=== PATIENT | male | born 1970 | race Caucasian/White ===

== ENCOUNTER 2019-06-19 21:10 | Emergency (ER) | payer MEDICARE, MEDICAID, SELFPAY | END 2019-06-19 22:37 | disposition home or self-care (01) | PROVIDERS: Emergency Provider Physician Assistant; Family Provider Family Medicine; Visit Provider Physician Assistant | DX: S50.11XA Contusion of right forearm, initial encounter (principal); W01.0XXA Fall on same level from slipping, tripping and stumbling without subsequent striking against object, initial encounter; I10 Essential (primary) hypertension; E11.9 Type 2 diabetes mellitus without complications; Z87.891 Personal history of nicotine dependence | CPT/HCPCS: 73080; 73090; 96372; 99284; J1885 ==

== ENCOUNTER 2020-02-06 09:20 | Emergency (ER) | payer MEDICARE, MEDICAID, SELFPAY ==
[2020-02-06 09:28] VITALS: BP 114/78; PULSE 79; RESP 18; TEMP 36.6; O2SAT 95; BMI 22.9
--- NOTE | 2020-02-06 09:36 | W.ED.EXTPRO ---
HPI - Extremity Problem General: Chief complaint: Extremity Injury, Upper Stated complaint: L SHOULDER PAIN Time Seen by Provider: 02/06/20 09:34 Source: patient Mode of arrival: ambulatory Limitations: no limitations History of Present Illness: HPI Narrative: Patient is a 50-year-old male who presents to ED today with a complaint of left shoulder pain. Patient tells me on Thursday he awoke with the pain. He cannot think of any activities he would have done the day prior to cause his discomfort. He tells me pain seems to be localized to the shoulder joint and radiates down into his left arm. He denies any previous injuries or surgeries to the shoulder. He does not complain of numbness, tingling, loss of sensation to the arm. He has no neck pain. He has not noticed any color/temperature changes to the extremity. MD Complaint: joint pain Onset (ago): day(s) Pain Consistency: constant Location: left and upper extremity Radiation: distal Exacerbating factors: range of motion Associated symptoms: Reports no associated symptoms; Deny chest pain, fever(s) or rash Review of Systems Const: Denies: fever(s) or chills Eyes: Denies: change in vision Card: Denies: chest pain, palpitations, irregular heart rhythm, orthopnea or acrocyanosis Resp: Denies: dyspnea GI: Denies: abdominal pain Musc: Reports: joint pain (L shoulder ) and limited range of motion; Denies: neck pain, back pain, extremity swelling, joint swelling, joint redness, joint warmth, muscle weakness or decrease in muscle mass Skin/Breast: Denies: rash Neuro: Denies: numbness in extremities, weakness in extremities or sensory changes Physical Exam Const: COMMON NORMALS: no acute distress, patient oriented x3, no limitations and alert Neck/C-Spine: COMMON NORMALS: full ROM CERVICAL SPINE: Yes cervical ROM normal, No Cervical spine tenderness and No Paracervical muscle tenderness OTHER: negative Spurling's testing Extremity: GENERAL: Yes normal exam except as noted LEFT UPPER EXTREMITY: Yes shoulder joint (AC joint/glenohumeral joint) Left shoulder joint: Yes inspection (normal), Yes palpation, Yes ROM (dec ROM past 90 deg flexion/abduction; can IR but pain with ER) and Yes neurovascular exam (normal) Neuro: COMMON NORMALS: patient oriented x3, moves all extremities, no focal motor deficits and no sensory deficits noted SENSORIUM/ORIENTATION: Yes alert Skin: COMMON NORMALS: no rashes or lesions noted GENERAL SKIN EXAM: no rashes or lesions noted Course Vital Signs: Vital signs: Vital Signs Temperature 97.8 F 02/06/20 09:28 Pulse Rate 79 02/06/20 09:28 Respiratory Rate 17 02/06/20 09:40 Blood Pressure 114/78 02/06/20 09:28 Pulse Oximetry 95 02/06/20 09:28 MDM - Extremity (Nontraumatic) Imaging Data^: XR L shoulder: Radiologist's impression: [address] [address] XRay Report Signed Patient: Drew Dixon Unit #: [id number] : 1970 Age/Sex: 50 / M ADM Date: 02/06/20 Loc: ER Room/Bed: Attending Dr: Ordering Provider/Ordering MD: Laquita Cason Date of Service: 02/06/20 Procedure(s): XR shoulder LT min 2V* [id number] Accession Number(s): [id number] Report Number: [id number] WS: [id number] LEFT SHOULDER: 2 VIEW(S) TECHNIQUE: Internal and external rotation. HISTORY: pain; limited ROM COMPARISON: None available. Mild narrowing and hypertrophic bone formation at the AC joint. No fracture. Mild narrowing of the glenohumeral joint. Visualized soft tissues are normal. 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 Dictated By: Germaine Christian DO Signed By: Germaine Christian DO Signed Date/Time: 02/06/20 1016 DD/ 1015 Discharge Plan Discharge Patient Disposition: Home Clinical Impression: Acute pain of left shoulder Condition: Stable Prescriptions: New cyclobenzaprine 10 mg tablet 10 mg PO TID Qty: 14 RF: 0 ibuprofen 800 mg tablet 800 mg PO Q8H PRN (Reason: pain) Qty: 20 RF: 0 Medrol (Mumtaz) 4 mg tablets,dose pack See Rx Instructions .ROUTE .COMPLEX Qty: 21 RF: 0 No Action Multiple Vitamins Tablet 1 tab PO DAILY RF: 0 irbesartan-hydrochlorothiazide 150-12.5 mg tablet 2 tab PO DAILY RF: 0 pravastatin 40 mg tablet 40 mg PO QPM RF: 0 amlodipine 5 mg tablet 5 mg PO DAILY RF: 0 Discharge Orders: Discharge Order (Routine); Ordered 02/06/20 Ordered By: Laquita Cason Referrals: Ryan Martinez [Primary Care Provider] - Patient Instructions: Bursitis - Shoulder, Shoulder Sprain (ED), Tendinitis (ED) Activity Restrictions/Additional Instructions: Please followup with Dr. Martinez in 1-2 weeks for persisting pain. Coding Level of Care Code ED Custom Marine Canvas Fabricator for Chg Fwd Exam Detailed
[2020-02-06 09:40] VITALS: RESP 17
--- NOTE | 2020-02-06 09:53 | XR_ITS ---
WS: [id number] LEFT SHOULDER: 2 VIEW(S) TECHNIQUE: Internal and external rotation. HISTORY: pain; limited ROM COMPARISON: None available. Mild narrowing and hypertrophic bone formation at the AC joint. No fracture. Mild narrowing of the gl enohumeral joint. Visualized soft tissues are normal. 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
[2020-02-06] MEDS: ketorolac 60 mg/2 mL INJ IM (10:03)
[2020-02-06] MEDS: dexamethasone 10 mg/mL INJ 8 MG IM (10:03)
--- NOTE | 2020-02-06 10:06 | PC.NURSE ---
XR at bedside
[2020-02-06 10:23] VITALS: RESP 17
== END 2020-02-06 10:24 | disposition home or self-care (01) ==
PROVIDERS: Emergency Provider Physician Assistant; PCP Family Medicine
DX: M25.512 Pain in left shoulder (principal)
CPT/HCPCS: 12345; 73030; 96372; 99282; 99283; J1100; J1885

== ENCOUNTER 2020-08-13 00:25 | Emergency (ER) | payer MEDICARE, MEDICAID, SELFPAY ==
[2020-08-13] VITALS (27 sets, daily range): BP systolic 141–193; BP diastolic 82–100; PULSE 64–83; RESP 16–25; TEMP 36.7; O2SAT 94–98; BMI 40.1
--- NOTE | 2020-08-13 00:38 | XR_ITS ---
WS: [id number] Exam: XR chest 1V portable [id number] Date/Time of Exam: 08/13/2020 1:01 AM Reason For Exam: cp Comparison 02/14/2019. Findings: The lungs are clear and fully expanded. Costophrenic angles are sharp. No infiltrates. Bronchovascula r relief appears normal. Cardiac silhouette is unremarkable. Bony elements are intact. XR/XR chest 1V portable [id number] IMPRESSION: Unremarkable chest radiograph.
--- NOTE | 2020-08-13 00:38 | ECG_ITS ---
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 Measurements Intervals [place] Rate: 78 P: 47 SD: 197 QRS: 26 QRSD: 110 T: 41 QT: 378 QTc: 433 Interpretive Statements SINUS RHYTHM Compared to ECG 02/11/2019 02:59:14 Incomplete right bundle-branch block no longer present Electronically Signed On 08-13-2020 12:39:47 PAPER WOOD CUTTER by Alise Coronel M.D. [email or web address]/NU/[id number] f
[2020-08-13 01:11] LABS: Basophils # 0.1 10^3/uL (0.0-0.1); Basophils % 0.8 %; Eosinophils # 0.1 10^3/uL (0.0-0.8); Eosinophils % 1.4 %; Hematocrit 39.2 % (42.0-52.0); Hemoglobin 12.8 g/dL (11.7-16.6); Lymphocytes # 1.8 10^3/uL (0.8-4.8); Lymphocytes % 28.3 %; Mean Corpuscular HGB Conc 32.7 g/dL (30.0-36.0); Mean Corpuscular Hemoglobin 28.3 pg (28.0-34.0); Mean Corpuscular Volume 86.7 fL (80-94); Mean Platelet Volume 11.6 fL (7.4-10.4); Monocytes # 0.4 10^3/uL (0.2-0.9); Neutrophils # 3.87 10^3/uL (1.8-7.7); Nucleated Red Blood Cells % 0 %; Platelet Count 200 10^3/cmm (130-400); Red Blood Count 4.52 10^6/uL (4.1-5.3); Red Cell Distribution Width 13.6 % (12.1-15.1); White Blood Count 6.3 10^3/uL (4.0-10.0)
--- NOTE | 2020-08-13 01:24 | CTR_ITS ---
PROCEDURE INFORMATION: Exam: CT Chest With Contrast; Diagnostic Exam date and time: 08/13/2020 1:26 AM Age: 50 years old Clinical indication: Injury or trauma; Fall; Blunt trauma (contusions or hematomas) TECHNIQUE: Imaging protocol: Diagnostic computed tomography of the chest with contrast. Radiation optimization: All CT scans at this facility use at least one of these dose optimization techniques: automated exposure control; mA and/or kV adjustment per patient size (includes targeted exams where dose is matched to clinical indication); or iterative reconstruction. Contrast material: OMNI 300; Contrast volume: 95 ml; Contrast route: INTRAVENOUS (IV); COMPARISON: CTA Chest-Pulmonary Emb 12009 02/10/2019 8:56 PM RADIATION DOSE METRICS: Total DLP (mGy-cm): 1209.19 FINDINGS: Lungs: There is an 8.4 mm pulmonary nodularity seen in the right lower lobe anteriorly appearing slightly more prominent than that present 02/10/2019, previously measuring 6.9 mm. 13.4 mm pulmonary nodularity is seen in the right lower lobe more centrally. Smaller nodularities are seen in the right lower lobe as well. Pleural spaces: Unremarkable. No pneumothorax. No pleural effusion. Heart: Unremarkable. No cardiomegaly. No pericardial effusion. Aorta: Unremarkable. No aortic aneurysm. Lymph nodes: There is stable right hilar adenopathy compared with 02/10/2019. Liver: There is diffuse hypoattenuation of the hepatic parenchyma compatible with fatty infiltration. Bones/joints: Unremarkable. No acute fracture. Soft tissues: Unremarkable. CT/CT chest w con* [id number] IMPRESSION: 1. There are no acute chest findings. 2. There is stable right hilar adenopathy compared with 02/10/2019. 3. There are several small pulmonary nodularities seen in the right lower lobe. A pulmonary nodularity previously measuring 6.9 mm now measures 8.4 mm. A 13.4 mm pulmonary nodularity is seen in the right lower lobe more centrally. Consider PET/CT, or tissue sampling.(Reference: Enrique) 4. Fatty infiltration of the liver REFERENCES: Enrique Conn et al. Guidelines for Management of Incidental Pulmonary Nodules Detected on CT Images: From the Fleischner Society 2017. Radiology. 2017;284(1):228-243. Radiation Dose CTDIVOL = (mGy): DLP = 1209.19 (mGy-cm)
--- NOTE | 2020-08-13 01:24 | CTR_ITS ---
PROCEDURE INFORMATION: Exam: CT Head Without Contrast Exam date and time: 08/13/2020 1:26 AM Age: 50 years old Clinical indication: Injury or trauma; Fall; Blunt trauma (contusions or hematomas); Consciousness not specified TECHNIQUE: Imaging protocol: Computed tomography of the head without contrast. Radiation optimization: All CT scans at this facility use at least one of these dose optimization techniques: automated exposure control; mA and/or kV adjustment per patient size (includes targeted exams where dose is matched to clinical indication); or iterative reconstruction. COMPARISON: No relevant prior studies available. RADIATION DOSE METRICS: Total DLP (mGy-cm): 786.07 FINDINGS: Brain: Normal. No hemorrhage. Unremarkable white matter. No mass effect. Cerebral ventricles: No ventriculomegaly. Bones/joints: Unremarkable. No acute fracture. Paranasal sinuses: Visualized sinuses are unremarkable. No fluid levels. Mastoid air cells: Visualized mastoid air cells are well aerated. Soft tissues: Unremarkable. CT/CT head wo con* [id number] IMPRESSION: No acute intracranial abnormality. Radiation Dose CTDIVOL = (mGy): DLP = 786.07 (mGy-cm)
[2020-08-13 01:35] LABS: Troponin(5th) Baseline 8 ng/L (0-15)
[2020-08-13 01:43] LABS: Alanine Aminotransferase 63 U/L (0-41); Alkaline Phosphatase 72 IU/L (40-130); Anion Gap 14.8 (5-19); Aspartate Amino Transferase 25 U/L (0-40); Blood Urea Nitrogen 14 mg/dL (6-20); Carbon Dioxide 27 mmol/L (22-29); Chloride 98 mmol/L (98-107); Globulin 2.3 g/dL (1.3-4.6); Glomerular Filtration Rate 90.1 mL/min (90-130); Glucose 306 mg/dL (65-115); NT Pro B Type Natriuretic Pept 136 pg/mL (0-125); Osmolality Calculated 294 mOsm/kg (285-295); Potassium 3.8 mmol/L (3.5-5.1); Sodium 136 mmol/L (136-145); Total Bilirubin 0.3 mg/dL (0.15-1.2); Total Protein 6.3 g/dL (6.6-8.7)
[2020-08-13] MEDS: iohexol 300 mg/mL 100 mL Btl IV (01:56)
--- NOTE | 2020-08-13 02:14 | W.ED.CHESTPA ---
HPI - Chest Pain General: Chief Complaint: Chest Pain Stated Complaint: CP Time Seen by Provider: 08/13/20 00:36 History of Present Illness: HPI narrative: 50-year-old male presents with chest discomfort. He states that he was in his recliner this evening, and felt a vice squeezing on his chest. Symptoms are resolved now. He has been dizzy though as well. He states with change in position he gets a head holman . No significant shortness of breath. He did have some nausea. Of note, he fell after slipping on the ice around 830 yesterday morning. He states he landed on his shoulders and upper back but does not believe he hit his head. MD complaint: chest pain Prior episodes: No Onset: during rest Pain location: parasternal Pain radiation: none Severity: moderate Quality: tightness and heaviness Relieving factors: nothing Exacerbating factors: nothing Associated symptoms: Reports diaphoresis and nausea; Deny dyspnea, fever(s), palpitations or vomiting Treatment prior to arrival: none Review of Systems Const: Reports: diaphoresis; Denies: fever(s) Eyes: Denies: change in vision ENMT: Denies: odynophagia, swelling of lips/tongue or sinus pain Card: Reports: chest pain; Denies: palpitations, irregular heart rhythm or edema Resp: Denies: dyspnea GI: Reports: nausea; Denies: vomiting : Denies: difficulty urinating or hematuria Musc: Denies: neck pain or joint warmth Skin/Breast: Denies: rash or erythema Neuro: Reports: dizziness; Denies: headache(s) or vertigo Psych: Denies: anxiety Physical Exam Const: GENERAL APPEARANCE: well developed ORIENTATION/CONSCIOUSNESS: Yes oriented to person, Yes oriented to place and Yes oriented to time HENMT: COMMON NORMALS: normocephalic, external ears normal and Normal external nose present HEAD & SCALP: normocephalic FACE & SINUS: normal facial exam NOSE: Normal external nose present and No nasal discharge present EXTERNAL EAR: Yes external ears normal Eye: COMMON NORMALS: Equal, round and reactive pupils present, EOMs intact bilaterally and conjunctivae normal EYELID: eyelids normal CONJUNCTIVA: Yes conjunctivae normal PUPIL: Yes Equal, round and reactive pupils present Neck/C-Spine: GENERAL: No tracheal deviation Chest: COMMONS NORMALS: normal inspection of the chest CHEST: No tenderness Resp: COMMON NORMALS: clear to auscultation bilaterally EFFORT & INSPECTION: No tachypneic, No respiratory distress, No retractions, No uses accessory muscles and No tracheal deviation AUSCULTATION: clear to auscultation bilaterally, no rhonchi, no wheezes and lung sounds not diminished Cardio: COMMON NORMALS: regular rate and regular rhythm RATE: regular rate RHYTHM: regular rhythm HEART SOUNDS: no murmurs PERIPHERAL PULSES: radial pulses present GI: INSPECTION: No abdominal distension AUSCULTATION: No Hyperactive bowel sounds present and No Hypoactive bowel sounds present PALPATION: No Guarding due to palpation present (GI) and No Rigid due to palpation PERCUSSION: no dullness to percussion and no tympanic to percussion Neuro: SENSORIUM/ORIENTATION: Yes oriented to person, Yes oriented to place and Yes oriented to time Psych: COMMON NORMALS: mental status grossly normal Skin: COMMON NORMALS: no rashes or lesions noted GENERAL SKIN EXAM: no rashes or lesions noted Course Vital Signs: Vital signs: Vital Signs Temperature 98.1 F 08/13/20 03:49 Pulse Rate 76 08/13/20 03:49 Respiratory Rate 16 08/13/20 03:49 Blood Pressure 143/82 08/13/20 03:49 Pulse Oximetry 96 08/13/20 03:49 MDM - Chest Pain MDM Narrative: Medical decision making narrative: 50-year-old male with chest discomfort, resolved currently. EKG shows a normal sinus rhythm. There are no acute ST changes. [place] is normal. He has no prior history of coronary disease. He does have a prior history of diabetes. He is hyperglycemic. Otherwise labs are benign. His troponin did not elevate. Head CT done because of the fall and dizziness. It is negative as well as a chest CT, ensuring that he did not injure his chest in the fall. He has known mediastinal lymphadenopathy with a known lung nodule in the right lung which will be followed up as an outpatient. Lab Data: Labs: Lab Results 08/13/20 08/13/20 08/13/20 Range/Units 00:43 00:43 00:43 WBC 6.3 (4.0-10.0) 10^3/ uL RBC 4.52 (4.1-5.3) 10^6/u L Hgb 12.8 (11.7-16.6) g/dL Hct 39.2 L (42.0-52.0) % MCV 86.7 (80-94) fL MCH 28.3 (28.0-34.0) pg MCHC 32.7 (30.0-36.0) g/dL RDW 13.6 (12.1-15.1) % Plt Count 200 (130-400) 10^3/c mm MPV 11.6 H (7.4-10.4) fL Neut % (Auto) 62.0 % Lymph % (Auto) 28.3 % [place] % (Auto) 7.0 % Eos % (Auto) 1.4 % Baso % (Auto) 0.8 % Neut # (Auto) 3.87 (1.8-7.7) 10^3/u L Lymph # (Auto) 1.8 (0.8-4.8) 10^3/u L [place] # (Auto) 0.4 (0.2-0.9) 10^3/u L Eos # (Auto) 0.1 (0.0-0.8) 10^3/u L Baso # (Auto) 0.1 (0.0-0.1) 10^3/u L Nucleated RBC % (a uto) 0 % Nucleated RBCs # 0.0 /100WBC Sodium 136 (136-145) mmol/L Potassium 3.8 (3.5-5.1) mmol/L Chloride 98 (98-107) mmol/L Carbon Dioxide 27 (22-29) mmol/L Anion Gap 14.8 (5-19) BUN 14 (6-20) mg/dL Creatinine 0.9 (0.7-1.2) mg/dL GFR Calculation 90.1 (90-130) mL/min Glucose 306 H (65-115) mg/dL Calculated Osmolal ity 294 (285-295) mOsm/k g Calcium 9.0 (8.5-10.5) mg/dL Total Bilirubin 0.3 (0.15-1.2) mg/dL AST 25 (0-40) U/L ALT 63 H (0-41) U/L Alkaline Phosphata se 72 (40-130) IU/L Troponin T Baselin e 8 (0-15) ng/L Troponin T 120 Min [place] (0-15) ng/L Delta Troponin T (0-10) ABS# NT-Pro-B Natriuret Pep 136 H (0-125) pg/mL Total Protein 6.3 L (6.6-8.7) g/dL Albumin 4.0 (3.5-5.2) g/dL Globulin 2.3 (1.3-4.6) g/dL 08/13/20 Range/Units 02:42 WBC (4.0-10.0) 10^3/ uL RBC (4.1-5.3) 10^6/u L Hgb (11.7-16.6) g/dL Hct (42.0-52.0) % MCV (80-94) fL MCH (28.0-34.0) pg MCHC (30.0-36.0) g/dL RDW (12.1-15.1) % Plt Count (130-400) 10^3/c mm MPV (7.4-10.4) fL Neut % (Auto) % Lymph % (Auto) % [place] % (Auto) % Eos % (Auto) % Baso % (Auto) % Neut # (Auto) (1.8-7.7) 10^3/u L Lymph # (Auto) (0.8-4.8) 10^3/u L [place] # (Auto) (0.2-0.9) 10^3/u L Eos # (Auto) (0.0-0.8) 10^3/u L Baso # (Auto) (0.0-0.1) 10^3/u L Nucleated RBC % (a uto) % Nucleated RBCs # /100WBC Sodium (136-145) mmol/L Potassium (3.5-5.1) mmol/L Chloride (98-107) mmol/L Carbon Dioxide (22-29) mmol/L Anion Gap (5-19) BUN (6-20) mg/dL Creatinine (0.7-1.2) mg/dL GFR Calculation (90-130) mL/min Glucose (65-115) mg/dL Calculated Osmolal ity (285-295) mOsm/k g Calcium (8.5-10.5) mg/dL Total Bilirubin (0.15-1.2) mg/dL AST (0-40) U/L ALT (0-41) U/L Alkaline Phosphata se (40-130) IU/L Troponin T Baselin e (0-15) ng/L Troponin T 120 Min [place] 8.16 (0-15) ng/L Delta Troponin T 0.16 (0-10) ABS# NT-Pro-B Natriuret Pep (0-125) pg/mL Total Protein (6.6-8.7) g/dL Albumin (3.5-5.2) g/dL Globulin (1.3-4.6) g/dL Discharge Plan Discharge Patient Disposition: Home Clinical Impression: Hyperglycemia Chest pain Qualifiers: Chest pain type: unspecified Qualified Code(s): R07.9 - Chest pain, unspecified Condition: Stable Prescriptions: No Action Multiple Vitamins Tablet 1 tab PO DAILY RF: 0 irbesartan-hydrochlorothiazide 150-12.5 mg tablet 2 tab PO DAILY RF: 0 pravastatin 40 mg tablet 40 mg PO QPM RF: 0 amlodipine 5 mg tablet 5 mg PO DAILY RF: 0 cyclobenzaprine 10 mg tablet 10 mg PO TID Qty: 14 RF: 0 ibuprofen 800 mg tablet 800 mg PO Q8H PRN (Reason: pain) Qty: 20 RF: 0 Medrol (Mumtaz) 4 mg tablets,dose pack See Rx Instructions .ROUTE .COMPLEX Qty: 21 RF: 0 Discharge Orders: Discharge ED (Routine); Ordered 08/13/20 Ordered By: Moris Brennan Referrals: Ryan Martinez [Primary Care Provider] - Discharge Diet: Advance as tolerated Discharge Activity: Resume usual activity Patient Instructions: Chest Pain (ED), Hyperglycemia, Non-Diabetic (ED) Activity Restrictions/Additional Instructions: Return to the emergency department for return of or worsening chest discomfort, shortness of breath, fever, cough, other concerning symptoms. Return also for worsening dizziness mental status changes etc. Follow-up with your doctor, as further testing may be needed. Your blood sugar was high this morning, so further testing and treatment may be needed for that as well. Coding Level of Care Code ED Respiratory Therapy Director for Chg Fwd Exam Comprehensive
--- NOTE | 2020-08-13 02:38 | ECG_ITS ---
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 Measurements Intervals [place] Rate: 69 P: 50 PA: 203 QRS: 24 QRSD: 109 T: 43 QT: 400 QTc: 431 Interpretive Statements SINUS RHYTHM Compared to ECG 08/13/2020 00:34:36 No significant changes Electronically Signed On 08-14-2020 6:13:55 EXERCISE RIDER by Alise Coronel M.D. [id number]
[2020-08-13 03:19] LABS: Troponin 5 2HR 8.16 ng/L (0-15); Troponin 5 2HR Delta 0.16 ABS# (0-10)
== END 2020-08-13 03:49 | disposition home or self-care (01) ==
PROVIDERS: Emergency Provider Emergency Medicine; PCP Family Medicine
DX: R07.9 Chest pain, unspecified (principal); R73.9 Hyperglycemia, unspecified
CPT/HCPCS: 70450; 71045; 71260; 80053; 83880; 84484; 85025; 93005; 99284; Q9967

== ENCOUNTER → 2021-04-19 09:50 | Outpatient (BNVA) | payer MEDICARE, MEDICAID, SELFPAY | PROVIDERS: PCP Family Medicine; Visit Provider Internal Medicine Critical Care Medicine | DX: Z01.812 Encounter for preprocedural laboratory examination (principal); Z20.822 Contact with and (suspected) exposure to COVID-19 | CPT/HCPCS: 87635 ==

== ENCOUNTER 2021-04-23 05:40 | Day surgery (SDC) | payer MEDICARE, MEDICAID, SELFPAY ==
[2021-04-19 09:16] VITALS: BMI 34.8
[2021-04-23] VITALS (8 sets, daily range): BP systolic 109–126; BP diastolic 68–79; PULSE 57–79; RESP 16–20; TEMP 36.1–36.4; O2SAT 97–100
--- NOTE | 2021-04-23 06:22 | ECG_ITS ---
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 Measurements Intervals [place] Rate: 73 P: 49 SD: 266 QRS: 28 QRSD: 109 T: 29 QT: 398 QTc: 439 Interpretive Statements SINUS RHYTHM WITH FIRST DEGREE AV BLOCK INCOMPLETE RIGHT BUNDLE BRANCH BLOCK [90+ ms QRS DURATION, TERMINAL R IN V1/V2, 40+ ms S IN I/aVL/V4/V5/V6] Compared to ECG 08/13/2020 02:45:25 First degree AV block now present Incomplete right bundle-branch block now present Electronically Signed On 04-23-2021 22:15:38 CDT by Alise Coronel M.D. [email or web address]/OM/[id number]
[2021-04-23] MEDS: sodium chloride 0.9% 1,000 ML 30 ML IV (06:28)
[2021-04-23 06:29] LABS: Glucose Point of Care 120 mg/dL (70-110)
--- NOTE | 2021-04-23 06:49 | ANES.PREANE2 ---
Pre-Anesthetic Assessment Pre-Anesthetic Assessment: Height/Weight: Height 1.78 m Weight 110.223 kg Temp Pulse Resp BP Pulse Ox 97.5 F L 73 18 124/79 99 04/23/21 06:14 04/23/21 06:14 04/23/21 06:14 04/23/21 06:14 04/23/21 06:14 Preop Diagnosis: Mediastinal and hilar lymphadenopathy Proposed Procedure: Operation Date: 04/23/21 07:00 Proposed Procedures p Ebus [id number] R91.1(Not Applicable) - Bipjaron Mcmillan MD Was Beta Nolan taken within 24 hours: N/A Was Clonidine taken within 24 hours: N/A Last intake: Intake Last Liquid Date 04/22/21 Last Liquid Time 21:00 Last Solid Date 04/22/21 Last Solid Time 21:00 Social: Social History: No tobacco Comment: Distant Hx smoking Exam: Pre-Anes Outpt Exam: alert, oriented x 3, clear to auscultation bilaterally and regular rate & rhythm Airway: Submandibular: WNL Cervical ROM: WNL MP: 2 Dentition: Full History/ROS: No significant history except as noted and No significant complaints Pulmonary: Comments: R lung mass CV/HEM: CV/HEM: HTN : : None reported Hepatic: Hepatic: None reported GI: GI: None reported Metabolic: Metabolic: DM and Morbid obesity Musc/skel: Musc/skel: None reported Neuropsych: Neuropsych: None reported Anesthetic Plan: ASA status: 3 Anesthesia: Anesthesia Evaluation and General Risk of > 500 ml blood loss (7ml/kg in children): No Meds/Allergies Current Medications: Current Medications Generic Name Dose Route Start Last Admin Trade Name Freq PRN Reason Stop Dose Admin Sodium Chloride 1,000 mls @ 30 ml s/hr 04/23/21 06:00 04/23/21 06:28 Sodium Chloride 0.9% IV 04/24/21 05:59 30 mls/hr .Q24H MYLENE Administration PFSH Anesthesia PFSH: Medical History HTN (hypertension) Hyperlipidemia Lung nodule Type 2 diabetes mellitus Surgical History H/O knee surgery H/O rhinoplasty H/O shoulder surgery History of appendectomy History of back surgery History of gastric surgery Family History Family/Other Diabetes Grandfather Heart disease Grandmother Cancer Leukemia Social History Quit status (tobacco): has quit using tobacco Year quit tobacco: 2001 Former quit date comment: Hx of 1 PPD x 12 Years Second hand smoke exposure: No Smoking risk assessment/counseling performed?: No Alcohol intake: current Alcohol intake frequency: holidays/special occasions only Counseling given: No Counseling given: No Lives independently: Yes Household members: family Marital status: Single Current occupational status: disabled History of recent travel: No Current gender identity: Male Data Anesthesia CBC & Chem 7: 04/23/21 06:25 Other Labs: Laboratory Results - last 48 hr 04/23/21 06:26 POC Glucose 120 H Cardiac Studies: No Data to Display
--- NOTE | 2021-04-23 06:53 | W.PM.OPSUD ---
Surgery/Procedure H&P Update DATE OF PROCEDURE: April 23, 2021 DATE H&P PERFORMED: 04/15/21 H&P UPDATE INFORMATION: I have reviewed H&P completed within last 30 days, I have examined patient prior to procedure and No changes to prior documentation PREOP DIAGNOSIS: Mediastinal and hilar lymphadenopathy PRIMARY INDICATION FOR PROCEDURE: Mediastinal and hilar lymphadenopathy PLANNED PROCEDURE: Bronchoscopy inspection of the airway, possible endobronchial biopsies, bronchoalveolar lavage, endobronchial sound guided transbronchial needle aspiration of lymph nodes and control of bleeding. Operation Date: 04/23/21 07:00 Proposed Procedures p Ebus [id number] R91.1(Not Applicable) - Bipjaron Mcmillan MD
[2021-04-23 07:12] LABS: Anion Gap 11.6 (5-19); Blood Urea Nitrogen 19 mg/dL (6-20); Calcium 8.7 mg/dL (8.5-10.5); Carbon Dioxide 26 mmol/L (22-29); Chloride 104 mmol/L (98-107); Glomerular Filtration Rate 119.9 mL/min (90-130); Glucose 128 mg/dL (65-115); Osmolality Calculated 290 mOsm/kg (285-295); Potassium 3.6 mmol/L (3.5-5.1); Sodium 138 mmol/L (136-145)
[2021-04-23] MEDS: lidocaine 1% INJ 20 mL XX (07:15)
--- NOTE | 2021-04-23 07:55 | PM.OP ---
Operative Report Date of procedure: April 23, 2021 Pre-op Diagnosis: Mediastinal and hilar lymphadenopathy Post-op diagnosis: same Brief History: This is a 51-year-old gentleman with mediastinal right hilar lymphadenopathy coming in for bronchoscopic evaluation Procedure: Name of the procedure: Bronchoscopy with inspection of the airway, possible bronchoalveolar lavage, endobronchial biopsies, transbronchial biopsies, endobronchial ultrasound-guided transbronchial needle aspiration of lymph nodes and control of bleeding. Indication: Mediastinal hilar lymphadenopathy Anesthesia: General anesthesia. Local anesthesia: The felipe in the right and left mainstem bronchi were anesthetized with 1% lidocaine, 3 mL. Description of the procedure: The procedure was explained to the patient and the consent was obtained. The patient was brought to the OR. The patient underwent endotracheal intubation for general anesthesia. Following induction of general anesthesia, the bronchoscope was advanced through the ET tube. The lower trachea appeared to be normal. The felipe was sharp. The felipe, the right and left mainstem bronchi are anesthetized with 1% lidocaine. In a systematic manner bilateral bronchial tree was then examined. The bronchoscope was advanced into the left mainstem bronchus. The left upper lobe, lingula and left lower lobe bronchi were examined up to the third subsegmental level and no abnormalities were identified. The bronchoscope was then introduced into the right mainstem bronchus. The right upper lobe, right middle lobe and right lower lobe bronchi were examined up to the third subsegmental level and no abnormalities were identified. The endobronchial ultrasound was introduced through the ET tube. Lymphadenopathy involving the subcarinal and right hilar lymph node was identified. There is no lymphadenopathy in station 4R, 10 R lymph node stations. Fine-needle aspiration was performed from station 7 and 11 R. Samples: 1. The transbronchial needle aspiration of the aforementioned lymph node groups were sent for histopathology. Complications: There was no immediate complications.
== END 2021-04-23 08:57 | disposition home or self-care (01) ==
PROVIDERS: Anesthesiology; PCP Family Medicine; Visit Provider Internal Medicine Critical Care Medicine
PROC: BB4BZZZ Ultrasonography of Pleura (ICD-10-PCS; principal; 2021-04-23 07:00)
PROC: 0BJ08ZZ Inspection of Tracheobronchial Tree, Via Natural or Artificial Opening Endoscopic (ICD-10-PCS; CPT 31622; 2021-04-23 07:00)
DX: R59.0 Localized enlarged lymph nodes (principal); R91.8 Other nonspecific abnormal finding of lung field; I10 Essential (primary) hypertension; E78.5 Hyperlipidemia, unspecified; E11.9 Type 2 diabetes mellitus without complications; Z79.84 Long term (current) use of oral hypoglycemic drugs; Z87.891 Personal history of nicotine dependence
CPT/HCPCS: 31622; 31652; 36415; 36416; 80048; 82962; 88305; 93005; 96360; 96361; J0330; J2405; J2704; J2710; J3010; J3490; J7030

== ENCOUNTER → 2021-06-20 11:38 | Outpatient (BNVA) | payer MEDICARE, MEDICAID, SELFPAY | PROVIDERS: PCP Family Medicine; Visit Provider Internal Medicine Critical Care Medicine | DX: Z01.812 Encounter for preprocedural laboratory examination (principal); Z20.822 Contact with and (suspected) exposure to COVID-19 | CPT/HCPCS: 87635 ==

== ENCOUNTER 2021-06-27 10:55 | Outpatient (CLI) | payer MEDICARE, MEDICAID, SELFPAY ==
--- NOTE | 2021-06-27 11:16 | PFTS_ITS ---
Date of Study:06/27/21 Date of Dictation: 06/27/2021 MECHANICS: Postbronchodilator forced vital capacity (FVC) is normal. Postbronchodilator forced expiratory volume in one second (FEV1) is normal. FEV1/FVC is normal. There is no significant response to bronchodilators. FLOW VOLUME LOOP: Sloping of expiratory limb suggestive of small airway obstruction . LUNG VOLUMES: Total lung capacity (TLC) is normal. Residual volume (RV) is increased suggestive of severe air trapping. DIFFUSING CAPACITY FOR CARBON MONOXIDE: Normal . INTERPRETATION: The spirometry is normal. Lung volumes suggestive of severe air trapping indirectly supporting obstructive process. Normal gas transfer. Correlate clinically. MTDD
== END 2021-06-27 10:56 | disposition home or self-care (01) ==
LOC: RT 11:00
PROVIDERS: PCP Family Medicine; Visit Provider Internal Medicine Critical Care Medicine
DX: R91.1 Solitary pulmonary nodule (principal)
CPT/HCPCS: 94060; 94726; 94729; J7611

== ENCOUNTER 2021-09-06 18:46 | Emergency (ER) | payer MEDICARE, MEDICAID, SELFPAY ==
[2021-09-06 19:08] VITALS: BP 161/98; PULSE 98; RESP 16; TEMP 36.7; O2SAT 96; BMI 39.9
--- NOTE | 2021-09-06 19:34 | ED_ITS ---
HPI - Back Pain/Injury General: Chief Complaint: Back Pain/Injury Stated Complaint: pulled muscle Time Seen by Provider: 09/06/21 19:18 History of Present Illness: Patient is a 51-year-old male comes to the ED with lower back pain. Patient says that symptoms started earlier today. He said he was bending over to touch his foot and he felt a strain or pop in the right lumbar region. Pain is not located near his spine and more towards the right lateral side of the lower back. Patient thinks he pulled a muscle. He has 4 out of 10 pain currently and it hurts whenever he does any upper body movement. He has not taken anything for pain before coming to the ED. Patient says he does not want to be on any steroids because it makes him very agitated. Denies any cauda equina symptoms. Associated symptoms: Deny abdominal pain, chills, dysuria, fatigue, fever(s), hematuria, nausea or vomiting Review of Systems Const: Denies: fever(s), chills or fatigue Eyes: Denies: change in vision or eye discomfort ENMT: Denies: throat pain, odynophagia, nasal discharge or nasal congestion Card: Denies: chest pain, palpitations, edema, swelling of feet/ankles, dyspnea on exertion or orthopnea Resp: Denies: dyspnea, productive cough or non-productive cough GI: Denies: abdominal pain, nausea, vomiting, diarrhea, constipation or hematochezia : Denies: flank pain, difficulty urinating, dysuria or hematuria Musc: Reports: back pain; Denies: neck pain or extremity swelling Skin/Breast: Denies: rash or new lesions Neuro: Denies: headache(s), numbness in extremities or weakness in extremities PFSH ED PFSH: Medical History HTN (hypertension) Hyperlipidemia Lung nodule Type 2 diabetes mellitus Surgical History H/O knee surgery H/O rhinoplasty H/O shoulder surgery History of appendectomy History of back surgery History of gastric surgery Family History Family/Other Diabetes Grandfather Heart disease Grandmother Cancer Leukemia Social History Quit status (tobacco): has quit using tobacco Year quit tobacco: 2001 Former quit date comment: Hx of 1 PPD x 12 Years Second hand smoke exposure: No Smoking risk assessment/counseling performed?: No Alcohol intake: current Alcohol intake frequency: holidays/special occasions only Counseling given: No Counseling given: No Lives independently: Yes Household members: family Marital status: Single Current occupational status: disabled History of recent travel: No Current gender identity: Male Physical Exam Const: COMMON NORMALS: no acute distress, patient oriented x3 and alert GENERAL APPEARANCE: cooperative and comfortable HENMT: COMMON NORMALS: normocephalic HEAD & SCALP: normocephalic MOUTH: Normal oral and palatal mucosa present THROAT: posterior oropharynx normal and uvula midline Neck/C-Spine: COMMON NORMALS: supple GENERAL: Yes normal visual inspection Resp: COMMON NORMALS: normal respiratory effort, No retractions, No use of accessory muscles and clear to auscultation bilaterally AUSCULTATION: clear to auscultation bilaterally Cardio: COMMON NORMALS: regular rate, regular rhythm, S1 normal heart sound present, S2 normal heart sound present, No gallops present (Cardio), No clicks present (Cardio), No murmurs present (Cardio) and Peripheral pulses 2+ throughout RATE: regular rate RHYTHM: regular rhythm HEART SOUNDS: S1 normal heart sound present and S2 normal heart sound present PERIPHERAL PULSES: Peripheral pulses 2+ throughout GI: COMMON NORMALS: Normal to inspection, nondistended, normoactive bowel sounds present, Soft to palpation, non-tender and no masses PALPATION: Yes Soft to palpation : COMMON NORMALS: Yes no CVA tenderness BLADDER/KIDNEY EXAM: Yes no CVA tenderness Back/Pelvis: COMMON NORMALS: no CVA tenderness LUMBAR SPINE/LOWER BACK: Yes pain with ROM, No lumbar spinal tenderness and Yes paraspinal muscle tenderness Lumbar paraspinal muscle tenderness: right Right lumbar paraspinal muscle tenderness: L4 and L5 Extremity: COMMON NORMALS: normal to inspection Neuro: COMMON NORMALS: patient oriented x3 and moves all extremities SENSORIUM/ORIENTATION: Yes alert Skin: GENERAL SKIN EXAM: dry skin Course Vital Signs: Vital signs: Vital Signs Temperature 98.0 F 09/06/21 19:08 Pulse Rate 98 09/06/21 19:08 Respiratory Rate 16 09/06/21 19:08 Blood Pressure 161/98 09/06/21 19:08 Pulse Oximetry 96 09/06/21 19:08 MDM - Back Pain/Injury Medical Decision Making Patient is a 51-year-old male comes to the ED with right lower lumbar pain. Pain started when he was reaching over to touch his foot. He felt the pop and a stretch in his right lower back. Denies any spinal tenderness. He has right paraspinal lumbar tenderness. Denies any cauda equina symptoms. Patient was given a dose of Toradol and Norflex while in the ED. He is diagnosed with low back strain was discharged home with a prescription for Celebrex and Flexeril. Return to ED precautions given. Follow-up with PCP in 7 to 10 days for reevaluation. Patient understood and agreed with plan. Discharge Plan Discharge Patient Disposition: Home Clinical Impression: Low back strain Qualifiers: Encounter type: initial encounter Qualified Code(s): S39.012A - Strain of muscle, fascia and tendon of lower back, initial encounter Condition: Stable Prescriptions: New Celebrex 100 mg capsule 100 mg PO BID PRN (Reason: pain) Qty: 20 0RF cyclobenzaprine 7.5 mg tablet 7.5 mg PO BID PRN (Reason: muscle spasm and pain) Qty: 20 0RF No Action metformin 500 mg tablet 500 mg PO BID 0RF melatonin 5 mg capsule 5 mg PO .QHS 0RF irbesartan-hydrochlorothiazide 150-12.5 mg tablet 2 tab PO DAILY 0RF Rx Instructions: pt states he takes one tab bid pravastatin 40 mg tablet 40 mg PO QPM 0RF amlodipine 5 mg tablet 5 mg PO DAILY 0RF Discharge Orders: Discharge ED (Routine); Ordered 09/06/21 Ordered By: Ced Rob Referrals: Ryan Martinez [Primary Care Provider] - Discharge Diet: Regular Discharge Activity: Increase activity as tolerated Patient Instructions: Low Back Strain (ED), Lower Back Exercises (ED) Activity Restrictions/Additional Instructions: Follow-up with medical provider as directed in the next 7 to 10 days reevaluation. Apply cold pack or heat on lower back to help with symptoms. Rest and limit lifting for the next week. Do lower back muscle stretches daily. Take medications as prescribed. Cyclobenzaprine is a muscle relaxer and can cause some drowsiness so take at night before going to bed. Return to the ER or your medical provider if condition worsens. Please read and understand discharge instructions. Thank you for choosing [facility] for your healthcare needs today. Please realize this is an emergency room and that we are providing you with a medical screening exam and this may not be complete and all inclusive of all the testing and or work up that you may need to determine your ailment or severity of your illness. It is very important that you follow up as instructed or that you return to the Emergency Department should you have concerns or if your condition changes or worsens in any way. Coding Level of Care Code ED Insole And Heel Stiffener for Marina Fwvannessa Exam Comprehensive
[2021-09-06] MEDS: orphenadrine 30 mg/mL Inj 2 mL 60 MG IM (19:38)
[2021-09-06] MEDS: ketorolac 60 mg/2 mL INJ IM (19:38)
== END 2021-09-06 19:48 | disposition home or self-care (01) ==
PROVIDERS: Emergency Provider Physician Assistant; PCP Family Medicine
DX: S39.012A Strain of muscle, fascia and tendon of lower back, initial encounter (principal); Z79.84 Long term (current) use of oral hypoglycemic drugs; I10 Essential (primary) hypertension; E78.5 Hyperlipidemia, unspecified; E11.9 Type 2 diabetes mellitus without complications; Z87.891 Personal history of nicotine dependence; X50.1XXA Overexertion from prolonged static or awkward postures, initial encounter
CPT/HCPCS: 96372; 99283; J1885; J2360

== ENCOUNTER → 2021-11-04 07:58 | Outpatient (BNVA) | payer MEDICARE, MEDICAID, SELFPAY | PROVIDERS: PCP Family Medicine; Visit Provider Internal Medicine Critical Care Medicine | DX: R91.1 Solitary pulmonary nodule (principal); D86.9 Sarcoidosis, unspecified; J98.4 Other disorders of lung; Z87.891 Personal history of nicotine dependence; I10 Essential (primary) hypertension; E78.5 Hyperlipidemia, unspecified | CPT/HCPCS: 71046; 99214 ==

== ENCOUNTER 2022-01-01 09:31 | Emergency (ER) | payer MEDICARE, MEDICAID, SELFPAY ==
[2022-01-01 09:50] VITALS: BP 77/53; PULSE 78; RESP 16; TEMP 36.4; O2SAT 97; BMI 35.2
[2022-01-01 10:17] VITALS: BP 101/67; PULSE 81; RESP 24; O2SAT 95
--- NOTE | 2022-01-01 10:19 | XRR_ITS ---
PROCEDURE INFORMATION: Exam: XR Cervical Spine Exam date and time: 01/01/2022 10:43 AM Age: 51 years old Clinical indication: Neck pain; Patient HX: Neck cramp in the posterior neck that radiates down to shoulder blades and mid back TECHNIQUE: Imaging protocol: Radiologic exam of the cervical spine. Views: 2 or 3 views. COMPARISON: CR XR chest 2V* [id number] 11/04/2021 8:58 AM FINDINGS: Limitations: The C7 level is obscured by the patient's shoulders on the lateral view. The lateral view is also rotated. Bones/joints: The visualized cervical vertebral bodies maintain height. The facets appear to align normally. There is however extensive bilateral multilevel facet arthropathy. The atlantodens interval is not widened. The visualized spinolaminar line appears intact. No fracture demonstrated. Soft tissues: No prevertebral soft tissue swelling. XR/XR cervical spine 3V* [id number] IMPRESSION: Technically limited exam. Multilevel bilateral facet arthropathy.
--- NOTE | 2022-01-01 10:19 | XRR_ITS ---
PROCEDURE INFORMATION: Exam: XR Chest Exam date and time: 01/01/2022 10:43 AM Age: 51 years old Clinical indication: Pain; Other: Neck, back; Patient HX: Neck cramp in the posterior neck that radiates down to shoulder blades and mid back; Additional info: Neck/back pain; Hypotension TECHNIQUE: Imaging protocol: Radiologic exam of the chest. Views: 1 view. COMPARISON: CR XR chest 2V* [id number] 11/04/2021 8:58 AM FINDINGS: Lungs: No pneumonia or pulmonary edema. Pleural spaces: No pleural effusion or pneumothorax. Heart/Mediastinum: The cardiac silhouette is not enlarged. The mediastinal contours are normal. Bones/joints: No acute osseous abnormality. XR/XR chest 1V portable [id number] IMPRESSION: No acute finding.
--- NOTE | 2022-01-01 10:19 | ECG_ITS ---
[facility] Test Date: 2022-01-01 Pat Name: Drew Dixon Department: Room: Gender: Male Emulsion Operator: : 1970 Requested By: Laquita Cason Order Number: [id number] Barry MD: Wilman Madison M.D. Measurements Intervals [place] Rate: 73 P: 34 CT: 189 QRS: 11 QRSD: 111 T: 30 QT: 398 QTc: 439 Interpretive Statements SINUS RHYTHM INCOMPLETE RIGHT BUNDLE BRANCH BLOCK [90+ ms QRS DURATION, TERMINAL R IN V1/V2, 40+ ms S IN I/aVL/V4/V5/V6] MINIMAL VOLTAGE CRITERIA FOR LVH, CONSIDER NORMAL VARIANT [MEETS CRITERIA IN ONE OF: R(aVL), S(V1), R(V5), R(V5/V6)+S(V1)] INTERPRETATION BASED ON A DEFAULT AGE OF 40 YEARS Compared to ECG 04/23/2021 06:34:03 First degree AV block no longer present Electronically Signed On 01-01-2022 23:40:20 CDT by Wilman Madison M.D. [id number]
--- NOTE | 2022-01-01 10:20 | ED_ITS ---
Documented by User: ROSELIA Underwood 01/01/22 15:07 HPI - Neck Pain/Injury General: Chief Complaint: Neck Pain/Injury Stated Complaint: upper neck and back pain Time Seen by Provider: 01/01/22 09:33 Source: patient Mode of arrival: ambulatory Limitations: no limitations History of Present Illness: Patient is a 51-year-old male who presents to ED today with a complaint of neck, upper back, and shoulder pain. Patient states pain began today while at work. 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 Patient denies any obvious precipitating event where he could have strained his back or shoulder. He states the pain feels like a spasm and starts in his neck and radiates down into his upper back and across his right shoulder blade. Patient is not having any pain in the middle of his back or any chest pain. He denies shortness of breath or difficulty breathing. Patient states upon arrival to the ED the pain is easing off . He was noted to be hypotensive upon arrival to the ED with BPs in the 70s/50s. He is slightly diaphoretic. He does complain of some lightheadedness and dizziness. Patient has a history of hypertension and takes that medication for this but has not had any changes to his dosing recently. Other PMH includes lung nodule in which he sees Dr. Mcmillan for, diabetes, and hyperlipidemia. BP by the end of my initial assessment is 100s/60s. MD complaint: neck pain and upper back pain Onset (ago): hour(s) Place: work Radiation: right shoulder and upper back Severity: severe Quality: spasming Duration: constant Relieving factors: rest supine and remaining still Exacerbating factors: movement of extremity and movement of neck Associated symptoms: Reports dizziness; Denies headache(s) or nausea Treatments prior to arrival: none Review of Systems Const: Denies: fever(s), chills, body aches, fatigue or malaise Eyes: Denies: change in vision or blurry vision Card: Denies: chest pain, palpitations, irregular heart rhythm, edema, swelling of feet/ankles, lightheadedness, syncope, pre-syncope, dyspnea on exertion, orthopnea, leg pain with exertion or acrocyanosis Resp: Denies: dyspnea, productive cough, non-productive cough, wheezing, pain on inspiration, hemoptysis or chest congestion GI: Denies: abdominal pain, nausea, vomiting, heartburn or diarrhea : Denies: flank pain, difficulty urinating or dysuria Musc: Reports: neck pain and back pain; Denies: extremity pain, extremity swelling, joint pain, joint swelling, joint redness, joint warmth or limited range of motion Skin/Breast: Denies: rash Neuro: Reports: dizziness; Denies: headache(s), numbness in extremities, weakness in extremities, sensory changes, lack of coordination, frequent falls, confusion, behavioral changes, Slurred speech present, difficulty communicating thoughts or seizure-like activity PFSH ED PFSH: Medical History HTN (hypertension) Hyperlipidemia Lung nodule Type 2 diabetes mellitus Surgical History H/O knee surgery H/O rhinoplasty H/O shoulder surgery History of appendectomy History of back surgery History of gastric surgery Family History Family/Other Diabetes Grandfather Heart disease Grandmother Cancer Leukemia Social History Smoking and tobacco status: former smoker Quit status (tobacco): has quit using tobacco Year quit tobacco: 2001 Former quit date comment: Hx of 1 PPD x 12 Years Second hand smoke exposure: No Smoking risk assessment/counseling performed?: No Alcohol intake: current Alcohol intake frequency: holidays/special occasions only Counseling given: No Counseling given: No Lives independently: Yes Household members: family Marital status: Single Current occupational status: disabled History of recent travel: No Current gender identity: Male Physical Exam Const: COMMON NORMALS: patient oriented x3, no limitations and alert GENERAL APPEARANCE: cooperative NUTRITIONAL APPEARANCE: obese ORIENTATION/CONSCIOUSNESS: Yes awake, Yes oriented to person, Yes oriented to place and Yes oriented to time OTHER: slightly diaphoretic HENMT: COMMON NORMALS: normocephalic and atraumatic HEAD & SCALP: normal to inspection, normocephalic and atraumatic Eye: GENERAL EYE: appearance normal, both eyes and all related structures Neck/C-Spine: COMMON NORMALS: no lymphadenopathy, supple and no meningeal signs GENERAL: Yes normal visual inspection CERVICAL SPINE: Yes pain with cervical ROM, No Cervical spine tenderness, No step off deformity, Yes Paracervical muscle tenderness, No Paracervical spasm and Yes Trapezius muscle tenderness Chest: COMMONS NORMALS: normal inspection of the chest and normal palpation of entire chest wall Resp: COMMON NORMALS: normal respiratory effort and clear to auscultation bilaterally AUSCULTATION: clear to auscultation bilaterally Cardio: COMMON NORMALS: regular rate and regular rhythm RATE: regular rate RHYTHM: regular rhythm GI: COMMON NORMALS: Normal to inspection, nondistended, normoactive bowel sounds present, Soft to palpation, non-tender and no masses PALPATION: Yes Soft to palpation : COMMON NORMALS: Yes no CVA tenderness BLADDER/KIDNEY EXAM: Yes no CVA tenderness Back/Pelvis: COMMON NORMALS: no CVA tenderness, thoracic and lumbar spine normal to inspection, no thoracic nor lumbar tenderness and thoraco-lumbar ROM normal Extremity: COMMON NORMALS: normal to inspection and full ROM GENERAL: Yes normal exam except as noted Neuro: KEVIN COMA SCALE: document GCS findings [place] coma scale eye opening: Spontaneous [place] coma scale verbal response: Orientated Kevin coma scale motor response: Obey commands [place] coma scale total score: 15 COMMON NORMALS: patient oriented x3, CN's II-XII intact bilaterally, moves all extremities, no focal motor deficits and no sensory deficits noted SENSORIUM/ORIENTATION: Yes alert, Yes oriented to person, Yes oriented to place and Yes oriented to time MENINGEAL SIGNS: Yes no meningeal signs MOTOR EXAM: 5/5 motor strength present throughout Skin: COMMON NORMALS: no rashes or lesions noted GENERAL SKIN EXAM: no rashes or lesions noted Course Vital Signs: Vital signs: Vital Signs Temperature 97.5 F L 01/01/22 09:50 Pulse Rate 85 01/01/22 14:46 Respiratory Rate 18 01/01/22 14:46 Blood Pressure 141/88 01/01/22 14:46 Pulse Oximetry 97 01/01/22 14:46 MDM - Neck Pain/Injury Medical Decision Making Patient states his neck/back and shoulder pain have improved after medications here. His blood pressure normalized and has remained stable over the past few hours. His blood work overall is fairly unremarkable. He has chronic minor elevations to his LFTs. He has got mild elevations to his BUN/Cr at 22/1.8. I suspect volume depletion is responsible for this as well as his presenting hypotension. He was given IV fluid resuscitation here. Recommend these get followed up and repeated through his primary care office. Certainly with his Metformin use this needs to be monitored closely. His CXR is normal. C-spine showing multilevel bilateral facet arthropathy. CTA of his chest ordered secondary to his complaint and hypotension and short episode of mild hypoxia. There is no PE noted. He does have known right hilar adenopathy and a right lower lobe nodule. He states he has had this biopsied and has had a PET scan. We will place a referral to Dr. Mcmillan who he was following up with for this. They did comment on a new sclerotic manubrium lesion that could potentially need further follow up. I think at this point he is cleared from an emergency standpoint. We will treat his neck and back pain and recommend PCP follow up if no improvement. Dr. Rodriguez had also evaluated patient due to the hypotension present upon arrival to ED. Lab Data : 01/01/22 12:45 01/01/22 12:45 Radiology Impressions Cervical Spine X-Ray 01/01/22 10:19 IMPRESSION: Technically limited exam. Multilevel bilateral facet arthropathy. Chest X-Ray 01/01/22 10:19 IMPRESSION: No acute finding. Chest CTA 01/01/22 10:49 IMPRESSION: 1. No pulmonary embolism. 2. Increase in size of the RIGHT hilar and interlobar soft tissue consistent with adenopathy. There is contiguous extension along the RIGHT lower lobe bronchus with lobulated soft tissue. Soft tissue is contiguous with the previously described nodules in the RIGHT lower lobe on 08/13/2020. Neoplasm is not excluded. Recommend bronchoscopy for further evaluation. 3. Subcentimeter LEFT hilar lymph node. Enlarged subcarinal lymph node. Similar to the prior exam of 03/04/2021. 4. New sclerotic focus in the manubrium. Metastatic bone lesions not excluded. Bone scan imaging or repeat PET/CT may be beneficial in this patient. Laboratory Results WBC 6.5 10^3/uL (4.0-10.0) 01/01/22 12:45 RBC 4.72 10^6/uL (4.1-5.3) 01/01/22 12:45 Hgb 13.5 g/dL (11.7-16.6) 01/01/22 12:45 Hct 39.4 % (42.0-52.0) L 07/13/22 12:45 MCV 83.5 fl (80-94) 01/01/22 12:45 MCH 28.6 pg (28.0-34.0) 01/01/22 12:45 MCHC 34.3 g/dL (30.0-36.0) 01/01/22 12:45 RDW 13.8 % (12.1-15.1) 01/01/22 12:45 Plt Count 192 10^3/cmm (130-400) 01/01/22 12:45 MPV 10.9 fL (7.4-10.4) H 01/01/22 12:45 Neut % (Auto) 82.3 % 01/01/22 12:45 Lymph % (Auto) 12.1 % 01/01/22 12:45 Churchill % (Auto) 4.8 % 01/01/22 12:45 Eos % (Auto) 0.2 % 01/01/22 12:45 Baso % (Auto) 0.3 % 01/01/22 12:45 Neut # (Auto) 5.32 10^3/uL (1.8-7.7) 01/01/22 12:45 Lymph # (Auto) 0.8 10^3/uL (0.8-4.8) 01/01/22 12:45 Churchill # (Auto) 0.3 10^3/uL (0.2-0.9) 01/01/22 12:45 Eos # (Auto) 0.0 10^3/uL (0.0-0.8) 01/01/22 12:45 Baso # (Auto) 0.0 10^3/uL (0.0-0.1) 01/01/22 12:45 Nucleated RBC % (auto) 0 % 01/01/22 12:45 Nucleated RBCs # 0.0 /100WBC 01/01/22 12:45 Sodium 138 mmol/L (136-145) 01/01/22 12:45 Potassium 3.5 mmol/L (3.5-5.1) 01/01/22 12:45 Chloride 98 mmol/L (98-107) 01/01/22 12:45 Carbon Dioxide 24 mmol/L (22-29) 01/01/22 12:45 Anion Gap 19.5 (5-19) H 01/01/22 12:45 BUN 22 mg/dL (6-20) H 01/01/22 12:45 Creatinine 1.8 mg/dL (0.7-1.2) H 01/01/22 12:45 GFR Calculation 40.3 mL/min (90-130) L 01/01/22 12:45 Glucose 113 mg/dL (65-115) 01/01/22 12:45 POC Glucose 154 mg/dL (70-110) H 01/01/22 10:59 Calculated Osmolality 290 mOsm/kg (285-295) 01/01/22 12:45 Calcium 8.4 mg/dL (8.5-10.5) L 01/01/22 12:45 Total Bilirubin 0.9 mg/dL (0.15-1.2) 01/01/22 12:45 AST 51 U/L (0-40) H 01/01/22 12:45 ALT 97 U/L (0-41) H 01/01/22 12:45 Alkaline Phosphatase 70 IU/L (40-130) 01/01/22 12:45 Troponin T Baseline 12 ng/L (0-15) 01/01/22 12:45 Total Protein 6.6 g/dL (6.6-8.7) 01/01/22 12:45 Albumin 4.3 g/dL (3.5-5.2) 01/01/22 12:45 Globulin 2.3 g/dL (1.3-4.6) 01/01/22 12:45 Discharge Plan Discharge Patient Disposition: Home Clinical Impression: Musculoskeletal neck pain, Abnormal CT scan, chest Condition: Stable Prescriptions: New methocarbamol 500 mg tablet 1,000 mg PO Q8H Qty: 30 0RF diclofenac sodium 50 mg tablet,delayed release (DR/EC) 50 mg PO Q12H PRN (Reason: pain) Qty: 20 0RF Discontinued ibuprofen 200 mg Tablet 200 mg PO Q4H PRN (Reason: Pain) 0RF No Action melatonin 5 mg capsule 5 mg PO BEDTIME 0RF Incruse Ellipta 62.5 mcg/actuation blister with device 1 inh inhalation DAILY Qty: 30 3RF irbesartan-hydrochlorothiazide 150-12.5 mg tablet 1 tab PO BID 0RF pravastatin 40 mg tablet 40 mg PO QPM 0RF amlodipine 5 mg tablet 5 mg PO DAILY 0RF metformin 500 mg tablet 1,000 mg PO BID 0RF Discharge Orders: Discharge ED (Routine); Ordered 01/01/22 Ordered By: Laquita Cason Referrals: Ryan Martinez [Primary Care Provider] - Activity Restrictions/Additional Instructions: As we discussed we will put in a referral for you to follow-up with Dr. Mcmillan in regards to the CT findings on your chest. You need to follow-up with primary care if the pain in your neck and back does not improve over the next week. Coding Level of Care Code ED Donor Relations Manager for Chg Fwd Exam Comprehensive Documented by User: Olu Rodriguez DO 01/02/22 08:04 HPI - Neck Pain/Injury General: Chief Complaint: Neck Pain/Injury Stated Complaint: upper neck and back pain Time Seen by Provider: 01/01/22 09:33 PFSH ED PFSH: Medical History HTN (hypertension) Hyperlipidemia Lung nodule Type 2 diabetes mellitus Surgical History H/O knee surgery H/O rhinoplasty H/O shoulder surgery History of appendectomy History of back surgery History of gastric surgery Family History Family/Other Diabetes Grandfather Heart disease Grandmother Cancer Leukemia Social History Smoking and tobacco status: former smoker Quit status (tobacco): has quit using tobacco Year quit tobacco: 2001 Former quit date comment: Hx of 1 PPD x 12 Years Second hand smoke exposure: No Smoking risk assessment/counseling performed?: No Alcohol intake: current Alcohol intake frequency: holidays/special occasions only Counseling given: No Counseling given: No Lives independently: Yes Household members: family Marital status: Single Current occupational status: disabled History of recent travel: No Current gender identity: Male Physical Exam Neuro: KEVIN COMA SCALE: document GCS findings [place] coma scale total score: 15 Course Vital Signs: Vital signs: Vital Signs Temperature 97.5 F L 01/01/22 09:50 Pulse Rate 85 01/01/22 14:46 Respiratory Rate 18 01/01/22 14:46 Blood Pressure 141/88 01/01/22 14:46 Pulse Oximetry 97 01/01/22 14:46 MDM - Neck Pain/Injury Medical Decision Making Patient states his neck/back and shoulder pain have improved after medications here. His blood pressure normalized and has remained stable over the past few hours. His blood work overall is fairly unremarkable. He has chronic minor elevations to his LFTs. He has got mild elevations to his BUN/Cr at 22/1.8. I suspect volume depletion is responsible for this as well as his presenting hypotension. He was given IV fluid resuscitation here. Recommend these get followed up and repeated through his primary care office. Certainly with his Metformin use this needs to be monitored closely. His CXR is normal. C-spine showing multilevel bilateral facet arthropathy. CTA of his chest ordered secondary to his complaint and hypotension and short episode of mild hypoxia. There is no PE noted. He does have known right hilar adenopathy and a right lower lobe nodule. He states he has had this biopsied and has had a PET scan. We will place a referral to Dr. Mcmillan who he was following up with for this. They did comment on a new sclerotic manubrium lesion that could potentially need further follow up. I think at this point he is cleared from an emergency standpoint. We will treat his neck and back pain and recommend PCP follow up if no improvement. Dr. Rodriguez had also evaluated patient due to the hypotension present upon arrival to ED. Chart reviewed and patient discussed with midlevel. Agree with assessment and plan. Lab Data : 01/01/22 12:45 01/01/22 12:45 Radiology Impressions Cervical Spine X-Ray 01/01/22 10:19 IMPRESSION: Technically limited exam. Multilevel bilateral facet arthropathy. Chest X-Ray 01/01/22 10:19 IMPRESSION: No acute finding. Chest CTA 01/01/22 10:49 IMPRESSION: 1. No pulmonary embolism. 2. Increase in size of the RIGHT hilar and interlobar soft tissue consistent with adenopathy. There is contiguous extension along the RIGHT lower lobe bronchus with lobulated soft tissue. Soft tissue is contiguous with the previously described nodules in the RIGHT lower lobe on 08/13/2020. Neoplasm is not excluded. Recommend bronchoscopy for further evaluation. 3. Subcentimeter LEFT hilar lymph node. Enlarged subcarinal lymph node. Similar to the prior exam of 03/04/2021. 4. New sclerotic focus in the manubrium. Metastatic bone lesions not excluded. Bone scan imaging or repeat PET/CT may be beneficial in this patient. Laboratory Results WBC 6.5 10^3/uL (4.0-10.0) 01/01/22 12:45 RBC 4.72 10^6/uL (4.1-5.3) 01/01/22 12:45 Hgb 13.5 g/dL (11.7-16.6) 01/01/22 12:45 Hct 39.4 % (42.0-52.0) L 01/01/22 12:45 MCV 83.5 fl (80-94) 01/01/22 12:45 MCH 28.6 pg (28.0-34.0) 01/01/22 12:45 MCHC 34.3 g/dL (30.0-36.0) 01/01/22 12:45 RDW 13.8 % (12.1-15.1) 01/01/22 12:45 Plt Count 192 10^3/cmm (130-400) 01/01/22 12:45 MPV 10.9 fL (7.4-10.4) H 01/01/22 12:45 Neut % (Auto) 82.3 % 01/01/22 12:45 Lymph % (Auto) 12.1 % 01/01/22 12:45 Churchill % (Auto) 4.8 % 01/01/22 12:45 Eos % (Auto) 0.2 % 01/01/22 12:45 Baso % (Auto) 0.3 % 01/01/22 12:45 Neut # (Auto) 5.32 10^3/uL (1.8-7.7) 01/01/22 12:45 Lymph # (Auto) 0.8 10^3/uL (0.8-4.8) 01/01/22 12:45 Churchill # (Auto) 0.3 10^3/uL (0.2-0.9) 01/01/22 12:45 Eos # (Auto) 0.0 10^3/uL (0.0-0.8) 01/01/22 12:45 Baso # (Auto) 0.0 10^3/uL (0.0-0.1) 01/01/22 12:45 Nucleated RBC % (auto) 0 % 01/01/22 12:45 Nucleated RBCs # 0.0 /100WBC 01/01/22 12:45 Sodium 138 mmol/L (136-145) 01/01/22 12:45 Potassium 3.5 mmol/L (3.5-5.1) 01/01/22 12:45 Chloride 98 mmol/L (98-107) 01/01/22 12:45 Carbon Dioxide 24 mmol/L (22-29) 01/01/22 12:45 Anion Gap 19.5 (5-19) H 01/01/22 12:45 BUN 22 mg/dL (6-20) H 01/01/22 12:45 Creatinine 1.8 mg/dL (0.7-1.2) H 01/01/22 12:45 GFR Calculation 40.3 mL/min (90-130) L 01/01/22 12:45 Glucose 113 mg/dL (65-115) 01/01/22 12:45 POC Glucose 154 mg/dL (70-110) H 01/01/22 10:59 Calculated Osmolality 290 mOsm/kg (285-295) 01/01/22 12:45 Calcium 8.4 mg/dL (8.5-10.5) L 01/01/22 12:45 Total Bilirubin 0.9 mg/dL (0.15-1.2) 01/01/22 12:45 AST 51 U/L (0-40) H 01/01/22 12:45 ALT 97 U/L (0-41) H 01/01/22 12:45 Alkaline Phosphatase 70 IU/L (40-130) 01/01/22 12:45 Troponin T Baseline 12 ng/L (0-15) 01/01/22 12:45 Total Protein 6.6 g/dL (6.6-8.7) 01/01/22 12:45 Albumin 4.3 g/dL (3.5-5.2) 01/01/22 12:45 Globulin 2.3 g/dL (1.3-4.6) 01/01/22 12:45 Discharge Plan Discharge Patient Disposition: Home Clinical Impression: Musculoskeletal neck pain, Abnormal CT scan, chest Condition: Stable Prescriptions: New methocarbamol 500 mg tablet 1,000 mg PO Q8H Qty: 30 0RF diclofenac sodium 50 mg tablet,delayed release (DR/EC) 50 mg PO Q12H PRN (Reason: pain) Qty: 20 0RF Discontinued ibuprofen 200 mg Tablet 200 mg PO Q4H PRN (Reason: Pain) 0RF No Action melatonin 5 mg capsule 5 mg PO BEDTIME 0RF Incruse Ellipta 62.5 mcg/actuation blister with device 1 inh inhalation DAILY Qty: 30 3RF irbesartan-hydrochlorothiazide 150-12.5 mg tablet 1 tab PO BID 0RF pravastatin 40 mg tablet 40 mg PO QPM 0RF amlodipine 5 mg tablet 5 mg PO DAILY 0RF metformin 500 mg tablet 1,000 mg PO BID 0RF Discharge Orders: Discharge ED (Routine); Ordered 01/01/22 Ordered By: Laquita Cason Referrals: Ryan Martinez [Primary Care Provider] - Activity Restrictions/Additional Instructions: As we discussed we will put in a referral for you to follow-up with Dr. Mcmillan in regards to the CT findings on your chest. You need to follow-up with primary care if the pain in your neck and back does not improve over the next week. Coding Level of Care Code ED Donor Relations Manager for Antoineg Fwd Exam Comprehensive
[2022-01-01] MEDS: orphenadrine 30 mg/mL Inj 2 mL 60 MG IVP (10:37)
[2022-01-01] MEDS: sodium chloride 0.9% 1,000 ML 999 ML IV (10:37)
[2022-01-01] MEDS: ketorolac 30 mg/mL INJ IVP (10:37)
--- NOTE | 2022-01-01 10:49 | CT_ITS ---
WS: [id number] CT CHEST ANGIOGRAPHY WITH REFORMATS HISTORY: neck/back pain; hypotensive, hypoxic TECHNIQUE: Contiguous axial images are obtained through the chest during arterial injection of intrav enous contrast. Images are reconstructed to evaluate the pulmonary arteries. MIP imaging also reviewe d. All CT scans at [facility] use at least one of these dose optimization techniques: automat ed exposure control; mA and/or kV adjustment per patient size (includes targeted exams where dose is matched to clinical indication); or iterative reconstruction. CONTRAST: Omnipaque 350; 95 mL IV. DLP: 527.79 mGy.cm COMPARISON: 03/04/2021 and 08/12/2020, PET/CT 09/08/2020 Good opacification of the pulmonary arteries. No filling defects in the pulmonary arteries. Normal si ze pulmonary artery. Normal-sized thoracic aorta. No dissection or aneurysm. Heart size is normal wit h very slight prominence of the LEFT ventricle. No pericardial or pleural effusions. 3 mm micronodule at the LEFT lung base. No pneumonia. No axillary or supraclavicular lymph nodes. No RIGHT paratracheal adenopathy. Increasing lymphadenopa thy at the hilar regions but most significant on the RIGHT. There is increased soft tissue encasing t he RIGHT lower lobe bronchovascular structures. Soft tissue extends interlobular. The largest collect ion of lymph nodes measures 2.8 x 2.4 cm. Extension of soft tissue along the RIGHT lower lobe rhonchi vascular tree. Smaller lymph node measuring 8 mm at the RIGHT hilum. Enlarged subcarinal lymph node 2.0 cm. Hepatic steatosis. Incompletely included adrenal glands but no mass identified. New sclerotic focus in the manubrium measures [address]/CT angio chest PE protcl [id number] IMPRESSION: 1. No pulmonary embolism. 2. Increase in size of the RIGHT hilar and interlobar soft tissue consistent w ith adenopathy. There is contiguous extension along the RIGHT lower lobe bronch us with lobulated soft tissue. Soft tissue is contiguous with the previously de scribed nodules in the RIGHT lower lobe on 08/13/2020. Neoplasm is not excluded. Recommend bronchoscopy for further evaluation. 3. Subcentimeter LEFT hilar lymph node. Enlarged subcarinal lymph node. Simila r to the prior exam of 03/04/2021. 4. New sclerotic focus in the manubrium. Metastatic bone lesions not excluded. Bone scan imaging or repeat PET/CT may be beneficial in this patient.
[2022-01-01 11:02] LABS: Glucose Point of Care 154 mg/dL (70-110)
[2022-01-01] MEDS: iohexol 350 mg/mL 100 mL Btl IV (11:14)
--- NOTE | 2022-01-01 12:19 | ECG_ITS ---
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 Measurements Intervals [place] Rate: 74 P: 30 NH: 249 QRS: 5 QRSD: 112 T: 14 QT: 396 QTc: 441 Interpretive Statements SINUS RHYTHM WITH FIRST DEGREE AV BLOCK INCOMPLETE RIGHT BUNDLE BRANCH BLOCK [90+ ms QRS DURATION, TERMINAL R IN V1/V2, 40+ ms S IN I/aVL/V4/V5/V6] Compared to ECG 01/01/2022 10:15:21 First degree AV block now present Electronically Signed On 01-01-2022 23:47:45 CDT by Wilman Madison M.D. [id number]
[2022-01-01 12:50] LABS: Basophils % 0.3 %; Eosinophils % 0.2 %; Hematocrit 39.4 % (42.0-52.0); Hemoglobin 13.5 g/dL (11.7-16.6); Lymphocytes # 0.8 10^3/uL (0.8-4.8); Lymphocytes % 12.1 %; Mean Corpuscular HGB Conc 34.3 g/dL (30.0-36.0); Mean Corpuscular Hemoglobin 28.6 pg (28.0-34.0); Mean Corpuscular Volume 83.5 fl (80-94); Mean Platelet Volume 10.9 fL (7.4-10.4); Monocytes # 0.3 10^3/uL (0.2-0.9); Monocytes % 4.8 %; Neutrophils # 5.32 10^3/uL (1.8-7.7); Neutrophils % 82.3 %; Nucleated Red Blood Cells % 0 %; Platelet Count 192 10^3/cmm (130-400); Red Blood Count 4.72 10^6/uL (4.1-5.3); Red Cell Distribution Width 13.8 % (12.1-15.1); White Blood Count 6.5 10^3/uL (4.0-10.0)
[2022-01-01 13:19] LABS: Alanine Aminotransferase 97 U/L (0-41); Albumin Level 4.3 g/dL (3.5-5.2); Alkaline Phosphatase 70 IU/L (40-130); Anion Gap 19.5 (5-19); Aspartate Amino Transferase 51 U/L (0-40); Blood Urea Nitrogen 22 mg/dL (6-20); Calcium 8.4 mg/dL (8.5-10.5); Carbon Dioxide 24 mmol/L (22-29); Chloride 98 mmol/L (98-107); Globulin 2.3 g/dL (1.3-4.6); Glomerular Filtration Rate 40.3 mL/min (90-130); Glucose 113 mg/dL (65-115); Osmolality Calculated 290 mOsm/kg (285-295); Potassium 3.5 mmol/L (3.5-5.1); Sodium 138 mmol/L (136-145); Total Bilirubin 0.9 mg/dL (0.15-1.2); Total Protein 6.6 g/dL (6.6-8.7)
[2022-01-01 13:20] LABS: Troponin(5th) Baseline 12 ng/L (0-15)
[2022-01-01 14:46] VITALS: BP 141/88; PULSE 85; RESP 18; O2SAT 97
--- NOTE | 2022-01-03 08:34 | DCPLANNER ---
Addendum entered by Vicki Wilkins 01/14/22 10:54: Patient had a follow up appointment scheduled for 01.14.[address] Mcmillan at pulmonology - patient did attend appointments. Original Note: promotions firm accounts manager had message to schedule a follow up appointment for patient with pulomonology. promotions firm accounts manager sent patients information to the front office staff at [facility]. Patients information will be printed and reviewed. Clinic will call patient with appointment information.
== END 2022-01-01 14:50 | disposition home or self-care (01) ==
PROVIDERS: Emergency Provider Physician Assistant; PCP Family Medicine
DX: M54.2 Cervicalgia (principal); R93.89 Abnormal findings on diagnostic imaging of other specified body structures; Z79.84 Long term (current) use of oral hypoglycemic drugs; I10 Essential (primary) hypertension; E78.5 Hyperlipidemia, unspecified; E11.9 Type 2 diabetes mellitus without complications; Z87.891 Personal history of nicotine dependence
CPT/HCPCS: 36415; 36416; 71045; 71275; 72040; 80053; 82962; 84484; 85025; 93005; 96374; 96375; 99285; J1885; J2360; J7030; Q9967

== ENCOUNTER → 2022-01-14 13:58 | Outpatient (BNVA) | payer MEDICARE, MEDICAID, SELFPAY | PROVIDERS: PCP Family Medicine; Visit Provider Internal Medicine Critical Care Medicine | DX: R91.1 Solitary pulmonary nodule (principal); D86.9 Sarcoidosis, unspecified; J98.4 Other disorders of lung; Z87.891 Personal history of nicotine dependence | CPT/HCPCS: 99214 ==

== ENCOUNTER → 2022-02-14 10:06 | Outpatient (BNVA) | payer MEDICARE, MEDICAID, SELFPAY | PROVIDERS: PCP Family Medicine; Visit Provider Internal Medicine Critical Care Medicine | DX: R59.0 Localized enlarged lymph nodes (principal); Z87.891 Personal history of nicotine dependence; R91.1 Solitary pulmonary nodule; J98.4 Other disorders of lung | CPT/HCPCS: 99213; 99214 ==

== ENCOUNTER 2022-03-27 08:01 | Outpatient (CLI) | payer MEDICARE, MEDICAID, SELFPAY ==
--- NOTE | 2022-03-27 08:06 | NM_ITS ---
WS: [id number] NUCLEAR MEDICINE BONE SCAN Radiopharmaceutical: 23.4 Tc-99m MDP mCi IV Injection site: Antecubital Postinjection imaging delay: 1 hr CLINICAL INFORMATION: Sclerotic lesion in the manubrium COMPARISON: CTA January 01, 2022 FINDINGS: Bone lesions: Punctate focus of radiotracer activity involving the LEFT manubrium compatible with the prior bone lesion seen on CT suspicious for a tiny focus of metastatic disease. Additional focus of increased uptake involving the proximal sternum may also represent an additional focus of metastatic disease although no definite lesions in this area on the prior CT. No other suspicious foci. Soft tissue contours: Normal. Kidneys: Normal. Other findings: Degenerative uptake involving both AC joints, LEFT knee, and both ankles. RIGHT ANGELIA. NM/NM bone scan whole body* [id number] IMPRESSION: 1. Punctate focus of bony activity involving the LEFT manubrium corresponds to the previously described bony lesion suspicious for metastatic disease. Recomm end correlation with clinical history. 2. Additional indeterminant focus of uptake involving the proximal sternum is nonspecific but metastatic disease not excluded. 3. No other suspicious findings.
== END 2022-03-27 08:02 | disposition home or self-care (01) ==
LOC: RAD 08:01
PROVIDERS: PCP Family Medicine; Visit Provider Internal Medicine Critical Care Medicine
DX: M89.9 Disorder of bone, unspecified (principal)
CPT/HCPCS: 78306; A9561

== ENCOUNTER → 2022-04-15 13:13 | Outpatient (BNVA) | payer MEDICARE, MEDICAID, SELFPAY | PROVIDERS: PCP Family Medicine; Visit Provider Internal Medicine Pulmonary Disease | DX: R91.1 Solitary pulmonary nodule (principal); R59.0 Localized enlarged lymph nodes; J98.4 Other disorders of lung; Z87.891 Personal history of nicotine dependence | CPT/HCPCS: 99214 ==

== ENCOUNTER 2022-04-22 05:53 | Day surgery (SDC) | payer MEDICARE, MEDICAID, SELFPAY ==
[2022-04-21 15:23] VITALS: BMI 35.4
[2022-04-22 06:19] VITALS: BP 120/87; PULSE 76; RESP 18; TEMP 36.4; O2SAT 97
[2022-04-22] MEDS: sodium chloride 0.9% 1,000 ML 30 ML IV (06:29)
[2022-04-22 06:30] LABS: Glucose Point of Care 126 mg/dL (70-110)
--- NOTE | 2022-04-22 06:56 | P.ANESASSM_ITS ---
Pre-Anesthetic Assessment Height/Weight: Height 1.75 m Weight 108.862 kg Temp Pulse Resp BP Pulse Ox O2 Del Method 97.5 F L 76 18 120/87 97 04/22/22 06:19 04/22/22 06:19 04/22/22 06:19 04/22/22 06:19 04/22/22 06:19 04/22/22 06:19 Preop Diagnosis: Mediastinal and hilar lymphadenopathy Operation Date: 04/22/22 07:00 Proposed Procedures p EBUS 80411, 84801, 59265, 59646,R91.1(Not Applicable) - Chi Garcia DatarMD Familial anesthetic complications: none Was Beta Nolan taken within 24 hours: N/A Was Clonidine taken within 24 hours: N/A Last intake: Intake Last Liquid Date 04/21/22 Last Liquid Time 20:00 Last Solid Date 04/21/22 Last Solid Time 16:00 Last Intake: 20:00 Social Tobacco (stop 1 year ago) and No alcohol Exam alert, oriented x 3, clear to auscultation bilaterally and regular rate & rhythm Airway Submandibular: within normal limits Cervical ROM: within normal limits Mallampati: Class II Dentition: full Pulmonary Chronic Obstructive Pulmonary Disease lung nodule on right CV/HEM Hypertension None reported Hepatic None reported GI Gastroesophageal Reflux Disease (occ food related) Metabolic Diabetes Mellitus Musc/skel Lower Back Pain and Osteoarthritis/DJD Neuropsych Anxiety Anesthetic Plan ASA status: 2 Anesthesia: General Risk of > 500 ml blood loss (7ml/kg in children): No Medications/Allergies Home Medications Medication Instructions Recorded Confirmed Last Taken Type amlodipine 5 mg tablet 5 mg PO DAILY 02/06/20 04/22/22 04/21/22 History irbesartan 150 1 tab PO BID 02/06/20 04/22/22 04/21/22 History mg-hydrochlorothiazide 12.5 mg tablet pravastatin 40 mg tablet 40 mg PO QPM 02/06/20 04/22/22 04/21/22 History melatonin 5 mg capsule 5 mg PO BEDTIME 03/19/21 04/22/22 04/21/22 History metformin 500 mg tablet 1,000 mg PO BID 01/01/22 04/22/22 04/21/22 History umeclidinium 62.5 mcg/actuation 1 inh inhalation DAILY #30 ea 03/06/22 04/22/2204/21/22 Rx blister powder for inhalation (Incruse Ellipta) baclofen 10 mg tablet 10 mg PO BID PRN Pain 04/21/22 04/22/22 04/21/22 History Allergies Allergy/AdvReac Type Severity Reaction Status Date / Time prednisone Allergy Severe ADR-Agitate Verified 04/22/22 06:15 d [facility] Anesthesia Medical History HTN (hypertension) Hyperlipidemia Lung nodule Type 2 diabetes mellitus Surgical History H/O knee surgery H/O rhinoplasty H/O shoulder surgery History of appendectomy History of back surgery History of gastric surgery Family History Family/Other Diabetes Grandfather Heart disease Grandmother Cancer Leukemia Social History Smoking and tobacco status: former smoker Quit status (tobacco): has quit using tobacco Year quit tobacco: 2001 Former quit date comment: Hx of 1 PPD x 12 Years Second hand smoke exposure: No Smoking risk assessment/counseling performed?: No Alcohol intake: current Alcohol intake frequency: holidays/special occasions only Counseling given: No Counseling given: No Lives independently: Yes Household members: family Marital status: Single Current occupational status: disabled History of recent travel: No Current gender identity: Male Data Anesthesia Cardiac Studies: No Data to Display
--- NOTE | 2022-04-22 06:57 | W.PM.OPSUD ---
Surgery/Procedure H&P Update DATE OF PROCEDURE: April 22, 2022 DATE H&P PERFORMED: 04/15/22 CHANGES TO PREVIOUS DOCUMENTATION: None PREOP DIAGNOSIS: Mediastinal and hilar lymphadenopathy PRIMARY INDICATION FOR PROCEDURE: PET/CT 03/29/2022 showed right lower lobe perihilar territory there is 2.9 x 2.2 cm node with an SUV 5.3 suspicious for potential malignancy.In the mediastinum, subcarinal lymph node has SUV 6.2 indicating potential malignancy as well. PLANNED PROCEDURE: Operation Date: 04/22/22 07:00 Proposed Procedures p EBUS 56949, 01504, 80350, 26707,R91.1(Not Applicable) - Chi Garcia DatarMD
--- NOTE | 2022-04-22 08:27 | P.OP_ITS ---
Operative Report Date of procedure: April 22, 2022 Pre-op diagnosis: Preop Diagnosis PET active right hilar and subcarinal lymphadenopathy suspicious for malignancy Post-op diagnosis: Suspicious for malignancy Procedure done: 93503 Bronch via Trach site 62530 Dx Bronchoscope w/Washings or airway inspection 93374 Dx Bronchoscope w/BAL 59446 EBUS Sampling 1/2 nodes Brief History: 52-year-old gentleman coming in for his follow-up office visit for evaluation management of pulmonary nodule, hilar lymphadenopathy and previous history of smoking. The patient underwent bronchoscopic evaluation for the mediastinal hilar lymphadenopathy on April 23 2021 .? Station 11 R revealed noncaseating granuloma.? No malignancy was identified in either station 7 or 11 R.? The patient was diagnosed with likely sarcoidosis. Patient had ER visit on 01/01/2022 and had a CTA which revealed increase in size of right hilar adenopathy and there is softer tissue shadow contiguous with the right lower lobe bronchus. The left hilar lymph node and subcarinal lymph node appeared stable. Additionally there is no sclerotic lesion in the manubrium was identified. PET/CT 03/29/2022 showed right lower lobe perihilar territory there is 2.9 x 2.2 cm node with an SUV 5.3 suspicious for potential malignancy.? A 1.4 cm lateral right lower lobe nodule is FDG negative indicating low likelihood of malignancy.? No suspected left hilar adenopathy or left lung nodules.? In the mediastinum, subcarinal lymph node has SUV 6.2 indicating potential malignancy as well.? In the superior sternum 8 mm sclerotic lesion has SUV 2.3 which is equivocal for potential malignancy versus inflammatory uptake and a benign bone lesion. Today patient is scheduled for bronchoscopic evaluation of right hilar area as well as subcarinal lymph node biopsies using endobronchial ultrasound. Procedure: 22263 Bronch via Trach site 06339 Dx Bronchoscope w/Washings or airway inspection 35683 Dx Bronchoscope w/BAL 08849 EBUS Sampling 1/2 nodes -Control of bleeding Surgeon:Chi Clifford MD, [facility] Indication: Increasing PET active right hilar area and subcarinal lymph nodes in patient with previous biopsies 1 year ago showing sarcoidosis. Anesthesia: General anesthesia. Local anesthesia: The felipe in the right and left mainstem bronchi were anesthetized with 1% lidocaine, 3 mL. Description of the procedure: The procedure was explained to the patient and the consent was obtained. The patient was brought to the GI lab. The patient underwent placement of laryngeal mask airway for general anesthesia. Following induction of general anesthesia, the bronchoscope was advanced through the LMA. The trachea mucosa appeared normal, no endotracheal lesion was seen. The felipe was sharp. The felipe, the right and left mainstem bronchi are anesthetized with 1% lidocaine. In a systematic manner bilateral bronchial tree was then examined. The bronchoscope was advanced into the left mainstem bronchus. The mucosa appeared normal with no endobronchial lesions. The left upper lobe, lingula and left lower lobe bronchi were examined up to the third subsegmental level and no abnormalities were identified. Mucosa appeared normal with no endobronchial lesion, active bleeding or mucous plug. There were some clear secretions in lower lobe-which were suctioned right away. The bronchoscope was then introduced into the right mainstem bronchus. The right upper lobe, right middle lobe and right lower lobe bronchi were examined up to the third subsegmental level and no abnormalities were identified. The mucosa appeared normal with no endobronchial lesions, active bleeding or mucous plugs. The bronchoscope was retracted and endobronchial ultrasound was introduced. Lymphadenopathy involving the subcarinal and right hilar lymph node was identified.? There is no lymphadenopathy in station 4R, 10 R lymph node stations.? Fine-needle aspiration was performed from station 7 and 11 R. EBUS was retracted. Diagnostic bronchoscopy reintroduced and bronchoalveolar lavage was performed from the right lower lobe. 30 mL of saline was instilled, fluid return was 10 mL. The fluid was mixed with blood. There was no overt bleeding. Samples: 1. Bronchoalveolar lavage specimen was sent for cell count and differential, gram stain and culture, cytology 2. EBUS guided fine-needle aspiration cytology of station 7 lymph node and station 11 R-samples sent in formalin 3. Also sent FNA C samples from station 7 in RPMI Complications: None.The patient was extubated and brought to the PACU in stable condition. Disposition: Patient can be discharged home in stable condition. I will set up clinic follow-up in 7-10 days to follow-up on biopsy results.
[2022-04-22 08:38] VITALS: BP 111/70; PULSE 82; RESP 16; TEMP 36.6; O2SAT 99
[2022-04-22 08:43] VITALS: BP 114/68; PULSE 79; RESP 16; O2SAT 98
[2022-04-22 08:48] LABS: Apprearance, Bronch Wash Bloody (CLEAR); Color, Bronc Wash Red; Cyto Order Verification Order Verified
[2022-04-22 08:58] VITALS: BP 122/73; PULSE 67; RESP 16; O2SAT 100
[2022-04-22 09:07] LABS: Bronch Source Right Lower Lobe
[2022-04-22 09:54] LABS: Total Cells Counted Bronch 163
--- NOTE | 2022-04-22 13:10 | ANE.PACU2 ---
Inpatient post-anesthesia follow up: Airway intact: Yes Vital signs: Temperature 97.8 F Pulse Rate 67 Respiratory Rate 16 Blood Pressure 122/73 Pulse Oximetry 100 Oxygen Delivery Me thod Room Air Oxygen Flow Rate 3 Fraction of Inspir ed Oxygen Hydration adequate: Yes Nausea and vomiting: No Pain level: 1 Mental status: Baseline
[2022-04-23 12:47] LABS: Lymphoma Profile (BBPL) See Report
== END 2022-04-22 09:15 | disposition home or self-care (01) ==
PROVIDERS: PCP Family Medicine; Visit Provider Internal Medicine Pulmonary Disease
PROC: BB4BZZZ Ultrasonography of Pleura (ICD-10-PCS; principal; 2022-04-22 07:00)
PROC: 0BJ08ZZ Inspection of Tracheobronchial Tree, Via Natural or Artificial Opening Endoscopic (ICD-10-PCS; CPT 31622; 2022-04-22 07:00)
DX: I89.0 Lymphedema, not elsewhere classified (principal); J44.9 Chronic obstructive pulmonary disease, unspecified; I10 Essential (primary) hypertension; K21.9 Gastro-esophageal reflux disease without esophagitis; E11.9 Type 2 diabetes mellitus without complications; Z79.84 Long term (current) use of oral hypoglycemic drugs; E78.5 Hyperlipidemia, unspecified; Z87.891 Personal history of nicotine dependence
CPT/HCPCS: 31624; 31652; 36416; 80503; 82962; 87070; 87205; 88108; 88184; 88185; 88305; 88321; 88325; 88342; 89050; J2370; J2704; J3010; J3490; J7030

== ENCOUNTER 2022-05-07 07:50 | Oncology outpatient (recurring) (ONCR) | payer MEDICARE, MEDICAID, SELFPAY | END 2022-05-21 23:59 | disposition home or self-care (01) | PROVIDERS: PCP Family Medicine; Visit Provider Internal Medicine Hematology & Oncology | DX: C7A.090 Malignant carcinoid tumor of the bronchus and lung (principal); C7B.01 Secondary carcinoid tumors of distant lymph nodes; C7B.03 Secondary carcinoid tumors of bone; C7B.09 Secondary carcinoid tumors of other sites; Z87.891 Personal history of nicotine dependence | CPT/HCPCS: 99204 ==

== ENCOUNTER → 2022-08-28 10:59 | Outpatient (BNVA) | payer MEDICARE, MEDICAID, SELFPAY | PROVIDERS: PCP Family Medicine; Visit Provider Internal Medicine Pulmonary Disease | DX: R91.1 Solitary pulmonary nodule (principal); R59.0 Localized enlarged lymph nodes; J98.4 Other disorders of lung; D86.9 Sarcoidosis, unspecified; Z87.891 Personal history of nicotine dependence | CPT/HCPCS: 99214 ==

== ENCOUNTER 2022-09-11 13:50 | Outpatient (CLI) | payer MEDICARE, MEDICAID, SELFPAY | END 2022-09-11 13:51 | disposition home or self-care (01) | PROVIDERS: PCP Family Medicine; Visit Provider Thoracic Surgery (Cardiothoracic Vascular Surgery) | DX: R91.8 Other nonspecific abnormal finding of lung field (principal) | CPT/HCPCS: 94010; 94726; 94729 ==

== ENCOUNTER 2022-10-25 10:35 | Emergency (ER) | payer MEDICARE, MEDICAID, SELFPAY ==
[2022-10-25 11:00] VITALS: BP 139/92; PULSE 88; RESP 17; TEMP 36.6; O2SAT 96; BMI 36.9
--- NOTE | 2022-10-25 12:01 | USR_ITS ---
PROCEDURE INFORMATION: Exam: US Duplex Right Lower Extremity Veins, Limited Exam date and time: 10/25/2022 12:52 PM Age: 52 years old Clinical indication: Other: Lump; Additional info: Lower forearm mobile lump TECHNIQUE: Imaging protocol: Real-time duplex ultrasound of the right extremity with 2-D navarrete scale, color Doppler flow and spectral waveform analysis including responses to compression and other maneuvers (when performed) with image documentation. Limited exam was focused on the right lower extremity veins. COMPARISON: MR knee RT wo con* [id number] 03/15/2018 1:19 PM FINDINGS: The right internal jugular, subclavian, axillary, brachial, basilic, radial, ulnar and cephalic veins are patent. There is normal [place] [id number] IMPRESSION: No DVT is identified in the forearm.
--- NOTE | 2022-10-25 12:01 | USR_ITS ---
PROCEDURE INFORMATION: Exam: US Right Non-Vascular Joint or Other Extremity Structure Exam date and time: 10/25/2022 12:42 PM Age: 52 years old Clinical indication: Mass or lump; Arm, lower; Right; Additional info: Soft tisse lump right forearm TECHNIQUE: Imaging protocol: Right US joint or other nonvascular extremity structure or structures. Real-time ultrasound with image documentation. Limited study. Exam focused on the upper extremity in the region of clinical interest. COMPARISON: CT angio chest PE protcl [id number] 01/01/2022 11:07 AM FINDINGS: At site of soft tissue lump, in the right lower forearm, there is superficial venous thrombosis. US/US soft tissue/extremity [id number] IMPRESSION: At site of soft tissue lump, in the right lower forearm, there is superficial venous thrombosis.
--- NOTE | 2022-10-25 12:05 | W.ED.SKABFB ---
HPI - Skin/Abscess/Foreign Bdy General: Chief complaint: Skin/Abscess/Foreign Body Stated complaint: surgery October 02, mass in right forearm Time Seen by Provider: 10/25/22 11:53 History of Present Illness: 52-year-old male presents emergency department chief complaint of right forearm lump or mass reports he woke up with this today ports moderate pain located location reports no recent trauma or injury noted to does not recall any known history of any cellulitis or abscesses. Patient reports a prior history of lung surgery for cancer on October 02 he reports uneventful postoperative. Patient does not recall any other associated symptoms. Associated symptoms: Deny chills, fever(s), nausea or vomiting Review of Systems General: Reports: 10 or more systems reviewed and unremarkable except in HPI and below Const: Denies: fever(s), chills, fatigue or malaise Eyes: Denies: change in vision or blurry vision Card: Denies: chest pain or palpitations Resp: Denies: dyspnea or productive cough GI: Denies: abdominal pain, nausea or vomiting : Denies: flank pain Musc: Denies: extremity pain or extremity swelling Skin/Breast: Reports: new lesions Neuro: Denies: headache(s) Psych: Denies: anxiety or depression Meet/Lymph: Denies: easy bleeding All/Imm: Denies: urticaria, throat swelling or facial swelling PFSH ED PFSH: Medical History Carcinoid tumor HTN (hypertension) Hyperlipidemia Lung nodule Type 2 diabetes mellitus Surgical History H/O knee surgery H/O rhinoplasty H/O shoulder surgery History of appendectomy History of back surgery History of gastric surgery Family History Family/Other Diabetes Grandfather Heart disease Grandmother Cancer Leukemia Other Dementia Hyperlipidemia Hypertension Lung disease Stroke Denies family history of CAD (coronary artery disease) Clotting disorder Psychiatric illness Chronic kidney disease (CKD) Suicide Anesthesia complication Bleeding disorder Social History Smoking and tobacco status: former smoker Quit status (tobacco): has quit using tobacco Year quit tobacco: 2001 Former quit date comment: Hx of 1 PPD x 12 Years Second hand smoke exposure: No Smoking risk assessment/counseling performed?: No Alcohol intake: current Alcohol intake frequency: holidays/special occasions only Counseling given: No Substance/Drug Use: never Counseling given: No Lives independently: Yes Household members: family Marital status: Single Current occupational status: disabled Do you think of yourself as: Straight/Heterosexual Current gender identity: Male Physical Exam Const: COMMON NORMALS: no acute distress, patient oriented x3 and healthy appearing HENMT: COMMON NORMALS: normocephalic and atraumatic HEAD & SCALP: normocephalic and atraumatic Eye: COMMON NORMALS: Equal, round and reactive pupils present and EOMs intact bilaterally PUPIL: Yes Equal, round and reactive pupils present Neck/C-Spine: COMMON NORMALS: full ROM, supple and no JVD Lymph: LYMPHATIC: no lymphadenopathy noted Chest: COMMONS NORMALS: normal inspection of the chest and normal palpation of entire chest wall Resp: COMMON NORMALS: normal respiratory effort, No retractions and clear to auscultation bilaterally EFFORT & INSPECTION: Yes able to speak in complete sentences and Yes symmetric chest movement AUSCULTATION: clear to auscultation bilaterally Cardio: COMMON NORMALS: no JVD, regular rate and regular rhythm RATE: regular rate RHYTHM: regular rhythm GI: COMMON NORMALS: Normal to inspection, nondistended, normoactive bowel sounds present, Soft to palpation and non-tender INSPECTION: Yes normal to inspection PALPATION: Yes Soft to palpation : COMMON NORMALS: Yes no CVA tenderness BLADDER/KIDNEY EXAM: Yes no CVA tenderness Back/Pelvis: COMMON NORMALS: no CVA tenderness Extremity: COMMON NORMALS: normal to inspection and full ROM Neuro: COMMON NORMALS: patient oriented x3, CN's II-XII intact bilaterally, moves all extremities and no focal motor deficits Psych: COMMON NORMALS: mental status grossly normal, Normal thought process present, cooperative and normal affect THOUGHT PROCESS: Normal thought process present Skin: OTHER: Approximately 3 cm diameter location of a nodule noted to the right lateral forearm no overlying erythema or edema present neurovascular tact distally appear to be mobile in nature concerning for possible lipoma or due to the due to the extent of the pain to the patient as having possible underlying SVT is also prominent we will continue to follow Course Vital Signs: Vital signs: Vital Signs Temperature 97.8 F 10/25/22 11:00 Pulse Rate 88 10/25/22 11:00 Respiratory Rate 17 10/25/22 11:00 Blood Pressure 139/92 10/25/22 11:00 Pulse Oximetry 96 10/25/22 11:00 Oxygen Delivery Me thod Room Air 10/25/22 11:00 MDM - Skin/Abscess/Foreign Bdy Medicial Decision Making Due to the patient's symptoms ultrasound was obtained this revealed that the patient has superficial venous thrombosis of the right forearm no DVT was appreciated patient was advised to go on a full dose aspirin daily as well as take ibuprofen for breakthrough pain control as well as warm compresses he was advised to further follow-up primary care in 3 to 5 days and to return the interim if any of his symptoms persist or worse. Lab Data Radiology Impressions Soft Tissue Ultrasound 10/25/22 12:01 IMPRESSION: At site of soft tissue lump, in the right lower forearm, there is superficial venous thrombosis. ADDENDUM: 10/25/22 1350 Findings discussed with ZARIA NESBITT at 10/25/2022 1:48 PM CDT. Venous Duplex 10/25/22 12:01 IMPRESSION: No DVT is identified in the forearm. Discharge Plan Discharge Patient Disposition: Home Clinical Impression: Superficial thrombophlebitis of arm Condition: Stable Prescriptions: New ibuprofen 600 mg tablet 600 mg PO Q8H PRN (Reason: pain) Qty: 20 0RF No Action melatonin 5 mg capsule 5 mg PO BEDTIME One-A-Day Men VitaCraves 200 mcg tablet,chewable 1 tab PO DAILY Incruse Ellipta 62.5 mcg/actuation blister with device 1 inh inhalation DAILY Qty: 30 5RF irbesartan-hydrochlorothiazide 150-12.5 mg tablet 1 tab PO BID pravastatin 40 mg tablet 40 mg PO QPM amlodipine 5 mg tablet 5 mg PO DAILY metformin 500 mg tablet 1,000 mg PO BID baclofen 10 mg Tablet 10 mg PO BID PRN (Reason: Pain) Discharge Orders: Discharge ED (Routine); Ordered 10/25/22 Ordered By: Zaria Nesbitt Referrals: Ryan Martinez [Primary Care Provider] - 1-3 days Discharge Diet: Advance as tolerated Discharge Activity: Resume usual activity Patient Instructions: Superficial Thrombophlebitis (ED), Pain Management, Thrombophlebitis - Superficial Activity Restrictions/Additional Instructions: You can use warm compresses to the affected area as needed please further follow-up with primary care doctor in 3 to 5 days please take medication as prescribed and please return the interim if any of your symptoms persist or worse. Coding Level of Care Code ED Broadcast Supervisor for Marina Preston
== END 2022-10-25 14:56 | disposition home or self-care (01) ==
PROVIDERS: Emergency Provider Emergency Medicine; PCP Family Medicine
DX: I80.8 Phlebitis and thrombophlebitis of other sites (principal); Z79.84 Long term (current) use of oral hypoglycemic drugs; Z87.891 Personal history of nicotine dependence; E78.5 Hyperlipidemia, unspecified; E11.9 Type 2 diabetes mellitus without complications
CPT/HCPCS: 76882; 93971; 99284

== ENCOUNTER → 2022-12-01 12:35 | Outpatient (BNVA) | payer MEDICARE, MEDICAID, SELFPAY | PROVIDERS: PCP Family Medicine; Visit Provider Internal Medicine Pulmonary Disease | DX: R91.1 Solitary pulmonary nodule (principal); R59.0 Localized enlarged lymph nodes; J98.4 Other disorders of lung; Z87.891 Personal history of nicotine dependence | CPT/HCPCS: 99214 ==

== ENCOUNTER 2022-12-23 21:17 | Inpatient (IN) | payer MEDICARE, MEDICAID, SELFPAY ==
[2022-12-23 21:31] VITALS: BP 147/96; PULSE 104; RESP 16; TEMP 36.7; O2SAT 97; BMI 34.0
--- NOTE | 2022-12-23 21:35 | W.ED.NAVMDI ---
HPI - Nausea/Vomiting/Diarrhea General: Chief complaint: Nausea/Vomiting/Diarrhea Stated complaint: ABD Pain Time Seen by Provider: 12/23/22 21:35 History of Present Illness: 52-year-old gentleman with history of remote surgery for bowel blockage, history of lung surgery for carcinoid tumor presented to the emergency department for approximately 36 hours of abdominal symptoms. Notes generalized pain worse in the upper abdomen associated with nausea, vomiting, diarrhea. Nonbloody and nonbilious. Moderate to severe in intensity. Notes generalized unwell feeling. No other specific changes in health, exacerbating, or alleviating factors identified. Onset (ago): day(s) Description of vomiting: watery Description of diarrhea: watery Associated nausea: Yes Associated abdominal pain: Yes Location of pain: Diffuse Severity: moderate Exacerbating factors: eating and movement Relieving factors: none Associated symtoms: Reports anorexia, malaise and nausea Review of Systems General: Reports: 10 or more systems reviewed and unremarkable except in HPI and below Const: Reports: malaise GI: Reports: nausea PFSH ED PFSH: Medical History (Updated 01/01/23 @ 00:02 by TALIB Hirsch) Carcinoid tumor HTN (hypertension) Hyperlipidemia Lung nodule SBO (small bowel obstruction) Type 2 diabetes mellitus Surgical History H/O knee surgery H/O rhinoplasty H/O shoulder surgery History of appendectomy History of back surgery History of gastric surgery Family History Family/Other Diabetes Grandfather Heart disease Grandmother Cancer Leukemia Other Dementia Hyperlipidemia Hypertension Lung disease Stroke Denies family history of CAD (coronary artery disease) Clotting disorder Psychiatric illness Chronic kidney disease (CKD) Suicide Anesthesia complication Bleeding disorder Social History Smoking and tobacco status: former smoker Quit status (tobacco): has quit using tobacco Year quit tobacco: 2001 Former quit date comment: Hx of 1 PPD x 12 Years Second hand smoke exposure: No Smoking risk assessment/counseling performed?: No Alcohol intake: current Alcohol intake frequency: holidays/special occasions only Counseling given: No Substance/Drug Use: never Counseling given: No Lives independently: Yes Household members: family Marital status: Single Current occupational status: disabled Do you think of yourself as: Straight/Heterosexual Current gender identity: Male Physical Exam Const: COMMON NORMALS: alert GENERAL APPEARANCE: cooperative and well developed HENMT: COMMON NORMALS: normocephalic and atraumatic HEAD & SCALP: normocephalic and atraumatic Eye: COMMON NORMALS: conjunctivae normal CONJUNCTIVA: Yes conjunctivae normal SCLERA: sclerae normal Neck/C-Spine: COMMON NORMALS: supple GENERAL: Yes trachea midline Resp: COMMON NORMALS: clear to auscultation bilaterally EFFORT & INSPECTION: Yes able to speak in complete sentences AUSCULTATION: clear to auscultation bilaterally Cardio: COMMON NORMALS: regular rate and regular rhythm RATE: regular rate RHYTHM: regular rhythm GI: COMMON NORMALS: Soft to palpation PALPATION: Yes Soft to palpation, Yes Tenderness to palpation present (GI) and No Rigid due to palpation Extremity: GENERAL: Yes normal exam except as noted and No edema Neuro: COMMON NORMALS: moves all extremities SENSORIUM/ORIENTATION: Yes alert and No Orientation impaired Psych: COMMON NORMALS: mental status grossly normal and Normal thought process present THOUGHT PROCESS: Normal thought process present Course Vital Signs: Vital signs: Vital Signs Temperature 97.9 F 12/31/22 03:57 Pulse Rate 72 12/31/22 14:25 Respiratory Rate 16 12/31/22 14:25 Blood Pressure 156/82 12/31/22 14:25 Pulse Oximetry 97 12/31/22 14:25 Oxygen Delivery Me thod Room Air 12/31/22 12:00 Oxygen Flow Rate 0 12/31/22 08:00 MDM - Nausea/Vomiting/Diarrhea Medical Decision Making 52-year-old gentleman presenting with abdominal pain. Exam as above. Nontoxic. Abdominal tenderness generalized without acute surgical abdomen. Labs with leukocytosis and hemoconcentration. Metabolic panel without electrolyte derangement. Lactic acid is elevated. Urinalysis with no acute UTI. CT demonstrates abnormal small bowel dilation concerning for obstruction. Possible closed-loop. Discussed with general surgery who will be consult service on patient. They requested p.o. contrasted study for further evaluation of possible closed-loop obstruction which was ordered and pending at time of admission. Patient treated with analgesia, antiemetic, fluids. The results of ED evaluation were discussed with the patient including plan for admission due to requirement for level of care not available if discharged to prevent significant worsening/deterioration. Patient agreeable with plan. Discussed with hospitalist service who was agreeable to admit patient. Medical Records I reviewed the patient's medical records. Lab Data I reviewed the patient's lab results. 12/30/22 06:03 12/30/22 06:03 Radiology Impressions Abdomen/Pelvis CT 12/24/22 00:04 IMPRESSION: 1. Compared to the prior day, the findings are again consistent with a significant closed loop obstruction. New, and of concern, there is portal venous gas in the liver, which does imply bowel ischemia. New small bowel pneumatosis. Advise emergent surgical consultation. 2. Progressive small to moderate pelvic free fluid. 3. No abscess, free air, or other change has occurred from about 4 hours ago. 4. Call to provider has been initiated. COMMENTS: Consistent with the [employer]'s Incidental Findings Committee white paper (J Am Nitesh Radiol 2018): Any incidental renal lesion less than 1 cm or classified as too small to characterize, or any incidental cystic renal lesion characterized as simple-appearing, is likely benign. No follow-up imaging is recommended for these lesions per consensus recommendations based on imaging criteria. ADDENDUM: 12/24/22 0316 THIS REPORT CONTAINS FINDINGS THAT MAY BE CRITICAL TO PATIENT CARE. The findings were verbally communicated via telephone conference at 3:14 AM CDT on 12/24/[address] Godwin. The findings were acknowledged and understood. Abdomen X-Ray 12/29/22 08:00 IMPRESSION: Distal small bowel obstruction pattern persists. Laboratory Results WBC 13.8 10^3/uL (4.0-10.0) H 12/23/22 22:05 RBC 5.29 10^6/uL (4.1-5.3) 12/23/22 22:05 Hgb 15.1 g/dL (11.7-16.6) 12/23/22 22:05 Hct 46.2 % (42.0-52.0) 12/23/22 22:05 MCV 87.3 fl (80-94) 12/23/22 22:05 MCH 28.5 pg (28.0-34.0) 12/23/22 22:05 MCHC 32.7 g/dL (30.0-36.0) 12/23/22 22:05 RDW 14.2 % (12.1-15.1) 12/23/22 22:05 Plt Count 238 10^3/cmm (130-400) 12/23/22 22:05 MPV 10.5 fL (7.4-10.4) H 12/23/22 22:05 Neut % (Auto) 86.3 % 12/23/22 22:05 Lymph % (Auto) 7.8 % 12/23/22 22:05 [place] % (Auto) 4.3 % 12/23/22 22:05 Eos % (Auto) 0.8 % 12/23/22 22:05 Baso % (Auto) 0.4 % 12/23/22 22:05 Neut # (Auto) 11.91 10^3/uL (1.8-7.7) H 12/23/22 22:05 Lymph # (Auto) 1.1 10^3/uL (0.8-4.8) 12/23/22 22:05 [place] # (Auto) 0.6 10^3/uL (0.2-0.9) 12/23/22 22:05 Eos # (Auto) 0.1 10^3/uL (0.0-0.8) 12/23/22 22:05 Baso # (Auto) 0.1 10^3/uL (0.0-0.1) 12/23/22 22:05 Nucleated RBC % (auto) 0 % 12/23/22 22:05 Nucleated RBCs # 0.0 /100WBC 12/23/22 22:05 Sodium 145 mmol/L (136-145) 12/23/22 22:05 Potassium 4.0 mmol/L (3.5-5.1) 12/23/22 22:05 Chloride 103 mmol/L (98-107) 12/23/22 22:05 Carbon Dioxide 27 mmol/L (22-29) 12/23/22 22:05 Anion Gap 19.0 (5-19) 12/23/22 22:05 BUN 11 mg/dL (6-20) 12/23/22 22:05 Creatinine 0.8 mg/dL (0.7-1.2) 12/23/22 22:05 GFR Calculation 102.3 mL/min (90-130) 12/23/22 22:05 Glucose 191 mg/dL (65-115) H 12/23/22 22:05 POC Glucose 171 mg/dL (70-110) H 12/23/22 21:51 Calculated Osmolality 305 mOsm/kg (285-295) H 12/23/22 22:05 Lactic Acid 2.4 mmol/L (0.5-2.2) H 12/23/22 22:47 Calcium 9.5 mg/dL (8.5-10.5) 12/23/22 22:05 Magnesium 1.7 mg/dL (1.7-2.3) 12/23/22 22:05 Total Bilirubin 0.3 mg/dL (0.15-1.2) 12/23/22 22:05 AST 23 U/L (0-40) 12/23/22 22:05 ALT 38 U/L (0-41) 12/23/22 22:05 Alkaline Phosphatase 101 U/L (40-130) 12/23/22 22:05 Total Protein 7.3 g/dL (6.6-8.7) 12/23/22 22:05 Albumin 4.3 g/dL (3.5-5.2) 12/23/22 22:05 Globulin 3.0 g/dL (1.3-4.6) 12/23/22 22:05 Lipase 31 U/L (13-60) 12/23/22 22:05 Discharge Plan Discharge Patient Disposition: Admitted As Inpatient Admit Provider: Aleja Godwin Clinical Impression: SBO (small bowel obstruction) Condition: Stable Discharge Diet: As Directed Discharge Activity: Limit activity as instructed Coding Level of Care Code 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
--- NOTE | 2022-12-23 22:06 | CTR_ITS ---
PROCEDURE INFORMATION: Exam: CT Abdomen And Pelvis With Contrast Exam date and time: 12/23/2022 10:28 PM Age: 52 years old Clinical indication: Nausea and vomiting; Abdominal pain; Generalized; Prior surgery; Surgery date: 6+ months; Surgery type: Appendectomy, back surgery; Additional info: N/v/d, generalized pain TECHNIQUE: Imaging protocol: Computed tomography of the abdomen and pelvis with contrast. Radiation optimization: All CT scans at this facility use at least one of these dose optimization techniques: automated exposure control; mA and/or kV adjustment per patient size (includes targeted exams where dose is matched to clinical indication); or iterative reconstruction. Contrast material: OMNI 350; Contrast volume: 80 ml; Contrast route: INTRAVENOUS (IV); REPORTING DATA: Count of CT and Cardiac NM exams in prior 12 months: This patient has received 2 known CTs and 0 known cardiac nuclear medicine studies in the 12 months prior to the current study. COMPARISON: NM bone scan whole body* [id number] 03/27/2022 12:00 AM RADIATION DOSE METRICS: Total DLP (mGy-cm): 1157.44 FINDINGS: Lungs: Right lower lung suture with scarring and loss of volume. Nbxor-[id number]-qfnj-left lung base atelectasis or scarring. Compared to the 03/04/2021 CT chest, these findings are basically new. Advise appropriate close follow-up. Liver: Unremarkable. No enhancing mass. Gallbladder and bile ducts: No calcified gallstones or biliary dilation identified. Pancreas: Unremarkable with no suspicious mass. No ductal dilation. Spleen: The spleen is not enlarged. No suspicious enhancing mass is noted. Adrenal glands: Normal. No mass. Kidneys and ureters: Right renal 1.2 cm cyst. No enhancing renal mass or hydronephrosis. Stomach and bowel: The colon is rather fecal filled. Multiple small bowel loops are quite dilated centrally. These measure up to about 5 cm. There is mild mesenteric edema. Some loops of small bowel extend into the right upper quadrant. The distal small bowel loops are not dilated. The proximal small bowel loops are not dilated. Appendix: No evidence of appendicitis. Intraperitoneal space: Small pelvic free fluid. No abscess, free air, or pneumatosis. Vasculature: No AAA or acute vascular lesion identified. Lymph nodes: No enlarged lymph nodes. Urinary bladder: Unremarkable as visualized. Reproductive: Very large prostate. Bones/joints: Old right rib deformities. L4-L5 fusion. Zinr-fv-ogxxvaig lower lumbar degenerative change. Soft tissues: No acute or suspicious finding noted. CT/CT abdomen pelvis w con* [id number] IMPRESSION: 1. Significant central small bowel dilation as described. Because the proximal and distal small bowel loops are not particularly dilated, this does raise concern for a closed loop obstruction. No abscess or free air. Advise surgical consultation. 2. Fecal filled colon. Multiple chronic findings. 3. Right lung base postop findings as above should be appropriately followed up. COMMENTS: Consistent with the [employer]'s Incidental Findings Committee white paper (J Am Nitesh Radiol 2018): Any incidental renal lesion less than 1 cm or classified as too small to characterize, or any incidental cystic renal lesion characterized as simple-appearing, is likely benign. No follow-up imaging is recommended for these lesions per consensus recommendations based on imaging criteria.
[2022-12-23 22:12] VITALS: RESP 14
[2022-12-23] MEDS: sodium chloride 0.9% 1,000 ML 999 ML IV (22:12)
[2022-12-23] MEDS: morphine 4 mg/mL SDV 1 mL IVP (22:12)
[2022-12-23] MEDS: ondansetron 2 mg/ML SDV 2 mL 4 MG IVP (22:12)
[2022-12-23 22:18] VITALS: BP 152/101; PULSE 95; RESP 16; O2SAT 93
[2022-12-23 22:18] LABS: Basophils # 0.1 10^3/uL (0.0-0.1); Basophils % 0.4 %; Eosinophils # 0.1 10^3/uL (0.0-0.8); Eosinophils % 0.8 %; Hematocrit 46.2 % (42.0-52.0); Hemoglobin 15.1 g/dL (11.7-16.6); Lymphocytes # 1.1 10^3/uL (0.8-4.8); Lymphocytes % 7.8 %; Mean Corpuscular HGB Conc 32.7 g/dL (30.0-36.0); Mean Corpuscular Hemoglobin 28.5 pg (28.0-34.0); Mean Corpuscular Volume 87.3 fl (80-94); Mean Platelet Volume 10.5 fL (7.4-10.4); Monocytes # 0.6 10^3/uL (0.2-0.9); Monocytes % 4.3 %; Neutrophils # 11.91 10^3/uL (1.8-7.7); Neutrophils % 86.3 %; Nucleated Red Blood Cells % 0 %; Platelet Count 238 10^3/cmm (130-400); Red Blood Count 5.29 10^6/uL (4.1-5.3); Red Cell Distribution Width 14.2 % (12.1-15.1); White Blood Count 13.8 10^3/uL (4.0-10.0)
[2022-12-23] MEDS: iohexol 350 mg/mL 500 mL Btl (per mL) IV (22:31)
[2022-12-23 22:34] LABS: Alanine Aminotransferase 38 U/L (0-41); Albumin Level 4.3 g/dL (3.5-5.2); Alkaline Phosphatase 101 U/L (40-130); Aspartate Amino Transferase 23 U/L (0-40); Blood Urea Nitrogen 11 mg/dL (6-20); Calcium 9.5 mg/dL (8.5-10.5); Carbon Dioxide 27 mmol/L (22-29); Chloride 103 mmol/L (98-107); Glomerular Filtration Rate 102.3 mL/min (90-130); Glucose 191 mg/dL (65-115); Lipase 31 U/L (13-60); Magnesium 1.7 mg/dL (1.7-2.3); Osmolality Calculated 305 mOsm/kg (285-295); Sodium 145 mmol/L (136-145); Total Bilirubin 0.3 mg/dL (0.15-1.2); Total Protein 7.3 g/dL (6.6-8.7)
[2022-12-23 23:08] LABS: Lactic Sepsis W/Reflex 2.4 mmol/L (0.5-2.2)
[2022-12-23 23:13] LABS: Glucose Point of Care 171 mg/dL (70-110)
[2022-12-24] VITALS (38 sets, daily range): BP systolic 115–158; BP diastolic 63–100; PULSE 88–122; RESP 14–22; TEMP 36.4–37.2; O2SAT 91–100
[2022-12-24] MEDS: lidocaine 2% viscous 15 ML, aluminum-mag hydrox-simethicon 30 ML, sucralfate oral liq 1 GM PO (00:04)
--- NOTE | 2022-12-24 00:04 | CTR_ITS ---
PROCEDURE INFORMATION: Exam: CT Abdomen And Pelvis Without Contrast Exam date and time: 12/24/2022 2:35 AM Age: 52 years old Clinical indication: Nausea and vomiting; Abdominal pain; Generalized; Patient HX: Po contrast administered x2 hrs ago. R/O poss closed loop sbo; Additional info: Eval possible closed loop sbo, po contrast 2 hrs prior to scan TECHNIQUE: Imaging protocol: Computed tomography of the abdomen and pelvis without contrast. Radiation optimization: All CT scans at this facility use at least one of these dose optimization techniques: automated exposure control; mA and/or kV adjustment per patient size (includes targeted exams where dose is matched to clinical indication); or iterative reconstruction. REPORTING DATA: Count of CT and Cardiac NM exams in prior 12 months: This patient has received 3 known CTs and 0 known cardiac nuclear medicine studies in the 12 months prior to the current study. COMPARISON: CT abdomen pelvis w con* [id number] 12/23/2022 10:28 PM RADIATION DOSE METRICS: Total DLP (mGy-cm): 1184.75 FINDINGS: Lungs: Right lower lung suture with scarring and loss of volume. Yqqcw-[id number]-[id number]-left lung base atelectasis or scarring. Compared to the 03/04/2021 CT chest, these findings are basically new. Advise appropriate close follow-up. Liver: There is new moderate portal venous gas, which is concerning. No mass. Gallbladder and bile ducts: Gallbladder contains vicarious excretion of IV contrast. Pancreas: Unremarkable with no suspicious mass. No ductal dilation. Spleen: The spleen is not enlarged. No suspicious enhancing mass is noted. Adrenal glands: Normal. No mass. Kidneys and ureters: Right renal 1.2 cm cyst. No enhancing renal mass or hydronephrosis. Stomach and bowel: The colon is rather fecal filled. Multiple small bowel loops are quite dilated centrally. These measure up to about 5 cm. There is new small bowel pneumatosis. There is mild mesenteric edema. Some loops of small bowel extend into the right upper quadrant. The distal small bowel loops are not dilated. The proximal small bowel loops are not dilated. Appendix: No evidence of appendicitis. Intraperitoneal space: Small pelvic free fluid has increased. No abscess, free air, or pneumatosis. Vasculature: No AAA or acute vascular lesion identified. Lymph nodes: No enlarged lymph nodes. Urinary bladder: Unremarkable as visualized. Reproductive: Very large prostate. Bones/joints: Old right rib deformities. L4-L5 fusion. Aneu-dh-vfvsjivi lower lumbar degenerative change. Soft tissues: No acute or suspicious finding noted. CT/CT abdomen pelvis wo con [id number] IMPRESSION: 1. Compared to the prior day, the findings are again consistent with a significant closed loop obstruction. New, and of concern, there is portal venous gas in the liver, which does imply bowel ischemia. New small bowel pneumatosis. Advise emergent surgical consultation. 2. Progressive small to moderate pelvic free fluid. 3. No abscess, free air, or other change has occurred from about 4 hours ago. 4. Call to provider has been initiated. COMMENTS: Consistent with the [employer]'s Incidental Findings Committee white paper (J Am Nitesh Radiol 2018): Any incidental renal lesion less than 1 cm or classified as too small to characterize, or any incidental cystic renal lesion characterized as simple-appearing, is likely benign. No follow-up imaging is recommended for these lesions per consensus recommendations based on imaging criteria.
[2022-12-24] MEDS: morphine 4 mg/mL SDV 1 mL IVP (00:07)
--- NOTE | 2022-12-24 00:28 | P.HP_ITS ---
Providers/Chief Complaint Primary Care Provider: Ryan Martinez Chief Complaint: ABD Pain History of Present Illness Drew Dixon is a 52 year old male with history of carcinoid tumor, hypertension, hyperlipidemia, lung nodule, type 2 diabetes mellitus controlled on metformin, bowel obstruction in 1998 that had to require surgery, a second bowel obstruction 5 to 6 years ago that was managed conservatively with laxatives presenting to the hospital today with complaint of pain in his abdomen that has been going on for the last day and a half. He has also been nauseous and has been vomiting. Complains of diarrhea as well. No blood in vomitus noticed. He is feeling unwell generally. He apparently has had a bowel obstruction before. Patient is a former smoker. He follows with Dr. Clifofrd for pulmonary nodule and recently saw him on 02 December. Please see pulmonology note for details. Patient does have small airways disease and is currently on Incruse daily. For hypertension he is on amlodipine irbesartan hydrochloroth iazide. He states his first bowel obstruction 1998 he was told that he had some scar tissue that was removed. Possibly adhesions. He denies a history of motor vehicle accident, gunshot wound or prior abdominal surgeries. Second bowel obstruction was managed conservatively. He says he has been having diarrhea since yesterday. He had 6 episodes yesterday and 4 episodes since this morning. He is unable to keep anything down. He is not passing flatus at this time. Complains of left lower quadrant and right lower quadrant abdominal pain. Has been quite nauseous. At the time of database report writer saw the patient he was vomiting actively. ED course: On arrival blood pressure 147/96, respiratory 16, pulse 104, temperature 98.7, saturating 97% on room air. CT abdomen pelvis was obtained which showed significant central . Because of proximal and distal small bowel loops were not particularly dilated this does raise concern for closed-loop obstruction. No abscess or free air. Surgical consultation recommended. Fecal filled colon. Multiple chronic findings. Right lung base. Findings as above should be appropriately followed up. General surgery was contacted. Surgeon has requested for a CT abdomen pelvis with oral contrast. Hospitalist was called to admit patient. Closed-loop obstr uction present patient will go to the OR right away otherwise we will manage conservatively with NG tube. Further orders to be held until contrast study needed. Labs significant for WBC 13.8, lactic acid 2.4. Patient was given GI cocktail times two 1 L normal saline bolus in ER. Morphine for pain. Medications/Allergies Home Medications Medication Instructions Recorded Confirmed Last Taken Type amlodipine 5 mg tablet 5 mg PO DAILY 02/06/20 12/01/22 04/21/22 History irbesartan 150 1 tab PO BID 02/06/20 12/01/22 04/21/22 History mg-hydrochlorothiazide 12.5 mg tablet pravastatin 40 mg tablet 40 mg PO QPM 02/06/20 12/01/22 04/21/22 History melatonin 5 mg capsule 5 mg PO BEDTIME 03/19/21 12/01/22 04/21/22 History metformin 500 mg tablet 1,000 mg PO BID 01/01/22 12/01/22 04/21/22 History baclofen 10 mg tablet 10 mg PO BID PRN Pain 04/21/22 12/01/22 04/21/22 History multivitamin with minerals-folic 1 tab PO DAILY 05/07/22 12/01/22 Unknown History acid 200 mcg chewable tablet ([employer]) ibuprofen 600 mg tablet 600 mg PO Q8H PRN pain #20 tabs 10/25/22 12/01/22 Unknown Rx umeclidinium 62.5 mcg/actuation 1 inh inhalation DAILY #90 ea 11/27/22 12/01/22 Unknown Rx blister powder for inhalation (Incruse Ellipta) Allergies Allergy/AdvReac Type Severity Reaction Status Date / Time prednisone Allergy Severe ADR-Agitate Verified 12/23/22 21:31 d PFSH Acute PFSH: Medical History (Updated 12/24/22 @ 00:48 by Aleja Godwin MD) Carcinoid tumor HTN (hypertension) Hyperlipidemia Lung nodule Type 2 diabetes mellitus Surgical History H/O knee surgery H/O rhinoplasty H/O shoulder surgery History of appendectomy History of back surgery History of gastric surgery Family History Family/Other Diabetes Grandfather Heart disease Grandmother Cancer Leukemia Other Dementia Hyperlipidemia Hypertension Lung disease Stroke Denies family history of CAD (coronary artery disease) Clotting disorder Psychiatric illness Chronic kidney disease (CKD) Suicide Anesthesia complication Bleeding disorder Social History Smoking and tobacco status: former smoker Quit status (tobacco): has quit using tobacco Year quit tobacco: 2001 Former quit date comment: Hx of 1 PPD x 12 Years Second hand smoke exposure: No Smoking risk assessment/counseling performed?: No Alcohol intake: current Alcohol intake frequency: holidays/special occasions only Counseling given: No Substance/Drug Use: never Counseling given: No Lives independently: Yes Household members: family Marital status: Single Current occupational status: disabled Do you think of yourself as: Straight/Heterosexual Current gender identity: Male Vitals/I&O/Wt Last Vital Signs Temp 98.0 F 12/23/22 21:31 Pulse 95 12/23/22 22:18 Resp 16 12/24/22 00:07 BP 152/101 12/23/22 22:18 Pulse Ox 93 12/23/22 22:18 O2 Del Method Room Air 12/23/22 22:18 Weight last 48 hrs Weight 104.326 kg Physical Exam Narrative: General: Alert oriented x3, patient seen laying in bed, patient vomiting when seen today. HEENT: Normocephalic, atraumatic, EOMI, breathing room air. Cardio: Regular rate rhythm, normal S1-S2, Respiratory: Clear to auscultation bilaterally no wheezes no rhonchi. GI: Abdomen soft, tender to palpation in left lower quadrant and right lower quadrant, slight distention noted., bowel sounds + but extremely hypoactive. They are present however. Extremities: No edema. Data 12/23/22 22:05 12/23/22 22:05 Micro: Microbiology 12/23/22 22:50 Blood Culture - Preliminary Blood SPECIMEN COLLECTED 12/23/22 22:05 Blood Culture - Preliminary Blood SPECIMEN COLLECTED A&P Assessment and plan (1) SBO (small bowel obstruction): (2) Carcinoid tumor: (3) Type 2 diabetes mellitus: (4) Hyperlipidemia: (5) HTN (hypertension): Plan #Small bowel obstruction #History of carcinoid tumor, lung nodule, follows with pulmonology #Hypertension #Type 2 diabetes mellitus #Hyperlipidemia #History of 2 bowel obstructions in the past 1998 and 6 years ago. One of them requiring surgical intervention. -Elevated lactic acid at 2.4. Patient has been having nausea vomiting and some diarrhea. He appears dehydrated. Given 1 L normal saline bolus in ER. ? Continue normal saline 125 cc/h ? N.p.o. at this time ? CT abdomen pelvis reveals appreciated at this time. General surgery consulted. They have requested for CT abdomen pelvis with oral contrast. We will hold off on NG tube until study is complete as per general surgery. ER doctor spoke with him. ? If patient is found to have a closed-loop bowel obstruction patient will go to the OR tonight ? Await further instructions from general surgery pending CT results ? We will hold home amlodipine, baclofen, ibuprofen, metformin, losartan, hydrochlorothiazide at this time. ? Hydralazine 5 mg IV as needed every 4 hours for systolic blood pressure greater than 180 ? Morphine 2 mg every 4 hours as needed for pain ? We will check CBC CMP, magnesium in a.m. ? Zofran for nausea -We will place on sliding scale insulin low-dose intensity. Cautious administration due to n.p.o. status. ? Patient to continue follow-up with pulmonology for question of tumor, lung nodule as an outpatient as previously scheduled. Please see pulmonology notes for further details. -Check blood cultures, procalcitonin -Diarrhea is most likely secondary to bowel obstruction. I will hold off on doing any stool studies at this time. Leukocytosis is most likely reactive. Discussed the plan with the patient and he is on board. Answered all his questions. ? In case he is unable to make his own medical decisions he would like to speak to his niece Marcy. He states he is a full code and would like to be resuscitated and saved in case anything were to happen. Full code SCDs. We will hold off on pharmacological DVT prophylaxis due to potential for surgical intervention tonight. Attestations Medical Necessity Statement*: Greater than 2 midnight stay for management of small bowel obstruction. Coding Level of Care Code G0426 (50 min) TH Encounter Time (min): 50 Patient seen via Telehealth in the acute care setting (hospital or ED location) by agreement and consent of patient or patient union representative. Telehealth technology used during the visit includes video and audio. This patient encounter is appropriate and reasonable under the circumstances given the patient?s particular presentation at this time. The patient has been advised of the potential risks and limitations of this mode of treatment (including but not limited to the absence of in-person examination at this time) and has agreed to be treated by an off-site physician for this visit. If deemed clinically necessary from this telehealth visit, or if condition or consent for telehealth visit changes, an in-person visit will be arranged. For this encounter, total time for the origination of telehealth care on this date is as shown. Diagnoses SBO (small bowel obstruction) K56.609 Carcinoid tumor D3A.00 Type 2 diabetes mellitus E11.9 Hyperlipidemia E78.5 HTN (hypertension) I10
[2022-12-24] MEDS: diatrizoate meglumine 120 mL Sol PO (00:37)
[2022-12-24 00:44] LABS: Reflex Lactate Order REFLEX LACTIC ORDERD
[2022-12-24 01:39] LABS: Lactic Acid level (Lactate) 1.8 mmol/L (0.5-2.2)
[2022-12-24] MEDS: ondansetron 2 mg/ML SDV 2 mL 4 MG IVP (01:42)
[2022-12-24] MEDS: pantoprazole 40 mg SDV IVP (01:46)
[2022-12-24] MEDS: sodium chloride 0.9% 1,000 ML 125 ML IV ×2 (01:46→08:02)
[2022-12-24 03:46] LABS: Add Urine Microscopic? NO; Charge for UA Resulting for Rev
[2022-12-24 03:53] LABS: Bilirubin Urine 1+ (Negative); Blood Urine Neg (Negative); Glucose Urine UA 4+ (Normal); Ketones Urine Negative (Negative); Leukocyte Esterase Urine Negative (Negative); Nitrate Urine Negative (Negative); Protein Urine Neg (Negative); Urine Appearance Clear (CLEAR); Urine Color Yellow (Yellow); Urobilinogen Urine 4 mg/dL (Negative); pH Urine 5 (5-7)
--- NOTE | 2022-12-24 04:09 | PM.CONSULT ---
Providers/Reason For Consult Consulting Physician/Specialty*: Allan Evans MD general surgery Reason for Consult*: bowel obstruction Requesting Physician: see below Attending Physician: Aleja Godwin MD Primary Care Provider: Ryan Martinez History of Present Illness History of Present Illness Drew Dixon is a 52 year old male who about 10 years ago had surgery for bowel obstruction in [place] through a McBurney type incision and had his appendix removed. He subsequently had admission here about 5 years ago by his report for SBO and was managed conservatively. Yesterday morning he had some loose stools and passed flatus. He can go up to a week without BM and can be formed or loose. There was no blood in it. He has had some episodes of N/V with no blood and had an emesis on floor here about 200 cc and non bloody. He states he has had lower abdominal pain right greater than left. He last ate at 9 am yesterday. Pain started at 2 pm yesterday. He denies any F/C/S. He had CT done in ER showing sbo and posible closed loop. This was repeated with oral contrast and it is worse c/w closed loop obstruction. He is diabetic for years on metformin. He was diagnosed with carcinoid tumor of lung and is being followed by pulmonology but patient states his abdominal surgeries were the only surgeries he has had. On the chart he has history of back/shoulder/knee, rhinoplasty and gastric surgery. He is not and would like his niece informed of any surgery results. Review of Systems Narrative: Constitutional: denies rigors, singnificant weight gain, increased appetite HEENT: denies chronic cough, blurry vision, excessive tearing, eye pain, flashing lights, odynophagia, painful mastication, change in voice, change in taste, chronic sore throat, hypersalivation Heart: denies racing heart, palpitations, othropnea, PND Lungs: denies hemoptysis, pain with deep inspiration, chronic bronchitis GI: denies hematemesis, hematochezia, dysphagia, tenesmus : denies polyuria, hematuria, painful micturation Musculoskeletal: denies hemarthrosis, Muscle wasting, change in amubation Neuro: denies new onset syncope, dysesthesia, dysequilibrium, ptosis eyelid or face SKin: denies new onset hyperalgia, new rash new cyanosis Endocrine: denies new polyuria, polydipsia, polyphagia, heat intolerance, excessive energy Hem/Onc: denies new petechiae, swollen glands, new excessive epstaxis Psych: denies racing thought Medications/Allergies Home Medications Medication Instructions Recorded Confirmed Last Taken Type amlodipine 5 mg tablet 5 mg PO DAILY 02/06/20 12/01/22 04/21/22 History irbesartan 150 1 tab PO BID 02/06/20 12/01/22 04/21/22 History mg-hydrochlorothiazide 12.5 mg tablet pravastatin 40 mg tablet 40 mg PO QPM 02/06/20 12/01/22 04/21/22 History melatonin 5 mg capsule 5 mg PO BEDTIME 03/19/21 12/01/22 04/21/22 History metformin 500 mg tablet 1,000 mg PO BID 01/01/22 12/01/22 04/21/22 History baclofen 10 mg tablet 10 mg PO BID PRN Pain 04/21/22 12/01/22 04/21/22 History multivitamin with minerals-folic 1 tab PO DAILY 05/07/22 12/01/22 Unknown History acid 200 mcg chewable tablet ([employer]) ibuprofen 600 mg tablet 600 mg PO Q8H PRN pain #20 tabs 10/25/22 12/01/22 Unknown Rx umeclidinium 62.5 mcg/actuation 1 inh inhalation DAILY #90 ea 11/27/22 12/01/22 Unknown Rx blister powder for inhalation (Incruse Ellipta) Allergies Allergy/AdvReac Type Severity Reaction Status Date / Time prednisone Allergy Severe ADR-Agitate Verified 12/23/22 21:31 d Current Medications Generic Name Dose Route Start Last Admin Trade Name Freq PRN Reason Stop Dose Admin Sodium Chloride 1,000 mls @ 125 mls/hr 12/24/22 00:30 12/24/22 01:46 Sodium Chloride 0.9% IV 125 mls/hr .Q8H MYLENE Administration Ondansetron HCl 4 mg 12/24/22 00:28 12/24/22 01:42 Ondansetron 2 Mg/Ml Sdv 2 Ml IVP 4 mg Q8H PRN Administration vomiting, or N/V if npo Pantoprazole Sodium 40 mg 12/24/22 00:30 12/24/22 01:46 Pantoprazole 40 Mg Sdv IVP 40 mg Q24H MYLENE Administration PFSH Acute PFSH: Medical History (Updated 12/24/22 @ 00:48 by Aleja Godwin MD) Carcinoid tumor HTN (hypertension) Hyperlipidemia Lung nodule Type 2 diabetes mellitus Surgical History H/O knee surgery H/O rhinoplasty H/O shoulder surgery History of appendectomy History of back surgery History of gastric surgery Family History Family/Other Diabetes Grandfather Heart disease Grandmother Cancer Leukemia Other Dementia Hyperlipidemia Hypertension Lung disease Stroke Denies family history of CAD (coronary artery disease) Clotting disorder Psychiatric illness Chronic kidney disease (CKD) Suicide Anesthesia complication Bleeding disorder Social History Smoking and tobacco status: former smoker Quit status (tobacco): has quit using tobacco Year quit tobacco: 2001 Former quit date comment: Hx of 1 PPD x 12 Years Second hand smoke exposure: No Smoking risk assessment/counseling performed?: No Alcohol intake: current Alcohol intake frequency: holidays/special occasions only Counseling given: No Substance/Drug Use: never Counseling given: No Lives independently: Yes Household members: family Marital status: Single Current occupational status: disabled Do you think of yourself as: Straight/Heterosexual Current gender identity: Male Vitals/I&O/Wt Last Vital Signs Temp 98.4 F 12/24/22 01:23 Pulse 89 12/24/22 02:09 Resp 18 12/24/22 01:23 BP 158/90 12/24/22 01:23 Pulse Ox 97 12/24/22 01:23 O2 Del Method Room Air 12/24/22 02:30 12/23/22 12/23/22 12/24/22 14:59 22:59 06:59 Intake Total 1000 / 1000 Output Total 200 / 200 Balance 800 / 800 Weight last 48 hrs Weight 230 lb Physical Exam Narrative: Patient is a well developed well nourished and in NAD and is afebrile with vitals stable and is answering questions appropriately with a normal affect and is alert and oriented x3 HEENT: normocephalic with normal external ears and nonicteric, oral mucosa moist and dentition normal for age, trachea midline with no large masses visualized Heart: RRR, no gallops murmurs or rubs, normal PMI with no thrills Lungs: normal excursions, no loud audible wheezing, no subcutaneous emphysema Abdomen: distended, no gross hepatosplenomegaly, no masses, no rigidity or rebound, no loud borborygmi, tender RLQ greater than LLQ Neuro: nonfocal, EDGE, grossly normal sensation Musculoskeletal: good muscle tone, no fasciculations, normal gait Skin: pink warm and dry with no rashes or ecchymosis Vascular: good radial pulses, no ulceration, less than 2 second capillary refill in hand : deferred Urinary Catheter Management: Escobar: Cath Placed During This Visit: yes Urinary Catheter Date of Insertion: 12/24/22 Urinary Catheter Time of Insertion: 03:41 Data 12/23/22 22:05 12/23/22 22:05 Micro: Microbiology 12/23/22 22:50 Blood Culture - Preliminary Blood SPECIMEN COLLECTED 12/23/22 22:05 Blood Culture - Preliminary Blood SPECIMEN COLLECTED A&P Assessment and plan (1) SBO (small bowel obstruction): On CT SBO appears to be closed loop and so will take to OR. His pain started about14 hours ago. He understands risks, benefits and alternatives to surgery and wishes to proceed. Risks include bleeding, infection, cardiopulmonary problems, normal bowel, need for bowel resection, need for ostomy, need for more surgery, leakage, aspiration. Plan To OR for exploratory laparotomy Coding Level of Care Code 13473 Diagnoses SBO (small bowel obstruction) K56.609
--- NOTE | 2022-12-24 04:15 | PC.NURSE ---
Patient has been transferred to surgery, report called to Paige Conner in ICU.
--- NOTE | 2022-12-24 04:29 | ANES.PREANE2 ---
Pre-Anesthetic Assessment Height/Weight: Height 1.75 m Weight 104.326 kg Temp Pulse Resp BP Pulse Ox O2 Del Method 97.5 F L 101 H 17 152/100 95 Room Air 12/24/22 04:22 12/24/22 04:22 12/24/22 04:22 12/24/22 04:22 12/24/22 04:22 12/24/22 02:30 Operation Date: 12/24/22 05:30 Proposed Procedures p Exploratory Laparotomy(Not Applicable) - Agustin Evans MD s possible bowel resection(Not Applicable) - Agustin Evans MD Familial anesthetic complications: none Was Beta Nolan taken within 24 hours: N/A Was Clonidine taken within 24 hours: N/A Last intake: Intake Last Liquid Date 12/24/22 Last Liquid Time 00:00 Last Solid Date 12/23/22 Last Solid Time 09:00 Social No alcohol and No tobacco (h/o smoking) Exam alert, oriented x 3 and clear to auscultation bilaterally tachy Airway Submandibular: within normal limits Cervical ROM: within normal limits Mallampati: Class III Dentition: full Pulmonary Chronic Obstructive Pulmonary Disease CV/HEM Hypertension Metabolic Diabetes Mellitus, Hyperlipidemia and Morbid Obesity [facility] [place] Lower Back Pain and Osteoarthritis/DJD Anesthetic Plan ASA status: 4E Anesthesia: General (RSI) Medications/Allergies Home Medications Medication Instructions Recorded Confirmed Last Taken Type amlodipine 5 mg tablet 5 mg PO DAILY 02/06/20 12/01/22 04/21/22 History irbesartan 150 1 tab PO BID 02/06/20 12/01/22 04/21/22 History mg-hydrochlorothiazide 12.5 mg tablet pravastatin 40 mg tablet 40 mg PO QPM 02/06/20 12/01/22 04/21/22 History melatonin 5 mg capsule 5 mg PO BEDTIME 03/19/21 12/01/22 04/21/22 History metformin 500 mg tablet 1,000 mg PO BID 01/01/22 12/01/22 04/21/22 History baclofen 10 mg tablet 10 mg PO BID PRN Pain 04/21/22 12/01/22 04/21/22 History multivitamin with minerals-folic 1 tab PO DAILY 05/07/22 12/01/22 Unknown History acid 200 mcg chewable tablet ([employer]) ibuprofen 600 mg tablet 600 mg PO Q8H PRN pain #20 tabs 10/25/22 12/01/22 Unknown Rx umeclidinium 62.5 mcg/actuation 1 inh inhalation DAILY #90 ea 11/27/22 12/01/22 Unknown Rx blister powder for inhalation (Incruse [employer]) Allergies Allergy/AdvReac Type Severity Reaction Status Date / Time prednisone Allergy Severe ADR-Agitate Verified 12/23/22 21:31 d Current Medications Generic Name Dose Route Start Last Admin Trade Name Freq PRN Reason Stop Dose Admin Sodium Chloride 1,000 mls @ 125 mls/hr 12/24/22 00:30 12/24/22 01:46 Sodium Chloride 0.9% IV 125 mls/hr .Q8H MYLENE Administration Ondansetron HCl 4 mg 12/24/22 00:28 12/24/22 01:42 Ondansetron 2 Mg/Ml Sdv 2 Ml IVP 4 mg Q8H PRN Administration vomiting, or N/V if npo Pantoprazole Sodium 40 mg 12/24/22 00:30 12/24/22 01:46 Pantoprazole 40 Mg Sdv IVP 40 mg Q24H MYLENE Administration PFSH Anesthesia Medical History (Updated 12/24/22 @ 00:48 by Aleja Godwin MD) Carcinoid tumor HTN (hypertension) Hyperlipidemia Lung nodule Type 2 diabetes mellitus Surgical History H/O knee surgery H/O rhinoplasty H/O shoulder surgery History of appendectomy History of back surgery History of gastric surgery Family History Family/Other Diabetes Grandfather Heart disease Grandmother Cancer Leukemia Other Dementia Hyperlipidemia Hypertension Lung disease Stroke Denies family history of CAD (coronary artery disease) Clotting disorder Psychiatric illness Chronic kidney disease (CKD) Suicide Anesthesia complication Bleeding disorder Social History Smoking and tobacco status: former smoker Quit status (tobacco): has quit using tobacco Year quit tobacco: 2001 Former quit date comment: Hx of 1 PPD x 12 Years Second hand smoke exposure: No Smoking risk assessment/counseling performed?: No Alcohol intake: current Alcohol intake frequency: holidays/special occasions only Counseling given: No Substance/Drug Use: never Counseling given: No Lives independently: Yes Household members: family Marital status: Single Current occupational status: disabled Do you think of yourself as: Straight/Heterosexual Current gender identity: Male Data Anesthesia 12/23/22 22:05 12/23/22 22:05 Short CBC 12/23/22 Range/Units 22:05 WBC 13.8 H (4.0-10.0) 10^3/uL Hgb 15.1 (11.7-16.6) g/dL Hct 46.2 (42.0-52.0) % MCV 87.3 (80-94) fl Plt Count 238 (130-400) 10^3/cmm Neut % (Auto) 86.3 % Neut # (Auto) 11.91 H (1.8-7.7) 10^3/uL BMP 12/23/22 22:05 Sodium 145 Potassium 4.0 Chloride 103 Carbon Dioxide 27 BUN 11 Creatinine 0.8 Glucose 191 H Calcium 9.5 Liver Function 12/23/22 Range/Units 22:05 Total Bilirubin 0.3 (0.15-1.2) mg/dL AST 23 (0-40) U/L ALT 38 (0-41) U/L Alkaline Phosphatase 101 (40-130) U/L Albumin 4.3 (3.5-5.2) g/dL Urine 12/24/22 Range/Units 03:32 Urine Color Yellow (Yellow) Urine Appearance Clear (CLEAR) Urine pH 5 (5-7) Ur Specific [place] 1.020 (1.005-1.030) Urine Protein Neg (Negative) Urine Glucose (UA) 4+ H (Normal) Urine Ketones Negative (Negative) Urine Nitrate Negative (Negative) Urine Bilirubin 1+ H (Negative) Ur Leukocyte Esterase Negative (Negative) Microbiology 12/23/22 22:50 Blood Culture - Preliminary Blood SPECIMEN COLLECTED 12/23/22 22:05 Blood Culture - Preliminary Blood SPECIMEN COLLECTED Cardiac Studies: No Data to Display
[2022-12-24] MEDS: ceFAZolin 1,000 mg SDV 2000 MG IVP (05:00)
--- NOTE | 2022-12-24 06:40 | P.OP_ITS ---
Operative Report Date of procedure: December 24, 2022 Pre-op diagnosis: small bowel obstruction with possible closed loop obstruction Post-op diagnosis: same Post-op findings: Some serous fluid in abdominal cavity sent for C/S. Dilated 3 feet of distal small bowel. About 1 feet of decompressed distal ileum to ileocecal valve. No definite severe closed loop obstruction seen. Multiple distal adesions causing accordioning of distal small bowel with itself. Transition point did not see an adhesive band causing it. Small bowel viable. Procedure done: Exploratory laparotomy. Lysis of adhesions. Manual decompression of bowel contents retrograde into stomach and suctioned out with NG tube. Specimens removed/disposition: abdominal fluid sent for C/S Surgeon: Allan Evans MD Anesthesia: General Estimated blood loss: 20 cc Complications: none Findings: No large masses in non enlarged liver. GB soft. Firm stool in sigmoid and rectal area. NG tip palpated in stomach Brief History: Patient 10 years ago had appendectomy and laparotomy through McBurney incision in [employer]. He was told his appendix was normal. He had bowel obstruction a few years ago treated non operatively. Today has had 14 hours of abdominal pain, N/V and diarrhea. CT of abdomen and pelvis and repeated with oral contrast shows possible closed loop bowel obstruction with portal venous gas and pneumatosis of small bowel. He understands risks, benefits and alternatives to surgery and wishes to proceed. Risks include bleeding, infection, cardiopulmonary problems, normal bowel, more surgery, bowel resection, ostomy placement, recurrence, aspiration Procedure: After adequate general endotracheal anesthesia, patient was prepped and draped in sterile manner. Time out was performed. A midline incision was made and carried down to fascia which was incised. There was some clear to slightly cloudy fluid in abdominal cavity and was not bloody and was sent for C/S. Distal small bowel was dilated but viable. Patient was found to have multiple adhesions of bowel to itself and mesentery kinking the bowel into accordion shape but not true volvulus causing any significant closed loop obstruction. There was a transition point at about 1-2 feet from ileocecal valve but no adhesive band was seen here. It appeared the bowel was spasming at this location. The adhesions involved about 3 feet of distal small bowel and these were carefully lysed. There was greater omentum stuck to base of small bowel mesentery but it was not obstructive. This was freed up with ligasure. Once the bowel was freed up, the intestinal contents were milked retrograde into stomach. The NG tube tip was repositioned into distal stomach. Quick abdominal exploration revealed palpaby normal sized to small liver with no large masses. The gallbladder was palpably not distended. There was firm stool in areas of sigmoid and rectal area. Abdominal cavity was irrigated out with warm saline with clear effluent return. Wound was closed with #1 looped PDS. Skin was closed with roselyn after irrigating subcutaneous fat with saline. Wounds were aseptically dressed. Patient taken back to recovery room in stable condition.
[2022-12-24] MEDS: fentaNYL 50 mcg/mL INJ 2mL IVP ×2 (06:50→07:00)
[2022-12-24 07:10] LABS: Glucose Point of Care 184 mg/dL (70-110)
[2022-12-24] MEDS: HYDROmorphone 1 mg/mL INJ 1 mL 0.5 MG IVP ×2 (07:10→07:25)
[2022-12-24] MEDS: ipratropium-albuterol 3 mL Neb INHALATION ×3 (08:10→15:28)
[2022-12-24 09:02] LABS: Magnesium 1.4 mg/dL (1.7-2.3)
--- NOTE | 2022-12-24 09:08 | ANE.PACU2 ---
Inpatient post-anesthesia follow up: Airway intact: Yes Vital signs: Temperature 97.6 F Pulse Rate 95 Respiratory Rate 18 Blood Pressure 139/82 Pulse Oximetry 94 Oxygen Delivery Me thod Nasal Cannula Oxygen Flow Rate 2 Fraction of Inspir ed Oxygen Hydration adequate: Yes Nausea and vomiting: No Pain level: 4 Mental status: Baseline
[2022-12-24 09:10] LABS: Procalcitonin 0.06 ng/mL (0-0.5)
[2022-12-24 10:25] LABS: Reflex Lactate Order REFLEX LACTIC ORDERD
[2022-12-24] MEDS: morphine 4 mg/mL SDV 1 mL 2 MG IVP ×2 (11:35→16:26)
[2022-12-24 11:46] LABS: Lactic Acid level (Lactate) 3.8 mmol/L (0.5-2.2)
--- NOTE | 2022-12-24 12:04 | PM.MISC ---
Miscellaneous Note Note: Patient examined after surgery Exploratory laparotomy was done Estimated blood loss 20 cc Status post lysis of adhesions, manual decompression of bowel contents, no need of hemicolectomy Patient has not passed gas, currently on 1 L Abdomen distended Bowel sounds sluggish Patient is complaining of feeling thirsty and dehydrated I have changed IV fluids to D5 half-normal saline Awake and alert GCS 15 Small bowel suction with possible closed-loop obstruction: Pneumobilia Status post exploratory laparotomy adhesiolysis N.p.o. Monitor for bowel movement passage of flatus Change IV fluids to D5 half-normal saline If he does not get any bowel movement and he stays n.p.o. I will like to start PPN via peripheral IV Patient is stating that he lives alone, he has a medical DPOA Hypomagnesemia: Repleted Nausea and vomiting related to dehydration, anticipate improvement with IV fluid hydration There was concern for small bowel ischemia I will keep patient on Zosyn with IV fluid hydration monitor lactic acid Do not have active signs of peritonitis
[2022-12-24] MEDS: dextrose 5%-sod chloride 0.45% 1,000 ML 75 ML IV (12:32)
[2022-12-24] MEDS: magnesium sulfate premix 2 GM/50 ML PIGGYBACK IV (12:32)
[2022-12-24] MEDS: piperacillin-tazobactam 3.375 GM in sodium chloride 0.9% (plus) 50 ML IV ×2 (12:33→21:30)
[2022-12-24 13:07] LABS: Lactic Sepsis W/Reflex 3.7 mmol/L (0.5-2.2)
[2022-12-24 14:32] LABS: Reflex Lactate Order REFLEX LACTIC ORDERD
[2022-12-24 16:21] LABS: Lactic Acid level (Lactate) 3.5 mmol/L (0.5-2.2)
[2022-12-24] MEDS: sodium chloride 0.9% 250 ML IV ×2 (16:25→19:39)
[2022-12-24 18:01] LABS: Glucose Point of Care 214 mg/dL (70-110)
[2022-12-25] VITALS (16 sets, daily range): BP systolic 146–169; BP diastolic 77–94; PULSE 93–109; RESP 16–18; TEMP 36.8–37.3; O2SAT 93–96
[2022-12-25] MEDS: dextrose 5%-sod chloride 0.45% 1,000 ML 115 ML IV ×2 (00:08→08:55)
[2022-12-25] MEDS: pantoprazole 40 mg SDV IVP (00:09)
--- NOTE | 2022-12-25 01:42 | PC.NURSE ---
Bedside report given to Sharon Castro to assume care over pt.
[2022-12-25] MEDS: piperacillin-tazobactam 3.375 GM in sodium chloride 0.9% (plus) 50 ML IV ×3 (04:27→21:17)
[2022-12-25 05:41] LABS: Lactate (Lactic Acid level) 2.1 mmol/L (0.5-2.2)
[2022-12-25] MEDS: morphine 4 mg/mL SDV 1 mL 2 MG IVP (05:45)
[2022-12-25 08:05] LABS: Basophils % 0.4 %; Eosinophils # 0.1 10^3/uL (0.0-0.8); Eosinophils % 1.6 %; Hematocrit 37.1 % (42.0-52.0); Hemoglobin 11.8 g/dL (11.7-16.6); Lymphocytes # 1.1 10^3/uL (0.8-4.8); Lymphocytes % 14.1 %; Mean Corpuscular HGB Conc 31.8 g/dL (30.0-36.0); Mean Corpuscular Hemoglobin 28.7 pg (28.0-34.0); Mean Corpuscular Volume 90.3 fl (80-94); Mean Platelet Volume 10.6 fL (7.4-10.4); Monocytes # 0.6 10^3/uL (0.2-0.9); Monocytes % 8.1 %; Neutrophils # 5.61 10^3/uL (1.8-7.7); Neutrophils % 75.5 %; Nucleated Red Blood Cells % 0 %; Platelet Count 186 10^3/cmm (130-400); Red Blood Count 4.11 10^6/uL (4.1-5.3); White Blood Count 7.4 10^3/uL (4.0-10.0)
[2022-12-25] MEDS: ipratropium-albuterol 3 mL Neb INHALATION ×4 (08:08→19:39)
[2022-12-25 08:28] LABS: Alanine Aminotransferase 20 U/L (0-41); Alkaline Phosphatase 61 U/L (40-130); Anion Gap 13.7 (5-19); Aspartate Amino Transferase 12 U/L (0-40); Blood Urea Nitrogen 12 mg/dL (6-20); Calcium 7.7 mg/dL (8.5-10.5); Carbon Dioxide 24 mmol/L (22-29); Chloride 107 mmol/L (98-107); Globulin 2.4 g/dL (1.3-4.6); Glomerular Filtration Rate 102.3 mL/min (90-130); Glucose 145 mg/dL (65-115); Osmolality Calculated 294 mOsm/kg (285-295); Potassium 3.7 mmol/L (3.5-5.1); Sodium 141 mmol/L (136-145); Total Bilirubin 0.5 mg/dL (0.15-1.2); Total Protein 5.4 g/dL (6.6-8.7)
--- NOTE | 2022-12-25 11:24 | PM.PN ---
Subjective Subjective: Patient with better discomfort. Vitals/I&O/Wt Last Vital Signs Temp 98.3 F 12/25/22 08:00 Pulse 107 H 12/25/22 11:23 Resp 16 12/25/22 11:19 BP 146/77 12/25/22 08:00 Pulse Ox 93 12/25/22 11:19 O2 Del Method Room Air 12/25/22 11:19 O2 Flow Rate 1 12/24/22 11:13 12/24/22 12/25/22 12/25/22 22:59 06:59 14:59 Intake Total 1316.25 / 2210.00 255.083 / 2465.083 1050 / 1050 Output Total 975 / 1225 750 / 1975 Balance 341.25 / 985.00 -494.917 / 200.228 9121 / 1050 Weight last 48 hrs Weight 230 lb Physical Exam Narrative: Patient is a well developed well nourished and in NAD and is afebrile with vitals stable and is answering questions appropriately with a normal affect and is alert and oriented x3 HEENT: normocephalic with normal external ears and nonicteric, oral mucosa moist and dentition normal for age, trachea midline with no large masses visualized Heart: RRR, no gallops murmurs or rubs, normal PMI with no thrills Lungs: normal excursions, no loud audible wheezing, no subcutaneous emphysema Abdomen: nondistended, no gross hepatosplenomegaly, no masses, no rigidity or rebound, no loud borborygmi Neuro: nonfocal, EDGE, grossly normal sensation Musculoskeletal: good muscle tone, no fasciculations, normal gait Skin: pink warm and dry with no rashes or ecchymosis Vascular: good radial pulses, no ulceration, less than 2 second capillary refill in hand : deferred Urinary Catheter Management: Escobar: Cath Placed During This Visit: yes Reason for Continuing Indwelling Catheter: Other Urinary Catheter Date of Insertion: 12/24/22 Urinary Catheter Time of Insertion: 03:41 Data 12/25/22 07:54 12/25/22 07:54 Micro: Microbiology 12/23/22 22:50 Blood Culture - Preliminary Blood NEGATIVE TO DATE 12/23/22 22:05 Blood Culture - Preliminary Blood NEGATIVE TO DATE 12/24/22 05:10 Gram Stain - Final Other Source A&P Assessment and plan (1) SBO (small bowel obstruction): Patient doing well after lysis of adhesions. He still needs NG tube until passes flatus which likely won't happen for at least 3 days. Ambulate patient and incentive spirometry. Escobar per hospital protocol but can come out. Attestations Medical Necessity Statement*: Patient needs to stay until bowel function returns and he is eating Coding Level of Care Code Acute Code for Chg Fwd Diagnoses SBO (small bowel obstruction) K56.609
[2022-12-25 11:47] LABS: Glucose Point of Care 147 mg/dL (70-110)
[2022-12-25] MEDS: enoxaparin 40 mg/0.4 mL Syringe SUBCUT (12:51)
--- NOTE | 2022-12-25 13:03 | PC.CHAP ---
Pastoral Care Encounter/Spiritual Assessment Type of Contact [] Declined industrial specialist visit [] Patient/Family/Request visit [] Outpatient visit [] Follow-up visit [] Physician referral [] Code/Alert [x] Routine visit [] Staff referral [] Actively dying [] Patient sleeping [] Family support [] [] Out of room [] Palliative care [] [x] Receiving care in room [] Pre-surgical visit [] Trauma [] Long length of stay [] ICU visit [] Other: Relational/Emotional Strength [] Patient feels connected with others/family/visitors/staff [] Distress [] Loneliness/isolation [] Abandonment Spirituality of Patient [x] Person of Elma [] Attends Zoroastrianism of their Elma [x] Believes in Prayer [] Reads Bible or Nondenominational materials [] There are Spiritual issues to be addressed Window Clerk Interventions [x] Prayer [x] Active listening [x] Non-anxious presence [x] Spiritual/emotional support [] Crisis/trauma care [x] Spiritual counseling [] Bereavement support [] Provided bereavement packet [] Provided Bible/devotional materials [] Provided toy/stuffed animal, coloring book to patient or family member [] Provided Communion [] Anointing/Edgar [] Salvation [x] Completed spiritual assessment [] Other: Impact on Illness or Injury [] Angry [] Fearful [] Anxious [] Often cries [] Exhaustion [] Unable to work [] Unable to attend sikhism [] Unable to walk/stand [] Unable to read [] Unable to drive [] Unable to eat/drink [] Unable to sleep [] Unable to be with family [] Patient intubated [] Other: Summary stomic waiting on doctor about treament not sure when she well go home Time spent with patient 10 mins
--- NOTE | 2022-12-25 14:38 | P.PN_ITS ---
Subjective Subjective: Patient was seen this morning, he tells me that his abdominal pain has improved, he feels like passing gas from below, but has not passed any gas, no bowel movement, no nausea, no vomiting, NG tube in place Vitals/I&O/Wt Last Vital Signs Temp 99.1 F 12/25/22 12:00 Pulse 109 H 12/25/22 12:00 Resp 17 12/25/22 12:00 BP 148/84 12/25/22 12:00 Pulse Ox 93 12/25/22 12:00 O2 Del Method Room Air 12/25/22 12:00 O2 Flow Rate 1 12/24/22 11:13 12/24/22 12/25/22 12/25/22 22:59 06:59 14:59 Intake Total 1316.25 / 2210.00 255.083 / 2465.083 1050 / 1050 Output Total 975 / 1225 750 / 1975 Balance 341.25 / 985.00 -494.917 / 708.886 4039 / 1050 Weight last 48 hrs Weight 104.326 kg Physical Exam Const: COMMON NORMALS: no acute distress and patient oriented x3 Resp: COMMON NORMALS: normal respiratory effort, No retractions, No use of accessory muscles and clear to auscultation bilaterally AUSCULTATION: clear to auscultation bilaterally Cardio: COMMON NORMALS: regular rate, regular rhythm, S1 normal heart sound present and S2 normal heart sound present RATE: regular rate RHYTHM: regular rhythm HEART SOUNDS: S1 normal heart sound present and S2 normal heart sound present GI: OTHER: Abdomen is soft, nondistended, surgical site looks clean and dry, abdominal sounds hypoactive, no guarding, no rebound, no rigidity Extremity: COMMON NORMALS: no pedal edema Neuro: COMMON NORMALS: patient oriented x3 Psych: COMMON NORMALS: mental status grossly normal Urinary Catheter Management: Escobar: Cath Placed During This Visit: yes Reason for Continuing Indwelling Catheter: Other Urinary Catheter Date of Insertion: 12/24/22 Urinary Catheter Time of Insertion: 03:41 Data 12/25/22 07:54 12/25/22 07:54 Micro: Microbiology 12/23/22 22:50 Blood Culture - Preliminary Blood NEGATIVE TO DATE 12/23/22 22:05 Blood Culture - Preliminary Blood NEGATIVE TO DATE 12/24/22 05:10 Gram Stain - Final Other Source A&P Assessment and plan (1) SBO (small bowel obstruction): (2) Carcinoid tumor: (3) Type 2 diabetes mellitus: (4) Hyperlipidemia: (5) HTN (hypertension): Plan #Small bowel obstruction #History of carcinoid tumor, lung nodule, follows with pulmonology #Hypertension #Type 2 diabetes mellitus #Hyperlipidemia #History of 2 bowel obstructions in the past 1998 and 6 years ago. One of them requiring surgical intervention. -Status post lysis of adhesion's postop day 1 ? Continue normal saline ? N.p.o. at this time -NG tube in place ? General surgery consulted ? We will hold home amlodipine, baclofen, ibuprofen, metformin, losartan, hydrochlorothiazide at this time. ? Hydralazine 5 mg IV as needed every 4 hours for systolic blood pressure greater than 180 ? Morphine 2 mg every 4 hours as needed for pain ? Zofran for nausea -We will place on sliding scale insulin low-dose intensity. Cautious ad ministration due to n.p.o. status. ? Patient to continue follow-up with pulmonology for question of tumor, lung nodule as an outpatient as previously scheduled. Please see pulmonology notes for further details. -Currently on Zosyn ? In case he is unable to make his own medical decisions he would like to speak to his niece Marcy. He states he is a full code and would like to be resuscitated and saved in case anything were to happen. Full code SCDs. Start Lovenox for DVT prophylaxis Plan for today up out of bed, incentive spirometer use, continue NG tube, monitor bowel function, Attestations Medical Necessity Statement*: Patient requires hospitalization due to small bowel obstruction, lysis of adhesions, hypertension, type 2 diabetes mellitus Diagnoses SBO (small bowel obstruction) K56.609 Carcinoid tumor D3A.00 Type 2 diabetes mellitus E11.9 Hyperlipidemia E78.5 HTN (hypertension) I10
[2022-12-25 16:29] LABS: Glucose Point of Care 160 mg/dL (70-110)
[2022-12-25] MEDS: sucralfate 1 gm/10 mL Oral Liq UDC PO ×2 (18:24→21:17)
[2022-12-25] MEDS: lactated ringers 1,000 ML 100 ML IV (18:25)
--- NOTE | 2022-12-25 18:39 | PC.NURSE ---
Patient gave written consent for Gloria Hernández on PHI paperwork located in paper chart.
[2022-12-25 20:59] LABS: Glucose Point of Care 137 mg/dL (70-110)
[2022-12-26] VITALS (13 sets, daily range): BP systolic 140–166; BP diastolic 60–97; PULSE 82–103; RESP 13–18; TEMP 36.4–37.1; O2SAT 90–97
[2022-12-26] MEDS: pantoprazole 40 mg SDV IVP (01:14)
--- NOTE | 2022-12-26 04:59 | PC.NURSE ---
The patient put his call light on to report he coughed his NG tube out. This nurse called Dr. Evans and informed him. He stated that the tube needed to be replaced. This nurse went to bedside to let patient know that this was what the physician wanted. The patient verbalized that he refuses the NG tube placement. The risks were stressed to the patient and he continued to refuse.
[2022-12-26] MEDS: lactated ringers 1,000 ML 100 ML IV ×2 (05:18→13:14)
[2022-12-26] MEDS: piperacillin-tazobactam 3.375 GM in sodium chloride 0.9% (plus) 50 ML IV ×3 (05:21→21:00)
[2022-12-26 06:14] LABS: Alanine Aminotransferase 19 U/L (0-41); Albumin Level 3.3 g/dL (3.5-5.2); Alkaline Phosphatase 84 U/L (40-130); Blood Urea Nitrogen 9 mg/dL (6-20); Calcium 8.5 mg/dL (8.5-10.5); Carbon Dioxide 22 mmol/L (22-29); Chloride 105 mmol/L (98-107); Glucose 134 mg/dL (65-115); Osmolality Calculated 289 mOsm/kg (285-295); Sodium 139 mmol/L (136-145); Total Bilirubin 0.6 mg/dL (0.15-1.2); Total Protein 6.3 g/dL (6.6-8.7)
[2022-12-26 06:15] LABS: Anion Gap 16.2 (5-19); Aspartate Amino Transferase 18 U/L (0-40); Potassium 4.2 mmol/L (3.5-5.1)
[2022-12-26] MEDS: ipratropium-albuterol 3 mL Neb INHALATION ×4 (07:55→20:48)
[2022-12-26 08:54] LABS: Glucose Point of Care 126 mg/dL (70-110)
[2022-12-26 09:49] LABS: Basophils % 0.4 %; Eosinophils # 0.2 10^3/uL (0.0-0.8); Hematocrit 37.1 % (42.0-52.0); Hemoglobin 11.8 g/dL (11.7-16.6); Lymphocytes # 1.1 10^3/uL (0.8-4.8); Lymphocytes % 11.7 %; Mean Corpuscular HGB Conc 31.8 g/dL (30.0-36.0); Mean Corpuscular Hemoglobin 28.5 pg (28.0-34.0); Mean Corpuscular Volume 89.6 fl (80-94); Mean Platelet Volume 10.3 fL (7.4-10.4); Monocytes # 0.6 10^3/uL (0.2-0.9); Monocytes % 6.5 %; Neutrophils # 7.48 10^3/uL (1.8-7.7); Neutrophils % 79.1 %; Nucleated Red Blood Cells % 0 %; Platelet Count 177 10^3/cmm (130-400); Red Blood Count 4.14 10^6/uL (4.1-5.3); Red Cell Distribution Width 14.6 % (12.1-15.1); White Blood Count 9.5 10^3/uL (4.0-10.0)
[2022-12-26] MEDS: sucralfate 1 gm/10 mL Oral Liq UDC PO ×3 (10:28→21:00)
[2022-12-26 11:35] LABS: Glucose Point of Care 131 mg/dL (70-110)
--- NOTE | 2022-12-26 12:27 | PC.NURSE ---
This nurse has asked patient 2 times during this shift about reinserting a nasogastric tube. The patient has refused both times. This nurse explained risks involved and patient still refused.
[2022-12-26] MEDS: enoxaparin 40 mg/0.4 mL Syringe SUBCUT (13:13)
--- NOTE | 2022-12-26 15:54 | P.PN_ITS ---
Subjective Subjective: Patient was seen this morning, overnight, he tells me he accidentally remove the NG tube he does not want it to be replaced, he has not passed any gas from below has not had a bowel movement, his abdominal pain has improved, no nausea, no vomiting he has not really needed pain medication he tells me, does report decreased energy Vitals/I&O/Wt Last Vital Signs Temp 98.7 F 12/26/22 12:00 Pulse 84 12/26/22 15:01 Resp 18 12/26/22 15:01 BP 163/91 12/26/22 12:00 Pulse Ox 97 12/26/22 15:01 O2 Del Method Room Air 12/26/22 15:01 O2 Flow Rate 1 12/24/22 11:13 12/26/22 12/26/22 12/26/22 06:59 14:59 22:59 Intake Total 50 / 2110.834 841.667 / 841.667 Output Total 600 / 1630 900 / 900 Balance -550 / 480.834 -58.333 / -58.333 Physical Exam Const: COMMON NORMALS: no acute distress and patient oriented x3 Resp: COMMON NORMALS: normal respiratory effort, No retractions, No use of a ccessory muscles and clear to auscultation bilaterally AUSCULTATION: clear to auscultation bilaterally Cardio: COMMON NORMALS: regular rate, regular rhythm, S1 normal heart sound present and S2 normal heart sound present RATE: regular rate RHYTHM: regular rhythm HEART SOUNDS: S1 normal heart sound present and S2 normal heart sound present GI: OTHER: Abdomen soft, slightly distended, decreased bowel sounds in all 4 quadrants, no guarding, no rebound, rigidity, surgical site, with abdominal pad on top, clean and dry Extremity: COMMON NORMALS: no pedal edema Neuro: COMMON NORMALS: patient oriented x3 Psych: COMMON NORMALS: mental status grossly normal Urinary Catheter Management: Escoabr: Cath Placed During This Visit: yes, but has since been removed by the nurse Reason for Continuing Indwelling Catheter: Other Urinary Catheter Date of Insertion: 12/24/22 Urinary Catheter Time of Insertion: 03:41 Date Urinary Catheter Removed: 12/25/22 Time Urinary Catheter Discontinued: 15:17 Data 12/26/22 09:32 12/26/22 05:10 Micro: Microbiology 12/24/22 05:10 Gram Stain - Final Other Source Anaerobic Culture - Preliminary Wound Culture - Preliminary A&P Assessment and plan (1) SBO (small bowel obstruction): (2) Carcinoid tumor: (3) Type 2 diabetes mellitus: (4) Hyperlipidemia: (5) HTN (hypertension): Plan #Small bowel obstruction #History of carcinoid tumor, lung nodule, follows with pulmonology #Hypertension #Type 2 diabetes mellitus #Hyperlipidemia #History of 2 bowel obstructions in the past 1998 and 6 years ago. One of them requiring surgical intervention. -Status post lysis of adhesion's postop day 2 ? Continue normal saline ? N.p.o. at this time -NG tube in place ? General surgery consulted ? We will hold home amlodipine, baclofen, ibuprofen, metformin, losartan, hydrochlorothiazide at this time. ? Hydralazine 5 mg IV as needed every 4 hours for systolic blood pressure greater than 180 ? Morphine 2 mg every 4 hours as needed for pain ? Zofran for nausea -We will place on sliding scale insulin low-dose intensity. Cautious administration due to n.p.o. status. ? Patient to continue follow-up with pulmonology for question of tumor, lung nodule as an outpatient as previously scheduled. Please see pulmonology notes for further details. -Currently on Zosyn ? In case he is unable to make his own medical decisions he would like to speak to his niece Marcy. He states he is a full code and would like to be resuscitated and saved in case anything were to happen. Full code SCDs. Start Lovenox for DVT prophylaxis , Spoke to staff, spoke to patient Plan for today up out of bed, incentive spirometer use, up out of bed, pain control Attestations Medical Necessity Statement*: Patient requires sedation for bowel obstruction status post surgical intervention, Diagnoses SBO (small bowel obstruction) K56.609 Carcinoid tumor D3A.00 Type 2 diabetes mellitus E11.9 Hyperlipidemia E78.5 HTN (hypertension) I10
[2022-12-26 16:12] LABS: Glucose Point of Care 126 mg/dL (70-110)
[2022-12-26] MEDS: morphine 4 mg/mL SDV 1 mL 2 MG IVP (17:34)
--- NOTE | 2022-12-26 17:49 | PM.PN ---
Subjective Subjective: no complaints Vitals/I&O/Wt Last Vital Signs Temp 98.5 F 12/26/22 16:00 Pulse 82 12/26/22 16:00 Resp 18 12/26/22 17:34 BP 162/97 12/26/22 16:00 Pulse Ox 94 12/26/22 16:00 O2 Del Method Room Air 12/26/22 16:00 O2 Flow Rate 1 12/24/22 11:13 12/26/22 12/26/22 12/26/22 06:59 14:59 22:59 Intake Total 50 / 2110.834 841.667 / 841.667 50 / 891.667 Output Total 600 / 1630 900 / 900 Balance -550 / 480.834 -58.333 / -58.333 50 / -8.333 Physical Exam Narrative: Patient is a well developed well nourished and in NAD and is afebrile with vitals stable and is answering questions appropriately with a normal affect and is alert and oriented x3 HEENT: normocephalic with normal external ears and nonicteric, oral mucosa moist and dentition normal for age, trachea midline with no large masses visualized Heart: RRR, no gallops murmurs or rubs, normal PMI with no thrills Lungs: normal excursions, no loud audible wheezing, no subcutaneous emphysema Abdomen: getting more distended, no gross hepatosplenomegaly, no masses, no rigidity or rebound, no loud borborygmi Neuro: nonfocal, EDGE, grossly normal sensation Musculoskeletal: good muscle tone, no fasciculations, normal gait Skin: pink warm and dry with no rashes or ecchymosis Vascular: good radial pulses, no ulceration, less than 2 second capillary refill in hand : deferred Urinary Catheter Management: Escobar: Cath Placed During This Visit: yes, but has since been removed by the nurse Reason for Continuing Indwelling Catheter: Other Urinary Catheter Date of Insertion: 12/24/22 Urinary Catheter Time of Insertion: 03:41 Date Urinary Catheter Removed: 12/25/22 Time Urinary Catheter Discontinued: 15:17 Data 12/26/22 09:32 12/26/22 05:10 Micro: Microbiology 12/24/22 05:10 Gram Stain - Final Other Source Anaerobic Culture - Preliminary Wound Culture - Preliminary A&P Assessment and plan (1) SBO (small bowel obstruction): Patient accidently pulled out NG and refuses to have it reinserted. He understands this could delay his bowel function return and lead to aspiration, perforation and prolonged his hospital stay. He can not have any ice chips and needs to be npo strictly now. Attestations Medical Necessity Statement*: Awaiting bowel function return after major surgery Coding Level of Care Code Acute Code for Chg Fwd Diagnoses SBO (small bowel obstruction) K56.609
[2022-12-26 20:58] LABS: Glucose Point of Care 114 mg/dL (70-110)
[2022-12-26] MEDS: phenol oral Spray 177 mL 3 SPRAY MUCOUS MEM (21:04)
[2022-12-27] VITALS (15 sets, daily range): BP systolic 138–160; BP diastolic 60–92; PULSE 70–93; RESP 16–18; TEMP 36.4–37.2; O2SAT 92–96
[2022-12-27] MEDS: lactated ringers 1,000 ML 100 ML IV ×3 (01:31→22:40)
[2022-12-27] MEDS: pantoprazole 40 mg SDV IVP (02:08)
[2022-12-27 04:58] LABS: Basophils % 0.3 %; Eosinophils # 0.2 10^3/uL (0.0-0.8); Eosinophils % 1.7 %; Hematocrit 41.6 % (42.0-52.0); Hemoglobin 13.3 g/dL (11.7-16.6); Lymphocytes # 0.9 10^3/uL (0.8-4.8); Lymphocytes % 9.9 %; Mean Corpuscular Hemoglobin 28.8 pg (28.0-34.0); Mean Platelet Volume 10.7 fL (7.4-10.4); Monocytes # 0.5 10^3/uL (0.2-0.9); Monocytes % 4.8 %; Neutrophils # 7.69 10^3/uL (1.8-7.7); Nucleated Red Blood Cells % 0 %; Platelet Count 202 10^3/cmm (130-400); Red Blood Count 4.62 10^6/uL (4.1-5.3); Red Cell Distribution Width 14.6 % (12.1-15.1); White Blood Count 9.3 10^3/uL (4.0-10.0)
[2022-12-27] MEDS: piperacillin-tazobactam 3.375 GM in sodium chloride 0.9% (plus) 50 ML IV ×2 (04:58→12:47)
[2022-12-27 05:28] LABS: Alanine Aminotransferase 17 U/L (0-41); Albumin Level 3.4 g/dL (3.5-5.2); Alkaline Phosphatase 67 U/L (40-130); Anion Gap 14.1 (5-19); Aspartate Amino Transferase 13 U/L (0-40); Blood Urea Nitrogen 10 mg/dL (6-20); Carbon Dioxide 26 mmol/L (22-29); Chloride 104 mmol/L (98-107); Glomerular Filtration Rate 142.6 mL/min (90-130); Glucose 140 mg/dL (65-115); Magnesium 2.1 mg/dL (1.7-2.3); Osmolality Calculated 291 mOsm/kg (285-295); Potassium 4.1 mmol/L (3.5-5.1); Sodium 140 mmol/L (136-145); Total Bilirubin 0.5 mg/dL (0.15-1.2); Total Protein 6.4 g/dL (6.6-8.7)
[2022-12-27] MEDS: morphine 4 mg/mL SDV 1 mL 2 MG IVP ×2 (05:41→22:51)
[2022-12-27 06:34] LABS: Glucose Point of Care 131 mg/dL (70-110)
[2022-12-27] MEDS: ipratropium-albuterol 3 mL Neb INHALATION ×4 (08:03→20:55)
[2022-12-27] MEDS: simethicone 80 mg Chew PO ×4 (09:19→20:50)
[2022-12-27] MEDS: sucralfate 1 gm/10 mL Oral Liq UDC PO ×4 (09:19→20:49)
[2022-12-27] MEDS: metoclopramide 5 mg/mL SDV 2 mL 10 MG IVP ×3 (09:20→20:49)
[2022-12-27 11:47] LABS: Glucose Point of Care 114 mg/dL (70-110)
[2022-12-27] MEDS: enoxaparin 40 mg/0.4 mL Syringe SUBCUT (12:46)
--- NOTE | 2022-12-27 14:58 | P.PN_ITS ---
Subjective Subjective: Patient was seen this morning, he tells me that he is passing gas, but has not had a bowel movement, no nausea, no vomiting, no fevers, Vitals/I&O/Wt Last Vital Signs Temp 98.7 F 12/27/22 11:12 Pulse 88 12/27/22 11:13 Resp 18 12/27/22 11:12 BP 148/92 12/27/22 11:12 Pulse Ox 94 12/27/22 11:12 O2 Del Method Room Air 12/27/22 11:12 O2 Flow Rate 1 12/24/22 11:13 12/26/22 12/27/22 12/27/22 22:59 06:59 14:59 Intake Total 50 / 388.871 3540 / 9733.333 8038 / 1050 Output Total 500 / 1400 150 / 150 Balance 50 / -8.333 550 / 541.667 900 / 900 Physical Exam Const: COMMON NORMALS: no acute distress and patient oriented x3 Resp: COMMON NORMALS: normal respiratory effort, No retractions, No use of accessory muscles and clear to auscultation bilaterally AUSCULTATION: clear to auscultation bilaterally Cardio: COMMON NORMALS: regular rate, regular rhythm, S1 normal heart sound present and S2 normal heart sound present RATE: regular rate RHYTHM: re gular rhythm HEART SOUNDS: S1 normal heart sound present and S2 normal heart sound present GI: OTHER: Abdomen soft, distended, bowel sounds present, although diminished in all 4 quadrants, no guarding, no rebound, rigidity, surgical site looks clean and dry Extremity: COMMON NORMALS: no pedal edema Neuro: COMMON NORMALS: patient oriented x3 Psych: COMMON NORMALS: mental status grossly normal Urinary Catheter Management: Escobar: Cath Placed During This Visit: yes, but has since been removed by the nurse Reason for Continuing Indwelling Catheter: Other Urinary Catheter Date of Insertion: 12/24/22 Urinary Catheter Time of Insertion: 03:41 Date Urinary Catheter Removed: 12/25/22 Time Urinary Catheter Discontinued: 15:17 Data 12/27/22 03:58 12/27/22 03:58 Micro: Microbiology 12/24/22 05:10 Gram Stain - Final Other Source Anaerobic Culture - Preliminary Wound Culture - Preliminary A&P Assessment and plan (1) SBO (small bowel obstruction): (2) Carcinoid tumor: (3) Type 2 diabetes mellitus: (4) Hyperlipidemia: (5) HTN (hypertension): Plan #Small bowel obstruction #History of carcinoid tumor, lung nodule, follows with pulmonology #Hypertension #Type 2 diabetes mellitus #Hyperlipidemia #History of 2 bowel obstructions in the past 1998 and 6 years ago. One of them requiring surgical intervention. -Status post lysis of adhesion's ? Continue LR ? N.p.o. at this time -NG tube removed by patient ? General surgery consulted ? We will hold home amlodipine, baclofen, ibuprofen, metformin, losartan, hydrochlorothiazide at this time. ? Hydralazine 5 mg IV as needed every 4 hours for systolic blood pressure greater than 180 ? Morphine 2 mg every 4 hours as needed for pain ? Zofran for nausea -We will place on sliding scale insulin low-dose intensity. Cautious administ ration due to n.p.o. status. ? Patient to continue follow-up with pulmonology for question of tumor, lung nodule as an outpatient as previously scheduled. Please see pulmonology notes for further details. -We will discontinue Zosyn at this time remains afebrile, cultures are unremarkable ? In case he is unable to make his own medical decisions he would like to speak to his niece Marcy. He states he is a full code and would like to be resuscitated and saved in case anything were to happen. Full code SCDs. Start Lovenox for DVT prophylaxis , Spoke to staff, spoke to patient Plan for today up out of bed, incentive spirometer use, up out of bed, pain control Attestations Medical Necessity Statement*: Patient requires hospitalization for bowel obstruction, status post lysis of adhesion Diagnoses SBO (small bowel obstruction) K56.609 Carcinoid tumor D3A.00 Type 2 diabetes mellitus E11.9 Hyperlipidemia E78.5 HTN (hypertension) I10
--- NOTE | 2022-12-27 16:57 | PM.PN ---
Subjective Subjective: No complaints Vitals/I&O/Wt Last Vital Signs Temp 98.4 F 12/27/22 15:44 Pulse 91 12/27/22 15:44 Resp 16 12/27/22 15:44 BP 138/83 12/27/22 15:44 Pulse Ox 92 12/27/22 15:44 O2 Del Method Room Air 12/27/22 15:44 O2 Flow Rate 1 12/24/22 11:13 12/27/22 12/27/22 12/27/22 06:59 14:59 22:59 Intake Total 1050 / 4350.011 0941 / 1050 46.875 / 1096.875 Output Total 500 / 1400 150 / 150 Balance 550 / 541.667 900 / 900 46.875 / 946.875 Physical Exam Narrative: Patient is a well developed well nourished and in NAD and is afebrile with vitals stable and is answering questions appropriately with a normal affect and is alert and oriented x3 HEENT: normocephalic with normal external ears and nonicteric, oral mucosa moist and dentition normal for age, trachea midline with no large masses visualized Heart: RRR, no gallops murmurs or rubs, normal PMI with no thrills Lungs: normal excursions, no loud audible wheezing, no subcutaneous emphysema Abdomen: stable distention, no gross hepatosplenomegaly, no masses, no rigidity or rebound, no loud borborygmi Neuro: nonfocal, EDGE, grossly normal sensation Musculoskeletal: good muscle tone, no fasciculations, normal gait Skin: pink warm and dry with no rashes or ecchymosis Vascular: good radial pulses, no ulceration, less than 2 second capillary refill in hand : deferred Urinary Catheter Management: Escobar: Cath Placed During This Visit: yes, but has since been removed by the nurse Reason for Continuing Indwelling Catheter: Other Urinary Catheter Date of Insertion: 12/24/22 Urinary Catheter Time of Insertion: 03:41 Date Urinary Catheter Removed: 12/25/22 Time Urinary Catheter Discontinued: 15:17 Data 12/27/22 03:58 12/27/22 03:58 Micro: Microbiology 12/24/22 05:10 Gram Stain - Final Other Source Anaerobic Culture - Preliminary Wound Culture - Preliminary A&P Assessment and plan (1) SBO (small bowel obstruction): Patient accidently pulled out NG and refuses to have it reinserted. Abdomen is slightly more distended than yesterday but patient feels he passed a small amount of flatus. Will not feed until exam is softer. Wound was inspected and does not show any infection. Attestations Medical Necessity Statement*: Not eating yet so needs IV fluids to prevent volume depletion Coding Level of Care Code Acute Code for [facility] Fwd Diagnoses SBO (small bowel obstruction) K56.609
[2022-12-27 17:01] LABS: Glucose Point of Care 128 mg/dL (70-110)
[2022-12-27 20:43] LABS: Glucose Point of Care 122 mg/dL (70-110)
[2022-12-28] VITALS (14 sets, daily range): BP systolic 138–160; BP diastolic 80–96; PULSE 75–94; RESP 16–18; TEMP 36.3–37.2; O2SAT 93–96
--- NOTE | 2022-12-28 00:38 | PC.NURSE ---
pt walked in hallway with staff and was helped back to room and back to bed. pt was in good spirts
[2022-12-28] MEDS: metoclopramide 5 mg/mL SDV 2 mL 10 MG IVP ×4 (02:37→21:33)
[2022-12-28] MEDS: pantoprazole 40 mg SDV IVP (02:37)
[2022-12-28 05:57] LABS: Basophils % 0.4 %; Eosinophils # 0.2 10^3/uL (0.0-0.8); Eosinophils % 2.9 %; Hematocrit 39.1 % (42.0-52.0); Hemoglobin 12.7 g/dL (11.7-16.6); Lymphocytes # 1.2 10^3/uL (0.8-4.8); Lymphocytes % 14.3 %; Mean Corpuscular HGB Conc 32.5 g/dL (30.0-36.0); Mean Corpuscular Volume 89.3 fl (80-94); Mean Platelet Volume 10.1 fL (7.4-10.4); Monocytes # 0.5 10^3/uL (0.2-0.9); Monocytes % 6.1 %; Neutrophils # 6.28 10^3/uL (1.8-7.7); Neutrophils % 76.1 %; Nucleated Red Blood Cells % 0 %; Platelet Count 244 10^3/cmm (130-400); Red Blood Count 4.38 10^6/uL (4.1-5.3); Red Cell Distribution Width 14.6 % (12.1-15.1); White Blood Count 8.3 10^3/uL (4.0-10.0)
[2022-12-28] MEDS: sucralfate 1 gm/10 mL Oral Liq UDC PO ×4 (06:14→21:33)
[2022-12-28 06:21] LABS: Alanine Aminotransferase 16 U/L (0-41); Albumin Level 3.1 g/dL (3.5-5.2); Alkaline Phosphatase 63 U/L (40-130); Anion Gap 11.7 (5-19); Aspartate Amino Transferase 12 U/L (0-40); Blood Urea Nitrogen 13 mg/dL (6-20); Calcium 8.6 mg/dL (8.5-10.5); Carbon Dioxide 24 mmol/L (22-29); Chloride 104 mmol/L (98-107); Globulin 2.9 g/dL (1.3-4.6); Glomerular Filtration Rate 142.6 mL/min (90-130); Glucose 127 mg/dL (65-115); Magnesium 2.1 mg/dL (1.7-2.3); Osmolality Calculated 284 mOsm/kg (285-295); Phosphorus 3.2 mg/dL (2.5-4.5); Potassium 3.7 mmol/L (3.5-5.1); Sodium 136 mmol/L (136-145); Total Bilirubin 0.4 mg/dL (0.15-1.2)
[2022-12-28 06:28] LABS: Glucose Point of Care 108 mg/dL (70-110)
[2022-12-28] MEDS: ipratropium-albuterol 3 mL Neb INHALATION ×4 (08:19→21:25)
[2022-12-28] MEDS: simethicone 80 mg Chew PO ×4 (08:28→21:33)
[2022-12-28] MEDS: lactated ringers 1,000 ML 100 ML IV ×2 (10:00→21:32)
[2022-12-28 11:37] LABS: Glucose Point of Care 123 mg/dL (70-110)
[2022-12-28] MEDS: enoxaparin 40 mg/0.4 mL Syringe SUBCUT (11:56)
--- NOTE | 2022-12-28 14:12 | PM.PN ---
Subjective Subjective: No complaints. Vitals/I&O/Wt Last Vital Signs Temp 97.9 F 12/28/22 11:14 Pulse 90 12/28/22 11:15 Resp 16 12/28/22 11:14 BP 138/85 12/28/22 11:14 Pulse Ox 94 12/28/22 11:14 O2 Del Method Room Air 12/28/22 11:14 O2 Flow Rate 1 12/24/22 11:13 12/27/22 12/28/22 12/28/22 22:59 06:59 14:59 Intake Total 1036.875 / 2086.875 1000 / 1000 Output Total 1200 / 1350 300 / 300 Balance 1036.875 / 1936.875 -1200 / 736.875 700 / 700 Physical Exam Narrative: Patient is a well developed well nourished and in NAD and is afebrile with vitals stable and is answering questions appropriately with a normal affect and is alert and oriented x3 HEENT: normocephalic with normal external ears and nonicteric, oral mucosa moist and dentition normal for age, trachea midline with no large masses visualized Heart: RRR, no gallops murmurs or rubs, normal PMI with no thrills Lungs: normal excursions, no loud audible wheezing, no subcutaneous emphysema Abdomen: nondistended, no gross hepatosplenomegaly, no masses, no rigidity or rebound, no loud borborygmi Neuro: nonfocal, EDGE, grossly normal sensation Musculoskeletal: good muscle tone, no fasciculations, normal gait Skin: pink warm and dry with no rashes or ecchymosis Vascular: good radial pulses, no ulceration, less than 2 second capillary refill in hand : deferred Urinary Catheter Management: Escobar: Cath Placed During This Visit: yes, but has since been removed by the nurse Reason for Continuing Indwelling Catheter: Other Urinary Catheter Date of Insertion: 12/24/22 Urinary Catheter Time of Insertion: 03:41 Date Urinary Catheter Removed: 12/25/22 Time Urinary Catheter Discontinued: 15:17 Data 12/28/22 05:28 12/28/22 05:28 Micro: Microbiology 12/24/22 05:10 Gram Stain - Final Other Source Anaerobic Culture - Preliminary Wound Culture - Final A&P Assessment and plan (1) SBO (small bowel obstruction): Plan Patient states passed a small amount of flatus. Abd less distended but tympanitic upper abdomen. Keep NPO another day. Attestations Medical Necessity Statement*: Patient had surgery and recovering. He is not on a diet yet Coding Level of Care Code Acute Code for Chg Fwd Diagnoses SBO (small bowel obstruction) K56.609
[2022-12-28] MEDS: mineral oil 30 mL UDC PO (14:46)
--- NOTE | 2022-12-28 15:10 | PM.PN ---
Subjective Subjective: Patient was seen this morning, he is passing gas from below, currently has not had a bowel movement, he is ambulating, no fevers, chills, nausea, vomiting abdominal pain is well controlled Vitals/I&O/Wt Last Vital Signs Temp 97.9 F 12/28/22 11:14 Pulse 90 12/28/22 11:15 Resp 16 12/28/22 11:14 BP 138/85 12/28/22 11:14 Pulse Ox 94 12/28/22 11:14 O2 Del Method Room Air 12/28/22 11:14 O2 Flow Rate 1 12/24/22 11:13 12/28/22 12/28/22 12/28/22 06:59 14:59 22:59 Intake Total 1000 / 1000 Output Total 1200 / 1350 300 / 300 Balance -1200 / 736.875 700 / 700 Physical Exam Const: COMMON NORMALS: no acute distress and patient oriented x3 Resp: COMMON NORMALS: normal respiratory effort, No retractions, No use of accessory muscles and clear to auscultation bilaterally AUSCULTATION: clear to auscultation bilaterally Cardio: COMMON NORMALS: regular rate, regular rhythm, S1 normal heart sound present and S2 normal heart sound present RATE: regular rate RHYTHM: regular rhythm HEART SOUNDS: S1 normal heart sound present and S2 normal heart sound present GI: OTHER: Abdomen soft, nondistended, bowel sounds present in all 4 quadrant, improved compared to yesterday, but still diminished, no guarding, no rebound, no rigidity, no significant tenderness, surgical site with a bandage on top of clean and dry Extremity: COMMON NORMALS: no pedal edema Neuro: COMMON NORMALS: patient oriented x3 Psych: COMMON NORMALS: mental status grossly normal Urinary Catheter Management: Escobar: Cath Placed During This Visit: yes, but has since been removed by the nurse Reason for Continuing Indwelling Catheter: Other Urinary Catheter Date of Insertion: 12/24/22 Urinary Catheter Time of Insertion: 03:41 Date Urinary Catheter Removed: 12/25/22 Time Urinary Catheter Discontinued: 15:17 Data 12/28/22 05:28 12/28/22 05:28 Micro: Microbiology 12/24/22 05:10 Gram Stain - Final Other Source Anaerobic Culture - Preliminary Wound Culture - Final A&P Assessment and plan (1) SBO (small bowel obstruction): (2) Carcinoid tumor: (3) Type 2 diabetes mellitus: (4) Hyperlipidemia: (5) HTN (hypertension): Plan #Small bowel obstruction #History of carcinoid tumor, lung nodule, follows with pulmonology #Hypertension #Type 2 diabetes mellitus #Hyperlipidemia #History of 2 bowel obstructions in the past 1998 and 6 years ago. One of them requiring surgical intervention. -Status post lysis of adhesion's ? Continue LR ? N.p.o. at this time -NG tube removed by patient ? General surgery consulted ? We will hold home amlodipine, baclofen, ibuprofen, metformin, losartan, hydrochlorothiazide at this time. ? Hydralazine 5 mg IV as needed every 4 hours for systolic blood pressure greater than 180 ? Morphine 2 mg every 4 hours as needed for pain ? Zofran for nausea -We will place on sliding scale insulin low-dose intensity. Cautious administration due to n.p.o. status. ? Patient to continue follow-up with pulmonology for question of tumor, lung nodule as an outpatient as previously scheduled. Please see pulmonology notes for further details. -We will discontinue Zosyn at this time remains afebrile, cultures are unremarkable ? In case he is unable to make his own medical decisions he would like to speak to his niece Marcy. He states he is a full code and would like to be resuscitated and saved in case anything were to happen. Full code SCDs. Continue Lovenox for DVT prophylaxis , Spoke to staff, spoke to patient Plan for today up out of bed, incentive spirometer use, up out of bed, pain control Attestations Medical Necessity Statement*: Patient requires hospitalization for bowel obstruction status post lysis of adhesion, Diagnoses SBO (small bowel obstruction) K56.609 Carcinoid tumor D3A.00 Type 2 diabetes mellitus E11.9 Hyperlipidemia E78.5 HTN (hypertension) I10
[2022-12-28 16:55] LABS: Glucose Point of Care 120 mg/dL (70-110)
[2022-12-28 21:16] LABS: Glucose Point of Care 110 mg/dL (70-110)
[2022-12-29] VITALS (13 sets, daily range): BP systolic 138–170; BP diastolic 80–97; PULSE 64–94; RESP 16–21; TEMP 36.6–37.1; O2SAT 92–98
[2022-12-29] MEDS: pantoprazole 40 mg SDV IVP (03:09)
[2022-12-29] MEDS: metoclopramide 5 mg/mL SDV 2 mL 10 MG IVP ×4 (03:09→21:15)
[2022-12-29 05:12] LABS: Basophils % 0.4 %; Eosinophils # 0.2 10^3/uL (0.0-0.8); Eosinophils % 2.7 %; Hematocrit 37.9 % (42.0-52.0); Hemoglobin 11.8 g/dL (11.7-16.6); Lymphocytes # 1.1 10^3/uL (0.8-4.8); Lymphocytes % 16.1 %; Mean Corpuscular HGB Conc 31.1 g/dL (30.0-36.0); Mean Corpuscular Hemoglobin 27.7 pg (28.0-34.0); Mean Platelet Volume 10.1 fL (7.4-10.4); Monocytes # 0.4 10^3/uL (0.2-0.9); Monocytes % 6.4 %; Neutrophils # 4.99 10^3/uL (1.8-7.7); Neutrophils % 74.3 %; Nucleated Red Blood Cells % 0 %; Platelet Count 247 10^3/cmm (130-400); Red Blood Count 4.26 10^6/uL (4.1-5.3); Red Cell Distribution Width 14.7 % (12.1-15.1); White Blood Count 6.7 10^3/uL (4.0-10.0)
[2022-12-29 05:34] LABS: Alanine Aminotransferase 19 U/L (0-41); Albumin Level 3.1 g/dL (3.5-5.2); Alkaline Phosphatase 63 U/L (40-130); Anion Gap 12.7 (5-19); Aspartate Amino Transferase 17 U/L (0-40); Blood Urea Nitrogen 13 mg/dL (6-20); Calcium 8.2 mg/dL (8.5-10.5); Carbon Dioxide 24 mmol/L (22-29); Chloride 102 mmol/L (98-107); Globulin 2.5 g/dL (1.3-4.6); Glomerular Filtration Rate 142.6 mL/min (90-130); Glucose 113 mg/dL (65-115); Magnesium 2.1 mg/dL (1.7-2.3); Osmolality Calculated 281 mOsm/kg (285-295); Potassium 3.7 mmol/L (3.5-5.1); Sodium 135 mmol/L (136-145); Total Bilirubin 0.4 mg/dL (0.15-1.2); Total Protein 5.6 g/dL (6.6-8.7)
[2022-12-29] MEDS: sucralfate 1 gm/10 mL Oral Liq UDC PO ×4 (06:17→20:47)
[2022-12-29] MEDS: lactated ringers 1,000 ML 100 ML IV ×2 (06:18→16:56)
[2022-12-29 06:46] LABS: Glucose Point of Care 118 mg/dL (70-110)
--- NOTE | 2022-12-29 08:00 | XR_ITS ---
WS: [id number] XR abdomen min 2V 15754 REASON FOR EXAM: s/p lysis of adhesions FINDINGS: No free air or retroperitoneal air. Severe small bowel dilatation (5 to 6 mm) with multiple uneven air-fluid levels. There is gas in the right and transverse colons. No gas within the rectum. XR/XR abdomen min 2V 58775 IMPRESSION: Distal small bowel obstruction pattern persists.
[2022-12-29] MEDS: ipratropium-albuterol 3 mL Neb INHALATION ×4 (08:30→21:15)
[2022-12-29] MEDS: simethicone 80 mg Chew PO ×4 (08:52→20:47)
[2022-12-29 10:31] LABS: Glucose Point of Care 115 mg/dL (70-110)
--- NOTE | 2022-12-29 11:38 | PC.SOCIAL ---
IMM Updated Updated pt on IMM. No questions voiced. Provided pt a copy. Initialed, dated, & timed copy in chart.
[2022-12-29] MEDS: enoxaparin 40 mg/0.4 mL Syringe SUBCUT (12:12)
--- NOTE | 2022-12-29 13:23 | PM.PN ---
Subjective Subjective: Patient seen and examined. Passing flatus and had a bowel movement. Pain controlled. Vitals/I&O/Wt Last Vital Signs Temp 98.7 F 12/29/22 12:00 Pulse 94 12/29/22 12:00 Resp 21 H 12/29/22 12:00 BP 157/90 12/29/22 12:00 Pulse Ox 92 12/29/22 12:00 O2 Del Method Room Air 12/29/22 11:23 O2 Flow Rate 1 12/24/22 11:13 12/28/22 12/29/22 12/29/22 22:59 06:59 14:59 Intake Total 999 876.667 / 2876.667 360 / 360 Balance 999 / 1700 876.667 / 2576.667 360 / 360 Physical Exam Narrative: General: No acute distress, awake alert and oriented x3 Abdomen: Soft, mild distention, appropriately tender to palpation, no guarding rebound or masses Incision intact without erythema or exudate Urinary Catheter Management: Escobar: Cath Placed During This Visit: yes, but has since been removed by the nurse Reason for Continuing Indwelling Catheter: Other Urinary Catheter Date of Insertion: 12/24/22 Urinary Catheter Time of Insertion: 03:41 Date Urinary Catheter Removed: 12/25/22 Time Urinary Catheter Discontinued: 15:17 Data 12/29/22 04:26 12/29/22 04:26 Micro: Microbiology 12/24/22 05:10 Gram Stain - Final Other Source Anaerobic Culture - Preliminary Wound Culture - Final 12/23/22 22:50 Blood Culture - Final Blood NO GROWTH AFTER 5 DAYS 12/23/22 22:05 Blood Culture - Final Blood NO GROWTH AFTER 5 DAYS A&P Assessment and plan (1) SBO (small bowel obstruction): Plan Status post exploratory laparotomy with lysis of adhesions Clear liquid diet Ambulate Medical management per hospitalist Attestations Medical Necessity Statement*: Per primary Coding Level of Care Code Acute Code for [facility] Fwd Diagnoses SBO (small bowel obstruction) K56.609
--- NOTE | 2022-12-29 17:08 | P.PN_ITS ---
Subjective Subjective: Patient was seen this morning, he had 3 bowel movements, he had 1 this morning, he has been transitioned to clear liquid diet he is much more happier he is ambulating, no fevers, no chills, no nausea, vomiting Vitals/I&O/Wt Last Vital Signs Temp 98.7 F 12/29/22 12:00 Pulse 69 12/29/22 15:27 Resp 16 12/29/22 15:27 BP 157/90 12/29/22 12:00 Pulse Ox 97 12/29/22 15:27 O2 Del Method Room Air 12/29/22 15:27 O2 Flow Rate 1 12/24/22 11:13 12/29/22 12/29/22 12/29/22 06:59 14:59 22:59 Intake Total 876.667 / 2876.667 360 / 360 1000 / 1360 Balance 876.667 / 2576.667 360 / 360 1000 / 1360 Physical Exam Const: COMMON NORMALS: no acute distress and patient oriented x3 Resp: COMMON NORMALS: normal respiratory effort, No retractions, No use of accessory muscles and clear to auscultation bilaterally AUSCULTATION: clear to auscultation bilaterally Cardio: COMMON NORMALS: regular rate, regular rhythm, S1 normal heart sound present and S2 normal heart sound present RATE: regular rate RHYTHM: regular rhythm HEART SOUNDS: S1 normal heart sound present and S2 normal heart sound present GI: OTHER: Abdomen soft, slightly distended, good bowel sounds, no guarding, no rebound, no rigidity,, surgical site, with dressing on top looks clean and dry Extremity: COMMON NORMALS: no pedal edema Neuro: COMMON NORMALS: patient oriented x3 Psych: COMMON NORMALS: mental status grossly normal Urinary Catheter Management: Escobar: Cath Placed During This Visit: yes, but has since been removed by the nurse Reason for Continuing Indwelling Catheter: Other Urinary Catheter Date of Insertion: 12/24/22 Urinary Catheter Time of Insertion: 03:41 Date Urinary Catheter Removed: 12/25/22 Time Urinary Catheter Discontinued: 15:17 Data 12/29/22 04:26 12/29/22 04:26 Micro: Microbiology 12/24/22 05:10 Gram Stain - Final Other Source Anaerobic Culture - Preliminary Wound Culture - Final 12/23/22 22:50 Blood Culture - Final Blood NO GROWTH AFTER 5 DAYS 12/23/22 22:05 Blood Culture - Final Blood NO GROWTH AFTER 5 DAYS A&P Assessment and plan (1) SBO (small bowel obstruction): (2) Carcinoid tumor: (3) Type 2 diabetes mellitus: (4) Hyperlipidemia: (5) HTN (hypertension): Plan #Small bowel obstruction #History of carcinoid tumor, lung nodule, follows with pulmonology #Hypertension #Type 2 diabetes mellitus #Hyperlipidemia #History of 2 bowel obstructions in the past 1998 and 6 years ago. One of them requiring surgical intervention. -Status post lysis of adhesion's ? Continue LR ? Currently on clear liquid diet -NG tube removed by patient ? General surgery consulted ? We will hold home amlodipine, baclofen, ibuprofen, metformin, losartan, hydrochlorothiazide at this time. ? Hydralazine 5 mg IV as needed every 4 hours for systolic blood pressure greater than 180 ? Morphine 2 mg every 4 hours as needed for pain ? Zofran for nausea -We will place on sliding scale insulin low-dose intensity. Cautious administration due to n.p.o. status. ? Patient to continue follow-up with pulmonology for question of tumor, lung nodule as an outpatient as previously scheduled. Please see pulmonology notes for further details. -We will discontinue Zosyn at this time remains afebrile, cultures are unremarkable ? In case he is unable to make his own medical decisions he would like to speak to his niece Marcy. He states he is a full code and would like to be resuscitated and saved in case anything were to happen. Full code SCDs. Continue Lovenox for DVT prophylaxis Plan for today, spoke to patient, spoke to staff, spoke to general surgery, currently on clear liquids, up out of bed, monitor for fevers Attestations Medical Necessity Statement*: Patient requires hospitalization for small bowel obstruction, Coding Level of Care Code 43825 Moderate MDM includes number and complexity of problems actively addressed during encounter, amount and/or complexity of data reviewed/ordered and described risk of complication, morbidity or mortality of management as docum ented Diagnoses SBO (small bowel obstruction) K56.609 Carcinoid tumor D3A.00 Type 2 diabetes mellitus E11.9 Hyperlipidemia E78.5 HTN (hypertension) I10
[2022-12-29 21:38] LABS: Glucose Point of Care 119 mg/dL (70-110)
[2022-12-30] VITALS (13 sets, daily range): BP systolic 147–168; BP diastolic 82–99; PULSE 59–77; RESP 14–18; TEMP 36.5–36.9; O2SAT 93–96
[2022-12-30] MEDS: metoclopramide 5 mg/mL SDV 2 mL 10 MG IVP ×2 (03:10→10:44)
[2022-12-30] MEDS: lactated ringers 1,000 ML 100 ML IV ×2 (03:17→18:22)
[2022-12-30] MEDS: pantoprazole 40 mg SDV IVP (05:52)
[2022-12-30] MEDS: sucralfate 1 gm/10 mL Oral Liq UDC PO ×4 (06:25→20:25)
[2022-12-30 06:37] LABS: Glucose Point of Care 103 mg/dL (70-110)
--- NOTE | 2022-12-30 06:41 | PM.PN ---
Subjective Subjective: Patient seen and examined. Tolerating clear liquid diet. Positive BM and flatus Vitals/I&O/Wt Last Vital Signs Temp 97.9 F 12/31/22 03:57 Pulse 66 12/31/22 06:00 Resp 15 12/31/22 03:57 BP 158/84 12/31/22 03:57 Pulse Ox 97 12/31/22 03:57 O2 Del Method Room Air 12/31/22 03:57 O2 Flow Rate 1 12/24/22 11:13 12/30/22 12/30/22 12/31/22 14:59 22:59 06:59 Intake Total 1240 / 1240 270 / 1510 Output Total 400 / 400 1599 / 1999 Balance 840 / 840 -1330 / -490 -2 / -492 Physical Exam Narrative: General: No acute distress, awake alert and oriented x3 Abdomen: Soft, mild distention, appropriately tender to palpation, no guarding rebound or masses Incision intact without erythema or exudate Urinary Catheter Management: Escobar: Cath Placed During This Visit: yes, but has since been removed by the nurse Reason for Continuing Indwelling Catheter: Other Urinary Catheter Date of Insertion: 12/24/22 Urinary Catheter Time of Insertion: 03:41 Date Urinary Catheter Removed: 12/25/22 Time Urinary Catheter Discontinued: 15:17 Data 12/30/22 06:03 12/30/22 06:03 Micro: Microbiology 12/24/22 05:10 Gram Stain - Final Other Source Anaerobic Culture - Preliminary Wound Culture - Final A&P Assessment and plan (1) SBO (small bowel obstruction): Plan Status post exploratory laparotomy with lysis of adhesions Full liquid diet Ambulate Medical management per hospitalist Attestations Medical Necessity Statement*: Per primary Coding Level of Care Code Acute Code for [facility] Fwd Diagnoses SBO (small bowel obstruction) K56.609
[2022-12-30 07:00] LABS: Basophils % 0.6 %; Eosinophils # 0.2 10^3/uL (0.0-0.8); Eosinophils % 2.6 %; Hematocrit 36.5 % (42.0-52.0); Hemoglobin 11.7 g/dL (11.7-16.6); Lymphocytes # 1.2 10^3/uL (0.8-4.8); Mean Corpuscular HGB Conc 32.1 g/dL (30.0-36.0); Mean Corpuscular Hemoglobin 28.9 pg (28.0-34.0); Mean Corpuscular Volume 90.1 fl (80-94); Mean Platelet Volume 10.1 fL (7.4-10.4); Monocytes # 0.5 10^3/uL (0.2-0.9); Monocytes % 6.6 %; Neutrophils % 73.1 %; Nucleated Red Blood Cells % 0 %; Platelet Count 249 10^3/cmm (130-400); Red Blood Count 4.05 10^6/uL (4.1-5.3); Red Cell Distribution Width 14.6 % (12.1-15.1); White Blood Count 6.8 10^3/uL (4.0-10.0)
[2022-12-30 07:21] LABS: Alanine Aminotransferase 43 U/L (0-41); Albumin Level 3.1 g/dL (3.5-5.2); Alkaline Phosphatase 72 U/L (40-130); Blood Urea Nitrogen 8 mg/dL (6-20); Calcium 8.6 mg/dL (8.5-10.5); Carbon Dioxide 22 mmol/L (22-29); Chloride 106 mmol/L (98-107); Globulin 2.8 g/dL (1.3-4.6); Glomerular Filtration Rate 142.6 mL/min (90-130); Glucose 97 mg/dL (65-115); Magnesium 2.1 mg/dL (1.7-2.3); Osmolality Calculated 282 mOsm/kg (285-295); Phosphorus 2.7 mg/dL (2.5-4.5); Sodium 137 mmol/L (136-145); Total Bilirubin 0.5 mg/dL (0.15-1.2); Total Protein 5.9 g/dL (6.6-8.7)
[2022-12-30 07:26] LABS: Anion Gap 12.8 (5-19); Aspartate Amino Transferase 35 U/L (0-40); Potassium 3.8 mmol/L (3.5-5.1)
[2022-12-30] MEDS: simethicone 80 mg Chew PO ×3 (09:31→20:25)
[2022-12-30] MEDS: amlodipine 10 mg Tablet PO (10:44)
--- NOTE | 2022-12-30 10:50 | PC.NURSE ---
patient got out of bed and walked 5 laps around floor. States he feels good and has no pain.
[2022-12-30 11:43] LABS: Glucose Point of Care 119 mg/dL (70-110)
[2022-12-30] MEDS: enoxaparin 40 mg/0.4 mL Syringe SUBCUT (11:43)
--- NOTE | 2022-12-30 11:57 | PC.NURSE ---
patient in good spirits and states no pain in surgical site.
[2022-12-30 16:36] LABS: Glucose Point of Care 108 mg/dL (70-110)
--- NOTE | 2022-12-30 16:59 | PM.PN ---
Subjective Subjective: patient was seen this morning, he has had a bowel movement, no nausea, no vommiting Vitals/I&O/Wt Last Vital Signs Temp 98.0 F 12/30/22 15:46 Pulse 73 12/30/22 15:46 Resp 18 12/30/22 15:46 BP 147/82 12/30/22 15:46 Pulse Ox 94 12/30/22 15:46 O2 Del Method Room Air 12/30/22 15:46 O2 Flow Rate 1 12/24/22 11:13 12/30/22 12/30/22 12/30/22 06:59 14:59 22:59 Intake Total 1000 / 2600 240 / 240 Output Total 1400 / 1950 400 / 400 1300 / 1700 Balance -400 / 650 -160 / -160 -1300 / -1460 Physical Exam Const: COMMON NORMALS: no acute distress and patient oriented x3 Resp: COMMON NORMALS: normal respiratory effort, No retractions, No use of accessory muscles and clear to auscultation bilaterally AUSCULTATION: clear to auscultation bilaterally Cardio: COMMON NORMALS: regular rate, regular rhythm, S1 normal heart sound present and S2 normal heart sound present RATE: regular rate RHYTHM: regular rhythm HEART SOUNDS: S1 normal heart sound present and S2 normal heart sound present GI: COMMON NORMALS: Soft to palpation AUSCULTATION: Yes normoactive bowel sounds PALPATION: Yes Soft to palpation, No Tenderness to palpation present (GI), No Guarding due to palpation present (GI) and No Rigid due to palpation OTHER: surgical site is clean and dry with dressing on top Extremity: COMMON NORMALS: no pedal edema Neuro: COMMON NORMALS: patient oriented x3 Psych: COMMON NORMALS: mental status grossly normal Urinary Catheter Management: Escobar: Cath Placed During This Visit: yes, but has since been removed by the nurse Reason for Continuing Indwelling Catheter: Other Urinary Catheter Date of Insertion: 12/24/22 Urinary Catheter Time of Insertion: 03:41 Date Urinary Catheter Removed: 12/25/22 Time Urinary Catheter Discontinued: 15:17 Data 12/30/22 06:03 12/30/22 06:03 Micro: Microbiology 12/24/22 05:10 Gram Stain - Final Other Source Anaerobic Culture - Preliminary Wound Culture - Final A&P Assessment and plan (1) SBO (small bowel obstruction): (2) Carcinoid tumor: (3) Type 2 diabetes mellitus: (4) Hyperlipidemia: (5) HTN (hypertension): Plan #Small bowel obstruction #History of carcinoid tumor, lung nodule, follows with pulmonology #Hypertension #Type 2 diabetes mellitus #Hyperlipidemia #History of 2 bowel obstructions in the past 1998 and 6 years ago. One of them requiring surgical intervention. -Status post lysis of adhesion's ? Continue LR ? Currently on clear liquid diet ? General surgery consulted ?Resume amlodipine ? Hydralazine 5 mg IV as needed every 4 hours for systolic blood pressure greater than 180 ? Morphine 2 mg every 4 hours as needed for pain ? Zofran for nausea -We will place on sliding scale insulin low-dose intensity. Cautious administration due to n.p.o. status. ? Patient to continue follow-up with pulmonology for question of tumor, lung nodule as an outpatient as previously scheduled. Please see pulmonology notes for further details. -We will discontinue Zosyn at this time remains afebrile, cultures are unremarkable ? In case he is unable to make his own medical decisions he would like to speak to his niece Marcy. He states he is a full code and would like to be resuscitated and saved in case anything were to happen. Full code SCDs. Continue Lovenox for DVT prophylaxis Plan for today, spoke to patient, spoke to staff, spoke to general surgery, currently on clear liquids, up out of bed, monitor for fevers Attestations Medical Necessity Statement*: Patient requires hospitalization for bowel obstruction, status postsurgery Diagnoses SBO (small bowel obstruction) K56.609 Carcinoid tumor D3A.00 Type 2 diabetes mellitus E11.9 Hyperlipidemia E78.5 HTN (hypertension) I10
[2022-12-30 20:41] LABS: Glucose Point of Care 95 mg/dL (70-110)
[2022-12-31] MEDS: metoclopramide 5 mg/mL SDV 2 mL 10 MG IVP ×2 (00:20→06:49)
[2022-12-31 03:57] VITALS: BP 158/84; PULSE 49; RESP 15; TEMP 36.6; O2SAT 97
[2022-12-31 06:00] VITALS: PULSE 66
[2022-12-31 06:43] LABS: Glucose Point of Care 97 mg/dL (70-110)
[2022-12-31] MEDS: pantoprazole 40 mg SDV IVP (06:49)
[2022-12-31] MEDS: sucralfate 1 gm/10 mL Oral Liq UDC PO ×2 (06:51→11:17)
[2022-12-31 07:20] VITALS: BP 152/80; PULSE 76; RESP 16; O2SAT 96
[2022-12-31] MEDS: amlodipine 10 mg Tablet PO (08:34)
[2022-12-31] MEDS: simethicone 80 mg Chew PO (08:34)
[2022-12-31 08:48] VITALS: PULSE 77; RESP 16; O2SAT 97
--- NOTE | 2022-12-31 09:31 | PC.NURSE ---
Pt ambulated 4 times around full hallway this morning.
[2022-12-31] MEDS: enoxaparin 40 mg/0.4 mL Syringe SUBCUT (11:17)
[2022-12-31 11:18] LABS: Glucose Point of Care 86 mg/dL (70-110)
--- NOTE | 2022-12-31 11:32 | PC.SOCIAL ---
IMM Update pg 2 of IMM updated and reviewed w/ patient. Copy provided and Copy in chart dated, and initialed.
[2022-12-31 12:00] VITALS: BP 156/82; PULSE 72; RESP 16; O2SAT 97
--- NOTE | 2022-12-31 13:11 | P.DS_ITS ---
Discharge Providers Date of Admission: 12/24/22 00:07 Date of Discharge: December 31, 2022 Attending Provider at Admission: Aleja Godwin MD Attending Provider at Discharge: Manfred Mcgee MD Primary Care Provider: Ryan Martinez Diagnoses at Discharge Discharge Diagnosis (1) SBO (small bowel obstruction): Status: Acute Reason for Visit Reason for Visit: ABD Pain Hospital Course Hospital Course lesvia Dixon is a 52 year old male with history of carcinoid tumor, hypertension, hyperlipidemia, lung nodule, type 2 diabetes mellitus controlled on metformin, bowel obstruction in 1998 that had to require surgery, a second bowel obstruction 5 to 6 years ago that was managed conservatively with laxatives presenting to the hospital today with complaint of pain in his abdomen that has been going on for the last day and a half.? He has also been nauseous and has been vomiting.? Complains of diarrhea as well.? No blood in vomitus noticed.? He is feeling unwell generally.? He apparently has had a bowel obstruction before.? Patient is a former smoker.? He follows with Dr. Clifford for pulmonary nodule and recently saw him on 02 December.? Please see pulmonology note for details.? 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 For hypertension he is on amlodipine irbesartan hydrochlorothiazide.? He states his first bowel obstruction 1998 he was told that he had some scar tissue that was removed.? Possibly adhesions.? He denies a history of motor vehicle accident, gunshot wound or prior abdominal surgeries.? Second bowel obstruction was managed conservatively.? He says he has been having diarrhea since yesterday.? He had 6 episodes yesterday and 4 episodes since this morning.? He is unable to keep anything down.? He is not passing flatus at this time.? Complains of left lower quadrant and right lower quadrant abdominal jo n.? Has been quite nauseous.? 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 ED course: On arrival blood pressure 147/96, respiratory 16, pulse 104, temperature 98.7, saturating 97% on room air. CT abdomen pelvis was obtained which showed significant central .? Because of proximal and distal small bowel loops were not particularly dilated this does raise concern for closed-loop obstruction.? No abscess or free air. Surgical consultation recommended.? Fecal filled colon.? Multiple chronic findings.? Right lung base.? Findings as above should be appropriately followed up. General surgery was contacted.? Surgeon has requested for a CT abdomen pelvis with oral contrast.? Hospitalist was called to admit patient.? Closed-loop obstruction present patient will go to the OR right away otherwise we will manage conservatively with NG tube.? Further orders to be held until contrast study needed.? Labs significant for WBC 13.8, lactic acid 2.4.? Patient was given GI cocktail times two 1 L normal saline bolus in ER.? Morphine for pain. Patient presented to [facility] for small bowel obstruction, general surgery was consulted, status post surgical invention, lysis of adhesion, concern for totally managed thereafter received IV fluids, bowel rest, pain control, NG tube. Overall patient's clinical condition improved, NG tube was removed by patient, had bowel movement, diet was advanced, ambulating without significant symptomatology, no recurrent nausea, vomiting, abdominal pain. Will be discharged on a GI soft diet, advised to drink plenty of electrolyte balanced fluids, continue bowel regimen, hydrate well, see primary care provider in the next 24 hours see general surgery as scheduled. If he were to have any worsening abdominal pain, nausea, vomiting, stat lack of stooling to go to the emergency room Physical Exam Const: COMMON NORMALS: no acute distress and patient oriented x3 Resp: COMMON NORMALS: normal respiratory effort, No retractions, No use of accessory muscles and clear to auscultation bilaterally AUSCULTATION: clear to auscultation bilaterally Cardio: COMMON NORMALS: regular rate, regular rhythm, S1 normal heart sound present and S2 normal heart sound present RATE: regular rate RHYTHM: regular rhythm HEART SOUNDS: S1 normal heart sound present and S2 normal heart sound present GI: COMMON NORMALS: Normal to inspection, nondistended, normoactive bowel so unds present and non-tender OTHER: Surgical site, roselyn in place, clean and dry Extremity: COMMON NORMALS: no pedal edema Neuro: COMMON NORMALS: patient oriented x3 Psych: COMMON NORMALS: mental status grossly normal Urinary Catheter Management: Escobar: Cath Placed During This Visit: yes, but has since been removed by the nurse Reason for Continuing Indwelling Catheter: Other Urinary Catheter Date of Insertion: 12/24/22 Urinary Catheter Time of Insertion: 03:41 Date Urinary Catheter Removed: 12/25/22 Time Urinary Catheter Discontinued: 15:17 Discharge Data Studies Completed and Pending Completed Studies During Hospitalization Category Date Time Status CT abdomen pelvis w con* [id number] Stat Cat Scan 12/23/22 22:[address] abdomen pelvis wo con [id number] Stat Cat Scan 12/24/22 00:04 Completed XR abdomen min 2V [id number] Routine Exams 12/29/22 08:00 Completed Radiology Impressions Abdomen/Pelvis CT 12/24/22 00:04 IMPRESSION: 1. Compared to the prior day, the findings are again consistent with a significant closed loop obstruction. New, and of concern, there is portal venous gas in the liver, which does imply bowel ischemia. New small bowel pneumatosis. Advise emergent surgical consultation. 2. Progressive small to moderate pelvic free fluid. 3. No abscess, free air, or other change has occurred from about 4 hours ago. 4. Call to provider has been initiated. COMMENTS: Consistent with the [place]'s Incidental Findings Committee white paper (J Am Nitesh Radiol 2018): Any incidental renal lesion less than 1 cm or classified as too small to characterize, or any incidental cystic renal lesion characterized as simple-appearing, is likely benign. No follow-up imaging is recommended for these lesions per consensus recommendations based on imaging criteria. ADDENDUM: 12/24/22 0316 THIS REPORT CONTAINS FINDINGS THAT MAY BE CRITICAL TO PATIENT CARE. The findings were verbally communicated via telephone conference at 3:14 AM CDT on 12/24/[address] Godwin. The findings were acknowledged and understood. Abdomen X-Ray 12/29/22 08:00 IMPRESSION: Distal small bowel obstruction pattern persists. Laboratory Results WBC 6.8 10^3/uL (4.0-10.0) 12/30/22 06:03 Corrected WBC Cancelled 12/26/22 05:10 RBC 4.05 10^6/uL (4.1-5.3) L 12/30/22 06:03 Hgb 11.7 g/dL (11.7-16.6) 12/30/22 06:03 Hct 36.5 % (42.0-52.0) L 12/30/22 06:03 MCV 90.1 fl (80-94) 12/30/22 06:03 MCH 28.9 pg (28.0-34.0) 12/30/22 06:03 MCHC 32.1 g/dL (30.0-36.0) 12/30/22 06:03 RDW 14.6 % (12.1-15.1) 12/30/22 06:03 Plt Count 249 10^3/cmm (130-400) 12/30/22 06:03 MPV 10.1 fL (7.4-10.4) 12/30/22 06:03 Gran % Cancelled 12/26/22 05:10 Neut % (Auto) 73.1 % 12/30/22 06:03 Lymph % (Auto) 17.0 % 12/30/22 06:03 [place] % (Auto) 6.6 % 12/30/22 06:03 Eos % (Auto) 2.6 % 12/30/22 06:03 Baso % (Auto) 0.6 % 12/30/22 06:03 Neut # (Auto) 5.00 10^3/uL (1.8-7.7) 12/30/22 06:03 Lymph # (Auto) 1.2 10^3/uL (0.8-4.8) 12/30/22 06:03 [place] # (Auto) 0.5 10^3/uL (0.2-0.9) 12/30/22 06:03 Eos # (Auto) 0.2 10^3/uL (0.0-0.8) 12/30/22 06:03 Baso # (Auto) 0.0 10^3/uL (0.0-0.1) 12/30/22 06:03 Absolute Gran (auto) Cancelled 12/26/22 05:10 Nucleated RBC % (auto) 0 % 12/30/22 06:03 Nucleated RBCs # 0.0 /100WBC 12/30/22 06:03 Sodium 137 mmol/L (136-145) 12/30/22 06:03 Potassium 3.8 mmol/L (3.5-5.1) 12/30/22 06:03 Chloride 106 mmol/L (98-107) 12/30/22 06:03 Carbon Dioxide 22 mmol/L (22-29) 12/30/22 06:03 Anion Gap 12.8 (5-19) 12/30/22 06:03 BUN 8 mg/dL (6-20) 12/30/22 06:03 Creatinine 0.6 mg/dL (0.7-1.2) L 12/30/22 06:03 GFR Calculation 142.6 mL/min (90-130) H 12/30/22 06:03 Glucose 97 mg/dL (65-115) 12/30/22 06:03 POC Glucose 86 mg/dL (70-110) 12/31/22 11:15 Calculated Osmolality 282 mOsm/kg (285-295) L 12/30/22 06:03 Lactic Acid 3.7 mmol/L (0.5-2.2) H 12/24/22 12:35 Lactic Acid (Sepsis) 3.5 mmol/L (0.5-2.2) H 12/24/22 15:42 Lactate 2.1 mmol/L (0.5-2.2) 12/25/22 04:35 Calcium 8.6 mg/dL (8.5-10.5) 12/30/22 06:03 Phosphorus 2.7 mg/dL (2.5-4.5) 12/30/22 06:03 Magnesium 2.1 mg/dL (1.7-2.3) 12/30/22 06:03 Total Bilirubin 0.5 mg/dL (0.15-1.2) 12/30/22 06:03 AST 35 U/L (0-40) 12/30/22 06:03 ALT 43 U/L (0-41) H 12/30/22 06:03 Alkaline Phosphatase 72 U/L (40-130) 12/30/22 06:03 Total Protein 5.9 g/dL (6.6-8.7) L 12/30/22 06:03 Albumin 3.1 g/dL (3.5-5.2) L 12/30/22 06:03 Globulin 2.8 g/dL (1.3-4.6) 12/30/22 06:03 Lipase 31 U/L (13-60) 12/23/22 22:05 Procalcitonin 0.06 ng/mL (0-0.5) 12/24/22 08:23 Urine Color Yellow (Yellow) 12/24/22 03:32 Urine Appearance Clear (CLEAR) 12/24/22 03:32 Urine pH 5 (5-7) 12/24/22 03:32 Ur Specific [place] 1.020 (1.005-1.030) 12/24/22 03:32 Urine Protein Neg (Negative) 12/24/22 03:32 Urine Glucose (UA) 4+ (Normal) H 12/24/22 03:32 Urine Ketones Negative (Negative) 12/24/22 03:32 Urine Blood Neg (Negative) 12/24/22 03:32 Urine Nitrate Negative (Negative) 12/24/22 03:32 Urine Bilirubin 1+ (Negative) H 12/24/22 03:32 Urine Urobilinogen 4 mg/dL (Negative) H 12/24/22 03:32 Ur Leukocyte Esterase Negative (Negative) 12/24/22 03:32 Vitals Last Vital Signs Temp 97.9 F 12/31/22 03:57 Pulse 72 12/31/22 12:00 Resp 16 12/31/22 12:00 BP 156/82 12/31/22 12:00 Pulse Ox 97 12/31/22 12:00 O2 Del Method Room Air 12/31/22 12:00 O2 Flow Rate 1 12/24/22 11:13 Discharge Plan Discharge Patient Disposition: Home Condition: Stable Prescriptions: New hydrocodone-acetaminophen 7.5-325 mg tablet 1 tab PO Q6H PRN (Reason: pain) Qty: 30 0RF Rx Instructions: do not drink or drive docusate sodium [Colace] 100 mg capsule 100 mg PO DAILY PRN (Reason: for hard stools) 30 Days Qty: 30 0RF Continued melatonin 5 mg capsule 10 mg PO BEDTIME Incruse Ellipta 62.5 mcg/actuation blister with device 1 inh inhalation DAILY Qty: 90 3RF irbesartan-hydrochlorothiazide 150-12.5 mg tablet 1 tab PO BID pravastatin 40 mg tablet 40 mg PO QPM amlodipine 5 mg tablet 5 mg PO DAILY metformin 500 mg tablet 1,000 mg PO BID baclofen 10 mg Tablet 10 mg PO BID PRN (Reason: Pain) multivitamin Tablet 1 tab PO DAILY Aspir-81 81 mg Tablet,Delayed Release (Dr/Ec) 81 mg PO DAILY gabapentin 300 mg capsule 300 mg PO BID Discontinued ibuprofen 600 mg tablet 600 mg PO Q8H PRN (Reason: pain) Qty: 20 0RF Discharge Orders: Discharge Order (Routine); Ordered 12/31/22 Ordered By: Manfred Mcgee Referrals: Agustin Evans MD [Physician] - 7-10 days (wound check and staple removal) Ryan Martinez [Primary Care Provider] - 01/05/23 10:00 am Discharge Diet: As Directed Discharge Activity: Limit activity as instructed Patient Instructions: Opioid Safety Activity Restrictions/Additional Instructions: No driving while on narcotics. May shower but no bath/pool/brandt for a month. No lifting over 5 pounds for 2 weeks then may lift up to 20 pounds for two more weeks. RTC 1 week for wound check and staple removal. Call for fever over 101F, increased pain/Nausea and vomiting/problems with stools, drainage from wound, signs or symptoms of wound infection (redness/warmth/increased pain, drainage). May apply ice pack to wound for comfort. stay on liquid diet for 3 days then low fiber diet for a month. -Please do not drive operate machinery or drink or drive while taking narcotics medication -Please slowly advance diet, if any recurrent nausea vomiting go to the emergency room -Continue GI soft diet for at least 48 hours, Discharge Attestations Time Spent in Discharge Care*: greater than 30 min Quality Metrics Clinical Quality Measures [ No reported AMI, CVA or VTE this stay] Coding Level of Care Code 72154 Total time (in minutes) for Discharge: 45 Diagnoses SBO (small bowel obstruction) K56.609
[2022-12-31 14:25] VITALS: BP 156/82; PULSE 72; RESP 16; O2SAT 97
== END 2022-12-31 14:26 | disposition home or self-care (01) | DRG 337 ==
LOC: ER 12-24 00:06 → MEDSURG 12-24 00:28
PROVIDERS: Internal Medicine; Specialist; Admitting Provider Internal Medicine; Emergency Provider Emergency Medicine; PCP Family Medicine; Visit Provider Family Medicine
PROC: 0DN80ZZ Release Small Intestine, Open Approach (ICD-10-PCS; CPT 49000; principal; 2022-12-24 05:00)
DX: K56.51 Intestinal adhesions [bands], with partial obstruction (principal); I10 Essential (primary) hypertension; E78.5 Hyperlipidemia, unspecified; E11.9 Type 2 diabetes mellitus without complications; Z79.84 Long term (current) use of oral hypoglycemic drugs; Z87.891 Personal history of nicotine dependence; Z79.82 Long term (current) use of aspirin; E83.42 Hypomagnesemia; D3A.00 Benign carcinoid tumor of unspecified site; D3A.090 Benign carcinoid tumor of the bronchus and lung
CPT/HCPCS: 36415; 36416; 51702; 74019; 74176; 74177; 80053; 81003; 82962; 83605; 83690; 83735; 84100; 84145; 85025; 87040; 87070; 87075; 87205; 94640; 94664; 96361; 96372; 96374; 96375; 96376; 97110; 97116; 97161; 97530; 99285; C9113; J0330; J0690; J1100; J1170; J1650; J2270; J2371; J2405; J2543; J2704; J2710; J2765; J3010; J3475; J3490; J7030; J7050; J7120; J7799; P9045; Q9963; Q9967

== ENCOUNTER → 2023-01-07 15:09 | Outpatient (BNVA) | payer MEDICARE, MEDICAID, SELFPAY | PROVIDERS: PCP Family Medicine; Visit Provider Surgery | DX: Z98.890 Other specified postprocedural states (principal) | CPT/HCPCS: 99024 ==

== ENCOUNTER 2023-01-07 23:02 | Emergency (ER) | payer MEDICARE, MEDICAID, SELFPAY ==
[2023-01-07 23:23] LABS: Basophils # 0.1 10^3/uL (0.0-0.1); Basophils % 0.5 %; Eosinophils # 0.2 10^3/uL (0.0-0.8); Eosinophils % 1.8 %; Hematocrit 40.1 % (42.0-52.0); Hemoglobin 12.9 g/dL (11.7-16.6); Lymphocytes # 2.4 10^3/uL (0.8-4.8); Lymphocytes % 22.6 %; Mean Corpuscular HGB Conc 32.2 g/dL (30.0-36.0); Mean Corpuscular Volume 87.2 fl (80-94); Mean Platelet Volume 9.8 fL (7.4-10.4); Monocytes # 0.6 10^3/uL (0.2-0.9); Monocytes % 5.6 %; Neutrophils # 7.34 10^3/uL (1.8-7.7); Neutrophils % 69.1 %; Nucleated Red Blood Cells % 0 %; Platelet Count 316 10^3/cmm (130-400); Red Cell Distribution Width 14.6 % (12.1-15.1); White Blood Count 10.6 10^3/uL (4.0-10.0)
[2023-01-07 23:25] VITALS: BP 131/79; PULSE 106; RESP 16; TEMP 36.8; O2SAT 95; BMI 33.7
[2023-01-07 23:40] LABS: Alanine Aminotransferase 31 U/L (0-41); Albumin Level 3.7 g/dL (3.5-5.2); Alkaline Phosphatase 98 U/L (40-130); Anion Gap 16.5 (5-19); Aspartate Amino Transferase 14 U/L (0-40); Blood Urea Nitrogen 14 mg/dL (6-20); Calcium 8.5 mg/dL (8.5-10.5); Carbon Dioxide 26 mmol/L (22-29); Chloride 98 mmol/L (98-107); Globulin 2.9 g/dL (1.3-4.6); Glomerular Filtration Rate 102.3 mL/min (90-130); Glucose 152 mg/dL (65-115); Osmolality Calculated 287 mOsm/kg (285-295); Potassium 3.5 mmol/L (3.5-5.1); Sodium 137 mmol/L (136-145); Total Bilirubin 0.3 mg/dL (0.15-1.2); Total Protein 6.6 g/dL (6.6-8.7)
--- NOTE | 2023-01-08 00:37 | W.ED.GENADLT ---
HPI - General Adult General: Chief complaint: General Medical Stated complaint: Incsion Bleeding Time Seen by Provider: 01/07/23 23:06 Source: patient Mode of arrival: ambulatory Limitations: no limitations History of Present Illness: Patient is a nice 52-year-old male who presents to ED today with a complaint of wound dehiscence. Patient states on 12/23 he was here in our emergency department for a bowel blockage. He was subsequently taken to the OR for surgery. Patient states he followed up with Dr. Stanford today who removed the abdominal incision roselyn (states they left one in). He states when he got home he was lying down and felt a portion of his incision bust open . Had small amount of bleeding which has subsided. Patient is not having any abdominal pain. No fevers. Associated symptoms: Deny chest pain, dyspnea, malaise or vomiting Review of Systems Const: Denies: fever(s), chills, body aches, fatigue or malaise Card: Denies: chest pain Resp: Denies: dyspnea GI: Denies: abdominal pain, vomiting or GI cramping Skin/Breast: Reports: other (abdominal wound dehiscence) PFS ED PFSH: Medical History Carcinoid tumor HTN (hypertension) Hyperlipidemia Lung nodule SBO (small bowel obstruction) Type 2 diabetes mellitus Surgical History H/O knee surgery H/O rhinoplasty H/O shoulder surgery History of appendectomy History of back surgery History of exploratory laparotomy History of gastric surgery Family History Family/Other Diabetes Grandfather Heart disease Grandmother Cancer Leukemia Other Dementia Hyperlipidemia Hypertension Lung disease Stroke Denies family history of CAD (coronary artery disease) Clotting disorder Psychiatric illness Chronic kidney disease (CKD) Suicide Anesthesia complication Bleeding disorder Social History Smoking and tobacco status: former smoker Quit status (tobacco): has quit using tobacco Year quit tobacco: 2001 Former quit date comment: Hx of 1 PPD x 12 Years Second hand smoke exposure: No Smoking risk assessment/counseling performed?: No Alcohol intake: current Alcohol intake frequency: holidays/special occasions only Counseling given: No Substance/Drug Use: never Counseling given: No Lives independently: Yes Household members: family Marital status: Single Current occupational status: disabled Do you think of yourself as: Straight/Heterosexual Current gender identity: Male Physical Exam Const: COMMON NORMALS: no acute distress, patient oriented x3, no limitations, alert and well nourished GI: COMMON NORMALS: Soft to palpation and non-tender INSPECTION: Yes abdominal wall ecchymosis (small amount from recent surgery-expected finding) PALPATION: Yes Soft to palpation OTHER: vertical open abdominal surgical scar; about 1 inch has dehisced slightly-no discharge/blood noted; remainder of wound looks to be healing well; no evidence for infection; there is one intact staple just inferior to dehisced area that we will leave to hopefully avoid further dehiscence; patient has follow-up with PCP in 2 days and they can remove this Neuro: COMMON NORMALS: patient oriented x3 SENSORIUM/ORIENTATION: Yes alert Course Vital Signs: Vital signs: Vital Signs Temperature 98.2 F 01/08/23 00:55 Pulse Rate 106 H 01/08/23 00:55 Respiratory Rate 16 01/08/23 00:55 Blood Pressure 131/79 01/08/23 00:55 Pulse Oximetry 95 01/08/23 00:55 MDM - General Adult Medical Decision Making Area will need to heal by secondary intent. Discussed keeping area clean with warm soap and water and may apply triple antibiotic ointment twice daily. Follow-up with primary care in 2 days. Wound care/infection precautions/return to ED precautions discussed. Lab Data 01/07/23 23:17 01/07/23 23:17 Laboratory Results WBC 10.6 10^3/uL (4.0-10.0) H 01/07/23 23:17 RBC 4.60 10^6/uL (4.1-5.3) 01/07/23 23:17 Hgb 12.9 g/dL (11.7-16.6) 01/07/23 23:17 Hct 40.1 % (42.0-52.0) L 01/07/23 23:17 MCV 87.2 fl (80-94) 01/07/23 23:17 MCH 28.0 pg (28.0-34.0) 01/07/23 23:17 MCHC 32.2 g/dL (30.0-36.0) 01/07/23 23:17 RDW 14.6 % (12.1-15.1) 01/07/23 23:17 Plt Count 316 10^3/cmm (130-400) 01/07/23 23:17 MPV 9.8 fL (7.4-10.4) 01/07/23 23:17 Neut % (Auto) 69.1 % 01/07/23 23:17 Lymph % (Auto) 22.6 % 01/07/23 23:17 [place] % (Auto) 5.6 % 01/07/23 23:17 Eos % (Auto) 1.8 % 01/07/23 23:17 Baso % (Auto) 0.5 % 01/07/23 23:17 Neut # (Auto) 7.34 10^3/uL (1.8-7.7) 01/07/23 23:17 Lymph # (Auto) 2.4 10^3/uL (0.8-4.8) 01/07/23 23:17 [place] # (Auto) 0.6 10^3/uL (0.2-0.9) 01/07/23 23:17 Eos # (Auto) 0.2 10^3/uL (0.0-0.8) 01/07/23 23:17 Baso # (Auto) 0.1 10^3/uL (0.0-0.1) 01/07/23 23:17 Nucleated RBC % (auto) 0 % 01/07/23 23:17 Nucleated RBCs # 0.0 /100WBC 01/07/23 23:17 Sodium 137 mmol/L (136-145) 01/07/23 23:17 Potassium 3.5 mmol/L (3.5-5.1) 01/07/23 23:17 Chloride 98 mmol/L (98-107) 01/07/23 23:17 Carbon Dioxide 26 mmol/L (22-29) 01/07/23 23:17 Anion Gap 16.5 (5-19) 01/07/23 23:17 BUN 14 mg/dL (6-20) 01/07/23 23:17 Creatinine 0.8 mg/dL (0.7-1.2) 01/07/23 23:17 GFR Calculation 102.3 mL/min (90-130) 01/07/23 23:17 Glucose 152 mg/dL (65-115) H 01/07/23 23:17 Calculated Osmolality 287 mOsm/kg (285-295) 01/07/23 23:17 Calcium 8.5 mg/dL (8.5-10.5) 01/07/23 23:17 Total Bilirubin 0.3 mg/dL (0.15-1.2) 01/07/23 23:17 AST 14 U/L (0-40) 01/07/23 23:17 ALT 31 U/L (0-41) 01/07/23 23:17 Alkaline Phosphatase 98 U/L (40-130) 01/07/23 23:17 Total Protein 6.6 g/dL (6.6-8.7) 01/07/23 23:17 Albumin 3.7 g/dL (3.5-5.2) 01/07/23 23:17 Globulin 2.9 g/dL (1.3-4.6) 01/07/23 23:17 Discharge Plan Discharge Patient Disposition: Home Clinical Impression: Postoperative wound dehiscence Qualifiers: Encounter type: initial encounter Qualified Code(s): T81.31XA - Disruption of external operation (surgical) wound, not elsewhere classified, initial encounter Condition: Stable Prescriptions: No Action melatonin 5 mg capsule 10 mg PO BEDTIME Incruse Ellipta 62.5 mcg/actuation blister with device 1 inh inhalation DAILY Qty: 90 3RF irbesartan-hydrochlorothiazide 150-12.5 mg tablet 1 tab PO BID pravastatin 40 mg tablet 40 mg PO QPM amlodipine 5 mg tablet 5 mg PO DAILY metformin 500 mg tablet 1,000 mg PO BID baclofen 10 mg Tablet 10 mg PO BID PRN (Reason: Pain) multivitamin Tablet 1 tab PO DAILY aspirin 81 mg Tablet,Delayed Release (Dr/Ec) 81 mg PO DAILY gabapentin 300 mg capsule 300 mg PO BID hydrocodone-acetaminophen 7.5-325 mg tablet 1 tab PO Q6H PRN (Reason: pain) Qty: 30 0RF Rx Instructions: do not drink or drive Colace 100 mg capsule 100 mg PO DAILY PRN (Reason: for hard stools) 30 Days Qty: 30 0RF Discharge Orders: Discharge ED (Routine); Ordered 01/08/23 Ordered By: Laquita Cason Referrals: Ryan Martinez [Primary Care Provider] - Coding Level of Care Code ED Chisel Worker for Chg Kary
[2023-01-08 00:55] VITALS: BP 131/79; PULSE 106; RESP 16; TEMP 36.8; O2SAT 95
== END 2023-01-08 00:56 | disposition home or self-care (01) ==
PROVIDERS: Emergency Medicine; Emergency Provider Physician Assistant; PCP Family Medicine
DX: T81.31XA Disruption of external operation (surgical) wound, not elsewhere classified, initial encounter (principal); Z79.82 Long term (current) use of aspirin; Z79.84 Long term (current) use of oral hypoglycemic drugs; Z87.891 Personal history of nicotine dependence; I10 Essential (primary) hypertension; E78.5 Hyperlipidemia, unspecified; E11.9 Type 2 diabetes mellitus without complications; Y83.8 Other surgical procedures as the cause of abnormal reaction of the patient, or of later complication, without mention of misadventure at the time of the procedure
CPT/HCPCS: 36415; 80053; 85025; 99283

== ENCOUNTER 2023-01-14 16:14 | Emergency (ER) | payer MEDICARE, MEDICAID, SELFPAY ==
[2023-01-14 16:47] VITALS: BMI 34.0
[2023-01-14 16:50] VITALS: BP 140/85; PULSE 107; RESP 16; TEMP 37.1; O2SAT 98
[2023-01-14 19:00] LABS: Basophils # 0.1 10^3/uL (0.0-0.1); Basophils % 0.6 %; Eosinophils # 0.1 10^3/uL (0.0-0.8); Eosinophils % 1.6 %; Hematocrit 42.5 % (42.0-52.0); Hemoglobin 13.4 g/dL (11.7-16.6); Lymphocytes # 1.7 10^3/uL (0.8-4.8); Lymphocytes % 20.6 %; Mean Corpuscular HGB Conc 31.5 g/dL (30.0-36.0); Mean Corpuscular Hemoglobin 27.9 pg (28.0-34.0); Mean Corpuscular Volume 88.4 fl (80-94); Mean Platelet Volume 10.2 fL (7.4-10.4); Monocytes # 0.5 10^3/uL (0.2-0.9); Neutrophils # 5.85 10^3/uL (1.8-7.7); Neutrophils % 70.6 %; Nucleated Red Blood Cells % 0 %; Platelet Count 307 10^3/cmm (130-400); Red Blood Count 4.81 10^6/uL (4.1-5.3); Red Cell Distribution Width 14.5 % (12.1-15.1); White Blood Count 8.3 10^3/uL (4.0-10.0)
--- NOTE | 2023-01-14 19:02 | W.ED.ABDPA2 ---
HPI - Abdominal Pain General: Chief Complaint: Abdominal Pain Stated Complaint: stomach surgery on 12/24, abd pain Time Seen by Provider: 01/14/23 18:26 History of Present Illness: Mr. Dixon is a 52-year-old gentleman who underwent exploratory laparotomy on 12/24/2022 presented to the emergency department for abdominal pain. He was sitting in the car when he had sudden onset of right abdominal pain with a numb and intermittent stabbing sensation on the skin. Denies other associated abdominal pain or radiation. Moderate intensity. Persistent course. No other specific changes in health, exacerbating, or alleviating factors identified. Onset (ago): hour(s) Severity: moderate Quality: stabbing and other Exacerbating factors: movement Review of Systems General: Reports: 10 or more systems reviewed and unremarkable except in HPI and below PFSH ED PFSH: Medical History Carcinoid tumor HTN (hypertension) Hyperlipidemia Lung nodule SBO (small bowel obstruction) Type 2 diabetes mellitus Surgical History H/O knee surgery H/O rhinoplasty H/O shoulder surgery History of appendectomy History of back surgery History of exploratory laparotomy History of gastric surgery Family History Family/Other Diabetes Grandfather Heart disease Grandmother Cancer Leukemia Other Dementia Hyperlipidemia Hypertension Lung disease Stroke Denies family history of CAD (coronary artery disease) Clotting disorder Psychiatric illness Chronic kidney disease (CKD) Suicide Anesthesia complication Bleeding disorder Social History Smoking and tobacco status: former smoker Quit status (tobacco): has quit using tobacco Year quit tobacco: 2001 Former quit date comment: Hx of 1 PPD x 12 Years Second hand smoke exposure: No Smoking risk assessment/counseling performed?: No Alcohol intake: current Alcohol intake frequency: holidays/special occasions only Counseling given: No Substance/Drug Use: never Counseling given: No Lives independently: Yes Household members: family Marital status: Single Current occupational status: disabled Do you think of yourself as: Straight/Heterosexual Current gender identity: Male Physical Exam Const: COMMON NORMALS: alert GENERAL APPEARANCE: cooperative and well developed HENMT: COMMON NORMALS: normocephalic and atraumatic HEAD & SCALP: normocephalic and atraumatic Eye: COMMON NORMALS: conjunctivae normal CONJUNCTIVA: Yes conjunctivae normal SCLERA: sclerae normal Neck/C-Spine: COMMON NORMALS: supple GENERAL: Yes trachea midline Resp: COMMON NORMALS: normal respiratory effort EFFORT & INSPECTION: Yes able to speak in complete sentences Cardio: COMMON NORMALS: regular rate and regular rhythm RATE: regular rate RHYTHM: regular rhythm GI: COMMON NORMALS: Soft to palpation PALPATION: Yes Soft to palpation, Yes Tenderness to palpation present (GI) (Right periumbilical region), No Guarding due to palpation present (GI) and No Rigid due to palpation OTHER: Surgical incision appears well-healing without evidence of cellulitis or dehiscence. Extremity: GENERAL: Yes normal exam except as noted and No edema Neuro: COMMON NORMALS: moves all extremities SENSORIUM/ORIENTATION: Yes alert and No Orientation impaired Psych: COMMON NORMALS: mental status grossly normal and Normal thought process present THOUGHT PROCESS: Normal thought process present Course Vital Signs: Vital signs: Vital Signs Temperature 98.8 F 01/14/23 16:50 Pulse Rate 85 01/14/23 21:25 Respiratory Rate 18 01/14/23 21:25 Blood Pressure 142/91 01/14/23 21:25 Pulse Oximetry 96 01/14/23 21:25 Oxygen Delivery Me thod Room Air 01/14/23 20:41 MDM - Abdominal Pain Medical Decision Making 53-year-old gentleman with recent surgery presenting with postoperative concern. Exam as above. Abdominal tenderness with no evidence of acute surgical abdomen. No leukocytosis, normal hemoglobin. No significant metabolic derangement. No UTI. Given recent surgical history imaging is necessary. CT demonstrates no acute finding, patient does have improved dilated loops however still may have ileus. Incidental findings discussed. Patient improved during ED course with analgesia. The results of ED evaluation were discussed with the patient including prescriptions and/or symptomatic cares (if applicable) including appropriate and responsible use, followup plan, and return precautions. The patient verbalized understanding and felt safe for discharge. Medical Records I reviewed the patient's medical records. Lab Data I reviewed the patient's lab results. 01/14/23 18:46 01/14/23 18:46 Labs/Radiology: Radiology Impressions Abdomen/Pelvis CT 01/14/23 19:19 IMPRESSION: 1. No acute finding identified in the abdominal wall. 2. Improved mildly dilated loops of distal small bowel with distal fecalization, most likely ileus. 3. Stable 4 mm left pulmonary nodule. For patients at low risk (minimal or absent history of smoking and of other known risk factors), no routine follow-up is indicated. For patients at high risk (history of smoking or of other known risk factors), consider optional CT Chest at 12 months. (Reference: Enrique) References: Enrique Conn et al. Guidelines for Management of Incidental Pulmonary Nodules Detected on CT Images: From the Fleischner Society 2017. Radiology. 2017;284(1):228-243. COMMENTS: Consistent with the [place]'s Incidental Findings Committee white paper (J Am Nitesh Radiol 2018): Any incidental renal lesion less than 1 cm or classified as too small to characterize, or any incidental cystic renal lesion characterized as simple-appearing, is likely benign. No follow-up imaging is recommended for these lesions per consensus recommendations based on imaging criteria. Laboratory Results WBC 8.3 10^3/uL (4.0-10.0) 01/14/23 18:46 RBC 4.81 10^6/uL (4.1-5.3) 01/14/23 18:46 Hgb 13.4 g/dL (11.7-16.6) 01/14/23 18:46 Hct 42.5 % (42.0-52.0) 01/14/23 18:46 MCV 88.4 fl (80-94) 01/14/23 18:46 MCH 27.9 pg (28.0-34.0) L 01/14/23 18:46 MCHC 31.5 g/dL (30.0-36.0) 01/14/23 18:46 RDW 14.5 % (12.1-15.1) 01/14/23 18:46 Plt Count 307 10^3/cmm (130-400) 01/14/23 18:46 MPV 10.2 fL (7.4-10.4) 01/14/23 18:46 Neut % (Auto) 70.6 % 01/14/23 18:46 Lymph % (Auto) 20.6 % 01/14/23 18:46 [place] % (Auto) 6.0 % 01/14/23 18:46 Eos % (Auto) 1.6 % 01/14/23 18:46 Baso % (Auto) 0.6 % 01/14/23 18:46 Neut # (Auto) 5.85 10^3/uL (1.8-7.7) 01/14/23 18:46 Lymph # (Auto) 1.7 10^3/uL (0.8-4.8) 01/14/23 18:46 [place] # (Auto) 0.5 10^3/uL (0.2-0.9) 01/14/23 18:46 Eos # (Auto) 0.1 10^3/uL (0.0-0.8) 01/14/23 18:46 Baso # (Auto) 0.1 10^3/uL (0.0-0.1) 01/14/23 18:46 Nucleated RBC % (auto) 0 % 01/14/23 18:46 Nucleated RBCs # 0.0 /100WBC 01/14/23 18:46 Sodium 137 mmol/L (136-145) 01/14/23 18:46 Potassium 4.5 mmol/L (3.5-5.1) 01/14/23 18:46 Chloride 99 mmol/L (98-107) 01/14/23 18:46 Carbon Dioxide 26 mmol/L (22-29) 01/14/23 18:46 Anion Gap 16.5 (5-19) 01/14/23 18:46 BUN 15 mg/dL (6-20) 01/14/23 18:46 Creatinine 0.8 mg/dL (0.7-1.2) 01/14/23 18:46 GFR Calculation 102.3 mL/min (90-130) 01/14/23 18:46 Glucose 139 mg/dL (65-115) H 01/14/23 18:46 Calculated Osmolality 287 mOsm/kg (285-295) 01/14/23 18:46 Lactic Acid 1.9 mmol/L (0.5-2.2) 01/14/23 18:46 Calcium 9.4 mg/dL (8.5-10.5) 01/14/23 18:46 Total Bilirubin 0.2 mg/dL (0.15-1.2) 01/14/23 18:46 AST 18 U/L (0-40) 01/14/23 18:46 ALT 28 U/L (0-41) 01/14/23 18:46 Alkaline Phosphatase 81 U/L (40-130) 01/14/23 18:46 Total Protein 7.3 g/dL (6.6-8.7) 01/14/23 18:46 Albumin 4.3 g/dL (3.5-5.2) 01/14/23 18:46 Globulin 3.0 g/dL (1.3-4.6) 01/14/23 18:46 Lipase 36 U/L (13-60) 01/14/23 18:46 Urine Color Yellow (Yellow) 01/14/23 19:30 Urine Appearance Clear (CLEAR) 01/14/23 19:30 Urine pH 6 (5-7) 01/14/23 19:30 Ur Specific [place] 1.020 (1.005-1.030) 01/14/23 19:30 Urine Protein Neg (Negative) 01/14/23 19:30 Urine Glucose (UA) Norm (Normal) 01/14/23 19:30 Urine Ketones Negative (Negative) 01/14/23 19:30 Urine Blood Neg (Negative) 01/14/23 19:30 Urine Nitrate Negative (Negative) 01/14/23 19:30 Urine Bilirubin Neg (Negative) 01/14/23 19:30 Urine Urobilinogen 1 mg/dL (Negative) H 01/14/23 19:30 Ur Leukocyte Esterase Negative (Negative) 01/14/23 19:30 Discharge Plan Discharge Patient Disposition: Home Clinical Impression: Post-op pain, Paresthesia of skin Condition: Stable Prescriptions: No Action melatonin 5 mg capsule 10 mg PO BEDTIME Incruse Ellipta 62.5 mcg/actuation blister with device 1 inh inhalation DAILY Qty: 90 3RF irbesartan-hydrochlorothiazide 150-12.5 mg tablet 1 tab PO BID pravastatin 40 mg tablet 40 mg PO QPM amlodipine 5 mg tablet 5 mg PO DAILY metformin 500 mg tablet 1,000 mg PO BID baclofen 10 mg Tablet 10 mg PO BID PRN (Reason: Pain) multivitamin Tablet 1 tab PO DAILY aspirin 81 mg Tablet,Delayed Release (Dr/Ec) 81 mg PO DAILY gabapentin 300 mg capsule 300 mg PO BID hydrocodone-acetaminophen 7.5-325 mg tablet 1 tab PO Q6H PRN (Reason: pain) Qty: 30 0RF Rx Instructions: do not drink or drive Discharge Orders: Discharge ED (Routine); Ordered 01/14/23 Ordered By: Merritt Newman Referrals: Ryan Martinez [Primary Care Provider] - Discharge Diet: Usual diet Discharge Activity: Limit activity as instructed Patient Instructions: Abdominal Pain (ED), Opioid Safety Activity Restrictions/Additional Instructions: Thank you for visiting the emergency department. You were seen and evaluated for abdominal pain. The exact cause of your symptoms is unclear however no acute abnormality was identified on CT imaging or laboratory studies requiring hospitalization or further imaging. You were noted to have a 4 mm left pulmonary nodule. As discussed given history of smoking you can consider CT scan in 1 year to assess stability though your follow-up for your prior lung surgery likely will evaluate this as well. Please continue all restrictions given previously. Follow-up with your primary care provider. Return for anything that you are concerned about and feel needs emergency department evaluation. Coding Level of Care Code ED [employer] for [facility] Preston
[2023-01-14 19:08] VITALS: BP 149/97; PULSE 91; RESP 18; O2SAT 94
[2023-01-14 19:14] LABS: Lactic Sepsis W/Reflex 1.9 mmol/L (0.5-2.2)
--- NOTE | 2023-01-14 19:19 | CTR_ITS ---
PROCEDURE INFORMATION: Exam: CT Abdomen And Pelvis With Contrast Exam date and time: 01/14/2023 7:38 PM Age: 52 years old Clinical indication: Abdominal pain; Generalized; Prior surgery; Surgery type: <1 month bowel resection. > 6 month lumbar spine; Additional info: Post op pain, R periumbical region pull/pop with pain TECHNIQUE: Imaging protocol: Computed tomography of the abdomen and pelvis with contrast. Radiation optimization: All CT scans at this facility use at least one of these dose optimization techniques: automated exposure control; mA and/or kV adjustment per patient size (includes targeted exams where dose is matched to clinical indication); or iterative reconstruction. Contrast material: OMNI 350; Contrast volume: 100 ml; Contrast route: INTRAVENOUS (IV); REPORTING DATA: Count of CT and Cardiac NM exams in prior 12 months: This patient has received 3 known CTs and 0 known cardiac nuclear medicine studies in the 12 months prior to the current study. COMPARISON: CT abdomen pelvis wo con [id number] 12/24/2022 2:35 AM RADIATION DOSE METRICS: Total DLP (mGy-cm): 1083.23 FINDINGS: Lungs: Stable atelectasis or scar in the right lung base. Stable 4 mm left lower lobe nodule. Liver: Normal. No mass. Gallbladder and bile ducts: Contracted gallbladder. No stones. The bile ducts are normal. Pancreas: Normal. No ductal dilation. Spleen: Normal. No splenomegaly. Adrenal glands: Normal. No mass. Kidneys and ureters: Hypodense lesion in the right kidney is too small to characterize but is most likely a cyst. No follow-up imaging recommended. The kidneys are otherwise unremarkable. No calculus or hydronephrosis. Stomach and bowel: There are a few loops of mildly dilated small bowel in the right abdomen measuring up to 3.6 cm with nondifferential air-fluid levels. There is mild fecalization in the terminal ileum, consistent with delayed transit. Appendix: The appendix is not visualized. No secondary signs of appendicitis. Intraperitoneal space: Unremarkable. No free air. No significant fluid collection. Vasculature: Unremarkable. No abdominal aortic aneurysm. Lymph nodes: Unremarkable. No enlarged lymph nodes. Urinary bladder: Unremarkable as visualized. Reproductive: Enlarged prostate. Bones/joints: Mild degenerative changes of the spine. Posterior mechanical fusion L4-L5. No acute fracture. Soft tissues: Anterior laparotomy scar. No abdominal wall hernia or incisional hernia visualized. CT/CT abdomen pelvis w con* [id number] IMPRESSION: 1. No acute finding identified in the abdominal wall. 2. Improved mildly dilated loops of distal small bowel with distal fecalization, most likely ileus. 3. Stable 4 mm left pulmonary nodule. For patients at low risk (minimal or absent history of smoking and of other known risk factors), no routine follow-up is indicated. For patients at high risk (history of smoking or of other known risk factors), consider optional CT Chest at 12 months. (Reference: Enrique) References: Enrique Conn, et al. Guidelines for Management of Incidental Pulmonary Nodules Detected on CT Images: From the Fleischner Society 2017. Radiology. 2017;284(1):228-243. COMMENTS: Consistent with the [place] [employer]'s Incidental Findings Committee white paper (J Am Nitesh Radiol 2018): Any incidental renal lesion less than 1 cm or classified as too small to characterize, or any incidental cystic renal lesion characterized as simple-appearing, is likely benign. No follow-up imaging is recommended for these lesions per consensus recommendations based on imaging criteria.
[2023-01-14 19:23] LABS: Alanine Aminotransferase 28 U/L (0-41); Albumin Level 4.3 g/dL (3.5-5.2); Alkaline Phosphatase 81 U/L (40-130); Anion Gap 16.5 (5-19); Aspartate Amino Transferase 18 U/L (0-40); Blood Urea Nitrogen 15 mg/dL (6-20); Calcium 9.4 mg/dL (8.5-10.5); Carbon Dioxide 26 mmol/L (22-29); Chloride 99 mmol/L (98-107); Glomerular Filtration Rate 102.3 mL/min (90-130); Glucose 139 mg/dL (65-115); Lipase 36 U/L (13-60); Osmolality Calculated 287 mOsm/kg (285-295); Potassium 4.5 mmol/L (3.5-5.1); Sodium 137 mmol/L (136-145); Total Bilirubin 0.2 mg/dL (0.15-1.2); Total Protein 7.3 g/dL (6.6-8.7)
[2023-01-14] MEDS: iohexol 350 mg/mL 500 mL Btl (per mL) IV (19:50)
[2023-01-14 19:53] LABS: Add Urine Microscopic? NO; Charge for UA Resulting for Rev
[2023-01-14] MEDS: morphine 4 mg/mL SDV 1 mL IVP (19:55)
[2023-01-14 19:56] LABS: Bilirubin Urine Neg (Negative); Blood Urine Neg (Negative); Glucose Urine UA Norm (Normal); Ketones Urine Negative (Negative); Leukocyte Esterase Urine Negative (Negative); Nitrate Urine Negative (Negative); Protein Urine Neg (Negative); Urine Appearance Clear (CLEAR); Urine Color Yellow (Yellow); Urobilinogen Urine 1 mg/dL (Negative); pH Urine 6 (5-7)
[2023-01-14 20:14] VITALS: BP 153/97; PULSE 86; O2SAT 94
[2023-01-14 20:41] VITALS: BP 150/96; PULSE 81; O2SAT 95
[2023-01-14 21:25] VITALS: BP 142/91; PULSE 85; RESP 18; O2SAT 96
== END 2023-01-14 21:25 | disposition home or self-care (01) ==
PROVIDERS: Emergency Provider Emergency Medicine; PCP Family Medicine
DX: G89.18 Other acute postprocedural pain (principal); R20.2 Paresthesia of skin
CPT/HCPCS: 36415; 74177; 80053; 81003; 83605; 83690; 85025; 96374; 99285; J2270; Q9967

== ENCOUNTER → 2023-03-04 12:47 | Outpatient (BNVA) | payer MEDICARE, MEDICAID, SELFPAY | PROVIDERS: PCP Family Medicine; Visit Provider Internal Medicine Pulmonary Disease | DX: R59.0 Localized enlarged lymph nodes (principal); J98.4 Other disorders of lung; D86.9 Sarcoidosis, unspecified; R91.1 Solitary pulmonary nodule; D3A.090 Benign carcinoid tumor of the bronchus and lung; Z90.2 Acquired absence of lung [part of]; Z87.891 Personal history of nicotine dependence | CPT/HCPCS: 99214 ==

== ENCOUNTER 2023-06-25 21:11 | Emergency (ER) | payer MEDICARE, MEDICAID, SELFPAY ==
[2023-06-25 21:12] VITALS: BP 157/103; PULSE 82; RESP 16; TEMP 36.3; O2SAT 97
--- NOTE | 2023-06-25 21:12 | XRR_ITS ---
PROCEDURE INFORMATION: Exam: XR Right Shoulder Exam date and time: 06/25/2023 9:41 PM Age: 53 years old Clinical indication: Injury or trauma; Other: Injurry TECHNIQUE: Imaging protocol: Radiologic exam of the right shoulder. Views: 2 or more views. COMPARISON: CT angio chest PE protcl [id number] 01/01/2022 11:07 AM FINDINGS: Bones/joints: Moderate thoracic spondylosis. Minimal S shaped scoliosis. Soft tissues: Normal. Other findings: Stable postoperative changes over the right shoulder with metallic artifact. XR/XR shoulder RT min 2V* [id number] IMPRESSION: No acute findings.
--- NOTE | 2023-06-25 21:28 | XRR_ITS ---
PROCEDURE INFORMATION: Exam: XR Thoracic Spine Exam date and time: 06/25/2023 9:41 PM Age: 53 years old Clinical indication: Pain in thoracic spine; Additional info: Thoracic back pain TECHNIQUE: Imaging protocol: Radiologic exam of the thoracic spine. Views: 3 views. COMPARISON: CT abdomen pelvis w con* [id number] 01/14/2023 7:38 PM FINDINGS: Bones/joints: Moderate thoracic spondylosis. Soft tissues: Unremarkable. XR/XR thoracic spine 3V* [id number] IMPRESSION: Moderate thoracic spondylosis.
--- NOTE | 2023-06-25 21:29 | W.ED.BACK ---
HPI - Back Pain/Injury General: Stated Complaint: right shoulder pain Time Seen by Provider: 06/25/23 21:14 History of Present Illness: Patient reports pain and discomfort to the right posterior shoulder thoracic area of his back. Patient denies any falls or injuries. Patient reports discomfort for the last 2 days. Patient has a history of lung cancer in which she had surgery in his right thoracic to remove part of his lung. Patient denies any fever or cough. Patient appears nontoxic. Patient's job was a [employer] employee when he worked. Patient appears in mild to no pain. Pain is aggravated with certain movement. Review of Systems General: Reports: 10 or more systems reviewed and unremarkable except in HPI and below Musc: Reports: back pain PFSH ED PFSH: Medical History Carcinoid tumor HTN (hypertension) Hyperlipidemia Lung nodule SBO (small bowel obstruction) Type 2 diabetes mellitus Surgical History H/O knee surgery H/O rhinoplasty H/O shoulder surgery History of appendectomy History of back surgery History of exploratory laparotomy History of gastric surgery Family History Family/Other Diabetes Grandfather Heart disease Grandmother Cancer Leukemia Other Dementia Hyperlipidemia Hypertension Lung disease Stroke Denies family history of CAD (coronary artery disease) Clotting disorder Psychiatric illness Chronic kidney disease (CKD) Suicide Anesthesia complication Bleeding disorder Social History Smoking and tobacco/nicotine status: former use of tobacco/nicotine Quit status (tobacco/nicotine): has quit using Year quit tobacco: 2001 Former quit date comment: Hx of 1 PPD x 12 Years Second hand smoke exposure: No Alcohol intake: current Alcohol intake frequency: holidays/special occasions only Substance/Drug Use: never Lives independently: Yes Household members: family Marital status: Single Current occupational status: disabled Do you think of yourself as: Straight/Heterosexual Current gender identity: Male Physical Exam Const: COMMON NORMALS: alert HENMT: COMMON NORMALS: normocephalic HEAD & SCALP: normocephalic Neck/C-Spine: COMMON NORMALS: full ROM and no meningeal signs Chest: COMMONS NORMALS: normal inspection of the chest and normal palpation of entire chest wall Resp: COMMON NORMALS: normal respiratory effort and clear to auscultation bilaterally AUSCULTATION: clear to auscultation bilaterally Cardio: COMMON NORMALS: regular rate and regular rhythm RATE: regular rate RHYTHM: regular rhythm Back/Pelvis: THORACIC SPINE/UPPER BACK: Yes paraspinal muscle tenderness Thoracic paraspinal muscle tenderness: right Extremity: COMMON NORMALS: normal to inspection and full ROM Neuro: SENSORIUM/ORIENTATION: Yes alert MENINGEAL SIGNS: Yes no meningeal signs Skin: COMMON NORMALS: turgor normal GENERAL SKIN EXAM: turgor normal Course Vital Signs: Vital signs: Vital Signs Temperature 97.4 F L 06/25/23 21:12 Pulse Rate 78 06/25/23 21:52 Respiratory Rate 14 06/25/23 21:52 Blood Pressure 137/85 06/25/23 21:52 Pulse Oximetry 97 06/25/23 21:52 Oxygen Delivery Me thod Room Air 06/25/23 21:52 MDM - Back Pain/Injury Medical Decision Making Patient comes in today for complaints of right mid back pain. Patient reports that he started having pain approximately 2 days ago. Patient has increased pain with certain movements. On exam patient has tenderness to the right thoracic paraspinous muscles along the border of the scapula. Palpation of the shoulder elicits no pain or discomfort. Patient has full range of motion of the shoulder. With arm movement above the head patient does have exacerbation of pain. Differential diagnosis includes not limited to shoulder impingement syndrome, infrascapular pain, thoracic back pain. X-ray notes degenerative changes in the thoracic spine. X-ray of the shoulder was unremarkable except for a pin noted in the humerus from a prior biceps rupture. Reviewed exam with patient recommended treatment for thoracic muscle strain. Patient reported understanding agreed to plan. XR interpretation done by ED provider, pending radiology final review Discharge Plan Discharge Patient Disposition: Home Clinical Impression: Acute right-sided thoracic back pain Condition: Stable Prescriptions: No Action melatonin 5 mg capsule 10 mg PO BEDTIME Incruse Ellipta 62.5 mcg/actuation blister with device 1 inh inhalation DAILY Qty: 90 6RF irbesartan-hydrochlorothiazide 150-12.5 mg tablet 1 tab PO BID pravastatin 40 mg tablet 40 mg PO QPM amlodipine 5 mg tablet 5 mg PO DAILY metformin 500 mg tablet 1,000 mg PO BID baclofen 10 mg Tablet 10 mg PO BID PRN (Reason: Pain) multivitamin Tablet 1 tab PO DAILY aspirin 81 mg Tablet,Delayed Release (Dr/Ec) 81 mg PO DAILY gabapentin 300 mg capsule 300 mg PO BID hydrocodone-acetaminophen 7.5-325 mg tablet 1 tab PO Q6H PRN (Reason: pain) Qty: 30 0RF Rx Instructions: do not drink or drive Discharge Orders: Discharge ED (Routine); Ordered 06/25/23 Ordered By: Howard Esquivel Referrals: Ryan Martinez [Primary Care Provider] - Discharge Diet: Usual diet Discharge Activity: Increase activity as tolerated Patient Instructions: Thoracic Back Strain (ED) Activity Restrictions/Additional Instructions: Activity as tolerated. Avoid strenuous activity that would aggravate the pain. Gentle stretching and range of motion exercises. Ice or heat for further pain relief. Tylenol and ibuprofen to control pain. Stronger medication such as hydrocodone for uncontrolled pain. Follow-up with primary care and 2 weeks for recheck. Return to ED for new concerns or worsening symptoms such as high fever, or increased shortness of breath. Coding Level of Care Code ED [employer] for [facility]
[2023-06-25 21:52] VITALS: BP 137/85; PULSE 78; RESP 14; O2SAT 97
[2023-06-25 22:36] VITALS: BP 157/97; PULSE 85; RESP 18; O2SAT 96
== END 2023-06-25 22:36 | disposition home or self-care (01) ==
PROVIDERS: Emergency Provider Nurse Practitioner Family; PCP Family Medicine
DX: M54.6 Pain in thoracic spine (principal); Z79.82 Long term (current) use of aspirin; Z79.84 Long term (current) use of oral hypoglycemic drugs; Z87.891 Personal history of nicotine dependence; I10 Essential (primary) hypertension; E78.5 Hyperlipidemia, unspecified; E11.9 Type 2 diabetes mellitus without complications
CPT/HCPCS: 72072; 73030; 99284

== ENCOUNTER → 2023-08-04 08:22 | Outpatient (BNVA) | payer MEDICARE, MEDICAID, SELFPAY | PROVIDERS: PCP Family Medicine; Referring Provider Family Medicine; Visit Provider Orthopaedic Surgery | DX: M54.6 Pain in thoracic spine | CPT/HCPCS: 72050; 72072; 99204 ==

== ENCOUNTER 2023-09-07 11:43 | Outpatient (CLI) | payer MEDICARE, MEDICAID, SELFPAY ==
--- NOTE | 2023-09-07 08:00 | MR_ITS ---
WS: [id number] MRI THORACIC SPINE noncontrast HISTORY: neck pain COMPARISON: None available. TECHNIQUE: Multiplanar sequences are performed in sagittal and axial planes. Survey image of the cervical spine demonstrates moderate size disc osteophyte complex at C6-7. Disc o steophyte just greatest to the LEFT of midline. Smaller disc osteophyte at C5-6. Posterior thoracic alignment is normal. No signal abnormality within the cord. T1-2: Bilateral facet arthritis, LEFT greater than RIGHT. LEFT foraminal stenosis, mild. T2-3: LEFT paracentral disc protrusion contacting but not displacing the LEFT lateral thecal sac. Leandro ateral foraminal stenosis and facet arthritis. At least moderate RIGHT foraminal stenosis. T3-4: Small central disc protrusion and bilateral facet arthritis. T4-5: Tiny central disc protrusion and bilateral facet arthritis. T5-6: Mild facet arthritis. T6-7: Shallow central disc protrusion and bilateral facet arthritis. T7-8: Ligamentum flavum and facet arthritis. Very slight encroachment upon the thecal sac and foramin al stenosis. T8-9: Bilateral facet joint arthritis. Mild foraminal narrowing. T9-10: Bilateral facet joint arthritis. Mild bilateral foraminal stenosis. T10-11: Facet joint arthritis with mild foraminal stenosis. T11-12: Mild facet arthritis. Mild pleural thickening in the posterior RIGHT thorax may be an area of prior injury to the adjacent rib with healing. IMPRESSION: 1. Multilevel facet joint arthritis and foraminal stenoses. 2. No acute fracture or high-grade central stenosis throughout the thoracic spine. 3. T2-3 very small LEFT paracentral disc protrusion making slight contact on the LEFT lateral thecal sac. Moderate RIGHT foraminal stenosis at T2-3. 4. Moderate size disc osteophyte complex at C6-7 seen on the localizer. This may be causing a signif icant stenosis and foraminal stenosis. Consider follow-up MRI cervical spine.
== END 2023-09-07 11:44 | disposition home or self-care (01) ==
PROVIDERS: PCP Family Medicine; Visit Provider Orthopaedic Surgery
DX: M47.814 Spondylosis without myelopathy or radiculopathy, thoracic region (principal); M48.03 Spinal stenosis, cervicothoracic region; M25.78 Osteophyte, vertebrae; M51.24 Other intervertebral disc displacement, thoracic region
CPT/HCPCS: 72146

== ENCOUNTER → 2023-09-22 12:35 | Outpatient (BNVA) | payer MEDICARE, MEDICAID, SELFPAY | PROVIDERS: PCP Family Medicine; Visit Provider Internal Medicine Pulmonary Disease | DX: D3A.00 Benign carcinoid tumor of unspecified site (principal); J98.4 Other disorders of lung; R91.1 Solitary pulmonary nodule | CPT/HCPCS: 99214 ==

== ENCOUNTER 2024-03-01 15:53 | Emergency (ER) | payer MEDICARE, MEDICAID, SELFPAY ==
[2024-03-01 16:03] VITALS: BP 134/83; PULSE 125; RESP 16; TEMP 36.7; O2SAT 95; BMI 39.5
--- NOTE | 2024-03-01 16:24 | ED_ITS ---
HPI - Recheck/Abnormal Lab/Rx 2 General: Chief Complaint: Recheck/Abnormal Lab/Rx Stated Complaint: high blood sugar Time Seen by Provider: 03/01/24 16:19 Source: patient Mode of arrival: ambulatory Limitations: no limitations History of Present Illness: 54-year-old male with a history of type 2 diabetes on metformin for his diabetes states his blood sugars been running higher than normal today it has been running in the 400s. He states he had some increased thirst and urination. He denies any fever pain denies any vomiting or diarrhea denies any worse improved factors. Related Data Home Medications Medication Instructions Recorded Confirmed amlodipine 5 mg tablet 5 mg PO DAILY 02/06/20 09/22/23 irbesartan 150 1 tab PO BID 02/06/20 09/22/23 mg-hydrochlorothiazide 12.5 mg tablet pravastatin 40 mg tablet 40 mg PO QPM 02/06/20 09/22/23 melatonin 5 mg capsule 10 mg PO BEDTIME 03/19/21 09/22/23 metformin 500 mg tablet 1,000 mg PO BID 01/01/22 09/22/23 baclofen 10 mg tablet 10 mg PO BID PRN Pain 04/21/22 09/22/23 aspirin 81 mg tablet,delayed 81 mg PO DAILY 12/24/22 09/22/23 release gabapentin 300 mg capsule 300 mg PO BID 12/24/22 09/22/23 multivitamin 1 tab PO DAILY 12/24/22 09/22/23 magnesium citrate 83.3 mg chewable mg PO 09/22/23 09/22/23 tablet Previous Rx's Medication Instructions Recorded hydrocodone 7.5 mg-acetaminophen 1 tab PO Q6H PRN pain #30 tabs 12/27/22 325 mg tablet umeclidinium 62.5 mcg/actuation 1 inh inhalation DAILY #90 ea 04/07/23 blister powder for inhalation (Incruse Ellipta) Allergies Allergy/AdvReac Type Severity Reaction Status Date / Time prednisone Allergy Severe ADR-Agitate Verified 09/22/23 13:20 d Review of Systems 2 Const: Denies: fever(s), chills, body aches or change in appetite ENMT: Denies: throat pain or dental pain Card: Denies: chest pain Resp: Denies: dyspnea GI: Denies: abdominal pain, nausea, vomiting or diarrhea : Denies: dysuria Musc: Denies: neck pain or back pain Skin/Breast: Denies: rash Neuro: Denies: headache(s) Psych: Denies: depression Meet/Lymph: Denies: easy bruising All/Imm: Denies: urticaria PFSH ED 2 PFSH: Medical History SBO (small bowel obstruction) Carcinoid tumor Lung nodule Type 2 diabetes mellitus HTN (hypertension) Hyperlipidemia Surgical History History of exploratory laparotomy H/O knee surgery History of back surgery H/O shoulder surgery History of gastric surgery History of appendectomy H/O rhinoplasty Family History Family/Other Diabetes Grandfather Heart disease Grandmother Cancer Leukemia Other Dementia Hyperlipidemia Hypertension Lung disease Stroke Denies family history of CAD (coronary artery disease) Clotting disorder Psychiatric illness Chronic kidney disease (CKD) Suicide Anesthesia complication Bleeding disorder Social History Smoking and tobacco/nicotine status: former use of tobacco/nicotine Quit status (tobacco/nicotine): has quit using Year quit tobacco: 2001 Former quit date comment: Hx of 1 PPD x 12 Years Second hand smoke exposure: No Alcohol intake: current Alcohol intake frequency: holidays/special occasions only Substance/Drug Use: never Lives independently: Yes Household members: family Marital status: Single Current occupational status: disabled Do you think of yourself as: Straight/Heterosexual Current gender identity: Male Physical Exam 2 Const: COMMON NORMALS: no acute distress, patient oriented x3 and healthy appearing HENMT: COMMON NORMALS: normocephalic and atraumatic HEAD & SCALP: n ormocephalic and atraumatic Neck/C-Spine: COMMON NORMALS: full ROM and supple Chest: COMMONS NORMALS: normal inspection of the chest Resp: COMMON NORMALS: normal respiratory effort Cardio: COMMON NORMALS: regular rhythm and No murmurs present (Cardio) R ATE: tachycardic RHYTHM: regular rhythm GI: COMMON NORMALS: Normal to inspection, nondistended, normoactive bowel sounds present, Soft to palpation, non-tender and no masses PALPATION: Yes Soft to palpation Extremity: COMMON NORMALS: normal to inspection and full ROM Neuro: COMMON NORMALS: patient oriented x3, moves all extremities and no focal motor deficits Psych: COMMON NORMALS: mental status grossly normal, Normal thought process present and cooperative THOUGHT PROCESS: Normal thought process present Skin: COMMON NORMALS: no rashes or lesions noted and no wounds GENERAL SKIN EXAM: no rashes or lesions noted Course 2 Vital Signs: Vital signs: Vital Signs Temperature 98.0 F 03/01/24 16:03 Pulse Rate 103 H 03/01/24 19:16 Respiratory Rate 18 03/01/24 19:00 Blood Pressure 128/68 03/01/24 19:16 Pulse Oximetry 96 03/01/24 19:16 Oxygen Delivery Me thod Room Air 03/01/24 19:00 MDM - Recheck/Abnormal Lab/Rx Medical Decision Making Patient presents with hyperglycemia his blood sugar here is improved and he feels much improved he is not in DKA he had no vomiting he is stable for discharge she has to follow-up with PCP and return if worsening he understands agrees to plan. Medical Records I reviewed the patient's medical records. Lab Data I reviewed the patient's lab results. 03/01/24 16:20 03/01/24 16:20 Laboratory Results WBC 7.74 10^3/uL (3.29-11.43) 03/01/24 16:20 RBC 5.16 10^6/uL (3.85-5.65) 03/01/24 16:20 Hgb 14.90 g/dL (11.27-16.99) 03/01/24 16:20 Hct 45.1 % (37-53) 03/01/24 16:20 MCV 87.4 fl (82-101) 03/01/24 16:20 MCH 28.9 pg (27-33) 03/01/24 16:20 MCHC 33.0 g/dL (30-55) 03/01/24 16:20 RDW 13.7 % (12.1-15.1) 03/01/24 16:20 Plt Count 240 10^3/cmm (157-399) 03/01/24 16:20 MPV 10.9 fL (7.4-10.4) H 03/01/24 16:20 Neut % (Auto) 70.1 % 03/01/24 16:20 Lymph % (Auto) 21.4 % 03/01/24 16:20 [place] % (Auto) 6.1 % 03/01/24 16:20 Eos % (Auto) 1.3 % 03/01/24 16:20 Baso % (Auto) 0.8 % 03/01/24 16:20 Neut # (Auto) 5.43 10^3/uL (1.8-7.7) 03/01/24 16:20 Lymph # (Auto) 1.7 10^3/uL (0.8-4.8) 03/01/24 16:20 [place] # (Auto) 0.5 10^3/uL (0.2-0.9) 03/01/24 16:20 Eos # (Auto) 0.1 10^3/uL (0.0-0.8) 03/01/24 16:20 Baso # (Auto) 0.1 10^3/uL (0.0-0.1) 03/01/24 16:20 Nucleated RBC % (auto) 0 % 03/01/24 16:20 Nucleated RBCs # 0.0 /100WBC 03/01/24 16:20 Sodium 135 mmol/L (136-145) L 03/01/24 16:20 Potassium 4.2 mmol/L (3.5-5.1) 03/01/24 16:20 Chloride 96 mmol/L (98-107) L 03/01/24 16:20 Carbon Dioxide 23 mmol/L (22-29) 03/01/24 16:20 Anion Gap 20.2 (5-19) H 03/01/24 16:20 BUN 21 mg/dL (6-20) H 03/01/24 16:20 Creatinine 1.0 mg/dL (0.7-1.2) 03/01/24 16:20 GFR Calculation 78.5 mL/min (90-130) L 03/01/24 16:20 Glucose 485 mg/dL (65-115) H 03/01/24 16:20 POC Glucose 380 mg/dL (70-110) H 03/01/24 18:34 Calculated Osmolality 304 mOsm/kg (285-295) H 03/01/24 16:20 Calcium 9.8 mg/dL (8.5-10.5) 03/01/24 16:20 Total Bilirubin 0.3 mg/dL (0.15-1.2) 03/01/24 16:20 AST 34 U/L (0-40) 03/01/24 16:20 ALT 107 U/L (0-41) H 03/01/24 16:20 Alkaline Phosphatase 99 U/L (40-130) 03/01/24 16:20 Total Protein 7.5 g/dL (6.6-8.7) 03/01/24 16:20 Albumin 4.3 g/dL (3.5-5.2) 03/01/24 16:20 Globulin 3.2 g/dL (1.3-4.6) 03/01/24 16:20 All radiology interpretation(s) finalized by discharge EKG Data EKG 1: I personally reviewed and interpreted this EKG as follows: EKG interpretation date: 03/01/24 EKG interpretation time: 16:46 Interpretation: sinus tach hr [address] elevation qrs 105 qtc 396 Discharge Plan Discharge Patient Disposition: Home Clinical Impression: Hyperglycemia Condition: Stable Prescriptions: No Action melatonin 5 mg capsule 10 mg PO BEDTIME magnesium citrate 83.3 mg tablet,chewable PO Incruse Ellipta 62.5 mcg/actuation blister with device 1 inh inhalation DAILY Qty: 90 6RF irbesartan-hydrochlorothiazide 150-12.5 mg tablet 1 tab PO BID pravastatin 40 mg tablet 40 mg PO QPM amlodipine 5 mg tablet 5 mg PO DAILY metformin 500 mg tablet 1,000 mg PO BID baclofen 10 mg Tablet 10 mg PO BID PRN (Reason: Pain) multivitamin Tablet 1 tab PO DAILY aspirin 81 mg Tablet,Delayed Release (Dr/Ec) 81 mg PO DAILY gabapentin 300 mg capsule 300 mg PO BID hydrocodone-acetaminophen 7.5-325 mg tablet 1 tab PO Q6H PRN (Reason: pain) Qty: 30 0RF Rx Instructions: do not drink or drive Discharge Orders: Discharge ED (Routine); Ordered 03/01/24 Ordered By: Sarai Benitez Referrals: Ryan Mratinez [Primary Care Provider] - 4-7 days Discharge Diet: Advance as tolerated Discharge Activity: Resume usual activity Patient Instructions: Diabetic Hyperglycemia (ED) Coding Level of Care Code ED Stone And Concrete Washer for Chg Kary
[2024-03-01 16:25] LABS: Basophils # 0.1 10^3/uL (0.0-0.1); Basophils % 0.8 %; Eosinophils # 0.1 10^3/uL (0.0-0.8); Eosinophils % 1.3 %; Hematocrit 45.1 % (37-53); Lymphocytes # 1.7 10^3/uL (0.8-4.8); Lymphocytes % 21.4 %; Mean Corpuscular Hemoglobin 28.9 pg (27-33); Mean Corpuscular Volume 87.4 fl (82-101); Mean Platelet Volume 10.9 fL (7.4-10.4); Monocytes # 0.5 10^3/uL (0.2-0.9); Monocytes % 6.1 %; Neutrophils # 5.43 10^3/uL (1.8-7.7); Neutrophils % 70.1 %; Nucleated Red Blood Cells % 0 %; Platelet Count 240 10^3/cmm (157-399); Red Blood Count 5.16 10^6/uL (3.85-5.65); Red Cell Distribution Width 13.7 % (12.1-15.1); White Blood Count 7.74 10^3/uL (3.29-11.43)
[2024-03-01 16:38] LABS: Glucose Point of Care 453 mg/dL (70-110)
[2024-03-01 16:44] LABS: Alanine Aminotransferase 107 U/L (0-41); Albumin Level 4.3 g/dL (3.5-5.2); Alkaline Phosphatase 99 U/L (40-130); Anion Gap 20.2 (5-19); Aspartate Amino Transferase 34 U/L (0-40); Blood Urea Nitrogen 21 mg/dL (6-20); Calcium 9.8 mg/dL (8.5-10.5); Carbon Dioxide 23 mmol/L (22-29); Chloride 96 mmol/L (98-107); Creatinine Clr Calc Pharmacy 111.2775; Globulin 3.2 g/dL (1.3-4.6); Glomerular Filtration Rate 78.5 mL/min (90-130); Glucose 485 mg/dL (65-115); Osmolality Calculated 304 mOsm/kg (285-295); Potassium 4.2 mmol/L (3.5-5.1); Sodium 135 mmol/L (136-145); Total Bilirubin 0.3 mg/dL (0.15-1.2); Total Protein 7.5 g/dL (6.6-8.7)
--- NOTE | 2024-03-01 16:46 | ECG_ITS ---
[facility] Test Date: 2024-03-01 Pat Name: Drew Dixon Department: Room: Gender: Male Forming Fixer: : 1970 Requested By: Sarai Benitez Order Number: [id number] aBrry MD: Wilman Madison M.D. Measurements Intervals [place] Rate: 110 P: 55 [place]: 168 QRS: 51 QRSD: 105 T: 51 QT: 331 QTc: 448 Interpretive Statements SINUS TACHYCARDIA INCOMPLETE RIGHT BUNDLE BRANCH BLOCK [90+ ms QRS DURATION, TERMINAL R IN V1/V2, 40+ ms S IN I/aVL/V4/V5/V6] ABNORMAL RHYTHM ECG Compared to ECG 01/01/2022 14:18:11 Sinus rhythm no longer present First degree AV block no longer present Electronically Signed On 03-01-2024 21:39:46 CDT by Wilman Madison M.D. [id number]
[2024-03-01] MEDS: sodium chloride 0.9% 1,000 ML 999 ML IV ×2 (16:49→18:37)
[2024-03-01] MEDS: insulin regular-human 100 units/1 mL 10 UNIT IVP ×2 (16:56→18:24)
[2024-03-01 17:06] VITALS: BP 125/80; PULSE 107; RESP 16; O2SAT 95
[2024-03-01 17:29] LABS: Glucose Point of Care 462 mg/dL (70-110)
[2024-03-01 18:16] VITALS: BP 152/87; PULSE 104; RESP 16; O2SAT 95
[2024-03-01 18:27] LABS: Glucose Point of Care 416 mg/dL (70-110)
[2024-03-01 18:30] VITALS: BP 154/90; PULSE 103; RESP 16; O2SAT 95
[2024-03-01 18:39] LABS: Glucose Point of Care 380 mg/dL (70-110)
[2024-03-01 19:00] VITALS: BP 128/68; PULSE 104; RESP 18; O2SAT 95
[2024-03-01 19:16] VITALS: BP 128/68; PULSE 103; O2SAT 96
== END 2024-03-01 19:17 | disposition home or self-care (01) ==
PROVIDERS: Emergency Provider Emergency Medicine; PCP Family Medicine
DX: E11.65 Type 2 diabetes mellitus with hyperglycemia (principal); Z79.82 Long term (current) use of aspirin; Z79.84 Long term (current) use of oral hypoglycemic drugs; Z87.891 Personal history of nicotine dependence; I10 Essential (primary) hypertension; E78.5 Hyperlipidemia, unspecified
CPT/HCPCS: 36415; 36416; 80053; 82962; 85025; 93005; 96361; 96374; 96376; 99284; J1815; J7030

== ENCOUNTER → 2024-04-22 07:51 | Outpatient (BNVA) | payer MEDICARE, MEDICAID, SELFPAY | PROVIDERS: PCP Family Medicine; Visit Provider Physician Assistant | DX: M17.12 Unilateral primary osteoarthritis, left knee; M25.561 Pain in right knee; M25.562 Pain in left knee | CPT/HCPCS: 73560; 73565 ==

== ENCOUNTER 2024-04-22 09:16 | Outpatient (CLI) | payer MEDICARE, MEDICAID, SELFPAY | END 2024-04-22 09:17 | disposition home or self-care (01) | LOC: SPT 09:17 | PROVIDERS: PCP Family Medicine; Visit Provider Physician Assistant | DX: Z46.89 Encounter for fitting and adjustment of other specified devices (principal); M17.12 Unilateral primary osteoarthritis, left knee | CPT/HCPCS: 20610; J3301; L1852 ==

== ENCOUNTER 2024-05-30 12:46 | Outpatient (CLI) | payer MEDICARE, SELFPAY ==
--- NOTE | 2024-05-30 13:15 | XR_ITS ---
WS: [id number] Exam: XR chest 2V* [id number] Date/Time of Exam: 05/30/2024 1:32 PM Reason For Exam: CHEST DISCOMFORT The lungs are fully expanded and clear. Signs of right-sided thoracotomy with surgical sutures at the right hilum. Anchoring screw in the RIGHT humeral head. Normal cardiomediastinal silhouette. XR/XR chest 2V* [id number] IMPRESSION: 1. No acute cardiopulmonary finding. 2. Signs of right-sided thoracotomy as noted above.
[2024-05-30 13:32] LABS: Basophils % 0.4 %; Eosinophils # 0.1 10^3/uL (0.0-0.8); Eosinophils % 0.9 %; Hematocrit 43.5 % (37-53); Lymphocytes # 1.7 10^3/uL (0.8-4.8); Lymphocytes % 18.3 %; Mean Corpuscular HGB Conc 32.9 g/dL (30-55); Mean Corpuscular Hemoglobin 28.5 pg (27-33); Mean Corpuscular Volume 86.8 fl (82-101); Mean Platelet Volume 10.7 fL (7.4-10.4); Monocytes # 0.6 10^3/uL (0.2-0.9); Neutrophils # 7.04 10^3/uL (1.8-7.7); Neutrophils % 74.3 %; Nucleated Red Blood Cells % 0 %; Platelet Count 241 10^3/cmm (157-399); Red Blood Count 5.01 10^6/uL (3.85-5.65); Red Cell Distribution Width 13.9 % (12.1-15.1); White Blood Count 9.49 10^3/uL (3.29-11.43)
[2024-05-30 13:52] LABS: Alanine Aminotransferase 85 U/L (0-41); Albumin Level 4.2 g/dL (3.5-5.2); Alkaline Phosphatase 96 U/L (40-130); Anion Gap 16.4 (5-19); Aspartate Amino Transferase 32 U/L (0-40); Blood Urea Nitrogen 20 mg/dL (6-20); Calcium 9.8 mg/dL (8.5-10.5); Carbon Dioxide 28 mmol/L (22-29); Chloride 102 mmol/L (98-107); Globulin 2.3 g/dL (1.3-4.6); Glomerular Filtration Rate 70.3 mL/min (90-130); Glucose 235 mg/dL (65-115); Osmolality Calculated 304 mOsm/kg (285-295); Potassium 4.4 mmol/L (3.5-5.1); Sodium 142 mmol/L (136-145); Total Bilirubin 0.3 mg/dL (0.15-1.2); Total Protein 6.5 g/dL (6.6-8.7)
== END 2024-05-30 12:47 | disposition home or self-care (01) ==
LOC: LAB 12:50
PROVIDERS: PCP Family Medicine
DX: R07.89 Other chest pain (principal)
CPT/HCPCS: 36415; 71046; 80053; 85025

== ENCOUNTER 2024-06-07 20:00 | Outpatient (CLI) | payer MEDICARE, MEDICAID, SELFPAY | END 2024-06-07 20:01 | disposition home or self-care (01) | LOC: SLEEP 06-08 00:27 | PROVIDERS: PCP Family Medicine | DX: G47.33 Obstructive sleep apnea (adult) (pediatric) (principal); R06.83 Snoring | CPT/HCPCS: 95810 ==

== ENCOUNTER 2024-06-15 18:52 | Emergency (ER) | payer MEDICARE, MEDICAID, SELFPAY ==
[2024-06-15 19:12] LABS: Basophils % 0.5 %; Eosinophils # 0.1 10^3/uL (0.0-0.8); Hematocrit 43.9 % (37-53); Lymphocytes # 1.6 10^3/uL (0.8-4.8); Mean Corpuscular HGB Conc 31.4 g/dL (30-55); Mean Corpuscular Hemoglobin 29.1 pg (27-33); Mean Corpuscular Volume 92.4 fl (82-101); Mean Platelet Volume 10.6 fL (7.4-10.4); Monocytes # 0.4 10^3/uL (0.2-0.9); Monocytes % 5.4 %; Neutrophils # 5.74 10^3/uL (1.8-7.7); Neutrophils % 72.8 %; Nucleated Red Blood Cells % 0 %; Platelet Count 221 10^3/cmm (157-399); Red Blood Count 4.75 10^6/uL (3.85-5.65); Red Cell Distribution Width 14.6 % (12.1-15.1); White Blood Count 7.89 10^3/uL (3.29-11.43)
--- NOTE | 2024-06-15 19:16 | ECG_ITS ---
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 Measurements Intervals [place] Rate: 110 P: 80 [place]: 156 QRS: 85 QRSD: 100 T: 63 QT: 333 QTc: 452 Interpretive Statements SINUS TACHYCARDIA POSSIBLE LEFT ATRIAL ENLARGEMENT [-0.1mV P-WAVE IN V1/V2] Compared to ECG 03/01/2024 16:46:27 Incomplete right bundle-branch block no longer present Electronically Signed On 06-17-2024 18:36:37 COMMERCIAL COLLECTOR by Bill Ospina M.D. [id number]
--- NOTE | 2024-06-15 19:19 | ECG_ITS ---
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 Measurements Intervals [place] Rate: 110 P: 80 [place]: 156 QRS: 85 QRSD: 100 T: 63 QT: 333 QTc: 452 Interpretive Statements SINUS TACHYCARDIA POSSIBLE LEFT ATRIAL ENLARGEMENT [-0.1mV P-WAVE IN V1/V2] Compared to ECG 03/01/2024 16:46:27 Incomplete right bundle-branch block no longer present Electronically Signed On 06-17-2024 18:36:47 CAN PUSHER by Bill Ospina M.D. [id number]
[2024-06-15 19:21] LABS: Glucose Point of Care 520 mg/dL (70-110)
[2024-06-15 19:22] VITALS: BP 127/105; PULSE 111; RESP 20; O2SAT 98
[2024-06-15 19:30] LABS: Ketone (Acetest) Serum Negative (Negative)
[2024-06-15] MEDS: sodium chloride 0.9% 1,000 ML 999 ML IV (19:36)
[2024-06-15] MEDS: insulin regular-human 100 units/1 mL 10 UNIT IVP ×2 (19:36→22:17)
--- NOTE | 2024-06-15 19:36 | ED_ITS ---
HPI - General Adult 2 General: Chief complaint: General Medical Stated complaint: high blood sugars Time Seen by Provider: 06/15/24 19:15 History of Present Illness: 54-year-old man with a history of obesit y, diabetes and hypertension who presents emergency room with hyperglycemia. He had eaten extra foods today with it being [place]. Check sugar at home and it was 580. 520 on presentation here. He also developed some chest pain in the emergency room. He is a bit tachycardic on presentation. No abdominal pain. No nausea or vomiting. Related Data Home Medications Medication Instructions Recorded Confirmed amlodipine 5 mg tablet 5 mg PO DAILY 02/06/20 04/22/24 irbesartan 150 1 tab PO BID 02/06/20 04/22/24 mg-hydrochlorothiazide 12.5 mg tablet pravastatin 40 mg tablet 40 mg PO QPM 02/06/20 04/22/24 melatonin 5 mg capsule 10 mg PO BEDTIME 03/19/21 04/22/24 metformin 500 mg tablet 1,000 mg PO BID 01/01/22 04/22/24 baclofen 10 mg tablet 10 mg PO BID PRN Pain 04/21/22 04/22/24 aspirin 81 mg tablet,delayed 81 mg PO DAILY 12/24/22 04/22/24 release gabapentin 300 mg capsule 300 mg PO BID 12/24/22 04/22/24 multivitamin 1 tab PO DAILY 12/24/22 04/22/24 magnesium citrate 83.3 mg chewable mg PO 09/22/23 04/22/24 tablet semaglutide 0.25 mg or 0.5 mg (2 mg SUBCUT 04/22/24 04/22/24 mg/3 mL) subcutaneous pen injector (Ozempic) Previous Rx's Medication Instructions Recorded hydrocodone 7.5 mg-acetaminophen 1 tab PO Q6H PRN pain #30 tabs 12/27/22 325 mg tablet umeclidinium 62.5 mcg/actuation 1 inh inhalation DAILY #90 ea 04/07/23 blister powder for inhalation (Incruse Ellipta) left knee medial architectural technologist brace #1 ea 04/22/24 Allergies Allergy/AdvReac Type Severity Reaction Status Date / Time prednisone Allergy Severe ADR-Agitate Verified 04/22/24 08:17 d Review of Systems 2 Narrative: Constitutional symptoms: Negative except as documented in HPI. Skin symptoms: Negative except as documented in HPI. Eye symptoms: Negative except as documented in HPI. ENMT symptoms: Negative except as documented in HPI. Respiratory symptoms: Negative except as documented in HPI. Cardiovascular symptoms: Negative except as documented in HPI. Gastrointestinal symptoms: Negative except as documented in HPI. Genitourinary symptoms: Negative except as documented in HPI. Musculoskeletal symptoms: Negative except as documented in HPI. Neurologic symptoms: Negative except as documented in HPI. Psychiatric symptoms: Negative except as documented in HPI. Endocrine symptoms: Negative except as documented in HPI. PFSH ED 2 PFSH: Medical History SBO (small bowel obstruction) Carcinoid tumor Lung nodule Type 2 diabetes mellitus HTN (hypertension) Hyperlipidemia Surgical History History of exploratory laparotomy H/O knee surgery History of back surgery H/O shoulder surgery History of gastric surgery History of appendectomy H/O rhinoplasty Family History Family/Other Diabetes Grandfather Heart disease Grandmother Cancer Leukemia Other Dementia Hyperlipidemia Hypertension Lung disease Stroke Denies family history of CAD (coronary artery disease) Clotting disorder Psychiatric illness Chronic kidney disease (CKD) Suicide Anesthesia complication Bleeding disorder Social History Smoking and tobacco/nicotine status: former use of tobacco/nicotine Quit status (tobacco/nicotine): has quit using Year quit tobacco: 2001 Former quit date comment: Hx of 1 PPD x 12 Years Second hand smoke exposure: No Alcohol intake: current Alcohol intake frequency: holidays/special occasions only Substance/Drug Use: never Lives independently: Yes Household members: family Marital status: Single Current occupational status: disabled Do you think of yourself as: Straight/Heterosexual Current gender identity: Male Physical Exam 2 Narrative: EXAM NARRATIVE: General: Alert, no acute distress. Skin: Warm, dry. Head: Normocephalic, atraumatic. Neck: Supple, trachea midline. Eye: Extraocular movements are intact. Ears, nose, mouth and throat: mucosa moist. Cardiovascular: Regular, tachycardic, Normal peripheral perfusion. Respiratory: Lungs are clear to auscultation, respirations are non-labored, breath sounds are equal, Symmetrical chest wall expansion. Gastrointestinal: Soft, Nontender, Non distended Musculoskeletal: Normal ROM, no deformity. Neurological: Alert and oriented, No focal neurological deficit observed. Psychiatric: Cooperative, appropriate mood & affect. Course 2 Vital Signs: Vital signs: Vital Signs Pulse Rate 98 06/15/24 20:15 Respiratory Rate 20 H 06/15/24 19:22 Blood Pressure 127/105 06/15/24 20:15 Pulse Oximetry 98 06/15/24 20:15 Oxygen Delivery Me thod Room Air 06/15/24 20:15 MDM - General Adult Medical Decision Making Medical decision making: Differential diagnosis for the patient with hyperglycemia would include but not be limited to and would be based on the above HPI review of systems and physical exam: DKA. Dehydration. Renal failure. Concern for electrolyte abnormalities. Concern for underlying infection that might result in hyperglycemia. Medical non-compliance Orders placed to evaluate differential diagnosis of the patient with hyperglycemia are based on the above differential, HPI and physical exam. EKG: Time 1917. Rate 110. Sinus tachycardia, No ST-T changes, no ectopy, normal ND & QRS intervals, This was reviewed and interpreted by myself the ER physician at 1920 Lab Review: Laboratory results were reviewed and interpreted by myself the emergency room physician. Lab works unremarkable other than glucose. No ketones in the serum. No acidosis. No leukocytosis. No infection. Cardiac markers are negative serially. I reviewed the patient's medical record. Reexamination: Patient remained stable. No increased work of breathing. No altered mental status. No focal motor deficits. Glucose was down to about 400. I gave another 10 of insulin prior to discharge. Discussed with patient that he is going to need to work on his diet and also discussed with his primary provider if there is any changes that need to be made in his medications given his high blood sugars. Assessment and plan: Hyperglycemia Noncardiac chest pain ?IV fluids, 2 doses of insulin 10 units. - Discharged home - Discussed plan with patient. Answered any questions. - Evaluation and treatment of this problem were appropriate in the emergency setting. Lab Data 06/15/24 19:06 06/15/24 19:06 Laboratory Results WBC 7.89 10^3/uL (3.29-11.43) 06/15/24 19:06 RBC 4.75 10^6/uL (3.85-5.65) 06/15/24 19:06 Hgb 13.80 g/dL (11.27-16.99) 06/15/24 19:06 Hct 43.9 % (37-53) 06/15/24 19:06 MCV 92.4 fl (82-101) 06/15/24 19:06 MCH 29.1 pg (27-33) 06/15/24 19:06 MCHC 31.4 g/dL (30-55) 06/15/24 19:06 RDW 14.6 % (12.1-15.1) 06/15/24 19:06 Plt Count 221 10^3/cmm (157-399) 06/15/24 19:06 MPV 10.6 fL (7.4-10.4) H 06/15/24 19:06 Neut % (Auto) 72.8 % 06/15/24 19:06 Lymph % (Auto) 20.0 % 06/15/24 19:06 [place] % (Auto) 5.4 % 06/15/24 19:06 Eos % (Auto) 1.0 % 06/15/24 19:06 Baso % (Auto) 0.5 % 06/15/24 19:06 Neut # (Auto) 5.74 10^3/uL (1.8-7.7) 06/15/24 19:06 Lymph # (Auto) 1.6 10^3/uL (0.8-4.8) 06/15/24 19:06 [place] # (Auto) 0.4 10^3/uL (0.2-0.9) 06/15/24 19:06 Eos # (Auto) 0.1 10^3/uL (0.0-0.8) 06/15/24 19:06 Baso # (Auto) 0.0 10^3/uL (0.0-0.1) 06/15/24 19:06 Nucleated RBC % (auto) 0 % 06/15/24 19:06 Nucleated RBCs # 0.0 /100WBC 06/15/24 19:06 Sodium 141 mmol/L (136-145) 06/15/24 19:06 Potassium 4.5 mmol/L (3.5-5.1) 06/15/24 19:06 Chloride 101 mmol/L (98-107) 06/15/24 19:06 Carbon Dioxide 25 mmol/L (22-29) 06/15/24 19:06 Anion Gap 19.5 (5-19) H 06/15/24 19:06 BUN 20 mg/dL (6-20) 06/15/24 19:06 Creatinine 1.0 mg/dL (0.7-1.2) 06/15/24 19:06 GFR Calculation 78.5 mL/min (90-130) L 06/15/24 19:06 Glucose 563 mg/dL (65-115) H* 06/15/24 19:06 POC Glucose 411 mg/dL (70-110) H 06/15/24 22:04 Calculated Osmolality 320 mOsm/kg (285-295) H 06/15/24 19:06 Calcium 9.7 mg/dL (8.5-10.5) 06/15/24 19:06 Total Bilirubin 0.3 mg/dL (0.15-1.2) 06/15/24 19:06 AST 38 U/L (0-40) 06/15/24 19:06 ALT 105 U/L (0-41) H 06/15/24 19:06 Alkaline Phosphatase 95 U/L (40-130) 06/15/24 19:06 Troponin T Baseline 12 ng/L (0-15) 06/15/24 19:06 Troponin T 120 Minute 11.65 ng/L (0-15) 06/15/24 21:15 Delta Troponin T -0.35 ABS# (0-10) L 06/15/24 21:15 Total Protein 7.0 g/dL (6.6-8.7) 06/15/24 19:06 Albumin 4.3 g/dL (3.5-5.2) 06/15/24 19:06 Globulin 2.7 g/dL (1.3-4.6) 06/15/24 19:06 Urine Color Yellow (Yellow) 06/15/24 20:53 Urine Appearance Clear (CLEAR) 06/15/24 20:53 Urine pH 7.0 (5-7) 06/15/24 20:53 Ur Specific [place] 1.032 (1.005-1.030) H 06/15/24 20:53 Urine Protein Negative (Negative) 06/15/24 20:53 Urine Glucose (UA) 3+ (Normal) H 06/15/24 20:53 Urine Ketones Trace (Negative) 06/15/24 20:53 Urine Blood Negative (Negative) 06/15/24 20:53 Urine Nitrate Negative (Negative) 06/15/24 20:53 Urine Bilirubin Negative (Negative) 06/15/24 20:53 Urine Urobilinogen 0.2 mg/dL (Negative) 06/15/24 20:53 Ur Leukocyte Esterase Negative (Negative) 06/15/24 20:53 Urine RBC 0-2 /hpf (0-2) 06/15/24 20:53 Urine WBC 0-5 /hpf (0-5) 06/15/24 20:53 Ur Squamous Epith Cells 0-5 /hpf (0-5) 06/15/24 20:53 Amorphous Sediment Not Reportable 06/15/24 20:53 Urine Bacteria None seen /hpf (NONE) 06/15/24 20:53 Hyaline Casts 0-4 /lpf H 06/15/24 20:53 Serum Ketones Negative (Negative) 06/15/24 19:06 No radiology studies performed this visit Discharge Plan Discharge Patient Disposition: Home Clinical Impression: Hyperglycemia, Non-cardiac chest pain Condition: Stable Prescriptions: No Action melatonin 5 mg capsule 10 mg PO BEDTIME magnesium citrate 83.3 mg tablet,chewable PO Ozempic 0.25 mg or 0.5 mg (2 mg/3 mL) pen injector SUBCUT (DME) left knee medial architectural technologist brace See Rx Instructions .Route .MEDSUPPLY Qty: 1 0RF Rx Instructions: As directed Incruse Ellipta 62.5 mcg/actuation blister with device 1 inh inhalation DAILY Qty: 90 6RF irbesartan-hydrochlorothiazide 150-12.5 mg tablet 1 tab PO BID pravastatin 40 mg tablet 40 mg PO QPM amlodipine 5 mg tablet 5 mg PO DAILY metformin 500 mg tablet 1,000 mg PO BID baclofen 10 mg Tablet 10 mg PO BID PRN (Reason: Pain) multivitamin Tablet 1 tab PO DAILY aspirin 81 mg Tablet,Delayed Release (Dr/Ec) 81 mg PO DAILY gabapentin 300 mg capsule 300 mg PO BID hydrocodone-acetaminophen 7.5-325 mg tablet 1 tab PO Q6H PRN (Reason: pain) Qty: 30 0RF Rx Instructions: do not drink or drive Discharge Orders: Discharge ED (Routine); Ordered 06/15/24 Ordered By: Christelle Lozano Referrals: Ryan Martinez [Primary Care Provider] - Discharge Diet: As Directed Patient Instructions: Noncardiac Chest Pain (ED), Diabetic Hyperglycemia (ED), Opioid Safety, Pain Management Activity Restrictions/Additional Instructions: Thank you for choosing [facility] for your healthcare needs today. Please realize this is an emergency room and that we are providing you with a medical screening exam and this may not be complete and all inclusive of all the testing and or work up that you may need to determine your ailment or severity of your illness. You have been screened and evaluated and felt safe for discharge. Health conditions do change or evolve sometimes and as such it is important that you follow up with your Primary Doctor to be re checked, 3-5 days is a general good time frame for follow up. You are always welcome to return to the ED for re assessment if your symptoms are worsening or you have new concerns Coding Level of Care Code ED Patch Finisher for Marina Preston
[2024-06-15 19:40] LABS: Troponin(5th) Baseline 12 ng/L (0-15)
[2024-06-15 19:43] LABS: Alanine Aminotransferase 105 U/L (0-41); Albumin Level 4.3 g/dL (3.5-5.2); Alkaline Phosphatase 95 U/L (40-130); Anion Gap 19.5 (5-19); Aspartate Amino Transferase 38 U/L (0-40); Blood Urea Nitrogen 20 mg/dL (6-20); Calcium 9.7 mg/dL (8.5-10.5); Carbon Dioxide 25 mmol/L (22-29); Chloride 101 mmol/L (98-107); Globulin 2.7 g/dL (1.3-4.6); Glomerular Filtration Rate 78.5 mL/min (90-130); Osmolality Calculated 320 mOsm/kg (285-295); Potassium 4.5 mmol/L (3.5-5.1); Sodium 141 mmol/L (136-145); Total Bilirubin 0.3 mg/dL (0.15-1.2)
[2024-06-15 20:07] LABS: Glucose 563 mg/dL (65-115)
[2024-06-15 20:14] LABS: Glucose Point of Care 427 mg/dL (70-110)
[2024-06-15 20:15] VITALS: BP 127/105; PULSE 98; O2SAT 98
--- NOTE | 2024-06-15 21:19 | ECG_ITS ---
[facility] Date: 2024-[facility]-15 Pat Name: Drew Dixon Department: Room: Gender: Male Plastic Roller: : 1970 Requested By: Christelle Alatorre Order Number: [id number] Barry MD: Bill Ospina M.D. Measurements Intervals [place] Rate: 99 P: 37 [place]: 156 QRS: 38 QRSD: 99 T: 36 QT: 346 QTc: 444 Interpretive Statements SINUS RHYTHM Compared to ECG 06/15/2024 19:18:03 Sinus tachycardia no longer present Electronically Signed On 06-17-2024 18:41:44 AUTOMOTIVE WELDER by Bill Ospina M.D. [id number]
[2024-06-15 21:20] LABS: Bilirubin Urine Negative (Negative); Blood Urine Negative (Negative); Glucose Urine UA 3+ (Normal); Ketones Urine Trace (Negative); Leukocyte Esterase Urine Negative (Negative); Nitrate Urine Negative (Negative); Protein Urine Negative (Negative); Urine Appearance Clear (CLEAR); Urine Color Yellow (Yellow); Urobilinogen Urine 0.2 mg/dL (Negative)
[2024-06-15 21:25] LABS: Bacteria Urine None Seen /hpf; Hyaline Casts Urine 0-4 /lpf; RBC Urine 0-2 /hpf (0-2); Squamous Epithelial Cell Urine 0-5 /hpf (0-5); WBC Urine 0-5 /hpf (0-5)
[2024-06-15 21:28] LABS: Specific Gravity, Urine 1.032 (1.005-1.030)
[2024-06-15 21:41] LABS: Troponin 5 2HR 11.65 ng/L (0-15)
[2024-06-15 21:42] LABS: Troponin 5 2HR Delta -0.35 ABS# (0-10)
[2024-06-15 22:07] LABS: Glucose Point of Care 411 mg/dL (70-110)
[2024-06-15 22:34] VITALS: BP 152/98; PULSE 96; O2SAT 99
== END 2024-06-15 22:35 | disposition home or self-care (01) ==
PROVIDERS: Emergency Medicine; Emergency Provider Emergency Medicine; PCP Family Medicine
DX: E11.65 Type 2 diabetes mellitus with hyperglycemia (principal); R07.89 Other chest pain; Z79.82 Long term (current) use of aspirin; Z87.891 Personal history of nicotine dependence; I10 Essential (primary) hypertension; E78.5 Hyperlipidemia, unspecified
CPT/HCPCS: 36415; 36416; 80053; 81001; 82009; 82962; 84484; 85025; 93005; 96374; 96376; 99284; J1815; J7030

== ENCOUNTER 2024-06-24 20:13 | Emergency (ER) | payer MEDICARE, MEDICAID, SELFPAY ==
[2024-06-24 20:19] VITALS: BP 110/76; PULSE 100; RESP 17; TEMP 36.4; O2SAT 95; BMI 39.1
--- NOTE | 2024-06-24 23:00 | CTR_ITS ---
PROCEDURE INFORMATION: Exam: CTA Head With Contrast, Arteriography Exam date and time: 06/24/2024 11:17 PM Age: 54 years old Clinical indication: Headache; Patient HX: C/O left temporal pain with RT facial numbness. ; Additional info: Sharp left sided pain, right facial numbness, CT w/o first, then cta TECHNIQUE: Imaging protocol: Computed tomographic angiography of the head with contrast. Exam focused on the arteries. 3D rendering (Not supervised by radiologist): MIP and/or 3D reconstructed images were created by the technologist. Radiation optimization: All CT scans at this facility use at least one of these dose optimization techniques: automated exposure control; mA and/or kV adjustment per patient size (includes targeted exams where dose is matched to clinical indication); or iterative reconstruction. Contrast material: OMNI 350; Contrast volume: 100 ml; Contrast route: INTRAVENOUS (IV); COMPARISON: CT head wo con* [id number] 08/20/2024 23:13 RADIATION DOSE METRICS: Total DLP (mGy-cm): 486.98 FINDINGS: ANTERIOR CIRCULATION: Right internal carotid artery: Intracranial segment is patent with no significant stenosis. No aneurysm. Right middle cerebral artery: No occlusion or significant stenosis. No aneurysm. Right anterior cerebral artery: No occlusion or significant stenosis. No aneurysm. Left internal carotid artery: Intracranial segment is patent with no significant stenosis. No aneurysm. Left middle cerebral artery: No occlusion or significant stenosis. No aneurysm. Left anterior cerebral artery: No occlusion or significant stenosis. No aneurysm. POSTERIOR CIRCULATION: Right vertebral artery: No occlusion or significant stenosis. No aneurysm. Left vertebral artery: No occlusion or significant stenosis. No aneurysm. Basilar artery: No occlusion or significant stenosis. No aneurysm. Right posterior cerebral artery: No occlusion or significant stenosis. No aneurysm. Left posterior cerebral artery: No occlusion or significant stenosis. No aneurysm. Brain: No definite mass, mass effect, or midline shift. Cerebral ventricles: No ventriculomegaly. Bones/joints: Unremarkable. No acute fracture. Soft tissues: Unremarkable. PROCEDURE INFORMATION: Exam: CTA Neck With Contrast Exam date and time: 06/24/2024 11:17 PM Age: 54 years old Clinical indication: Headache; Patient HX: C/O left temporal pain with RT facial numbness. ; Additional info: Sharp left sided pain, right facial numbness, CT w/o first, then cta TECHNIQUE: Imaging protocol: Computed tomographic angiography of the neck with contrast. Exam focused on the cervical segments of the vasculature. 3D rendering (Not supervised by radiologist): MIP and/or 3D reconstructed images were created by the technologist. Radiation optimization: All CT scans at this facility use at least one of these dose optimization techniques: automated exposure control; mA and/or kV adjustment per patient size (includes targeted exams where dose is matched to clinical indication); or iterative reconstruction. Contrast material: OMNI 350; Contrast volume: 100 ml; Contrast route: INTRAVENOUS (IV); COMPARISON: HI bone scan whole body* [id number] 11/29/2021 00:00 RADIATION DOSE METRICS: Total DLP (mGy-cm): 486.98 FINDINGS: Right common carotid artery: No significant stenosis. No dissection or occlusion. Right internal carotid artery: No significant stenosis of the extracranial segment. No dissection or occlusion. Right external carotid artery: No occlusion or significant stenosis of the origin. Left common carotid artery: No significant stenosis. No dissection or occlusion. Left internal carotid artery: No significant stenosis of the extracranial segment. No dissection or occlusion. Left external carotid artery: No occlusion or significant stenosis of the origin. Right vertebral artery: No significant stenosis. No dissection or occlusion. Left vertebral artery: No significant stenosis. No dissection or occlusion. Soft tissues: No significant soft tissue swelling. Bones/joints: No acute fracture. CT/CT angio headneck* [id number] IMPRESSION: No large vessel stenosis or occlusion. IMPRESSION: 1. Normal right and left extracranial internal carotid arteries by NASCET criteria. 2. Widely patent bilateral vertebral arteries. REFERENCES: NASCET CRITERIA. The degree of stenosis in the cervical segment of the internal carotid artery is based on NASCET criteria. Normal is no stenosis. Mild is less than 50% stenosis. Moderate is 50-69% stenosis. Severe is 70% to 99% stenosis. Total occlusion is no detectable patent lumen.
--- NOTE | 2024-06-24 23:00 | CTR_ITS ---
PROCEDURE INFORMATION: Exam: CT Head Without Contrast Exam date and time: 06/24/2024 11:13 PM Age: 54 years old Clinical indication: Weakness, facial; Headache; Patient HX: C/O left temporal pain with RT facial numbness. ; Additional info: Sharp left sided pain, right sided numbness, CT w/o first, then cta TECHNIQUE: Imaging protocol: Computed tomography of the head without contrast. Radiation optimization: All CT scans at this facility use at least one of these dose optimization techniques: automated exposure control; mA and/or kV adjustment per patient size (includes targeted exams where dose is matched to clinical indication); or iterative reconstruction. COMPARISON: CT head wo con* [id number] 08/13/2020 2:09 AM RADIATION DOSE METRICS: Total DLP (mGy-cm): 1387.1 FINDINGS: Brain: Normal. No hemorrhage. Unremarkable white matter. No mass effect. Cerebral ventricles: No ventriculomegaly. Paranasal sinuses: Visualized sinuses are unremarkable. No fluid levels. Mastoid air cells: Visualized mastoid air cells are well aerated. Bones: Unremarkable. No acute fracture. Soft tissues: Unremarkable. CT/CT head wo con* [id number] IMPRESSION: No acute intracranial abnormality.
--- NOTE | 2024-06-24 23:04 | ED_ITS ---
Documented by User: [email or web address] Mcdonough 06/24/24 23:08 HPI - General Adult 2 General: Chief complaint: General Medical Stated complaint: sharp pain in mu-ism right face numb Time Seen by Provider: 06/24/24 22:17 Source: patient Mode of arrival: ambulatory Limitations: no limitations History of Present Illness: Patient is a 54-year-old male who presents to the emergency department complaining of sharp left-sided head pain that occurred around 2000 tonight. He states this lasted for a second, but he had concurrent right sided facial numbness that lasted up to an hour. He says the symptoms both resided on their own. Did not notice any specific alleviating or exacerbating factor. States he has never had this happen before. He does report a history of lung cancer, as well as being diabetic. Denies history of stroke or heart attacks. He denied any visual changes, or other focal neurological deficits in any of his extremities. He denies any rash, or palpable mass to the left temporal region. His vitals are stable at this time, no neurological deficits at time of exam. States he just wants to know what happened, he has follow-up appoint with primary care on Thursday. MD complaint: Sharp left-sided pain in his head, right sided facial numbness Onset (ago): hour(s) Location: head Radiation: non-radiation Quality: stabbing Pain Consistency: now resolved Relieving factors: none Exacerbating factors: none Associated symptoms: Reports headache(s) (Sharp left-sided pain); Deny chest pain, dyspnea, nausea, rash, palpitations or vomiting Treatments prior to arrival: none Related Data Home Medications Medication Instructions Recorded Confirmed amlodipine 5 mg tablet 5 mg PO DAILY 02/06/20 04/22/24 irbesartan 150 1 tab PO BID 02/06/20 04/22/24 mg-hydrochlorothiazide 12.5 mg tablet pravastatin 40 mg tablet 40 mg PO QPM 02/06/20 04/22/24 melatonin 5 mg capsule 10 mg PO BEDTIME 03/19/21 04/22/24 metformin 500 mg tablet 1,000 mg PO BID 01/01/22 04/22/24 baclofen 10 mg tablet 10 mg PO BID PRN Pain 04/21/22 04/22/24 aspirin 81 mg tablet,delayed 81 mg PO DAILY 12/24/22 04/22/24 release gabapentin 300 mg capsule 300 mg PO BID 12/24/22 04/22/24 multivitamin 1 tab PO DAILY 12/24/22 04/22/24 magnesium citrate 83.3 mg chewable mg PO 09/22/23 04/22/24 tablet semaglutide 0.25 mg or 0.5 mg (2 mg SUBCUT 04/22/24 04/22/24 mg/3 mL) subcutaneous pen injector (Ozempic) Previous Rx's Medication Instructions Recorded hydrocodone 7.5 mg-acetaminophen 1 tab PO Q6H PRN pain #30 tabs 12/27/22 325 mg tablet umeclidinium 62.5 mcg/actuation 1 inh inhalation DAILY #90 ea 04/07/23 blister powder for inhalation (Incruse Ellipta) left knee medial math and science instructor brace #1 ea 04/22/24 Allergies Allergy/AdvReac Type Severity Reaction Status Date / Time prednisone Allergy Severe ADR-Agitate Verified 06/24/24 20:25 d Review of Systems 2 General: Reports: 10 or more systems reviewed and unremarkable except in HPI and below Const: Denies: fever(s), chills or fatigue Eyes: Denies: change in vision ENMT: Denies: throat pain, ear or mastoid pain or nasal discharge Card: Denies: chest pain, palpitations, swelling of feet/ankles or lightheadedness Resp: Denies: dyspnea, productive cough or wheezing GI: Denies: abdominal pain, nausea, vomiting, diarrhea or constipation : Denies: flank pain, difficulty urinating, dysuria or urinary frequency Musc: Denies: neck pain, back pain or joint pain Skin/Breast: Denies: rash Neuro: Reports: headache(s) (Sharp left-sided pain) and sensory changes (Numbness to right face); Denies: weakness in extremities, lack of coordination, Slurred speech present, seizure-like activity or involuntary movements PFSH ED 2 PFSH: Medical History SBO (small bowel obstruction) Carcinoid tumor Lung nodule Type 2 diabetes mellitus HTN (hypertension) Hyperlipidemia Surgical History History of exploratory laparotomy H/O knee surgery History of back surgery H/O shoulder surgery History of gastric surgery History of appendectomy H/O rhinoplasty Family History Family/Other Diabetes Grandfather Heart disease Grandmother Cancer Leukemia Other Dementia Hyperlipidemia Hypertension Lung disease Stroke Denies family history of CAD (coronary artery disease) Clotting disorder Psychiatric illness Chronic kidney disease (CKD) Suicide Anesthesia complication Bleeding disorder Social History Smoking and tobacco/nicotine status: former use of tobacco/nicotine Quit status (tobacco/nicotine): has quit using Year quit tobacco: 2001 Former quit date comment: Hx of 1 PPD x 12 Years Second hand smoke exposure: No Alcohol intake: current Alcohol intake frequency: holidays/special occasions only Substance/Drug Use: never Lives independently: Yes Household members: family Marital status: Single Current occupational status: disabled Do you think of yourself as: Straight/Heterosexual Current gender identity: Male Physical Exam 2 Const: COMMON NORMALS: no acute distress, patient oriented x3 and no limitations GENERAL APPEARANCE: cooperative, comfortable and well developed ORIENTATION/CONSCIOUSNESS: Yes awake, Yes oriented to person, Yes oriented to place and Yes oriented to time HENMT: COMMON NORMALS: normocephalic, atraumatic and hearing grossly normal bilaterally HEAD & SCALP: normocephalic and atraumatic OTHER: No reproducible tenderness to palpation to the left temporal region, no bulging mass. No rash. Eye: COMMON NORMALS: Equal, round and reactive pupils present, EOMs intact bilaterally and conjunctivae normal CONJUNCTIVA: Yes conjunctivae normal P UPIL: Yes Equal, round and reactive pupils present OTHER: Eyes track midline Neck/C-Spine: COMMON NORMALS: full ROM, supple and no JVD Resp: COMMON NORMALS: normal respiratory effort, No retractions, No use of accessory muscles and clear to auscultation bilaterally AUSCULTATION: clear to auscultation bilaterally Cardio: COMMON NORMALS: no JVD, regular rate, regular rhythm, No clicks present (Cardio), No murmurs present (Cardio) and No rub (Cardio) RATE: r egular rate RHYTHM: regular rhythm GI: COMMON NORMALS: Normal to inspection, nondistended, normoactive bowel sounds present, Soft to palpation and non-tender AUSCULTATION: Yes normoactive bowel sounds PALPATION: Yes Soft to palpation RECTAL EXAM: Yes deferred Extremity: COMMON NORMALS: normal to inspection, full ROM and capillary refill normal Neuro: COMMON NORMALS: patient oriented x3, CN's II-XII intact bilaterally, moves all extremities, no focal motor deficits and no sensory deficits noted SENSORIUM/ORIENTATION: Yes oriented to person, Yes oriented to place and Yes oriented to time COORDINATION/BALANCE: [id number]-[id number] test normal and lgfl-[id number] test normal SPEECH: speech normal GAIT: Yes Normal gait present MOTOR EXAM: 5/5 motor strength present throughout, Pronator motor function not present, no tremor noted and no asterixis COORDINATION: f kpxnq-ef-pvor test normal and [id number] test normal Psych: COMMON NORMALS: mental status grossly normal and Normal thought process present THOUGHT PROCESS: Normal thought process present Skin: COMMON NORMALS: no rashes or lesions noted GENERAL SKIN EXAM: no rashes or lesions noted Course 2 Vital Signs: Vital signs: Vital Signs Temperature 97.6 F 06/24/24 20:19 Pulse Rate 61 06/25/24 00:40 Respiratory Rate 16 06/25/24 00:40 Blood Pressure 138/90 06/25/24 00:40 Pulse Oximetry 96 06/25/24 00:40 Oxygen Delivery Me thod Room Air 06/25/24 00:40 [facility] - General Adult Lab Data 06/24/24 23:09 06/24/24 23:[address] 06/24/24 23:00 IMPRESSION: No acute intracranial abnormality. Head/Neck CTA 06/24/24 23:00 IMPRESSION: No large vessel stenosis or occlusion. IMPRESSION: 1. Normal right and left extracranial internal carotid arteries by NASCET criteria. 2. Widely patent bilateral vertebral arteries. REFERENCES: NASCET CRITERIA. The degree of stenosis in the cervical segment of the internal carotid artery is based on NASCET criteria. Normal is no stenosis. Mild is less than 50% stenosis. Moderate is 50-69% stenosis. Severe is 70% to 99% stenosis. Total occlusion is no detectable patent lumen. Laboratory Results WBC 7.40 10^3/uL (3.29-11.43) 06/24/24 23:09 RBC 4.85 10^6/uL (3.85-5.65) 06/24/24 23:09 Hgb 14.10 g/dL (11.27-16.99) 06/24/24 23:09 Hct 43.3 % (37-53) 06/24/24 23:09 MCV 89.3 fl (82-101) 06/24/24 23:09 MCH 29.1 pg (27-33) 06/24/24 23:09 MCHC 32.6 g/dL (30-55) 06/24/24 23:09 RDW 14.9 % (12.1-15.1) 06/24/24 23:09 Plt Count 262 10^3/cmm (157-399) 06/24/24 23:09 MPV 10.4 fL (7.4-10.4) 06/24/24 23:09 Neut % (Auto) 69.0 % 06/24/24 23:09 Lymph % (Auto) 22.4 % 06/24/24 23:09 [place] % (Auto) 6.2 % 06/24/24 23:09 Eos % (Auto) 1.5 % 06/24/24 23:09 Baso % (Auto) 0.5 % 06/24/24 23:09 Neut # (Auto) 5.10 10^3/uL (1.8-7.7) 06/24/24 23:09 Lymph # (Auto) 1.7 10^3/uL (0.8-4.8) 06/24/24 23:09 [place] # (Auto) 0.5 10^3/uL (0.2-0.9) 06/24/24 23:09 Eos # (Auto) 0.1 10^3/uL (0.0-0.8) 06/24/24 23:09 Baso # (Auto) 0.0 10^3/uL (0.0-0.1) 06/24/24 23:09 Nucleated RBC % (auto) 0 % 06/24/24 23:09 Nucleated RBCs # 0.0 /100WBC 06/24/24 23:09 Specimen Type Arterial 06/25/24 02:15 Sample Site Brachial, right 06/25/24 02:15 ABG pH 7.40 (7.35-7.45) 06/25/24 02:15 ABG pCO2 42.5 mmHg (35-45) 06/25/24 02:15 ABG pO2 70.4 mmHg (80.0-100.0) L 06/25/24 02:15 ABG PO2/FiO2 Ratio 335 06/25/24 02:15 ABG HCO3 26.5 mmol/L (22-26) H 06/25/24 02:15 ABG Base Excess 1.4 mmol/L (-2.0-2.0) 06/25/24 02:15 David Test Pos 06/25/24 02:15 Hematocrit 42.7 % (42-52) 06/25/24 02:15 O2 Delivery Device None 06/25/24 02:15 FiO2 21.0 % 06/25/24 02:15 Blade Bender Furnace Tender ID [email or web address] 06/25/24 02:15 Sodium 137 mmol/L (136-145) 06/24/24 23:09 Potassium 4.1 mmol/L (3.5-5.1) 06/24/24 23:09 Chloride 98 mmol/L (98-107) 06/24/24 23:09 Carbon Dioxide 24 mmol/L (22-29) 06/24/24 23:09 Anion Gap 19.1 (5-19) H 06/24/24 23:09 BUN 22 mg/dL (6-20) H 06/24/24 23:09 Creatinine 1.0 mg/dL (0.7-1.2) 06/24/24 23:09 GFR Calculation 78.5 mL/min (90-130) L 06/24/24 23:09 Glucose 393 mg/dL (65-115) H 06/24/24 23:09 Calculated Osmolality 304 mOsm/kg (285-295) H 06/24/24 23:09 Calcium 9.4 mg/dL (8.5-10.5) 06/24/24 23:09 Total Bilirubin 0.4 mg/dL (0.15-1.2) 06/24/24 23:09 AST 47 U/L (0-40) H 06/24/24 23:09 ALT 122 U/L (0-41) H 06/24/24 23:09 Alkaline Phosphatase 90 U/L (40-130) 06/24/24 23:09 Total Protein 6.9 g/dL (6.6-8.7) 06/24/24 23:09 Albumin 4.0 g/dL (3.5-5.2) 06/24/24 23:09 Globulin 2.9 g/dL (1.3-4.6) 06/24/24 23:09 Discharge Plan Discharge Patient Disposition: Home Clinical Impression: Atypical migraine Type 2 diabetes mellitus Qualifiers: 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: without longterm use Diabetes mellitus complication status: without complication Qualified Code(s): E11.9 - Type 2 diabetes mellitus without complications Condition: Stable Prescriptions: No Action melatonin 5 mg capsule 10 mg PO BEDTIME magnesium citrate 83.3 mg tablet,chewable PO Ozempic 0.25 mg or 0.5 mg (2 mg/3 mL) pen injector SUBCUT (DME) left knee medial math and science instructor brace See Rx Instructions .Route .MEDSUPPLY Qty: 1 0RF Rx Instructions: As directed Incruse Ellipta 62.5 mcg/actuation blister with device 1 inh inhalation DAILY Qty: 90 6RF irbesartan-hydrochlorothiazide 150-12.5 mg tablet 1 tab PO BID pravastatin 40 mg tablet 40 mg PO QPM amlodipine 5 mg tablet 5 mg PO DAILY metformin 500 mg tablet 1,000 mg PO BID baclofen 10 mg Tablet 10 mg PO BID PRN (Reason: Pain) multivitamin Tablet 1 tab PO DAILY aspirin 81 mg Tablet,Delayed Release (Dr/Ec) 81 mg PO DAILY gabapentin 300 mg capsule 300 mg PO BID hydrocodone-acetaminophen 7.5-325 mg tablet 1 tab PO Q6H PRN (Reason: pain) Qty: 30 0RF Rx Instructions: do not drink or drive Discharge Orders: Discharge ED (Routine); Ordered 06/25/24 Ordered By: Norberto Law Referrals: Ryan Martinez [Primary Care Provider] - Discharge Diet: Advance as tolerated Discharge Activity: Resume usual activity Patient Instructions: Opioid Safety, Pain Management Activity Restrictions/Additional Instructions: Follow-up with your primary care provider. Continue taking home medications. Return with any neurological symptoms or recurrence of your headache. Coding Level of Care Code ED Director Of Marketing And Promotions for [facility] Documented by User: Norberto WilcoxDO 06/25/24 02:27 HPI - General Adult 2 General: Chief complaint: General Medical Stated complaint: sharp pain in mu-ism right face numb Time Seen by Provider: 06/24/24 22:17 Related Data Home Medications Medication Instructions Recorded Confirmed amlodipine 5 mg tablet 5 mg PO DAILY 02/06/20 04/22/24 irbesartan 150 1 tab PO BID 02/06/20 04/22/24 mg-hydrochlorothiazide 12.5 mg tablet pravastatin 40 mg tablet 40 mg PO QPM 02/06/20 04/22/24 melatonin 5 mg capsule 10 mg PO BEDTIME 03/19/21 04/22/24 metformin 500 mg tablet 1,000 mg PO BID 01/01/22 04/22/24 baclofen 10 mg tablet 10 mg PO BID PRN Pain 04/21/22 04/22/24 aspirin 81 mg tablet,delayed 81 mg PO DAILY 12/24/22 04/22/24 release gabapentin 300 mg capsule 300 mg PO BID 12/24/22 04/22/24 multivitamin 1 tab PO DAILY 12/24/22 04/22/24 magnesium citrate 83.3 mg chewable mg PO 09/22/23 04/22/24 tablet semaglutide 0.25 mg or 0.5 mg (2 mg SUBCUT 04/22/24 04/22/24 mg/3 mL) subcutaneous pen injector (Ozempic) Previous Rx's Medication Instructions Recorded hydrocodone 7.5 mg-acetaminophen 1 tab PO Q6H PRN pain #30 tabs 12/27/22 325 mg tablet umeclidinium 62.5 mcg/actuation 1 inh inhalation DAILY #90 ea 04/07/23 blister powder for inhalation (Incruse Ellipta) left knee medial math and science instructor brace #1 ea 04/22/24 Allergies Allergy/AdvReac Type Severity Reaction Status Date / Time prednisone Allergy Severe ADR-Agitate Verified 06/24/24 20:25 d PFSH ED 2 PFSH: Medical History SBO (small bowel obstruction) Carcinoid tumor Lung nodule Type 2 diabetes mellitus HTN (hypertension) Hyperlipidemia Surgical History History of exploratory laparotomy H/O knee surgery History of back surgery H/O shoulder surgery History of gastric surgery History of appendectomy H/O rhinoplasty Family History Family/Other Diabetes Grandfather Heart disease Grandmother Cancer Leukemia Other Dementia Hyperlipidemia Hypertension Lung disease Stroke Denies family history of CAD (coronary artery disease) Clotting disorder Psychiatric illness Chronic kidney disease (CKD) Suicide Anesthesia complication Bleeding disorder Social History Smoking and tobacco/nicotine status: former use of tobacco/nicotine Quit status (tobacco/nicotine): has quit using Year quit tobacco: 2001 Former quit date comment: Hx of 1 PPD x 12 Years Second hand smoke exposure: No Alcohol intake: current Alcohol intake frequency: holidays/special occasions only Substance/Drug Use: never Lives independently: Yes Household members: family Marital status: Single Current occupational status: disabled Do you think of yourself as: Straight/Heterosexual Current gender identity: Male Course 2 Vital Signs: Vital signs: Vital Signs Temperature 97.6 F 06/24/24 20:19 Pulse Rate 61 06/25/24 00:40 Respiratory Rate 16 06/25/24 00:40 Blood Pressure 138/90 06/25/24 00:40 Pulse Oximetry 96 06/25/24 00:40 Oxygen Delivery Me thod Room Air 06/25/24 00:40 MDM - General Adult Medical Decision Making 54-year-old male presents to the emergency department for evaluation of headache. Patient was taken over from James Sheridan who assumed patient care from Dr. Guzman. The patient's workup has been globally normal to this point. Vital signs are unremarkable. Physical exam unremarkable. CT scan of head and neck were normal. Laboratory evaluation only significant for hyperglycemia and dehydration. However, his ABG did not show acidosis. He did have an anion gap and was hyperosmolar. Discussed the risks of HHS with the patient. He was in agreement to go to his primary care physician on Thursday and increase p.o. intake of fluids over the next couple of days. Return precautions were discussed and the patient was discharged home in stable condition. Lab Data 06/24/24 23:09 06/24/24 23:[address] 06/24/24 23:00 IMPRESSION: No acute intracranial abnormality. Head/Neck CTA 06/24/24 23:00 IMPRESSION: No large vessel stenosis or occlusion. IMPRESSION: 1. Normal right and left extracranial internal carotid arteries by NASCET criteria. 2. Widely patent bilateral vertebral arteries. REFERENCES: NASCET CRITERIA. The degree of stenosis in the cervical segment of the internal carotid artery is based on NASCET criteria. Normal is no stenosis. Mild is less than 50% stenosis. Moderate is 50-69% stenosis. Severe is 70% to 99% stenosis. Total occlusion is no detectable patent lumen. Laboratory Results WBC 7.40 10^3/uL (3.29-11.43) 06/24/24 23:09 RBC 4.85 10^6/uL (3.85-5.65) 06/24/24 23:09 Hgb 14.10 g/dL (11.27-16.99) 06/24/24 23:09 Hct 43.3 % (37-53) 06/24/24 23:09 MCV 89.3 fl (82-101) 06/24/24 23:09 MCH 29.1 pg (27-33) 06/24/24 23:09 MCHC 32.6 g/dL (30-55) 06/24/24 23:09 RDW 14.9 % (12.1-15.1) 06/24/24 23:09 Plt Count 262 10^3/cmm (157-399) 06/24/24 23:09 MPV 10.4 fL (7.4-10.4) 06/24/24 23:09 Neut % (Auto) 69.0 % 06/24/24 23:09 Lymph % (Auto) 22.4 % 06/24/24 23:09 [place] % (Auto) 6.2 % 06/24/24 23:09 Eos % (Auto) 1.5 % 06/24/24 23:09 Baso % (Auto) 0.5 % 06/24/24 23:09 Neut # (Auto) 5.10 10^3/uL (1.8-7.7) 06/24/24 23:09 Lymph # (Auto) 1.7 10^3/uL (0.8-4.8) 06/24/24 23:09 [place] # (Auto) 0.5 10^3/uL (0.2-0.9) 06/24/24 23:09 Eos # (Auto) 0.1 10^3/uL (0.0-0.8) 06/24/24 23:09 Baso # (Auto) 0.0 10^3/uL (0.0-0.1) 06/24/24 23:09 Nucleated RBC % (auto) 0 % 06/24/24 23:09 Nucleated RBCs # 0.0 /100WBC 06/24/24 23:09 Specimen Type Arterial 06/25/24 02:15 Sample Site Brachial, right 06/25/24 02:15 ABG pH 7.40 (7.35-7.45) 06/25/24 02:15 ABG pCO2 42.5 mmHg (35-45) 06/25/24 02:15 ABG pO2 70.4 mmHg (80.0-100.0) L 06/25/24 02:15 ABG PO2/FiO2 Ratio 335 06/25/24 02:15 ABG HCO3 26.5 mmol/L (22-26) H 06/25/24 02:15 ABG Base Excess 1.4 mmol/L (-2.0-2.0) 06/25/24 02:15 David Test Pos 06/25/24 02:15 Hematocrit 42.7 % (42-52) 06/25/24 02:15 O2 Delivery Device None 06/25/24 02:15 FiO2 21.0 % 06/25/24 02:15 Blade Bender Furnace Tender ID [email or web address] 06/25/24 02:15 Sodium 137 mmol/L (136-145) 06/24/24 23:09 Potassium 4.1 mmol/L (3.5-5.1) 06/24/24 23:09 Chloride 98 mmol/L (98-107) 06/24/24 23:09 Carbon Dioxide 24 mmol/L (22-29) 06/24/24 23:09 Anion Gap 19.1 (5-19) H 06/24/24 23:09 BUN 22 mg/dL (6-20) H 06/24/24 23:09 Creatinine 1.0 mg/dL (0.7-1.2) 06/24/24 23:09 GFR Calculation 78.5 mL/min (90-130) L 06/24/24 23:09 Glucose 393 mg/dL (65-115) H 06/24/24 23:09 Calculated Osmolality 304 mOsm/kg (285-295) H 06/24/24 23:09 Calcium 9.4 mg/dL (8.5-10.5) 06/24/24 23:09 Total Bilirubin 0.4 mg/dL (0.15-1.2) 06/24/24 23:09 AST 47 U/L (0-40) H 06/24/24 23:09 ALT 122 U/L (0-41) H 06/24/24 23:09 Alkaline Phosphatase 90 U/L (40-130) 06/24/24 23:09 Total Protein 6.9 g/dL (6.6-8.7) 06/24/24 23:09 Albumin 4.0 g/dL (3.5-5.2) 06/24/24 23:09 Globulin 2.9 g/dL (1.3-4.6) 06/24/24 23:09 All radiology interpretation(s) finalized by discharge Discharge Plan Discharge Patient Disposition: Home Clinical Impression: Atypical migraine Type 2 diabetes mellitus Qualifiers: 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: without longterm use Diabetes mellitus complication status: without complication Qualified Code(s): E11.9 - Type 2 diabetes mellitus without complications Condition: Stable Prescriptions: No Action melatonin 5 mg capsule 10 mg PO BEDTIME magnesium citrate 83.3 mg tablet,chewable PO Ozempic 0.25 mg or 0.5 mg (2 mg/3 mL) pen injector SUBCUT (DME) left knee medial math and science instructor brace See Rx Instructions .Route .MEDSUPPLY Qty: 1 0RF Rx Instructions: As directed Incruse Ellipta 62.5 mcg/actuation blister with device 1 inh inhalation DAILY Qty: 90 6RF irbesartan-hydrochlorothiazide 150-12.5 mg tablet 1 tab PO BID pravastatin 40 mg tablet 40 mg PO QPM amlodipine 5 mg tablet 5 mg PO DAILY metformin 500 mg tablet 1,000 mg PO BID baclofen 10 mg Tablet 10 mg PO BID PRN (Reason: Pain) multivitamin Tablet 1 tab PO DAILY aspirin 81 mg Tablet,Delayed Release (Dr/Ec) 81 mg PO DAILY gabapentin 300 mg capsule 300 mg PO BID hydrocodone-acetaminophen 7.5-325 mg tablet 1 tab PO Q6H PRN (Reason: pain) Qty: 30 0RF Rx Instructions: do not drink or drive Discharge Orders: Discharge ED (Routine); Ordered 06/25/24 Ordered By: Norberto Law Referrals: Ryan Martinez [Primary Care Provider] - Discharge Diet: Advance as tolerated Discharge Activity: Resume usual activity Patient Instructions: Opioid Safety, Pain Management Activity Restrictions/Additional Instructions: Follow-up with your primary care provider. Continue taking home medications. Return with any neurological symptoms or recurrence of your headache. Coding Level of Care Code ED Director Of Marketing And Promotions for [facility]
[2024-06-24] MEDS: iohexol 350 mg/mL 500 mL Btl (per mL) IV (23:15)
[2024-06-24 23:19] LABS: Basophils % 0.5 %; Eosinophils # 0.1 10^3/uL (0.0-0.8); Eosinophils % 1.5 %; Hematocrit 43.3 % (37-53); Lymphocytes # 1.7 10^3/uL (0.8-4.8); Lymphocytes % 22.4 %; Mean Corpuscular HGB Conc 32.6 g/dL (30-55); Mean Corpuscular Hemoglobin 29.1 pg (27-33); Mean Corpuscular Volume 89.3 fl (82-101); Mean Platelet Volume 10.4 fL (7.4-10.4); Monocytes # 0.5 10^3/uL (0.2-0.9); Monocytes % 6.2 %; Nucleated Red Blood Cells % 0 %; Platelet Count 262 10^3/cmm (157-399); Red Blood Count 4.85 10^6/uL (3.85-5.65); Red Cell Distribution Width 14.9 % (12.1-15.1)
[2024-06-24 23:32] LABS: Alanine Aminotransferase 122 U/L (0-41); Alkaline Phosphatase 90 U/L (40-130); Anion Gap 19.1 (5-19); Aspartate Amino Transferase 47 U/L (0-40); Blood Urea Nitrogen 22 mg/dL (6-20); Calcium 9.4 mg/dL (8.5-10.5); Carbon Dioxide 24 mmol/L (22-29); Chloride 98 mmol/L (98-107); Creatinine Clr Calc Pharmacy 110.6121; Globulin 2.9 g/dL (1.3-4.6); Glomerular Filtration Rate 78.5 mL/min (90-130); Glucose 393 mg/dL (65-115); Osmolality Calculated 304 mOsm/kg (285-295); Potassium 4.1 mmol/L (3.5-5.1); Sodium 137 mmol/L (136-145); Total Bilirubin 0.4 mg/dL (0.15-1.2); Total Protein 6.9 g/dL (6.6-8.7)
[2024-06-25 00:40] VITALS: BP 138/90; PULSE 61; RESP 16; O2SAT 96
[2024-06-25 02:18] LABS: ABG PCO2 42.5 mmHg (35-45); Arterial Blood Gas Hematocrit 42.7 % (42-52); Base Excess ABG 1.4 mmol/L (-2.0-2.0); Blood Gas Allen Test Pos; Blood Gas Sample Site Brachial, right; Blood Gas Sample Type Arterial; HCO3 ABG 26.5 mmol/L (22-26); PO2 ABG 70.4 mmHg (80.0-100.0); PO2 FiO2 Ratio Arterial Blood 335
[2024-06-25 02:37] VITALS: BP 119/80; PULSE 90; RESP 17; O2SAT 96
== END 2024-06-25 02:43 | disposition home or self-care (01) ==
PROVIDERS: Physician Assistant; Emergency Provider General Practice; PCP Family Medicine
DX: G43.909 Migraine, unspecified, not intractable, without status migrainosus (principal); E11.9 Type 2 diabetes mellitus without complications; Z79.84 Long term (current) use of oral hypoglycemic drugs; Z87.891 Personal history of nicotine dependence; E78.5 Hyperlipidemia, unspecified; I10 Essential (primary) hypertension
CPT/HCPCS: 36600; 70450; 70496; 70498; 80053; 82803; 85025; 99285

== ENCOUNTER 2024-07-03 16:03 | Emergency (ER) | payer MEDICARE, MEDICAID, SELFPAY ==
--- NOTE | 2024-07-03 16:05 | XRR_ITS ---
PROCEDURE INFORMATION: Exam: XR Left Knee Exam date and time: 07/03/2024 4:27 PM Age: 54 years old Clinical indication: Left; Prior surgery; Surgery date: 6+ months; Surgery type: Arthroscopy; Patient HX: Lt knee pain with limited rom; No specific known injury; PT states he has had chronic lt knee pain but sudden onset worse pain today TECHNIQUE: Imaging protocol: Radiologic exam of the left knee. Views: 3 views. COMPARISON: CR XR knees AP WB w LT lmt ORTH 04/22/2024 7:53 AM FINDINGS: Bones/joints: Moderate osteoarthritis of the knee with marked narrowing of the medial compartment, associated sclerosis and multiple osteophytes. No fractures or dislocations. Soft tissues: Normal. XR/XR knee LT 3V* [id number] IMPRESSION: 1. No acute findings. 2. Moderate osteoarthritis of the left knee.
[2024-07-03 16:33] VITALS: BP 127/83; PULSE 108; RESP 18; TEMP 36.3
--- NOTE | 2024-07-03 20:06 | ED_ITS ---
HPI - Extremity Problem General: Chief complaint: Extremity Injury, Lower Stated complaint: lft knee injury Time Seen by Provider: 07/03/24 19:49 Source: patient Mode of arrival: ambulatory Limitations: no limitations History of Present Illness: 54yo male presents with neighbor for jing jose of left knee pain that started suddenly while he was ambulating in [facility]. Patient reports that his knee l ocked up and he was unable to bend it. He states that he has been having significant discomfort in the knee and his leg is now shaking and feels a little numb. Patient reports that he does see orthopedics and has an appointment soon. Patient states that he does have a brace through orthopedics, but he has not been wearing it as it causes him discomfort. Patient denies fall, trauma, known injury, any other concerns at this time. Associated symptoms: Deny fever(s) Related Data Home Medications Medication Instructions Recorded Confirmed amlodipine 5 mg tablet 5 mg PO DAILY 02/06/20 04/22/24 irbesartan 150 1 tab PO BID 02/06/20 04/22/24 mg-hydrochlorothiazide 12.5 mg tablet pravastatin 40 mg tablet 40 mg PO QPM 02/06/20 04/22/24 melatonin 5 mg capsule 10 mg PO BEDTIME 03/19/21 04/22/24 metformin 500 mg tablet 1,000 mg PO BID 01/01/22 04/22/24 aspirin 81 mg tablet,delayed 81 mg PO DAILY 12/24/22 04/22/24 release gabapentin 300 mg capsule 300 mg PO BID 12/24/22 04/22/24 multivitamin 1 tab PO DAILY 12/24/22 04/22/24 magnesium citrate 83.3 mg chewable mg PO 09/22/23 04/22/24 tablet semaglutide 0.25 mg or 0.5 mg (2 mg SUBCUT 04/22/24 04/22/24 mg/3 mL) subcutaneous pen injector (Ozempic) Previous Rx's Medication Instructions Recorded umeclidinium 62.5 mcg/actuation 1 inh inhalation DAILY #90 ea 04/07/23 blister powder for inhalation (Incruse Ellipta) left knee medial fagot heater helper brace #1 ea 04/22/24 cyclobenzaprine 10 mg tablet 10 mg PO TID PRN muscle spasm #15 01/12/25 tabs ketorolac 10 mg tablet 10 mg PO Q8H PRN pain 5 days #15 07/03/24 tabs Allergies Allergy/AdvReac Type Severity Reaction Status Date / Time prednisone Allergy Severe ADR-Agitate Verified 07/03/24 16:41 d Review of Systems Const: Denies: fever(s) or chills Musc: Reports: joint pain (left knee) PFSH ED PFSH: Medical History SBO (small bowel obstruction) Carcinoid tumor Lung nodule Type 2 diabetes mellitus HTN (hypertension) Hyperlipidemia Surgical History History of exploratory laparotomy H/O knee surgery History of back surgery H/O shoulder surgery History of gastric surgery History of appendectomy H/O rhinoplasty Family History Family/Other Diabetes Grandfather Heart disease Grandmother Cancer Leukemia Other Dementia Hyperlipidemia Hypertension Lung disease Stroke Denies family history of CAD (coronary artery disease) Clotting disorder Psychiatric illness Chronic kidney disease (CKD) Suicide Anesthesia complication Bleeding disorder Social History Smoking and tobacco/nicotine status: former use of tobacco/nicotine Quit status (tobacco/nicotine): has quit using Year quit tobacco: 2001 Former quit date comment: Hx of 1 PPD x 12 Years Second hand smoke exposure: No Alcohol intake: current Alcohol intake frequency: holidays/special occasions only Substance/Drug Use: never Lives independently: Yes Household members: family Marital status: Single Current occupational status: disabled Do you think of yourself as: Straight/Heterosexual Current gender identity: Male Physical Exam Const: COMMON NORMALS: no acute distress, patient oriented x3 and alert OTHER: Patient is sitting upright in a wheelchair with his left leg noted to be straight and elevated from the ground. He is able to give history with no difficulty. He is interactive with exam appropriately. Neighbor is with patient HENMT: COMMON NORMALS: normocephalic HEAD & SCALP: normocephalic Chest: CHEST: Yes Symmetrical chest wall rise Resp: COMMON NORMALS: normal respiratory effort Extremity: LEFT LOWER EXTREMITY: Yes knee joint (mild swelling) Left knee: Yes ROM (decreased flexion d/t pain) Neuro: COMMON NORMALS: patient oriented x3 SENSORIUM/ORIENTATION: Yes alert Course Vital Signs: Vital signs: Vital Signs Temperature 97.4 F L 07/03/24 16:33 Pulse Rate 108 H 07/03/24 16:33 Respiratory Rate 18 07/03/24 16:33 Blood Pressure 127/83 07/03/24 16:33 MDM - Extremity (Nontraumatic) Medical Decision Making 54yo male presents with neighbor for evaluation of left knee pain that started suddenly while he was ambulating in [facility]. Patient reports that his knee locked up and he was unable to bend it. He states that he has been having significant discomfort in the knee and his leg is now shaking and feels a little numb. Patient reports that he does see orthopedics and has an appointment soon. Patient states that he does have a brace through orthopedics, but he has not been wearing it as it causes him discomfort. Patient denies fall, trauma, known injury, any other concerns at this time. Patient is nontoxic in appearance. Vital signs are stable. X-ray obtained while awaiting room placement. No acute findings. Moderate osteoarthritis noted. Discussed findings with patient and neighbor. Discussed with patient that the catching is potential of a meniscal injury. Discussed that the jerking of his leg is likely from keeping his leg straight and elevated for the past 4 hours. Will proceed with ketorolac and orphenadrine while in the emergency department. Prescription of ketorolac and cyclobenzaprine will be sent to patient's pharmacy, sedation precautions provided. Recommend patient follow-up with orthopedics as he is an established patient. Recommend return to the emergency department if any rapid worsening symptoms and as needed. Patient states understanding and has no further questions or concerns at this time. Lab Data Radiology Impressions Knee X-Ray 07/03/24 16:05 IMPRESSION: 1. No acute findings. 2. Moderate osteoarthritis of the left knee. XR interpretation done by ED provider, pending radiology final review Discharge Plan Discharge Patient Disposition: Home Clinical Impression: Acute pain of left knee, Osteoarthritis of left knee Condition: Stable Prescriptions: New ketorolac 10 mg tablet 10 mg PO Q8H PRN (Reason: pain) 5 Days Qty: 15 0RF cyclobenzaprine 10 mg tablet 10 mg PO TID PRN (Reason: muscle spasm) Qty: 15 0RF Discontinued baclofen 10 mg Tablet 10 mg PO BID PRN (Reason: Pain) hydrocodone-acetaminophen 7.5-325 mg tablet 1 tab PO Q6H PRN (Reason: pain) Qty: 30 0RF Rx Instructions: do not drink or drive No Action melatonin 5 mg capsule 10 mg PO BEDTIME magnesium citrate 83.3 mg tablet,chewable PO Ozempic 0.25 mg or 0.5 mg (2 mg/3 mL) pen injector SUBCUT (DME) left knee medial fagot heater helper brace See Rx Instructions .Route .MEDSUPPLY Qty: 1 0RF Rx Instructions: As directed Incruse Ellipta 62.5 mcg/actuation blister with device 1 inh inhalation DAILY Qty: 90 6RF irbesartan-hydrochlorothiazide 150-12.5 mg tablet 1 tab PO BID pravastatin 40 mg tablet 40 mg PO QPM amlodipine 5 mg tablet 5 mg PO DAILY metformin 500 mg tablet 1,000 mg PO BID multivitamin Tablet 1 tab PO DAILY aspirin 81 mg Tablet,Delayed Release (Dr/Ec) 81 mg PO DAILY gabapentin 300 mg capsule 300 mg PO BID Discharge Orders: Discharge ED (Routine); Ordered 07/03/24 Ordered By: Kai Ac Referrals: Ryan Martinez [Primary Care Provider] - Discharge Diet: Usual diet Discharge Activity: Increase activity as tolerated Patient Instructions: Meniscus Tear (ED) Activity Restrictions/Additional Instructions: Use your home splint to help protect the knee from further injury Ketorolac and cyclobenzaprine have been sent to your pharmacy to help with the pain and muscle aches of the leg. Please not drive or operate heavy machinery while taking cyclobenzaprine Follow-up with orthopedics, call in a few days with an update of symptoms and to discuss to recheck Return to the emergency department if any rapid worsening symptoms and as needed Coding Level of Care Code ED Blending Tank Helper for Marina Preston
[2024-07-03] MEDS: ketorolac 30 mg/mL INJ IM (20:18)
[2024-07-03] MEDS: orphenadrine 30 mg/mL Inj 2 mL 60 MG IM (20:18)
[2024-07-03 20:38] VITALS: BP 112/85; PULSE 93; O2SAT 96
== END 2024-07-03 20:39 | disposition home or self-care (01) ==
PROVIDERS: Emergency Provider Nurse Practitioner; PCP Family Medicine
DX: M17.12 Unilateral primary osteoarthritis, left knee (principal); Z79.84 Long term (current) use of oral hypoglycemic drugs; Z79.82 Long term (current) use of aspirin; Z87.891 Personal history of nicotine dependence; E11.9 Type 2 diabetes mellitus without complications; I10 Essential (primary) hypertension; E78.5 Hyperlipidemia, unspecified
CPT/HCPCS: 73562; 96372; 99284; J1885; J2360

== ENCOUNTER → 2024-07-26 07:47 | Outpatient (BNVA) | payer MEDICARE, MEDICAID, SELFPAY | PROVIDERS: PCP Family Medicine; Visit Provider Physician Assistant | DX: M17.12 Unilateral primary osteoarthritis, left knee (principal) | CPT/HCPCS: 20610; 99213; J3301 ==

== ENCOUNTER 2024-08-25 07:26 | Outpatient (CLI) | payer MEDICARE, MEDICAID, SELFPAY ==
--- NOTE | 2024-08-25 07:35 | US_ITS ---
WS: [id number] RIGHT UPPER QUADRANT ULTRASOUND HISTORY: ELEVATED LFTS COMPARISON: 08/24/2012 Liver: 23.6 cm in length. Markedly enlarged liver with severe hepatic steatosis. The entire liver is not well visualized. No mass identified. No intrahepatic duct dilatation. Portal Vein: Normal hepatopetal flow with monophasic waveform. Gallbladder: Gallbladder is poorly visualized. No stones are identified. CBD: 0.4 cm Pancreas: Not visualized. Right kidney: 12.4 cm in length. Limited evaluation. No hydronephrosis identified. Normal size. Aorta and IVC: Not visualized. No ascites. US/US abdomen limited [id number] IMPRESSION: 1. Technically difficult and limited RIGHT upper quadrant ultrasound due to thompson dy habitus. 2. Marked hepatic steatosis and hepatomegaly. 3. No cholelithiasis identified but gallbladder visualization is limited.
== END 2024-08-25 07:27 | disposition home or self-care (01) ==
LOC: RAD 07:28
PROVIDERS: PCP Family Medicine; Visit Provider Family Medicine
DX: R79.89 Other specified abnormal findings of blood chemistry (principal); K76.0 Fatty (change of) liver, not elsewhere classified; R16.0 Hepatomegaly, not elsewhere classified
CPT/HCPCS: 76705

== ENCOUNTER → 2024-09-29 12:22 | Outpatient (BNVA) | payer MEDICARE, MEDICAID, SELFPAY | PROVIDERS: PCP Family Medicine; Visit Provider Internal Medicine Cardiovascular Disease | DX: I51.9 Heart disease, unspecified (principal); I10 Essential (primary) hypertension; I49.1 Atrial premature depolarization; R00.9 Unspecified abnormalities of heart beat; E11.9 Type 2 diabetes mellitus without complications; Z79.85 Long-term (current) use of injectable non-insulin antidiabetic drugs; Z79.84 Long term (current) use of oral hypoglycemic drugs; Z79.82 Long term (current) use of aspirin; Z87.891 Personal history of nicotine dependence; I49.9 Cardiac arrhythmia, unspecified; I42.9 Cardiomyopathy, unspecified; R07.9 Chest pain, unspecified | CPT/HCPCS: 99214 ==

== ENCOUNTER → 2024-09-29 13:29 | Outpatient (BNVA) | payer MEDICARE, MEDICAID, SELFPAY | PROVIDERS: PCP Family Medicine; Visit Provider Internal Medicine Cardiovascular Disease | DX: R07.9 Chest pain, unspecified (principal) | CPT/HCPCS: 93005 ==

== ENCOUNTER 2024-10-10 06:10 | Outpatient (CLI) | payer MEDICARE, MEDICAID, SELFPAY ==
[2024-10-10 06:22] VITALS: BMI 37.3
--- NOTE | 2024-10-10 06:26 | ECG_ITS ---
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 Interpretive Statements Lung unchanged pre/post procedure; Intraprocedure shortess of breath; Symptoms resoled by discharge PROCEDURE: The baseline electrocardiogram showed normal sinus rhythm with normal ST-Ts. At the baseline, the patient's blood pressure was 112/84 mm Hg with a heart rate of 100. The patient exercised for 7 minutes and 1 seconds on a standard Salas protocol. Patient attained a maximum heart rate of 150 beats per minute(89% of the maximum predicted heart rate) with a blood pressure at the peak exercise of 173/76 mm Hg. The EKG at the peak exercise revealed no significant changes. Patient did not have any chest pain or any significant arrhythmis with the exercise Sestamibi was injected 1 minute prior to the peak exercise During the recovery phase, there were no new changes. Blood pressure at the end of the recovery phase was 115/82 mm Hg with a heart rate of 103 per minute. CONCLUSION: 1. No significant EKG changes with the [treadmill exercise 2. No exercise-induced chest pain or cardiac arrhythmia 3. Fair exercise tolerance, attained a maximum of 7.5 METs 4. Sestamibi/Sestamibi perfusion results pending; see separate report. Electronically Signed On 10-16-2024 13:32:55 CDT by Wilman Madison M.D. [email or web address]
--- NOTE | 2024-10-10 06:27 | NMCV_ITS ---
Drew Yun Age: 54 Gender: M : 1970 Exam Date: 10/10/2024 07:28 Ordering Phys: Trey Lyons MD ([email or web address]) Technologist: ZEUS Gomez Exam Location: [facility] Indications: cp STRESS TEST Please see separate stress test report in [facility] for full findings IMAGE PROTOCOL Rest/Stress 1 Exercise Day Radiopharmaceutical Dose (mCi) Administration Site Administered by Rest: Tc-99m 10.6 IV Amalia Kearns, ENTERPRISE ANALYST Sestamibi Stress:Tc-99m 32.6 IV Amalia Kearns, ENTERPRISE ANALYST Sestamibi Rest: 10-Oct-2024 60 Discovery 630 Stress: 10-Oct-2024 30 Discovery 630 Images obtained in supine and prone position.Radiopharmaceutical was injected at 85 % maximum heart rate. SPECT RESULTS Technical Quality: Good Raw Data Analysis: Normal Image Corrections: No attenuation or motion correction applied Summed Stress Score: 1 Summed Rest Score: 1 Summed Difference Score: 0 PERFUSION FINDINGS Patchy areas of slightly decreased tracer uptake were noted at the inferior wall and anterior wall regions and occipital regions. No significant segmental wall motion analysis revealing reversibility was noted in these regions. FUNCTIONAL RESULTS (calculated via Gated SPECT) Stress Image LV EF (%): 44 Stress EDV (mL):135 TID: 1.69 Stress ESV (mL):75 FUNCTIONAL FINDINGS: Segmental wall motion analysis revealing mild diffuse hypokinesia of the left ventricle IMPRESSIONS 1. Myocardial perfusion imaging revealing fairly uniform myocardial tracer uptake, with no significant perfusion abnormalities 2. Slightly diminished LV ejection fraction of 44% 3. LV wall motion analysis revealing mild diffuse hypokinesis of the left ventricle 4. Mildly dilated LV cavity with an end-systolic volume of 73 mL 5. Elevated transient ischemic dilatation ratio of [id number] 1.69 may suggest endocardial ischemia. Clinical correlation is recommended Dr Wilman Madison MD FACC (Electronically Signed) Final Date: 10 October 2024 12:53 S
[2024-10-10 08:25] VITALS: BP 143/72; PULSE 102
== END 2024-10-10 06:11 | disposition home or self-care (01) ==
LOC: CDL 06:11
PROVIDERS: PCP Family Medicine; Visit Provider Internal Medicine Cardiovascular Disease
DX: R07.9 Chest pain, unspecified (principal); R93.1 Abnormal findings on diagnostic imaging of heart and coronary circulation; I42.0 Dilated cardiomyopathy
CPT/HCPCS: 36415; 78452; 93017; A9500

== ENCOUNTER 2024-10-12 00:51 | Emergency (ER) | payer MEDICARE, MEDICAID, SELFPAY ==
[2024-10-12 01:04] VITALS: BP 103/83; PULSE 114; RESP 16; TEMP 36.9; O2SAT 96; BMI 36.6
[2024-10-12 01:20] LABS: Basophils # 0.1 10^3/uL (0.0-0.1); Basophils % 0.4 %; Eosinophils # 0.1 10^3/uL (0.0-0.8); Eosinophils % 0.8 %; Hematocrit 52.5 % (37-53); Lymphocytes # 1.4 10^3/uL (0.8-4.8); Lymphocytes % 9.7 %; Mean Corpuscular HGB Conc 32.4 g/dL (30-55); Mean Corpuscular Hemoglobin 28.8 pg (27-33); Mean Platelet Volume 10.5 fL (7.4-10.4); Monocytes # 0.6 10^3/uL (0.2-0.9); Monocytes % 4.1 %; Neutrophils # 11.83 10^3/uL (1.8-7.7); Neutrophils % 84.6 %; Nucleated Red Blood Cells % 0 %; Platelet Count 357 10^3/cmm (157-399); Red Cell Distribution Width 14.4 % (12.1-15.1); White Blood Count 13.97 10^3/uL (3.29-11.43)
--- NOTE | 2024-10-12 01:23 | W.ED.NAVMDI ---
HPI - Nausea/Vomiting/Diarrhea General: Chief complaint: Nausea/Vomiting/Diarrhea Stated complaint: V\Diah\ Time Seen by Provider: 10/12/24 00:52 Source: patient Mode of arrival: ambulatory Limitations: no limitations History of Present Illness: 54-year-old male who states that he been having nausea vomiting diarrhea throughout the day. States she had 4-5 episodes of vomiting has had some diffuse abdominal cramping denies any severe abdominal pain he denies any fevers denies any worse improving factors. Associated nausea: Yes Associated symtoms: Reports nausea; Denies chest pain or headache(s) Related Data Home Medications ?Medication ?Instructions ?Recorded ?Confirmed amlodipine 5 mg tablet 5 mg PO DAILY 02/06/20 09/29/24 irbesartan 150 1 tab PO BID 02/06/20 09/29/24 mg-hydrochlorothiazide 12.5 mg tablet pravastatin 40 mg tablet 40 mg PO QPM 02/06/20 09/29/24 melatonin 5 mg capsule 10 mg PO BEDTIME 03/19/21 09/29/24 metformin 500 mg tablet 1,000 mg PO BID 01/01/22 09/29/24 aspirin 81 mg tablet,delayed 81 mg PO DAILY 12/24/22 09/29/24 release gabapentin 300 mg capsule 300 mg PO BID 12/24/22 09/29/24 multivitamin 1 tab PO DAILY 12/24/22 09/29/24 semaglutide 0.25 mg or 0.5 mg (2 mg SUBCUT 04/22/24 09/29/24 mg/3 mL) subcutaneous pen injector (Ozempic) Previous Rx's ?Medication ?Instructions ?Recorded umeclidinium 62.5 mcg/actuation 1 inh inhalation DAILY #90 ea 04/07/23 blister powder for inhalation (Incruse Ellipta) left knee medial door installer brace #1 ea 04/22/24 cyclobenzaprine 10 mg tablet 10 mg PO TID PRN muscle spasm #15 07/03/24 tabs magnesium oxide 400 mg PO DAILY #90 tabs 09/29/24 ondansetron 4 mg disintegrating 4 mg PO Q6H PRN nausea and 10/12/24 tablet vomiting #14 tabs Allergies Allergy/AdvReac Type Severity Reaction Status Date / Time prednisone Allergy Severe ADR-Agitate Verified 10/12/24 01:16 d Review of Systems Const: Denies: fever(s), chills, body aches or change in appetite ENMT: Denies: throat pain or dental pain Card: Denies: chest pain Resp: Denies: dyspnea GI: Reports: abdominal pain, nausea and vomiting; Denies: diarrhea Musc: Denies: neck pain or back pain Skin/Breast: Denies: rash Neuro: Denies: headache(s) PFSH ED PFSH: Medical History SBO (small bowel obstruction) Carcinoid tumor Lung nodule Type 2 diabetes mellitus HTN (hypertension) Hyperlipidemia Surgical History History of exploratory laparotomy H/O knee surgery History of back surgery H/O shoulder surgery History of gastric surgery History of appendectomy H/O rhinoplasty Family History Family/Other Diabetes Grandfather Heart disease Grandmother Cancer Leukemia Other Dementia Hyperlipidemia Hypertension Lung disease Stroke Denies family history of CAD (coronary artery disease) Clotting disorder Psychiatric illness Chronic kidney disease (CKD) Suicide Anesthesia complication Bleeding disorder Social History Smoking and tobacco/nicotine status: former use of tobacco/nicotine Quit status (tobacco/nicotine): has quit using Year quit tobacco: 2001 Former quit date comment: Hx of 1 PPD x 12 Years Second hand smoke exposure: No Alcohol intake: current Alcohol intake frequency: holidays/special occasions only Substance/Drug Use: never Lives independently: Yes Household members: family Marital status: Single Current occupational status: disabled Do you think of yourself as: Straight/Heterosexual Current gender identity: Male Physical Exam Const: COMMON NORMALS: no acute distress, patient oriented x3 and healthy appearing HENMT: COMMON NORMALS: normocephalic and atraumatic HEAD & SCALP: normocephalic and atraumatic Eye: COMMON NORMALS: conjunctivae normal CONJUNCTIVA: Yes conjunctivae normal Neck/C-Spine: COMMON NORMALS: full ROM and supple Chest: COMMONS NORMALS: normal inspection of the chest and normal palpation of entire chest wall Resp: COMMON NORMALS: normal respiratory effort, No retractions, No use of accessory muscles and clear to auscultation bilaterally AUSCULTATION: clear to auscultation bilaterally Cardio: COMMON NORMALS: regular rate, regular rhythm and No murmurs present (Cardio) RATE: regular rate RHYTHM: regular rhythm GI: COMMON NORMALS: Normal to inspection, nondistended, normoactive bowel sounds present, Soft to palpation, non-tender and no masses PALPATION: Yes Soft to palpation Extremity: COMMON NORMALS: normal to inspection and full ROM Neuro: COMMON NORMALS: patient oriented x3, moves all extremities and no focal motor deficits Psych: COMMON NORMALS: mental status grossly normal, Normal thought process present and cooperative THOUGHT PROCESS: Normal thought process present Skin: COMMON NORMALS: no rashes or lesions noted and no wounds GENERAL SKIN EXAM: no rashes or lesions noted Course Vital Signs: Vital signs: Vital Signs Temperature 98.4 F 10/12/24 01:04 Pulse Rate 103 H 10/12/24 02:42 Respiratory Rate 16 10/12/24 02:42 Blood Pressure 138/98 10/12/24 02:42 Pulse Oximetry 92 10/12/24 02:42 Oxygen Delivery Me thod Room Air 10/12/24 02:10 MDM - Nausea/Vomiting/Diarrhea Medical Decision Making Patient presents with vomiting diarrhea likely gastroenteritis his abdominal exam is benign no tenderness no signs appendicitis or cholecystitis feels improved after Zofran was able to tolerate p.o. he stable for discharge she is return if his vomiting worsens or if he experiences pain or fever he understands agrees to plan Medical Records I reviewed the patient's medical records. Lab Data I reviewed the patient's lab results. 10/12/24 01:11 10/12/24 01:11 Laboratory Results WBC 13.97 10^3/uL (3.29-11.43) H 10/12/24 01:11 RBC 5.90 10^6/uL (3.85-5.65) H 10/12/24 01:11 Hgb 17.00 g/dL (11.27-16.99) H 10/12/24 01:11 Hct 52.5 % (37-53) 10/12/24 01:11 MCV 89.0 fl (82-101) 10/12/24 01:11 MCH 28.8 pg (27-33) 10/12/24 01:11 MCHC 32.4 g/dL (30-55) 10/12/24 01:11 RDW 14.4 % (12.1-15.1) 10/12/24 01:11 Plt Count 357 10^3/cmm (157-399) 10/12/24 01:11 MPV 10.5 fL (7.4-10.4) H 10/12/24 01:11 Neut % (Auto) 84.6 % 10/12/24 01:11 Lymph % (Auto) 9.7 % 10/12/24 01:11 Labette % (Auto) 4.1 % 10/12/24 01:11 Eos % (Auto) 0.8 % 10/12/24 01:11 Baso % (Auto) 0.4 % 10/12/24 01:11 Neut # (Auto) 11.83 10^3/uL (1.8-7.7) H 10/12/24 01:11 Lymph # (Auto) 1.4 10^3/uL (0.8-4.8) 10/12/24 01:11 Labette # (Auto) 0.6 10^3/uL (0.2-0.9) 10/12/24 01:11 Eos # (Auto) 0.1 10^3/uL (0.0-0.8) 10/12/24 01:11 Baso # (Auto) 0.1 10^3/uL (0.0-0.1) 10/12/24 01:11 Nucleated RBC % (auto) 0 % 10/12/24 01:11 Nucleated RBCs # 0.0 /100WBC 10/12/24 01:11 Sodium 140 mmol/L (136-145) 10/12/24 01:11 Potassium 3.7 mmol/L (3.5-5.1) 10/12/24 01:11 Chloride 99 mmol/L (98-107) 10/12/24 01:11 Carbon Dioxide 27 mmol/L (22-29) 10/12/24 01:11 Anion Gap 17.7 (5-19) 10/12/24 01:11 BUN 18 mg/dL (6-20) 10/12/24 01:11 Creatinine 0.9 mg/dL (0.7-1.2) 10/12/24 01:11 GFR Calculation 88.6 mL/min (90-130) L 10/12/24 01:11 Glucose 180 mg/dL (65-115) H 10/12/24 01:11 Calculated Osmolality 296 mOsm/kg (285-295) H 10/12/24 01:11 Calcium 10.1 mg/dL (8.5-10.5) 10/12/24 01:11 Total Bilirubin 0.6 mg/dL (0.15-1.2) 10/12/24 01:11 AST 57 U/L (0-40) H 10/12/24 01:11 ALT 105 U/L (0-41) H 10/12/24 01:11 Alkaline Phosphatase 109 U/L (40-130) 10/12/24 01:11 Total Protein 8.7 g/dL (6.6-8.7) 10/12/24 01:11 Albumin 4.9 g/dL (3.5-5.2) 10/12/24 01:11 Globulin 3.8 g/dL (1.3-4.6) 10/12/24 01:11 Lipase 32 U/L (13-60) 10/12/24 01:11 No radiology studies performed this visit Discharge Plan Discharge Patient Disposition: Home Clinical Impression: Vomiting, Diarrhea Condition: Stable Prescriptions: New ondansetron 4 mg tablet,disintegrating 4 mg PO Q6H PRN (Reason: nausea and vomiting) Qty: 14 0RF No Action melatonin 5 mg capsule 10 mg PO BEDTIME Ozempic 0.25 mg or 0.5 mg (2 mg/3 mL) pen injector SUBCUT (DME) left knee medial door installer brace See Rx Instructions .Route .MEDSUPPLY Qty: 1 0RF Rx Instructions: As directed magnesium oxide 400 mg magnesium tablet 400 mg PO DAILY Qty: 90 3RF Incruse Ellipta 62.5 mcg/actuation blister with device 1 inh inhalation DAILY Qty: 90 6RF irbesartan-hydrochlorothiazide 150-12.5 mg tablet 1 tab PO BID pravastatin 40 mg tablet 40 mg PO QPM amlodipine 5 mg tablet 5 mg PO DAILY metformin 500 mg tablet 1,000 mg PO BID multivitamin Tablet 1 tab PO DAILY aspirin 81 mg Tablet,Delayed Release (Dr/Ec) 81 mg PO DAILY gabapentin 300 mg capsule 300 mg PO BID cyclobenzaprine 10 mg tablet 10 mg PO TID PRN (Reason: muscle spasm) Qty: 15 0RF Discharge Orders: Discharge ED (Routine); Ordered 10/12/24 Ordered By: Sarai Benitez Referrals: Ryan Martinez [Primary Care Provider] - 1-3 days Discharge Diet: Advance as tolerated Discharge Activity: Resume usual activity Patient Instructions: Acute Nausea and Vomiting (ED), Acute Diarrhea (ED) Print Language: German Coding Level of Care Code ED [employer] Linux Administrator for Marina Preston
[2024-10-12 01:27] VITALS: BP 103/83; RESP 20; O2SAT 94
[2024-10-12] MEDS: ondansetron 2 mg/ML SDV 2 mL 4 MG IVP (01:32)
[2024-10-12] MEDS: sodium chloride 0.9% 1,000 ML 999 ML IV (01:32)
[2024-10-12 01:43] LABS: Alanine Aminotransferase 105 U/L (0-41); Albumin Level 4.9 g/dL (3.5-5.2); Alkaline Phosphatase 109 U/L (40-130); Anion Gap 17.7 (5-19); Aspartate Amino Transferase 57 U/L (0-40); Blood Urea Nitrogen 18 mg/dL (6-20); Calcium 10.1 mg/dL (8.5-10.5); Carbon Dioxide 27 mmol/L (22-29); Chloride 99 mmol/L (98-107); Creatinine Clr Calc Pharmacy 118.7136; Globulin 3.8 g/dL (1.3-4.6); Glomerular Filtration Rate 88.6 mL/min (90-130); Glucose 180 mg/dL (65-115); Lipase 32 U/L (13-60); Osmolality Calculated 296 mOsm/kg (285-295); Potassium 3.7 mmol/L (3.5-5.1); Sodium 140 mmol/L (136-145); Total Bilirubin 0.6 mg/dL (0.15-1.2); Total Protein 8.7 g/dL (6.6-8.7)
[2024-10-12] MEDS: diphenoxylate/atropine Tablet 2 TAB PO (02:08)
[2024-10-12 02:10] VITALS: BP 118/85; PULSE 108; RESP 16; O2SAT 94
[2024-10-12 02:42] VITALS: BP 138/98; PULSE 103; RESP 16; O2SAT 92
== END 2024-10-12 02:44 | disposition home or self-care (01) ==
PROVIDERS: Emergency Provider Emergency Medicine; PCP Family Medicine
DX: R11.10 Vomiting, unspecified (principal); R19.7 Diarrhea, unspecified; Z79.84 Long term (current) use of oral hypoglycemic drugs; Z79.82 Long term (current) use of aspirin; Z87.891 Personal history of nicotine dependence; E78.5 Hyperlipidemia, unspecified; I10 Essential (primary) hypertension; E11.9 Type 2 diabetes mellitus without complications
CPT/HCPCS: 36415; 80053; 83690; 85025; 96361; 96374; 99284; J2405; J7030; J9999

== ENCOUNTER 2024-10-12 04:19 | Observation (INO) | payer MEDICARE, MEDICAID, SELFPAY ==
[2024-10-12] VITALS (10 sets, daily range): BP systolic 102–129; BP diastolic 71–88; PULSE 96–114; RESP 16–20; TEMP 35.9–37.4; O2SAT 90–98; BMI 32.5; BMI 36.6
--- NOTE | 2024-10-12 04:22 | CTR_ITS ---
PROCEDURE INFORMATION: Exam: CT Abdomen And Pelvis With Contrast Exam date and time: 10/12/2024 4:45 AM Age: 54 years old Clinical indication: Abdominal pain; Periumbilical; Additional info: Abd pain TECHNIQUE: Imaging protocol: Computed tomography of the abdomen and pelvis with contrast. Radiation optimization: All CT scans at this facility use at least one of these dose optimization techniques: automated exposure control; mA and/or kV adjustment per patient size (includes targeted exams where dose is matched to clinical indication); or iterative reconstruction. Contrast material: OMNI 350; Contrast volume: 100 ml; Contrast route: INTRAVENOUS (IV); COMPARISON: CT abdomen pelvis w con* [id number] 01/14/2023 7:38 PM RADIATION DOSE METRICS: Total DLP (mGy-cm): 1186.17 FINDINGS: Lungs: Right lung base postoperative changes. Heart: Base of heart is unremarkable as visualized. Liver: Hepatic steatosis. Gallbladder and biliary ducts: Normal. No calcified stones. No ductal dilation. Pancreas: Normal. No ductal dilation. Spleen: Normal. No splenomegaly. Adrenal glands: Normal. No mass. Kidneys and ureters: Stable right renal cysts. Stomach and bowel: Moderate to long length small bowel dilation with multiple air-fluid levels. These obstructed loops appear to be a perplexed against the anterior peritoneal reflection. No abrupt transition is noted, gradual caliber change is noted at the proximal and distal aspects of the obstruction. Appendix: No evidence of appendicitis. Intraperitoneal space: Small amount of ascites is seen adjacent the obstructed loops. Vasculature: Unremarkable. No abdominal aortic aneurysm. Lymph nodes: Unremarkable. No enlarged lymph nodes. Urinary bladder: Unremarkable as visualized. Reproductive: Mild prostatomegaly. Bones/joints: Degenerative changes of the visualized osseous structures. Lumbar spine fusion hardware and decompression changes. Partially evaluated old right posterolateral rib fracture deformity. Soft tissues: Anterior midline abdominal wall postsurgical change. Fat containing indirect left inguinal hernia stable from prior comparison. CT/CT abdomen pelvis w con* [id number] IMPRESSION: Small bowel obstruction without focal transition, suspicion of adhesions given the dilated loops appear Jennifer plexus against the anterior peritoneal reflection and the overlying midline abdominal wall postsurgical changes.
--- NOTE | 2024-10-12 04:30 | W.ED.NAVMDI ---
HPI - Nausea/Vomiting/Diarrhea General: Chief complaint: Nausea/Vomiting/Diarrhea Stated complaint: n Time Seen by Provider: 10/12/24 04:21 Source: patient Mode of arrival: ambulatory Limitations: no limitations History of Present Illness: 54-year-old male states has been having diffuse abdominal cramping throughout the day along with vomiting diarrhea he was seen here earlier given Zofran states after he went home he vomited again and is cramping in his abdomen worsened it is diffuse. Denies any fevers denies any worse improved factors Associated nausea: Yes Associated symtoms: Reports nausea; Denies chest pain, dysuria or headache(s) Related Data Home Medications ?Medication ?Instructions ?Recorded ?Confirmed amlodipine 5 mg tablet 5 mg PO DAILY 02/06/20 09/29/24 irbesartan 150 1 tab PO BID 02/06/20 09/29/24 mg-hydrochlorothiazide 12.5 mg tablet pravastatin 40 mg tablet 40 mg PO QPM 02/06/20 09/29/24 melatonin 5 mg capsule 10 mg PO BEDTIME 03/19/21 09/29/24 metformin 500 mg tablet 1,000 mg PO BID 01/01/22 09/29/24 aspirin 81 mg tablet,delayed 81 mg PO DAILY 12/24/22 09/29/24 release gabapentin 300 mg capsule 300 mg PO BID 12/24/22 09/29/24 multivitamin 1 tab PO DAILY 12/24/22 09/29/24 semaglutide 0.25 mg or 0.5 mg (2 mg SUBCUT 04/22/24 09/29/24 mg/3 mL) subcutaneous pen injector (Ozempic) Previous Rx's ?Medication ?Instructions ?Recorded umeclidinium 62.5 mcg/actuation 1 inh inhalation DAILY #90 ea 04/07/23 blister powder for inhalation (Incruse Ellipta) left knee medial fur clipper brace #1 ea 04/22/24 cyclobenzaprine 10 mg tablet 10 mg PO TID PRN muscle spasm #15 07/03/24 tabs magnesium oxide 400 mg PO DAILY #90 tabs 09/29/24 ondansetron 4 mg disintegrating 4 mg PO Q6H PRN nausea and 10/12/24 tablet vomiting #14 tabs Allergies Allergy/AdvReac Type Severity Reaction Status Date / Time prednisone Allergy Severe ADR-Agitate Verified 10/12/24 01:16 d Review of Systems Const: Denies: fever(s), chills, body aches or change in appetite ENMT: Denies: throat pain or dental pain Card: Denies: chest pain Resp: Denies: dyspnea GI: Reports: abdominal pain, nausea, vomiting and diarrhea : Denies: dysuria Musc: Denies: neck pain or back pain Skin/Breast: Denies: rash Neuro: Denies: headache(s) PFSH ED PFSH: Medical History SBO (small bowel obstruction) Carcinoid tumor Lung nodule Type 2 diabetes mellitus HTN (hypertension) Hyperlipidemia Surgical History History of exploratory laparotomy H/O knee surgery History of back surgery H/O shoulder surgery History of gastric surgery History of appendectomy H/O rhinoplasty Family History Family/Other Diabetes Grandfather Heart disease Grandmother Cancer Leukemia Other Dementia Hyperlipidemia Hypertension Lung disease Stroke Denies family history of CAD (coronary artery disease) Clotting disorder Psychiatric illness Chronic kidney disease (CKD) Suicide Anesthesia complication Bleeding disorder Social History Smoking and tobacco/nicotine status: former use of tobacco/nicotine Quit status (tobacco/nicotine): has quit using Year quit tobacco: 2001 Former quit date comment: Hx of 1 PPD x 12 Years Second hand smoke exposure: No Alcohol intake: current Alcohol intake frequency: holidays/special occasions only Substance/Drug Use: never Lives independently: Yes Household members: family Marital status: Single Current occupational status: disabled Do you think of yourself as: Straight/Heterosexual Current gender identity: Male Physical Exam Const: COMMON NORMALS: no acute distress, patient oriented x3 and healthy appearing HENMT: COMMON NORMALS: normocephalic and atraumatic HEAD & SCALP: normocephalic and atraumatic Eye: COMMON NORMALS: conjunctivae normal CONJUNCTIVA: Yes conjunctivae normal Neck/C-Spine: COMMON NORMALS: full ROM and supple Chest: COMMONS NORMALS: normal inspection of the chest Resp: COMMON NORMALS: normal respiratory effort and clear to auscultation bilaterally AUSCULTATION: clear to auscultation bilaterally Cardio: COMMON NORMALS: regular rate, regular rhythm and No murmurs present (Cardio) RATE: regular rate RHYTHM: regular rhythm GI: COMMON NORMALS: Normal to inspection, nondistended, normoactive bowel sounds present, Soft to palpation, non-tender and no masses PALPATION: Yes Soft to palpation Extremity: COMMON NORMALS: normal to inspection and full ROM Neuro: COMMON NORMALS: patient oriented x3, moves all extremities and no focal motor deficits Psych: COMMON NORMALS: mental status grossly normal, Normal thought process present and cooperative THOUGHT PROCESS: Normal thought process present Skin: COMMON NORMALS: no rashes or lesions noted and no wounds GENERAL SKIN EXAM: no rashes or lesions noted Course Vital Signs: Vital signs: Vital Signs Temperature 96.7 F L 10/12/24 04:28 Pulse Rate 110 H 10/12/24 04:28 Respiratory Rate 18 10/12/24 04:28 Blood Pressure 118/86 10/12/24 04:28 Pulse Oximetry 96 10/12/24 04:28 Oxygen Delivery Me thod Room Air 10/12/24 04:28 MDM - Nausea/Vomiting/Diarrhea Medical Decision Making Patient presents here with small bowel obstruction will place NG tube spoke to hospitalist will admit at this time. Medical Records I reviewed the patient's medical records. Lab Data I reviewed the patient's lab results. Radiology Impressions Abdomen/Pelvis CT 10/12/24 04:22 IMPRESSION: Small bowel obstruction without focal transition, suspicion of adhesions given the dilated loops appear Jennifer plexus against the anterior peritoneal reflection and the overlying midline abdominal wall postsurgical changes. ADDENDUM: 10/12/24 0517 ADDENDUM: Case was discussed with the care provider on 10/12/2024 at 5:15 a.m. All radiology interpretation(s) finalized by discharge Discharge Plan Discharge Patient Disposition: Admitted As Inpatient Clinical Impression: Small bowel obstruction Condition: Stable Prescriptions: No Action melatonin 5 mg capsule 10 mg PO BEDTIME Ozempic 0.25 mg or 0.5 mg (2 mg/3 mL) pen injector SUBCUT (DME) left knee medial fur clipper brace See Rx Instructions .Route .MEDSUPPLY Qty: 1 0RF Rx Instructions: As directed magnesium oxide 400 mg magnesium tablet 400 mg PO DAILY Qty: 90 3RF Incruse Ellipta 62.5 mcg/actuation blister with device 1 inh inhalation DAILY Qty: 90 6RF irbesartan-hydrochlorothiazide 150-12.5 mg tablet 1 tab PO BID pravastatin 40 mg tablet 40 mg PO QPM amlodipine 5 mg tablet 5 mg PO DAILY metformin 500 mg tablet 1,000 mg PO BID multivitamin Tablet 1 tab PO DAILY aspirin 81 mg Tablet,Delayed Release (Dr/Ec) 81 mg PO DAILY gabapentin 300 mg capsule 300 mg PO BID cyclobenzaprine 10 mg tablet 10 mg PO TID PRN (Reason: muscle spasm) Qty: 15 0RF ondansetron 4 mg tablet,disintegrating 4 mg PO Q6H PRN (Reason: nausea and vomiting) Qty: 14 0RF Referrals: Ryan Martinez [Primary Care Provider] - Print Language: Telugu Coding Level of Care Code ED Trademark Attorney for Marina Preston
[2024-10-12] MEDS: iohexol 350 mg/mL 500 mL Btl (per mL) IV (04:49)
--- NOTE | 2024-10-12 05:17 | PM.HP ---
Providers/Chief Complaint Primary Care Provider: Ryan Martinez Chief Complaint: ABD Pain\V History of Present Illness Drew Dixon is a 54 year old male with a past medical history significant for carcinoid tumor, some prior small bowel obstruction, lung nodule, type 2 diabetes mellitus, hypertension, and hyperlipidemia who presents to the emergency department with nausea and vomiting with onset on Thursday afternoon. Endorses associated abdominal pains. Describes pain as diffuse across all 4 quadrants. Reports diarrhea. Denies alleviating or aggravating factors. He reports a history of prior small bowel obstructions. In the emergency department, imaging revealed small bowel obstruction without transition point. Patient reports this is his third time he had bowel obstruction. Denies prior surgery for SBO. ED provider to place NG tube. Review of Systems Narrative: A complete review of systems was obtained and is negative except as stated in HPI. Medications/Allergies Home Medications ?Medication ?Instructions ?Recorded ?Confirmed ?Last Taken ?Type amlodipine 5 mg tablet 5 mg PO DAILY 02/06/20 09/29/24 04/21/22 History irbesartan 150 1 tab PO BID 02/06/20 09/29/24 04/21/22 History mg-hydrochlorothiazide 12.5 mg tablet pravastatin 40 mg tablet 40 mg PO QPM 02/06/20 09/29/24 04/21/22 History melatonin 5 mg capsule 10 mg PO BEDTIME 03/19/21 09/29/24 04/21/22 History metformin 500 mg tablet 1,000 mg PO BID 01/01/22 09/29/24 04/21/22 History aspirin 81 mg tablet,delayed 81 mg PO DAILY 12/24/22 09/29/24 Unknown History release gabapentin 300 mg capsule 300 mg PO BID 12/24/22 09/29/24 Unknown History multivitamin 1 tab PO DAILY 12/24/22 09/29/24 Unknown History umeclidinium 62.5 mcg/actuation 1 inh inhalation DAILY #90 ea 04/07/23 09/29/24 Unknown Rx blister powder for inhalation (Incruse Ellipta) left knee medial raymond mill operator brace #1 ea 04/22/24 07/26/24 Unknown Rx semaglutide 0.25 mg or 0.5 mg (2 mg SUBCUT 04/22/24 09/29/24 Unknown History mg/3 mL) subcutaneous pen injector (Ozempic) cyclobenzaprine 10 mg tablet 10 mg PO TID PRN muscle spasm #15 07/03/24 09/29/24 Unknown Rx tabs magnesium oxide 400 mg PO DAILY #90 tabs 09/29/24 09/29/24 Unknown Rx ondansetron 4 mg disintegrating 4 mg PO Q6H PRN nausea and 10/12/24 Unknown Rx tablet vomiting #14 tabs Allergies Allergy/AdvReac Type Severity Reaction Status Date / Time prednisone Allergy Severe ADR-Agitate Verified 10/12/24 01:16 d PFSH Acute PFSH: Medical History SBO (small bowel obstruction) Carcinoid tumor Lung nodule Type 2 diabetes mellitus HTN (hypertension) Hyperlipidemia Surgical History History of exploratory laparotomy H/O knee surgery History of back surgery H/O shoulder surgery History of gastric surgery History of appendectomy H/O rhinoplasty Family History Family/Other Diabetes Grandfather Heart disease Grandmother Cancer Leukemia Other Dementia Hyperlipidemia Hypertension Lung disease Stroke Denies family history of CAD (coronary artery disease) Clotting disorder Psychiatric illness Chronic kidney disease (CKD) Suicide Anesthesia complication Bleeding disorder Social History Smoking and tobacco/nicotine status: former use of tobacco/nicotine Quit status (tobacco/nicotine): has quit using Year quit tobacco: 2001 Former quit date comment: Hx of 1 PPD x 12 Years Second hand smoke exposure: No Alcohol intake: current Alcohol intake frequency: holidays/special occasions only Substance/Drug Use: never Lives independently: Yes Household members: family Marital status: Single Current occupational status: disabled Do you think of yourself as: Straight/Heterosexual Current gender identity: Male Vitals/I&O/Wt Last Vital Signs Temp 96.7 F L 10/12/24 04:28 Pulse 110 H 10/12/24 04:28 Resp 18 10/12/24 04:28 BP 118/86 10/12/24 04:28 Pulse Ox 96 10/12/24 04:28 O2 Del Method Room Air 10/12/24 04:28 10/11/24 10/11/24 10/12/24 14:59 22:59 06:59 Intake Total 0 / 0 Balance 0 / 0 Weight last 48 hrs Weight 99.79 kg Physical Exam Narrative: General: Patient is awake. Ill-appearing. Head: Normocephalic. Atraumatic. EOM intact. Dry mucous membranes. Neck: No JVD. Cardiovascular: RRR. No gallops. No murmurs. Lungs: Clear to auscultation, no use of accessory muscles, no crackles or wheezes. Skin: No jaundice. No rashes. Abdomen: Abdomen appears slightly distended. Tenderness palpation in all 4 quadrants. Hypoactive bowel sounds. Genito Urinary: Genital exam not performed since complaints not related. Rectal: Rectal exam not performed since no symptoms indicated blood loss. Extremities: No cyanosis or clubbing. Musculoskeletal: No swollen or erythematous joints. Neurological: Moves all 4 extremities. No myoclonus. A&P Assessment and plan (1) Small bowel obstruction: (2) Type 2 diabetes mellitus: Qualifiers: Diabetes mellitus complication status: without complication Diabetes mellitus adjunct faculty for medical terminology insulin use: without adjunct faculty for medical terminology use Qualified Code(s): E11.9 - Type 2 diabetes mellitus without complications (3) Hyperlipidemia: (4) HTN (hypertension): (5) Vomiting: (6) Diarrhea: (7) Sarcoidosis: (8) Carcinoid tumor: (9) Transaminitis: Plan Small bowel obstruction History of prior small bowel obstruction History of multiple abdominal surgeries - No transition point on imaging - Suspect related to adhesions - Start IV fluids - NG tube for bowel decompression - Antiemetics as needed - Analgesics as needed - Anticipate general surgery consult in AM Type 2 diabetes mellitus - Sliding scale insulin correction Hyperlipidemia - Hold statin d/t bowel rest Hypertension - IV hydralazine PRN DVT ppx: Lovenox Code: Full Code PDMP PDMP Reviewed: Not Reviewed Attestations Medical Necessity Statement*: Patient presents with N/V/D, found to have SBO with expected hospitalization not to cross two midnights for IVF, serial abdominal exam and symptom control. Coding Level of Care Code Acute Code for Chg Fwd Diagnoses Small bowel obstruction K56.609 Type 2 diabetes mellitus E11.9 Diabetes mellitus complication status: without complication Diabetes mellitus adjunct faculty for medical terminology insulin use: without usp use Hyperlipidemia E78.5 HTN (hypertension) I10 Vomiting R11.10 Diarrhea R19.7 Sarcoidosis D86.9 Carcinoid tumor D3A.00 Transaminitis R74.01
[2024-10-12] MEDS: LORazepam 2 mg/mL INJ 1 mL 1 MG IVP (05:30)
[2024-10-12] MEDS: ondansetron 2 mg/ML SDV 2 mL 4 MG IVP (05:30)
--- NOTE | 2024-10-12 05:40 | XRR_ITS ---
PROCEDURE INFORMATION: Exam: XR Chest Exam date and time: 10/12/2024 5:40 AM Age: 54 years old Clinical indication: Device placement; Ng tube TECHNIQUE: Imaging protocol: Radiologic exam of the chest. Views: 1 view. COMPARISON: CR XR chest 2V* [id number] 05/30/2024 1:35 PM FINDINGS: Tubes, catheters and devices: Enteric tube traverses midline, catheter tip is subdiaphragmatic in the left upper quadrant. Lungs: Basilar atelectasis/scarring. Pleural spaces: Unremarkable. No pleural effusion. No pneumothorax. Heart/Mediastinum: Unremarkable. No cardiomegaly. Bones/joints: Unremarkable. XR/XR chest 1V [id number] IMPRESSION: 1. Enteric tube as above. 2. No acute cardiopulmonary findings.
[2024-10-12 06:28] LABS: Glucose Point of Care 171 mg/dL (70-110)
[2024-10-12] MEDS: insulin lispro 100 unit/1 mL SUBCUT ×3 (06:34→17:38)
[2024-10-12] MEDS: enoxaparin 40 mg/0.4 mL Syringe SUBCUT (06:34)
[2024-10-12] MEDS: sodium chlor 0.9% + KCl 20 mEq 20 MEQ/1,000 ML BAG 125 MEQ IV ×2 (06:35→14:43)
[2024-10-12] MEDS: pantoprazole 40 mg SDV IVP (06:35)
--- NOTE | 2024-10-12 07:48 | PM.CONSULT ---
Providers/Reason For Consult Consulting Physician/Specialty*: General Surgery Reason for Consult*: Small bowel obstruction Attending Physician: Charleen Lacey MD Primary Care Provider: Ryan Martinez History of Present Illness History of Present Illness Drew Dixon is a 54 year old male with history of previous exploratory laparotomy for small bowel obstruction in 2022 who presents with acute abdominal pain nausea vomiting. Last bowel movement was yesterday, endorses still passing some gas. Imaging in the ER show evidence of a small bowel obstruction without a clear transition point. I was consulted for this finding Review of Systems General: Reports: 10 or more systems reviewed and unremarkable except in HPI and below Medications/Allergies Home Medications ?Medication ?Instructions ?Recorded ?Confirmed ?Last Taken ?Type amlodipine 5 mg tablet 5 mg PO DAILY 02/06/20 09/29/24 04/21/22 History irbesartan 150 1 tab PO BID 02/06/20 09/29/24 04/21/22 History mg-hydrochlorothiazide 12.5 mg tablet pravastatin 40 mg tablet 40 mg PO QPM 02/06/20 09/29/24 04/21/22 History melatonin 5 mg capsule 10 mg PO BEDTIME 03/19/21 09/29/24 04/21/22 History metformin 500 mg tablet 1,000 mg PO BID 01/01/22 09/29/24 04/21/22 History aspirin 81 mg tablet,delayed 81 mg PO DAILY 12/24/22 09/29/24 Unknown History release gabapentin 300 mg capsule 300 mg PO BID 12/24/22 09/29/24 Unknown History multivitamin 1 tab PO DAILY 12/24/22 09/29/24 Unknown History umeclidinium 62.5 mcg/actuation 1 inh inhalation DAILY #90 ea 04/07/23 09/29/24 Unknown Rx blister powder for inhalation (Incruse Ellipta) left knee medial baccarat manager brace #1 ea 04/22/24 10/12/24 Unknown Rx semaglutide 0.25 mg or 0.5 mg (2 mg SUBCUT 04/22/24 09/29/24 Unknown History mg/3 mL) subcutaneous pen injector (Ozempic) cyclobenzaprine 10 mg tablet 10 mg PO TID PRN muscle spasm #15 07/03/24 09/29/24 Unknown Rx tabs magnesium oxide 400 mg PO DAILY #90 tabs 09/29/24 09/29/24 Unknown Rx ondansetron 4 mg disintegrating 4 mg PO Q6H PRN nausea and 10/12/24 Unknown Rx tablet vomiting #14 tabs Allergies Allergy/AdvReac Type Severity Reaction Status Date / Time prednisone Allergy Severe ADR-Agitate Verified 10/12/24 01:16 d Current Medications Generic Name Dose Route Start Last Admin Trade Name Freq PRN Reason Stop Dose Admin Enoxaparin Sodium 40 mg 10/12/24 06:21 10/12/24 06:34 Enoxaparin 40 Mg/0.4 Ml Syringe SUBCUT 40 mg Q24H MYLENE Administration Potassium Chloride/Sodium Chloride 20 meq in 1,000 mls @ 125 mls/hr 10/12/24 06:21 10/12/24 06:35 Sodium Chlor 0.9% + Kcl 20 Meq IV 125 mls/hr .Q8H MYLENE Administration Insulin Human Lispro 0 unit 10/12/24 06:21 10/12/24 06:34 Insulin Lispro 100 Unit/1 Ml SUBCUT 4 unit Q6H MYLENE Administration Protocol Pantoprazole Sodium 40 mg 10/12/24 06:21 10/12/24 06:35 Pantoprazole 40 Mg Sdv IVP 40 mg Q24H MYLENE Administration PFSH Acute PFSH: Medical History SBO (small bowel obstruction) Carcinoid tumor Lung nodule Type 2 diabetes mellitus HTN (hypertension) Hyperlipidemia Surgical History History of exploratory laparotomy H/O knee surgery History of back surgery H/O shoulder surgery History of gastric surgery History of appendectomy H/O rhinoplasty Family History Family/Other Diabetes Grandfather Heart disease Grandmother Cancer Leukemia Other Dementia Hyperlipidemia Hypertension Lung disease Stroke Denies family history of CAD (coronary artery disease) Clotting disorder Psychiatric illness Chronic kidney disease (CKD) Suicide Anesthesia complication Bleeding disorder Social History Smoking and tobacco/nicotine status: former use of tobacco/nicotine Quit status (tobacco/nicotine): has quit using Year quit tobacco: 2001 Former quit date comment: Hx of 1 PPD x 12 Years Second hand smoke exposure: No Alcohol intake: current Alcohol intake frequency: holidays/special occasions only Substance/Drug Use: never Lives independently: Yes Household members: family Marital status: Single Current occupational status: disabled Do you think of yourself as: Straight/Heterosexual Current gender identity: Male Vitals/I&O/Wt Last Vital Signs Temp 99.4 F 10/12/24 07:18 Pulse 113 H 10/12/24 07:18 Resp 17 10/12/24 07:18 BP 122/76 10/12/24 07:18 Pulse Ox 91 10/12/24 07:18 O2 Del Method Room Air 10/12/24 07:18 10/11/24 10/12/24 10/12/24 22:59 06:59 14:59 Intake Total 0 / 0 Balance 0 / 0 Weight last 48 hrs Weight 248 lb Weight 220 lb Physical Exam Narrative: General : Patient is well developed , no acute distress, oriented x3 Head : Normal cephalic, a-traumatic. Nose : Mucous membranes are without erythema. Lungs : Equal chest rise bilaterally, no use of accessory muscles, trachea is midline. CV : Rate and rhythm are normal. Abdomen : Soft, mild distention, decreased bowel sounds, minimally tender in the mid abdomen Extremities : No edema. Upper extremities are normal bilaterally. Back : non-tender to palpation, no CVA tenderness. A&P Assessment and plan (1) History of exploratory laparotomy: (2) Small bowel obstruction: Plan 54-year-old male with a small bowel obstruction likely in the setting of adhesions from previous surgery. NG tube was placed in the ER and is productive of bilious fluid. I agree with conservative management with IV fluids, pain control and NG decompression. After 24 to 48 hours of NG tube decompression I will proceed with a Gastrografin trial. Depending on the results of the Gastrografin trial we will decide on next steps. I did inform the patient that there is a small chance that he will require additional surgery he shows understanding. Appreciate management per medical team PDMP PDMP Reviewed: Not Reviewed Coding Level of Care Code Acute Code for Chg Fwd Diagnoses History of exploratory laparotomy Z98.890 Small bowel obstruction K56.609
[2024-10-12 10:40] LABS: Glucose Point of Care 150 mg/dL (70-110)
--- NOTE | 2024-10-12 13:16 | P.PN_ITS ---
Subjective Subjective: No acute overnight events noted. He is a new admission from overnight for small bowel obstruction. Denies any complaint of nausea/vomiting since arrival to the hospital. Denies any complaint of abdominal pain. Medications: Reviewed: Yes Vitals/I&O/Wt Last Vital Signs Temp 97.9 F 10/12/24 11:18 Pulse 113 H 10/12/24 11:18 Resp 16 10/12/24 11:18 BP 108/71 10/12/24 11:18 Pulse Ox 95 10/12/24 11:18 O2 Del Method Room Air 10/12/24 11:18 10/11/24 10/12/24 10/12/24 22:59 06:59 14:59 Intake Total 0 / 0 Output Total 200 / 200 Balance 0 / 0 -200 / -200 Weight last 48 hrs Weight 112.491 kg Weight 99.79 kg Physical Exam Narrative: General: Patient is awake. Ill-appearing. Head: Normocephalic. Atraumatic. EOM intact. Dry mucous membranes. Neck: No JVD. Cardiovascular: RRR. No gallops. No murmurs. Lungs: Clear to auscultation, no use of accessory muscles, no crackles or whee zes. Skin: No jaundice. No rashes. Abdomen: Abdomen appears slightly distended. Tenderness palpation in all 4 quadrants. Hypoactive bowel sounds. Genito Urinary: Genital exam not performed since complaints not related. Rectal: Rectal exam not performed since no symptoms indicated blood loss. Extremities: No cyanosis or clubbing. Musculoskeletal: No swollen or erythematous joints. Neurological: Moves all 4 extremities. No myoclonus. A&P Assessment and plan (1) Small bowel obstruction: (2) Type 2 diabetes mellitus: Qualifiers: Diabetes mellitus complication status: without complication Diabetes mellitus truck terminal manager insulin use: without truck terminal manager use Qualified Code(s): E11.9 - Type 2 diabetes mellitus without complications (3) Hyperlipidemia: (4) HTN (hypertension): (5) Vomiting: (6) Diarrhea: (7) Sarcoidosis: (8) Carcinoid tumor: (9) Transaminitis: Plan Drew Dixon is a 54 year old male with a past medical history significant for carcinoid tumor, some prior small bowel obstruction, lung nodule, type 2 diabetes mellitus, hypertension, and hyperlipidemia who presents to the emergency department with nausea and vomiting with onset on Thursday afternoon. Endorses associated abdominal pain. #Small bowel obstruction- likely secondary to adhesions History of prior small bowel obstruction History of multiple abdominal surgeries - No transition point on imaging - Start IV fluids - NG tube for bowel decompression - Antiemetics as needed - Analgesics as needed - Anticipate general surgery consult in AM #Type 2 diabetes mellitus - Sliding scale insulin correction #Hyperlipidemia - Hold statin d/t bowel rest #Hypertension - IV hydralazine PRN DVT ppx: Lovenox Code: Full Code 10/12/24 Leucocytosis 13.9. General surgery consulted. Appreciate recommendations. Continue NG tube to suction, has dark brownish aspirate present. Will continue IV fluids and pain control as needed. PDMP PDMP Reviewed: Not Reviewed Attestations Medical Necessity Statement*: Patient presents with N/V/D, found to have SBO with expected hospitalization not to cross two midnights for IVF, serial abdominal exam and symptom control. Time Spent in Patient Care: 20minutes Coding Level of Care Code Acute Code for Chg Fwd Diagnoses Small bowel obstruction K56.609 Type 2 diabetes mellitus E11.9 Diabetes mellitus complication status: without complication Diabetes mellitus truck terminal manager insulin use: without assisted use Hyperlipidemia E78.5 HTN (hypertension) I10 Vomiting R11.10 Diarrhea R19.7 Sarcoidosis D86.9 Carcinoid tumor D3A.00 Transaminitis R74.01 Time Spent (min) 20
--- NOTE | 2024-10-12 15:48 | PM.MISC ---
Miscellaneous Note Purpose of Documentation: Update on patient care Note: Patient evaluated this afternoon, improved abdominal exam. NG output has been about 1 L over the bilious material. Patient endorses passing some gas. If patient continues to improve by tomorrow we will decide on doing a Gastrografin trial. He shows understanding
[2024-10-12 16:35] LABS: Glucose Point of Care 147 mg/dL (70-110)
[2024-10-13 00:27] LABS: Glucose Point of Care 133 mg/dL (70-110)
[2024-10-13] MEDS: sodium chlor 0.9% + KCl 20 mEq 20 MEQ/1,000 ML BAG 125 MEQ IV (01:29)
[2024-10-13 04:00] VITALS: BP 129/71; PULSE 94; RESP 20; TEMP 36.8; O2SAT 91
[2024-10-13 05:37] LABS: Glucose Point of Care 133 mg/dL (70-110)
[2024-10-13] MEDS: pantoprazole 40 mg SDV IVP (06:15)
[2024-10-13 06:21] LABS: Basophils # 0.1 10^3/uL (0.0-0.1); Basophils % 0.8 %; Eosinophils # 0.3 10^3/uL (0.0-0.8); Eosinophils % 4.7 %; Hematocrit 45.9 % (37-53); Lymphocytes # 0.9 10^3/uL (0.8-4.8); Lymphocytes % 15.1 %; Mean Corpuscular HGB Conc 30.9 g/dL (30-55); Mean Corpuscular Hemoglobin 28.8 pg (27-33); Mean Corpuscular Volume 93.1 fl (82-101); Mean Platelet Volume 10.7 fL (7.4-10.4); Monocytes # 0.7 10^3/uL (0.2-0.9); Monocytes % 11.4 %; Neutrophils # 4.21 10^3/uL (1.8-7.7); Neutrophils % 67.8 %; Nucleated Red Blood Cells % 0 %; Platelet Count 258 10^3/cmm (157-399); Red Blood Count 4.93 10^6/uL (3.85-5.65); Red Cell Distribution Width 14.9 % (12.1-15.1); White Blood Count 6.21 10^3/uL (3.29-11.43)
[2024-10-13 06:44] LABS: Alanine Aminotransferase 56 U/L (0-41); Alkaline Phosphatase 86 U/L (40-130); Anion Gap 14.8 (5-19); Aspartate Amino Transferase 22 U/L (0-40); Blood Urea Nitrogen 20 mg/dL (6-20); Calcium 8.5 mg/dL (8.5-10.5); Carbon Dioxide 24 mmol/L (22-29); Chloride 107 mmol/L (98-107); Creatinine Clr Calc Pharmacy 135.8812; Globulin 2.9 g/dL (1.3-4.6); Glomerular Filtration Rate 101.5 mL/min (90-130); Glucose 136 mg/dL (65-115); Magnesium 2.4 mg/dL (1.7-2.3); Osmolality Calculated 299 mOsm/kg (285-295); Phosphorus 2.4 mg/dL (2.5-4.5); Potassium 3.8 mmol/L (3.5-5.1); Sodium 142 mmol/L (136-145); Total Bilirubin 0.7 mg/dL (0.15-1.2); Total Protein 6.9 g/dL (6.6-8.7)
--- NOTE | 2024-10-13 07:02 | P.PN_ITS ---
Subjective 2 Subjective: Excellent progression, abdominal distention has improved he is passing significant amount of gas no bowel movement yet. Vitals/I&O/Wt Last Vital Signs Temp 98.3 F 10/13/24 04:00 Pulse 94 10/13/24 04:00 Resp 20 H 10/13/24 04:00 BP 129/71 10/13/24 04:00 Pulse Ox 91 10/13/24 04:00 O2 Del Method Room Air 10/13/24 04:00 10/12/24 10/13/24 10/13/24 22:59 06:59 14:59 Intake Total 999 / 1999 Output Total 1125 / 1325 1000 / 2325 Balance -125 / 675 -1000 / -325 Weight last 48 hrs Weight 256 lb 6.4 oz Weight 248 lb Weight 220 lb Physical Exam 2 Narrative: Benign abdominal exam, there is improved bowel sounds, abdomen is nontender. Data 10/13/24 05:56 10/13/24 05:56 A&P Assessment and plan (1) Small bowel obstruction: Plan Patient showing excellent progression, we will do a Gastrografin trial today, Gastrografin was administered at 7 AM this morning first x-ray will be obtained between 11 AM and noon. If the patient is able to have a bowel movement will advance diet to full liquid diet and allowed to advance as tolerated to a GI soft diet. PDMP PDMP Reviewed: Not Reviewed Attestations 2 Medical Necessity Statement*: Per medical team Coding Level of Care Code Acute Code for Chg Fwd Diagnoses Small bowel obstruction K56.609
[2024-10-13 07:38] VITALS: BP 157/97; PULSE 115; RESP 22; TEMP 36.4; O2SAT 91
--- NOTE | 2024-10-13 10:30 | XR_ITS ---
WS: [id number] Exam: XR KUB portable [id number] Date/Time of Exam: 10/13/2024 10:48 AM Reason For Exam: SBO, watery stool There are numerous abnormally dilated small bowel loops in the mid abdominal region containing contrast. There is also contrast identified throughout the colon which is not dilated. Contrast extends into the rectosigmoid region. Organ margins are obscured. An enteric tube noted in the region of the stomach. Fusion hardware in the lower lumbar spine. IMPRESSION1. There are still multiple dilated small bowel loops in the central abdomen containing contrast. Partial small bowel obstruction is not excluded. Contrast is noted extending throughout the large bowel and into the rectal sigmoid colon.
--- NOTE | 2024-10-13 11:08 | PM.MISC ---
Miscellaneous Note Purpose of Documentation: update on patient care Note: Patient had a BM, KUB shows contrast in the rectum. Will discontinue NG and advance to liquid diet. will start on daily Miralax
[2024-10-13 12:00] VITALS: BP 119/75; PULSE 101; RESP 20; TEMP 36.4; O2SAT 96
[2024-10-13 12:14] LABS: Glucose Point of Care 137 mg/dL (70-110)
--- NOTE | 2024-10-13 14:10 | P.PN_ITS ---
Subjective 2 Subjective: No acute overnight events noted. Seen him at bedside this morning. Denies any complaint of nausea/vomiting or abdominal pain. Medications: Reviewed: Yes Vitals/I&O/Wt Last Vital Signs Temp 97.5 F L 10/13/24 12:00 Pulse 101 H 10/13/24 12:00 Resp 20 H 10/13/24 12:00 BP 119/75 10/13/24 12:00 Pulse Ox 96 10/13/24 12:00 O2 Del Method Room Air 10/13/24 12:00 10/12/24 10/13/24 10/13/24 22:59 06:59 14:59 Intake Total 1000 / 1999 0 / 1999 480 / 480 Output Total 1125 / 1325 1000 / 2325 Balance -125 / 675 -1000 / -325 480 / 480 Weight last 48 hrs Weight 116.301 kg Weight 112.491 kg Weight 99.79 kg Physical Exam 2 Narrative: General: Patient is awake. Ill-appearing. Head: Normocephalic. Atraumatic. EOM intact. Dry mucous membranes. Neck: No JVD. Cardiovascular: RRR. No gallops. No murmurs. Lungs: Clear to auscultation, no use of accessory muscles, no crackles or wheezes. Skin: No jaundice. No rashes. Abdomen: Abdomen appears slightly distended. non tender Hypoactive bowel sounds. Genito Urinary: Genital exam not performed since complaints not related. Rectal: Rectal exam not performed since no symptoms indicated blood loss. Extremities: No cyanosis or clubbing. Musculoskeletal: No swollen or erythematous joints. Neurological: Moves all 4 extremities. No myoclonus. 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 Endorses associated abdominal pain. #Small bowel obstruction- likely secondary to adhesions History of prior small bowel obstruction History of multiple abdominal surgeries - No transition point on imaging - Start IV fluids - NG tube for bowel decompression - Antiemetics as needed - Analgesics as needed - Anticipate general surgery consult in AM #Type 2 diabetes mellitus - Sliding scale insulin correction #Hyperlipidemia - Hold statin d/t bowel rest #Hypertension - IV hydralazine PRN DVT ppx: Lovenox Code: Full Code 10/12/24 Leucocytosis 13.9. General surgery consulted. Appreciate recommendations. Continue NG tube to suction, has dark brownish aspirate present. Will continue IV fluids and pain control as needed. 10/13/24 Leukocytosis resolved. Patient going for Gastrografin trial as per GI. Will follow for further recommendations. Denies any complaint of nausea/vomiting/diarrhea or abdominal pain. Has been able to pass flatus. Continue to monitor for now. PDMP PDMP Reviewed: Not Reviewed Attestations 2 Medical Necessity Statement*: Anticipating discharge in 24 hours Time Spent in Patient Care: 15 minutes Coding Level of Care Code Acute Code for Chg Fwd Diagnoses Small bowel obstruction K56.609 Type 2 diabetes mellitus E11.9 Diabetes mellitus complication status: without complication Diabetes mellitus chcf insulin use: without long wall shear operator use Hyperlipidemia E78.5 HTN (hypertension) I10 Vomiting R11.10 Diarrhea R19.7 Sarcoidosis D86.9 Carcinoid tumor D3A.00 Transaminitis R74.01 Time Spent (min) 15
[2024-10-13 16:52] LABS: Glucose Point of Care 105 mg/dL (70-110)
[2024-10-13 17:00] VITALS: BP 116/74; PULSE 96; RESP 19; TEMP 36.7; O2SAT 95
[2024-10-13 20:17] LABS: Glucose Point of Care 143 mg/dL (70-110)
[2024-10-13 21:07] VITALS: BP 131/90; PULSE 107; RESP 17; TEMP 36.6; O2SAT 93
[2024-10-14 00:12] LABS: Glucose Point of Care 140 mg/dL (70-110)
[2024-10-14 00:48] VITALS: BP 124/76; PULSE 82; RESP 17; TEMP 36.9; O2SAT 95
[2024-10-14 05:20] VITALS: BP 145/87; PULSE 89; RESP 16; TEMP 36.9; O2SAT 97; BMI 37.8
[2024-10-14 05:34] LABS: Basophils % 0.6 %; Eosinophils # 0.2 10^3/uL (0.0-0.8); Eosinophils % 3.8 %; Hematocrit 45.1 % (37-53); Lymphocytes # 1.2 10^3/uL (0.8-4.8); Lymphocytes % 23.4 %; Mean Corpuscular HGB Conc 30.6 g/dL (30-55); Mean Corpuscular Hemoglobin 28.5 pg (27-33); Mean Corpuscular Volume 93.2 fl (82-101); Mean Platelet Volume 10.6 fL (7.4-10.4); Monocytes # 0.5 10^3/uL (0.2-0.9); Monocytes % 8.8 %; Neutrophils # 3.29 10^3/uL (1.8-7.7); Nucleated Red Blood Cells % 0 %; Platelet Count 247 10^3/cmm (157-399); Red Blood Count 4.84 10^6/uL (3.85-5.65); Red Cell Distribution Width 14.8 % (12.1-15.1); White Blood Count 5.22 10^3/uL (3.29-11.43)
[2024-10-14] MEDS: pantoprazole 40 mg SDV IVP (05:45)
[2024-10-14 05:55] LABS: Anion Gap 13.7 (5-19); Blood Urea Nitrogen 17 mg/dL (6-20); Calcium 8.7 mg/dL (8.5-10.5); Carbon Dioxide 26 mmol/L (22-29); Chloride 104 mmol/L (98-107); Creatinine Clr Calc Pharmacy 135.7706; Glomerular Filtration Rate 101.5 mL/min (90-130); Glucose 142 mg/dL (65-115); Osmolality Calculated 294 mOsm/kg (285-295); Potassium 3.7 mmol/L (3.5-5.1); Sodium 140 mmol/L (136-145)
[2024-10-14 06:44] LABS: Glucose Point of Care 145 mg/dL (70-110)
--- NOTE | 2024-10-14 06:57 | P.PN_ITS ---
Subjective 2 Subjective: Excellent progression, no abdominal pain, has had multiple bowel movements.As tolerated clear liquids Vitals/I&O/Wt Last Vital Signs Temp 98.4 F 10/14/24 05:20 Pulse 89 10/14/24 05:20 Resp 16 10/14/24 05:20 BP 145/87 10/14/24 05:20 Pulse Ox 97 10/14/24 05:20 O2 Del Method Room Air 10/13/24 17:00 10/13/24 10/13/24 10/14/24 14:59 22:59 06:59 Intake Total 480 / 480 1830 / 2310 240 / 2550 Balance 480 / 480 1830 / 2310 240 / 2550 Weight last 48 hrs Weight 256 lb Weight 256 lb 6.4 oz Physical Exam 2 GI: OTHER: Abdomen soft nontender nondistended good bowel sounds Data 10/14/24 04:48 10/14/24 04:48 A&P Assessment and plan (1) Small bowel obstruction: Plan Patient has shown excellent progression after the NG tube was discontinued and the patient was started on diet once the Gastrografin trial show evidence of passage of contrast to the rectum. He has had several bowel movements no abdominal pain he is feeling very well. We will give him for liquid diet this morning and we will advance him to a GI soft at lunch, if tolerated he is cleared for discharge. Patient will require daily MiraLAX. He can return to my office in 2 weeks for follow-up. Of note, patient is to stop Ozempic as it has shown association with increased risk for intestinal obstruction and with patient history of previous SBO as well as new episode of SBO he is not a good candidate for this medication. PDMP PDMP Reviewed: Not Reviewed Attestations 2 Medical Necessity Statement*: per medical team Coding Level of Care Code Acute Code for Chg Fwd Diagnoses Small bowel obstruction K56.609
[2024-10-14] MEDS: insulin lispro 100 unit/1 mL SUBCUT ×2 (07:06→12:33)
[2024-10-14 07:57] VITALS: BP 139/80; PULSE 73; RESP 17; TEMP 36.6; O2SAT 97
[2024-10-14] MEDS: polyethylene glycol 3350 Pkt 17 gm PO (09:42)
--- NOTE | 2024-10-14 11:31 | P.DS_ITS ---
Discharge Providers Date of Admission: 10/12/24 05:18 Date of Discharge: October 14, 2024 Attending Provider at Admission: Ced Howe MD Attending Provider at Discharge: Charleen Lacey MD Primary Care Provider: Ryan Martinez Diagnoses at Discharge Discharge Diagnosis (1) Small bowel obstruction: Status: Acute Reason for Visit Reason for Visit: ABD Pain\V Brief History: Drew Dixon is a 54 year old male with a past medical history significant for carcinoid tumor, some prior small bowel obstruction, lung nodule, type 2 diabetes mellitus, hypertension, and hyperlipidemia who presents to the emergency department with nausea and vomiting with onset on Thursday afternoon. Endorses associated abdominal pains. Describes pain as diffuse across all 4 quadrants. Reports diarrhea. Denies alleviating or aggravating factors. He reports a history of prior small bowel obstructions. In the emergency department, imaging revealed small bowel obstruction without transition point. Patient reports this is his third time he had bowel obstruction. Denies prior surgery for SBO. ED provider to place NG tube. Hospital Course Hospital Course #Small bowel obstruction- likely secondary to adhesions History of prior small bowel obstruction History of multiple abdominal surgeries - No transition point on imaging - Start IV fluids - NG tube for bowel decompression - Antiemetics as needed - Analgesics as needed - Anticipate general surgery consult in AM 10/12/24 Leucocytosis 13.9. General surgery consulted. Appreciate recommendations. Continue NG tube to suction, has dark brownish aspirate present. Will continue IV fluids and pain control as needed. 10/13/24 Leukocytosis resolved. NG tube removed. abdominal exam improving. Patient going for Gastrografin trial as per GI. Will follow for further recommendations. Denies any complaint of nausea/vomiting/diarrhea or abdominal pain. Has been able to pass flatus. Continue to monitor for now. Able to tolerate liquid diet. 10/14/24 Had multiple bowel movements yesterday, denies abdominal pain. Able to tolerate GI soft diet. will discharge home to be followed up with surgery as outpatient in 2 weeks. Patient will require daily MiraLAX. He can return to my office in 2 weeks for follow-up. Of note, patient is to stop Ozempic as it has shown association with increased risk for intestinal obstruction and with patient history of previous SBO as well as new episode of SBO he is not a good candidate for this medication. Physical Exam Narrative: General: Patient is awake. Ill-appearing. Head: Normocephalic. Atraumatic. EOM intact. Dry mucous membranes. Neck: No JVD. Cardiovascular: RRR. No gallops. No murmurs. Lungs: Clear to auscultation, no use of accessory muscles, no crackles or wheezes. Skin: No jaundice. No rashes. Abdomen: soft, NT ND normal bowel sounds Genito Urinary: Genital exam not performed since complaints not related. Rectal: Rectal exam not performed since no symptoms indicated blood loss. Extremities: No cyanosis or clubbing. Musculoskeletal: No swollen or erythematous joints. Neurological: Moves all 4 extremities. No myoclonus. Discharge Data Studies Completed and Pending Completed Studies During Hospitalization Category Date Time Status CT abdomen pelvis w con* [id number] Stat Cat Scan 10/12/24 04:22 Completed XR KUB portable [id number] Stat Exams 10/13/24 10:30 Completed XR chest 1V [id number] Routine Exams 10/12/24 05:40 Completed Radiology Impressions Abdomen/Pelvis CT 10/12/24 04:22 IMPRESSION: Small bowel obstruction without focal transition, suspicion of adhesions given the dilated loops appear Jennifer plexus against the anterior peritoneal reflection and the overlying midline abdominal wall postsurgical changes. ADDENDUM: 10/12/24 0517 ADDENDUM: Case was discussed with the care provider on 10/12/2024 at 5:15 a.m. Chest X-Ray 10/12/24 05:40 IMPRESSION: 1. Enteric tube as above. 2. No acute cardiopulmonary findings. Laboratory Results WBC 5.22 10^3/uL (3.29-11.43) 10/14/24 04:48 RBC 4.84 10^6/uL (3.85-5.65) 10/14/24 04:48 Hgb 13.80 g/dL (11.27-16.99) 10/14/24 04:48 Hct 45.1 % (37-53) 10/14/24 04:48 MCV 93.2 fl (82-101) 10/14/24 04:48 MCH 28.5 pg (27-33) 10/14/24 04:48 MCHC 30.6 g/dL (30-55) 10/14/24 04:48 RDW 14.8 % (12.1-15.1) 10/14/24 04:48 Plt Count 247 10^3/cmm (157-399) 10/14/24 04:48 MPV 10.6 fL (7.4-10.4) H 10/14/24 04:48 Neut % (Auto) 63.0 % 10/14/24 04:48 Lymph % (Auto) 23.4 % 10/14/24 04:48 [place] % (Auto) 8.8 % 10/14/24 04:48 Eos % (Auto) 3.8 % 10/14/24 04:48 Baso % (Auto) 0.6 % 10/14/24 04:48 Neut # (Auto) 3.29 10^3/uL (1.8-7.7) 10/14/24 04:48 Lymph # (Auto) 1.2 10^3/uL (0.8-4.8) 10/14/24 04:48 [place] # (Auto) 0.5 10^3/uL (0.2-0.9) 10/14/24 04:48 Eos # (Auto) 0.2 10^3/uL (0.0-0.8) 10/14/24 04:48 Baso # (Auto) 0.0 10^3/uL (0.0-0.1) 10/14/24 04:48 Nucleated RBC % (auto) 0 % 10/14/24 04:48 Nucleated RBCs # 0.0 /100WBC 10/14/24 04:48 Sodium 140 mmol/L (136-145) 10/14/24 04:48 Potassium 3.7 mmol/L (3.5-5.1) 10/14/24 04:48 Chloride 104 mmol/L (98-107) 10/14/24 04:48 Carbon Dioxide 26 mmol/L (22-29) 10/14/24 04:48 Anion Gap 13.7 (5-19) 10/14/24 04:48 BUN 17 mg/dL (6-20) 10/14/24 04:48 Creatinine 0.8 mg/dL (0.7-1.2) 10/14/24 04:48 GFR Calculation 101.5 mL/min (90-130) 10/14/24 04:48 Glucose 142 mg/dL (65-115) H 10/14/24 04:48 POC Glucose 145 mg/dL (70-110) H 10/14/24 06:18 Calculated Osmolality 294 mOsm/kg (285-295) 10/14/24 04:48 Calcium 8.7 mg/dL (8.5-10.5) 10/14/24 04:48 Phosphorus 2.4 mg/dL (2.5-4.5) L 10/13/24 05:56 Magnesium 2.4 mg/dL (1.7-2.3) H 10/13/24 05:56 Total Bilirubin 0.7 mg/dL (0.15-1.2) 10/13/24 05:56 AST 22 U/L (0-40) 10/13/24 05:56 ALT 56 U/L (0-41) H 10/13/24 05:56 Alkaline Phosphatase 86 U/L (40-130) 10/13/24 05:56 Total Protein 6.9 g/dL (6.6-8.7) 10/13/24 05:56 Albumin 4.0 g/dL (3.5-5.2) 10/13/24 05:56 Globulin 2.9 g/dL (1.3-4.6) 10/13/24 05:56 Vitals Last Vital Signs Temp 97.9 F 10/14/24 07:57 Pulse 73 10/14/24 07:57 Resp 17 10/14/24 07:57 BP 139/80 10/14/24 07:57 Pulse Ox 97 10/14/24 07:57 O2 Del Method Room Air 10/14/24 07:57 Discharge Plan Discharge Patient Disposition: Home Condition: Stable Prescriptions: New polyethylene glycol 3350 [Miralax] 17 gram powder in packet 17 g PO DAILY Qty: 30 3RF Continued melatonin 5 mg capsule 10 mg PO BEDTIME magnesium oxide 400 mg magnesium tablet 400 mg PO DAILY Qty: 90 3RF Incruse Ellipta 62.5 mcg/actuation blister with device 1 inh inhalation DAILY Qty: 90 6RF irbesartan-hydrochlorothiazide 150-12.5 mg tablet 1 tab PO BID pravastatin 40 mg tablet 40 mg PO QPM amlodipine 5 mg tablet 5 mg PO DAILY Rx Instructions: along with 2.5mg to=7.5mg total metformin 500 mg tablet 1,000 mg PO BID multivitamin Tablet 1 tab PO DAILY aspirin 81 mg Tablet,Delayed Release (Dr/Ec) 81 mg PO DAILY gabapentin 300 mg capsule 300 mg PO BID cyclobenzaprine 10 mg tablet 10 mg PO TID PRN (Reason: muscle spasm) Qty: 15 0RF ondansetron 4 mg tablet,disintegrating 4 mg PO Q6H PRN (Reason: nausea and vomiting) Qty: 14 0RF citalopram 10 mg tablet 10 mg PO DAILY insulin glargine [Lantus Solostar U-100 Insulin] 100 unit/mL (3 mL) insulin pen 24 unit SUBCUT BEDTIME Jardiance 10 mg tablet 10 mg PO QAM Discontinued Ozempic 0.25 mg or 0.5 mg (2 mg/3 mL) pen injector 0.25 mg SUBCUT Q7D amlodipine 2.5 mg tablet 2.5 mg PO DAILY Rx Instructions: along with 5mg to=7.5mg total Ozempic 2 mg/dose (8 mg/3 mL) pen injector 2 mg SUBCUT Q7D No Action (DME) left knee medial oil and gas drafter brace See Rx Instructions .Route .MEDSUPPLY Qty: 1 0RF Rx Instructions: As directed Discharge Orders: Discharge Order (Routine); Ordered 10/14/24 Ordered By: Charleen Lacey Referrals: Ryan Martinez [Primary Care Provider] - 10/17/24 2:20 pm James Graham MD [Physician] - 10/28/24 Discharge Diet: GI Soft Discharge Activity: Increase activity as tolerated Patient Instructions: GI (Gastrointestinal) Soft Diet (DC), Opioid Safety Activity Restrictions/Additional Instructions: General Surgery instructions: Please do not use the Ozempic anymore, please make an appointment with the provider that is managing your diabetes to ask for alternatives, you are not a good candidate for Ozempic at this point as it increases the risk of intestinal obstruction. Take your MiraLAX daily this will keep things flowing. Continue GI soft diet. Return to my office in 2 weeks for follow-up or as needed. Return to the hospital you have fever chills severe abdominal pain that is getting worse over time nausea vomit. Discharge Attestations Time Spent in Discharge Care*: less than 30 min Quality Metrics Clinical Quality Measures [ No reported AMI, CVA or VTE this stay] Coding Level of Care Code Acute Code for Chg Fwd Diagnoses Small bowel obstruction K56.609 Time Spent (min) 15
[2024-10-14 11:40] LABS: Glucose Point of Care 155 mg/dL (70-110)
[2024-10-14 11:45] VITALS: BP 121/72; PULSE 71; RESP 18; TEMP 36.4; O2SAT 96
[2024-10-14 12:54] VITALS: BP 121/72; PULSE 71; O2SAT 96
== END 2024-10-14 12:57 | disposition home or self-care (01) ==
LOC: ER 05:20 → MEDSURG 05:52
PROVIDERS: Admitting Provider Internal Medicine; Emergency Provider Emergency Medicine; PCP Family Medicine; Visit Provider Internal Medicine
DX: K56.609 Unspecified intestinal obstruction, unspecified as to partial versus complete obstruction (principal); Z79.82 Long term (current) use of aspirin; Z79.84 Long term (current) use of oral hypoglycemic drugs; Z79.4 Long term (current) use of insulin; E11.9 Type 2 diabetes mellitus without complications; Z86.012 Personal history of benign carcinoid tumor; R91.1 Solitary pulmonary nodule; I10 Essential (primary) hypertension; E78.5 Hyperlipidemia, unspecified; Z87.891 Personal history of nicotine dependence
CPT/HCPCS: 36415; 36416; 71045; 74018; 74177; 80048; 80053; 82962; 83735; 84100; 85025; 96365; 96366; 96372; 96375; 99285; G0378; J1650; J1815; J2060; J2405; J2470; J3480; J9999

== ENCOUNTER 2024-10-25 11:47 | Outpatient (CLI) | payer MEDICARE, MEDICAID, SELFPAY ==
--- NOTE | 2024-10-25 13:05 | OP.DCCON ---
Outpatient Dietitian Note Assessment Anthropometrics: Height: [69 inches] Weight History: [Pt currently weighs 253lbs, but has been down to 217 and up to 300 in past 5-6 years.] Biochemical: Hgb, (11.27-16.99) 13.80 g/dL 10/14/24, 04:48 Hct, (37-53) 45.1 % 10/14/24, 04:48 BUN, (6-20) 17 mg/dL 10/14/24, 04:48 Creatinine, (0.7-1.2) 0.8 mg/dL 10/14/24, 04:48 GFR Calculation, (90-130) 101.5 mL/min 10/14/24, 04:48 Random Glucose, (65-115) 136 mg/dl H 02/14/19, 19:21 Clinical: Home Medications ?Medication ?Instructions ?Recorded ?Confirmed ?Last Taken ?Type amlodipine 5 mg tablet 5 mg PO DAILY 02/06/20 10/25/24 10/11/24 History irbesartan 150 1 tab PO BID 02/06/20 10/25/24 10/11/24 History mg-hydrochlorothiazide 12.5 mg tablet pravastatin 40 mg tablet 40 mg PO QPM 02/06/20 10/25/24 10/10/24 History melatonin 5 mg capsule 10 mg PO BEDTIME 03/19/21 10/25/24 10/11/24 History metformin 500 mg tablet 1,000 mg PO BID 01/01/22 10/25/24 10/11/24 History aspirin 81 mg tablet,delayed 81 mg PO DAILY 12/24/22 10/25/24 10/11/24 History release gabapentin 300 mg capsule 300 mg PO BID 12/24/22 10/25/24 10/11/24 History multivitamin 1 tab PO DAILY 12/24/22 10/25/24 10/11/24 History umeclidinium 62.5 mcg/actuation 1 inh inhalation DAILY #90 ea 04/07/23 10/25/24 10/11/24 Rx blister powder for inhalation (Incruse Ellipta) left knee medial hopper feeder brace #1 ea 04/22/24 10/25/24 Unknown Rx cyclobenzaprine 10 mg tablet 10 mg PO TID PRN muscle spasm #15 07/03/24 10/25/24 Unknown Rx tabs magnesium oxide 400 mg PO DAILY #90 tabs 09/29/24 10/25/24 10/11/24 Rx citalopram 10 mg tablet 10 mg PO DAILY 10/12/24 10/25/24 10/11/24 History empagliflozin 10 mg tablet 10 mg PO QAM 10/12/24 10/25/24 10/11/24 History (Jardiance) insulin glargine 100 unit/mL (3 24 unit SUBCUT BEDTIME 10/12/24 10/25/24 10/10/24 History mL) subcutaneous pen (Lantus Solostar U-100 Insulin) ondansetron 4 mg disintegrating 4 mg PO Q6H PRN nausea and 10/12/24 10/25/24 Unknown Rx tablet vomiting #14 tabs polyethylene glycol 3350 17 gram 17 g PO DAILY #30 ea 10/14/24 10/25/24 Unknown Rx oral powder packet (Miralax) metoprolol succinate 25 mg 12.5 mg (1/2 x 25 mg) PO DAILY #45 10/17/24 10/25/24 Unknown Rx tablet,extended release 24 hr tabs Allergies Allergy/AdvReac Type Severity Reaction Status Date / Time prednisone Allergy Severe ADR-Agitate Verified 10/25/24 07:45 d Medical History (Updated 10/23/24 @ 11:44 by Trey Lyons MD) Sarcoidosis SBO (small bowel obstruction) Carcinoid tumor Lung nodule Type 2 diabetes mellitus HTN (hypertension) Hyperlipidemia Surgical History (Updated 10/15/24 @ 00:01 by TALIB Hirsch) History of exploratory laparotomy H/O knee surgery History of back surgery H/O shoulder surgery History of gastric surgery History of appendectomy H/O rhinoplasty Active Problems Problem Status Onset PAC (premature atrial contraction) Acute LV dysfunction Acute Osteoarthritis of left knee Acute Hilar adenopathy Acute Bone lesion Acute Small airways disease Acute Lung nodule Acute Dietary: Supplements: [Pt takes mens MV, fish oil, apple cider vinegar.] Dietary Patterns: [24hr recall: Drew woke up between 2-3am, has egg substitute, 4 pc toast and 2 cups milk. At lunch had 2 containers vanilla pudding plus 2 applesauce and 2 cups milk. Between 5-6 he had applesauce and pudding again.] Oral Intake: [Typically he drinks 8-10 sugar free sodas'day, 4-6cups milk/day, and 12-16 cups water/day. He also mentioned 1-2 coffees in the morning. Per Drew, he is still on a GI soft diet for 2 more weeks.] Behaviors with Food: [There have been times in his life where he has been depressed and not active and ate what he wanted and gained weight. ] Food Allergies: [NKA with food according to Drew.] Concerns/Issues: [Drew would like to eat healthily and lose weight. We discussed losing 10% of his current weight, getting down to around 220lbs rather then the 160lbs he suggested.] Environment: Job: [Disabled] Exercise: [When asked about activity, he mentioned karate - he is a low blue belt. Walking was suggested, but then he told me about his left knee he is hoping to have replaced. Throughout our session he was rubbing his left kneecap.] Hobbies: [] Sleep Patterns: [He has a CPAP and probably gets 5-6 hours of sleep/night which he said is all he needs.] Reason for Referral/Concerns and Goals Reason for Referral: [id number] - K56.609/E11.65/E66.01 Concerns and Goals: Drew said he hasn't had a bowel movement since Thursday, and since he takes Miralax 2x/day I suggested he call Dr. Martinez's office and let them know. Because he said he needs to be on a GI soft diet for 2 more weeks, we discussed healthy eating for after that time period. Diagnosis [Excessive energy intake] related to [habits and patterns] as evidenced by [BMI of 38Kg/m2.]. Intervention Nutrition Education: Drew eats a lot of perpared meals and meals that are brought to him by [employer]. We talked about what a lean protein, fiber rich diet would like like after he finishes with his GI soft diet. Because he drinks 8-10 sodas/day we discussed the benefits of more water and less soda because of no nutrients and high in caffeine even if they are sugar free. He said he eats out 1-2x/month, but then mentioned [employer] menu as part of his regular routine. Walking was mentioned as another alternative and he glazed over, but he was intrigued by the PT rehab that would be necessary if he gets a knee replacement - that could jump start more activity in his life. His diet is heavily influenced by processed food and I'm not sure that will change. SMART Goals: 1. Include oats, applesauce, pears w/out skins while on GI soft diet. 2. Avoid spicy and fried foods while on GI soft diet. 3. Drink 64 ounces water and avoid soda - one a day as a treat 4. Snack on popcorn and pretzels. 5. When GI soft diet is finished, used handouts to gradually increase fiber and use 1600kcal meal plans as a template for portion control and variety in eating. 6. When Physical Therapy for his knee starts, use that time to jump start increased activity. If walking can be tolerated now, walk 1-2x/day for short periods of time. 7. Let Dr. Martinez know you haven't had a BM in 3 days. 8. F/U questions can be sent to contact information which was provided. Monitoring/Evaluation Follow-up Recommendations: Contact information for questions or concerns following your appointment: email: [email or web address] or phone: [phone]. Coding Level of Care Code Nutrition/Individ/Init 60 min Time Spent (min) 60
== END 2024-10-25 11:48 | disposition home or self-care (01) ==
PROVIDERS: PCP Family Medicine; Visit Provider Nurse Practitioner Family
DX: M17.12 Unilateral primary osteoarthritis, left knee (principal); Z09 Encounter for follow-up examination after completed treatment for conditions other than malignant neoplasm
CPT/HCPCS: 99213; 99214

== ENCOUNTER → 2024-11-04 11:38 | Outpatient (BNVA) | payer MEDICAID, SELFPAY | PROVIDERS: PCP Family Medicine; Visit Provider Family Medicine | DX: Z01.818 Encounter for other preprocedural examination (principal); E11.9 Type 2 diabetes mellitus without complications | CPT/HCPCS: 80048; 81003; 83036; 85007; 85027 ==

== ENCOUNTER 2024-11-08 06:51 | Outpatient (CLI) | payer MEDICAID, SELFPAY ==
--- NOTE | 2024-11-08 07:00 | CT_ITS ---
WS: [id number] CT LEFT KNEE, NONCONTRAST [facility] TECHNIQUE: Noncontrast CT of the LEFT knee to include the LEFT hip and ankle. CLINICAL INFORMATION: M17.12 - Unilateral primary osteoarthritis, left knee DLP: 960.[address] scans at [facility] use at least one of these dose optimization techniques: automated exposure control; mA and/or kV adjustment per patient size (includes targeted exams where dose is matched to clinical indication); or iterative reconstruction. FINDINGS: Advanced tricompartment arthritis LEFT knee. Hypertrophic changes along the joint line. Small suprapatellar effusion. Hypertrophic patella. [id number] articulation medial joint compartment. Prostate enlargement measuring 4.8 cm. Recommend correlation PSA. Small fat- containing LEFT inguinal hernia. CT/CT knee LT SHILPI [id number] IMPRESSION: Images obtained for preoperative purposes.
== END 2024-11-08 06:52 | disposition home or self-care (01) ==
PROVIDERS: PCP Family Medicine; Visit Provider Student in an Organized Health Care Education/Training Program
DX: M17.12 Unilateral primary osteoarthritis, left knee (principal); M25.462 Effusion, left knee; M89.38 Hypertrophy of bone, other site; R93.6 Abnormal findings on diagnostic imaging of limbs; N40.0 Benign prostatic hyperplasia without lower urinary tract symptoms; K40.90 Unilateral inguinal hernia, without obstruction or gangrene, not specified as recurrent
CPT/HCPCS: 73700

== ENCOUNTER 2024-11-21 11:57 | Observation (INO) | payer MEDICARE, MEDICAID, SELFPAY ==
[2024-11-21] VITALS (19 sets, daily range): BP systolic 103–146; BP diastolic 54–89; PULSE 83–106; RESP 14–18; TEMP 36.5–37.2; O2SAT 90–97; BMI 38.2
[2024-11-21] MEDS: ketorolac 30 mg/mL INJ IVP (09:00)
[2024-11-21] MEDS: acetaminophen 1,000 MG/100 ML PIGGYBACK 400 MG IV ×2 (09:00→17:14)
[2024-11-21] MEDS: sodium chloride 0.9% 1,000 ML 30 ML IV (09:00)
[2024-11-21] MEDS: scopolamine 1 mg PATCH 1 PATCH TRANSDERMA (09:01)
[2024-11-21 09:24] LABS: Glucose Point of Care 204 mg/dL (70-110)
--- NOTE | 2024-11-21 09:33 | W.PM.OPSUD ---
Surgery/Procedure H&P Update DATE OF PROCEDURE: November 21, 2024 DATE H&P PERFORMED: 10/25/24 H&P UPDATE INFORMATION: I have reviewed H&P completed within last 30 days, I have examined patient prior to procedure and No changes to prior documentation PREOP DIAGNOSIS: Left knee DJD PRIMARY INDICATION FOR PROCEDURE: Left knee DJD PLANNED PROCEDURE: Operation Date: 11/21/24 10:05 Proposed Procedures p Timur Robot Total Knee Arthroplasty(Left) - Howard Rob DO
--- NOTE | 2024-11-21 09:41 | ANES.PREANE2 ---
Pre-Anesthetic Assessment Height/Weight: Height 1.75 m Weight 117.48 kg Temp Pulse Resp BP Pulse Ox O2 Del Method 98.9 F 83 18 119/83 96 Room Air 11/21/24 08:45 11/21/24 08:45 11/21/24 08:45 11/21/24 09:01 11/21/24 08:45 11/21/24 08:47 Preop Diagnosis: Left knee DJD Operation Date: 11/21/24 10:05 Proposed Procedures p Timur Robot Total Knee Arthroplasty(Left) - Howard Rob DO Familial anesthetic complications: none Was Beta Nolan taken within 24 hours: Yes (Given by anesthesia) Was Clonidine taken within 24 hours: N/A Last intake: Intake Last Liquid Date 11/20/24 Last Liquid Time 21:00 Last Solid Date 11/20/24 Last Solid Time 18:00 Social No alcohol and No tobacco Exam alert, oriented x 3, clear to auscultation bilaterally (Wheeze RUL cleared with coughing) and regular rate & rhythm Airway Cervical ROM: within normal limits Mallampati: Class II Dentition: full Pulmonary None reported (Lung Cancer) CV/HEM Hypertension Stress test 7.5 METS None reported Hepatic None reported GI Gastroesophageal Reflux Disease (no symptoms today) Metabolic Diabetes Mellitus (Preop BG 204) and Morbid Obesity Musc/skel Lower Back Pain (Fusion L3-L5) and Osteoarthritis/DJD Neuropsych None reported Anesthetic Plan ASA status: 3 Anesthesia: Eval. for regional block and General Risk of > 500 ml blood loss (7ml/kg in children): No Medications/Allergies Home Medications ?Medication ?Instructions ?Recorded ?Confirmed ?Last Taken ?Type irbesartan 150 1 tab PO BID 02/06/20 11/17/24 11/20/24 History mg-hydrochlorothiazide 12.5 mg tablet pravastatin 40 mg tablet 40 mg PO QPM 02/06/20 11/17/24 11/20/24 History melatonin 5 mg capsule 10 mg PO BEDTIME 03/19/21 11/17/24 11/20/24 History metformin 500 mg tablet 1,000 mg PO BID 01/01/22 11/17/24 11/20/24 History aspirin 81 mg tablet,delayed 81 mg PO DAILY 12/24/22 11/17/24 11/16/24 History release gabapentin 300 mg capsule 300 mg PO BID 12/24/22 11/17/24 11/20/24 History multivitamin 1 tab PO DAILY 12/24/22 11/17/24 11/17/24 History umeclidinium 62.5 mcg/actuation 1 inh inhalation DAILY #90 ea 04/07/23 11/17/24 11/20/24 Rx blister powder for inhalation (Incruse Ellipta) left knee medial retort unloader brace #1 ea 04/22/24 10/25/24 Unknown Rx cyclobenzaprine 10 mg tablet 10 mg PO TID PRN muscle spasm #15 07/03/24 11/21/24 11/20/24 Rx tabs magnesium oxide 400 mg PO DAILY #90 tabs 09/29/24 11/17/24 11/20/24 Rx citalopram 10 mg tablet 10 mg PO DAILY 10/12/24 11/17/24 11/20/24 History empagliflozin 10 mg tablet 10 mg PO QAM 10/12/24 11/21/24 11/20/24 History (Jardiance) insulin glargine 100 unit/mL (3 24 unit SUBCUT BEDTIME 10/12/24 11/17/24 11/20/24 History mL) subcutaneous pen (Lantus Solostar U-100 Insulin) ondansetron 4 mg disintegrating 4 mg PO Q6H PRN nausea and 10/12/24 11/21/24 Unknown Rx tablet vomiting #14 tabs polyethylene glycol 3350 17 gram 17 g PO DAILY #30 ea 10/14/24 11/17/24 Unknown Rx oral powder packet (Miralax) metoprolol succinate 25 mg 12.5 mg (1/2 x 25 mg) PO DAILY #45 10/17/24 11/17/24 11/20/24 Rx tablet,extended release 24 hr tabs Allergies Allergy/AdvReac Type Severity Reaction Status Date / Time marijuana (cannabis) Allergy Severe ADR-Gastrointestinal Verified 11/04/24 11:19 Upset prednisone Allergy Severe ADR-Agitate Verified 11/04/24 11:19 d Current Medications Generic Name Dose Route Start Last Admin Trade Name Freq PRN Reason Stop Dose Admin Sodium Chloride 1,000 mls @ 30 mls/hr 11/21/24 08:15 11/21/24 09:00 Sodium Chloride 0.9% IV 11/22/24 08:14 30 mls/hr .Q24H MYLENE Administration PFSH Anesthesia Medical History Sarcoidosis SBO (small bowel obstruction) Carcinoid tumor Lung nodule Type 2 diabetes mellitus HTN (hypertension) Hyperlipidemia Surgical History History of exploratory laparotomy H/O knee surgery History of back surgery H/O shoulder surgery History of gastric surgery History of appendectomy H/O rhinoplasty Family History Family/Other Diabetes Grandfather Heart disease Grandmother Cancer Leukemia Other Dementia Hyperlipidemia Hypertension Lung disease Stroke Denies family history of CAD (coronary artery disease) Clotting disorder Psychiatric illness Chronic kidney disease (CKD) Suicide Anesthesia complication Bleeding disorder Social History Smoking and tobacco/nicotine status: former use of tobacco/nicotine Quit status (tobacco/nicotine): has quit using Year quit tobacco: 2001 Former quit date comment: Hx of 1 PPD x 12 Years Second hand smoke exposure: No Alcohol intake: current Alcohol intake frequency: holidays/special occasions only Substance/Drug Use: never Lives independently: Yes Household members: family Marital status: Single Current occupational status: disabled Do you think of yourself as: Straight/Heterosexual Current gender identity: Male Data Anesthesia Cardiac Studies: Sestamibi Stress Test (Cardiology) 10/10/24
[2024-11-21 09:52] LABS: Basophils % 0.5 %; Eosinophils # 0.1 10^3/uL (0.0-0.8); Eosinophils % 2.1 %; Hematocrit 41.8 % (37-53); Lymphocytes # 1.3 10^3/uL (0.8-4.8); Lymphocytes % 22.1 %; Mean Corpuscular HGB Conc 32.3 g/dL (30-55); Mean Corpuscular Hemoglobin 28.3 pg (27-33); Mean Corpuscular Volume 87.6 fl (82-101); Monocytes # 0.4 10^3/uL (0.2-0.9); Monocytes % 6.6 %; Neutrophils # 4.15 10^3/uL (1.8-7.7); Neutrophils % 68.4 %; Nucleated Red Blood Cells % 0 %; Platelet Count 233 10^3/cmm (157-399); Red Blood Count 4.77 10^6/uL (3.85-5.65); Red Cell Distribution Width 14.3 % (12.1-15.1); White Blood Count 6.07 10^3/uL (3.29-11.43)
[2024-11-21] MEDS: tranexamic acid 1,000 mg/10mL SDV 1000 MG IV (10:00)
[2024-11-21 10:05] LABS: Blood Urea Nitrogen 12 mg/dL (6-20); Calcium 8.9 mg/dL (8.5-10.5); Carbon Dioxide 25 mmol/L (22-29); Chloride 103 mmol/L (98-107); Creatinine Clr Calc Pharmacy 156.1162; Glomerular Filtration Rate 118.4 mL/min (90-130); Glucose 226 mg/dL (65-115); Osmolality Calculated 293 mOsm/kg (285-295); Sodium 138 mmol/L (136-145)
[2024-11-21] MEDS: ceFAZolin 2,000 MG in sodium chloride 0.9% (plus) 50 ML 100 MG IV ×2 (10:15→18:00)
--- NOTE | 2024-11-21 10:18 | ANES.PROC ---
Anesthesia Procedures Procedure/Date: 11/21/24 Nerve Block ^: Nerve Block 1: Main Anesthesia: general anesthesia Time Out Performed: Yes Consent: requested by attending/covering physician and from patient Nerve block location: adductor canal Anesthesia monitors applied: pulse oximetry, EKG, BP cuff and oxygen Nerve block position: supine Anesthetic Used: ropivicaine 0.5% Amount of anesthesia used (mL): 15 Ultrasound used to: recognize landmarks Interscalene/Femoral BLK: other needle (pjunk 4inch) Injection: neg aspiration of heme Patient Tolerated Procedure: well Complications: none
[2024-11-21] MEDS: ROPivacaine 0.2% Premix 100 mL 200 MG INTRA-ARTI (11:00)
[2024-11-21] MEDS: ketorolac 30 mg/mL INJ XX (11:03)
[2024-11-21] MEDS: tranexamic acid 1,000 mg/10mL SDV 1000 MG XX (11:03)
[2024-11-21] MEDS: EPINEPHrine 1 mg/mL INJ XX (11:03)
[2024-11-21] MEDS: VANCOMYCIN ADD-Vantage 1,000 MG VIAL 1000 MG XX (11:06)
--- NOTE | 2024-11-21 12:13 | W.PM.BPON ---
Date of Procedure: 11/21/2024 Surgeon: Howard Rob DO Milking Machine Operator(s): Ced Rob PA-C Procedure(s) performed: Left total knee arthroplasty?Timur robotic assisted Findings of the procedure(s): Patient underwent procedure as planned without issues or complications. Estimated blood loss: 25 mL Specimen(s) removed: Tibia femur and patellar bone cuts removed Post-operative diagnosis: Left knee DJD
--- NOTE | 2024-11-21 12:14 | PM.OP ---
Operative Report Date of procedure: November 21, 2024 Surgeon: Howard Rob DO Take Out Waiter/Waitress: Ced Rob PA-C: PA was necessary for assistance in this case with leg positioning retraction and protection of neurovascular structures as well as assistance in implantation wound closure and dressing application. Procedure: Preoperative diagnosis: Left knee degenerative joint disease Post-op diagnosis: Same Procedure done: Left total knee arthroplasty, cemented?robotic assisted Timur Implants: Randal triathlon size 5 femur CR cemented?left Randal triathlon size? 5 tibia universal baseplate cemented [place] triathlon symmetric patella size 31 mm Randal triathlon polyethylene 13mm (x 2)?1 was wasted as mechanism did not snap in Surgeon: Howard Rob DO Estimated blood?loss: 25 mL Tourniquet 71 minutes IV fluids: 1100mL Urine output: 50 mL Complications: None Condition: stable Disposition: floor Brief History: Patient is a 54-year-old male with with chronic?left knee degenerative joint disease.? Patient has been worked up in the outpatient setting in the orthopedic office at this point time through shared decision making given? [id number] arthritis as well as failed conservative treatment, and pt would?like to proceed with a?left total knee arthroplasty.? Through shared decision making elected to proceed with surgical intervention for?left total knee arthroplasty?Timur robotic assist. We talked about continued conservative treatment and surgical intervention as far as the risk benefits complications alternatives surgical and nonsurgical treatment options.? At this point time understanding patient risks with surgery patient agrees to proceed with surgical intervention.? Once again? risk with surgery include but are not?limited to make it better make it worse blood clot, heart attack, stroke, on the table, infection, injury to nerves or vessels, persistent pain, arthrofibrosis, implant failure.? Understanding these risks patient agrees to proceed with surgical intervention consent was obtained in the preoperative holding area.? All questions answered. Procedure: Patient was seen and evaluated in the preoperative holding area.? Consent was reviewed and signed with patient with plan for?left total knee arthroplasty.? All questions answered.? Correct extremity marked.? Patient seen and evaluated by the anesthesia department and once cleared for surgery was taken back to the operative suite.? Patient was placed into a supine position on the OR table.? All bony prominences were well-padded.? Patient was appropriately secured to the bed.? Patient underwent anesthesia per the anesthesia department.? Patient received anesthesia per the anesthesia apartment and? Escobar catheter was placed.? A nonsterile tourniquet was applied to the?left thigh.? At this point in time a final timeout performed.? Patient received appropriate preoperative antibiotics and TXA. Next the?left?lower extremity was then prepped and draped in standard orthopedic fashion. Esmarch tourniquet was used exsanguinate the?left?lower extremity.? Tourniquet was insufflated to 250 mmHg. A standard anterior incision was made over midline of the knee.? Sharp scalpel excision through skin and subcutaneous tissue full-thickness skin flaps were made.? Fascia was elevated off of the extensor retinaculum was stable with medial parapatellar arthrotomy was then made.? The performed standard sequential releases..? Immediately on entry into the joint patient was found to have severe eburnated bone and tricompartmental arthritic changes noted.? With significant osteophyte formation.? Next the the patella was then stuffed and the knee was then flexed.?? Ml was placed superiorly around the anterior aspect of the femur this was freed of synovium and I subsequently then placed by 2 femur pins to establish my femur arrays for the Timur robot.? These were then placed bicortically and? femur array was then appropriately secured with appropriate visualization.? Next attention was turned towards the tibial rays.? These were then drilled sequentially bicortically in parallel fashion and intraincisional.? I then placed my guide as well as my tibial array on in place.? This was appropriately secured and had excellent visualization with the Timur robot.? Next the tibial checkpoint as well as femur checkpoint were then placed.? At this point time I then subsequently established my head center as well as my medial?lateral malleoli as well as my checkpoints.? Next utilizing standard Timur technology I then mapped out the appropriate points and confirmation points around the femur as well as the tibia in standard fashion.? Once this was then done I then removed all osteophytes in preparation for dynamic testing.? All osteophytes were removed as well as I removed the ACL and the PCL was excised due to its significant tearing and degeneration noted.? At this point time the knee was brought into full extension and we performed our standard evaluation of our gap balancing stressing his?ligaments and extension as well as flexion appropriate adjustments were made to have appropriate gap balancing in both flexion and extension.? This plan for final counts. Patient found to have severe varus deformity with hyperextension underwent correction to ligamentous tolerances. We get a preoperative plan evaluating our implants which was a size 5 femur and a size 5 tibia.? Next we brought in the Timur robot and sequentially made our femur cuts.? All excess bony cuts were then removed.? Finally we made our tibial cut.? Once this was done a standard PCL retractor was then placed into this position I excised the medial and?lateral meniscus.? The tibial cut was then subsequently removed all excess bony debris was removed.? I then utilized a?lamina cone trucker and remove the posterior osteophytes.? At this point time sized the tibia and confirmed this was a size 5.? I utilized our blunt probe to establish rotation of tibial implant.? Once this was done I then placed my tibia size 5 trial in appropriate position and then subsequently placed tibial pins to hold this into place placed and trialed up to a size 13 mm poly as well as a size 5 femur which was appropriately impacted in place knee was then subsequently brought into extension. Trials were then assessed,? this was stable with varus valgus stress in extension as well as had symmetrical translation when brought into flexion demonstrating symmetrical gaps. I had excellent balance gaps in flexion and extension with varus and valgus stresses.? At this point I was satisfied with these implants these were then verified and opened on the back table size 5 tibia, size 5 femur,? size 13 mm polythickness.? We did confirm appropriate gap balancing and stresses as well as alignment utilizing? Timur and were satisfied with this plan.? ?At this point time with my trials in place I then towel clip the patella everted this made appropriate measurements subsequently utilizing freehand technique performed by patellar resurfacing this was confirmed to be appropriate resection and subsequently sized to be a 31 mm symmetric.? My drill peg guides were then clamped and appropriate position and appropriate position in the patella for appropriate tracking and parallel with the joint.? Pegs were drilled trial implant was placed and the knee was then subsequently ranged and found to have excellent patellar tracking.? Femur pegs were then drilled.? At this point time all of our trial implants were removed.? All checkpoints as well as guidepins and arrays were removed and appropriate counts made. Satisfied with our tibial placement rotation I then utilized the keel punch and prepped the tibia.? The wound bed? was thoroughly irrigated and dried and prepped for cementation.? Cement was mixed on the back table.? Once cement was ready this was then covered onto the tibia and the tibial baseplate was then impacted and all excess cement was removed.? Next the polyethylene was then impacted into place on the tibial baseplate the mechanism did not click in place as result I subsequently proceeded with cement was placed onto the femur as well as under the femur implants and impacted in to place and all excess cement was extruded and removed.? I placed a trial poly in place just to allow knee to be taken into full extension? to clear all excess cement was removed.? Warm saline was placed over the joint.? I then towel clip patella and dried for cementation. cemented the patella into place.? This was all clamped and the cement was allowed to cure.? Prior to this final curing of the cement they subsequently opened the other 13 mm poly this was then snapped into place the knee was held in extension allowed the cement to cure. Thorough irrigation performed with pulse?lavage.? I then placed my periarticular injection while the cement was curing.? Once cured the knee was taken through range of motion and had excellent stability and gaps were balanced in flexion and extension.? Tourniquet was then deflated. hemostasis satisfactory with electrocautery. Vancomycin powder was placed in wound bed for antibiotic infection prophylaxis.? Next I then subsequently closed the capsule with Ethibond suture as well as a running strata fix suture.? Knee was then taken through range of motion 20 times.? Next the skin was then closed in?layered fashion of running stratifix sutures of deep and subcutenous tissue. Skin was closed in flexion with roselyn.? Incision was covered with gareth incisional VAC, with ABDs soft roll and Álvaro wrap.? Patient was then awakened from anesthesia and taken to PACU in stable condition. Disposition: Patient taken to PACU in stable condition will be admitted to the floor for pain control PT/OT weight-bear as tolerated?left?lower extremity dressing changes as needed, DVT prophylaxis. Pain control. Patient will receive appropriate postoperative antibiotics. patient will be seen today by the internal medicine team for medical management.? Patient will follow up with the office in 2 weeks.? Patient understands agrees with current plan.? All questions answered.
--- NOTE | 2024-11-21 12:24 | XR_ITS ---
WS: [id number] XR knee LT 1-2V 31186 REASON FOR EXAM: post L TKA FINDINGS: Total left knee arthroplasty. Components of the arthroplasty are intact and in proper position and alignment. No focal bony abnormality. XR/XR knee LT 1-2V 72083 IMPRESSION: Total left knee arthroplasty without abnormality as above.
--- NOTE | 2024-11-21 12:32 | PM.PACU ---
PACU note Narrative: Patient is a 54-year-old male that just underwent a left total knee arthroplasty. Pt transferred to PACU in stable condition. Dressing is dry. pt is awake and alert. pt can wiggle toes and plantarflex and dorsiflex foot. pt able to perform straight leg raise, Femoral nerve intact. Distal pulses are palpable toes are warm and well-perfused. Cap refill is normal and under 2 seconds. Sensation to foot is intact. Pain is controlled. Exam: awake Disposition: admitted
--- NOTE | 2024-11-21 12:46 | ANE.PACU2 ---
Inpatient post-anesthesia follow up: Airway intact: Yes Vital signs: Temperature 98.5 F Pulse Rate 102 Respiratory Rate 16 Blood Pressure 143/77 Pulse Oximetry 90 Oxygen Delivery Me thod Room Air Oxygen Flow Rate 6 Fraction of Inspir ed Oxygen Hydration adequate: Yes Nausea and vomiting: No Pain level: 2 Mental status: Baseline
--- NOTE | 2024-11-21 14:10 | PM.CONSULT ---
Providers/Reason For Consult Consulting Physician/Specialty*: Frase/Hospitalist Reason for Consult*: recent SBP, DMT2, HTN, HLD, DILCIA, COPD Requesting Physician: Dr Rob Attending Physician: Howard Rob DO Primary Care Provider: Ryan Martinez History of Present Illness History of Present Illness Drew Dixon is a 54 year old male who presented to [facility] on the day of admission for planned elective left total knee replacement by Dr. Rob. He had general anesthesia. Tolerated procedure well. Estimated blood loss 25 mL. Has continued to require some oxygen postoperatively but is known to have small airway disease. 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 Has remained in remission for more than 2 years now. He uses Incruse Ellipta at home. Remote smoker. Has known sleep apnea on CPAP at night. No reports of any chest pain. Denies shortness of breath or difficulty breathing currently. Using incentive spirometer. Having some pain postoperatively but not beyond what is expected. He lives alone but has a friend who is going to help him out after surgery. This friend is also able to take him to outpatient therapy and his preference is to have outpatient PT versus home health PT if feasible for him. He has not been up with physical therapy yet. Review of Systems General: Reports: Other (ROS as per HPI or as noted here) Card: Denies: chest pain, palpitations, irregular heart rhythm, dyspnea on exertion or orthopnea Resp: Reports: other (Using incentive spirometer); Denies: dyspnea, productive cough or non-productive cough GI: Reports: other (Had a bowel movement this morning); Denies: nausea or vomiting : Reports: other (Requesting removal of Andre catheter) Musc: Reports: other (Appropriate postoperative discomfort at this time) Medications/Allergies Home Medications ?Medication ?Instructions ?Recorded ?Confirmed ?Last Taken ?Type irbesartan 150 1 tab PO BID 02/06/20 11/17/24 11/20/24 History mg-hydrochlorothiazide 12.5 mg tablet pravastatin 40 mg tablet 40 mg PO QPM 02/06/20 11/17/24 11/20/24 History melatonin 5 mg capsule 10 mg PO BEDTIME 03/19/21 11/17/24 11/20/24 History metformin 500 mg tablet 1,000 mg PO BID 01/01/22 11/17/24 11/20/24 History aspirin 81 mg tablet,delayed 81 mg PO DAILY 12/24/22 11/17/24 11/16/24 History release gabapentin 300 mg capsule 300 mg PO BID 12/24/22 11/17/24 11/20/24 History multivitamin 1 tab PO DAILY 12/24/22 11/17/24 11/17/24 History umeclidinium 62.5 mcg/actuation 1 inh inhalation DAILY #90 ea 04/07/23 11/17/24 11/20/24 Rx blister powder for inhalation (Incruse Ellipta) left knee medial retort unloader brace #1 ea 04/22/24 10/25/24 Unknown Rx cyclobenzaprine 10 mg tablet 10 mg PO TID PRN muscle spasm #15 07/03/24 11/21/24 11/20/24 Rx tabs magnesium oxide 400 mg PO DAILY #90 tabs 09/29/24 11/17/24 11/20/24 Rx citalopram 10 mg tablet 10 mg PO DAILY 10/12/24 11/17/24 11/20/24 History empagliflozin 10 mg tablet 10 mg PO QAM 10/12/24 11/21/24 11/20/24 History (Jardiance) insulin glargine 100 unit/mL (3 24 unit SUBCUT BEDTIME 10/12/24 11/17/24 11/20/24 History mL) subcutaneous pen (Lantus Solostar U-100 Insulin) ondansetron 4 mg disintegrating 4 mg PO Q6H PRN nausea and 10/12/24 11/21/24 Unknown Rx tablet vomiting #14 tabs polyethylene glycol 3350 17 gram 17 g PO DAILY #30 ea 10/14/24 11/17/24 Unknown Rx oral powder packet (Miralax) metoprolol succinate 25 mg 12.5 mg (1/2 x 25 mg) PO DAILY #45 10/17/24 11/17/24 11/20/24 Rx tablet,extended release 24 hr tabs Allergies Allergy/AdvReac Type Severity Reaction Status Date / Time marijuana (cannabis) Allergy Severe ADR-Gastrointestinal Verified 11/04/24 11:19 Upset prednisone Allergy Severe ADR-Agitate Verified 11/04/24 11:19 d Current Medications Generic Name Dose Route Start Last Admin Trade Name Freq PRN Reason Stop Dose Admin Chlorhexidine Gluconate 30 ml 11/21/24 13:11 11/21/24 13:47 Chlorhexidine Gluconate 0.12% Btl 473 Ml MUCOUS MEM Not Given QID MYLENE PFSH Acute PFSH: Medical History (Updated 11/21/24 @ 15:59 by Gretel Liu MD) 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 Type 2 diabetes mellitus HTN (hypertension) Hyperlipidemia History of PFTs 2021 History of cardiovascular stress test 10/10/2024 no significant perfusion abnormalities, slightly diminished EF 44%, mild diffuse hypokinesis, mild LV dilatation with ESV 73ml, elevated TID ration of 1.69 may suggest endocardial ischemia; No significant EKG changes, maximum METs 7.5, no exercised induced chest pain or arrhythmia SBO (small bowel obstruction) several over the years, has been managed conservatively and with surgery in past; 09/2022 had lysis of adhesions; 09/2024 conservative management Lung nodule right lower lobe nodules, s/p biopsy and resection Surgical History (Updated 11/21/24 @ 14:57 by Gretel Liu MD) Status post pneumonectomy (09/2022) partial RLL for removal of carcinoid tumor History of lung biopsy 04/2022 bronch with EBUS, pathology revealed carcinoid tumor and evidence of sarcoidosis History of exploratory laparotomy 1998 exploratory lap for obstruction with appendectomy; 12/2022 lysis of adhesion H/O knee surgery History of back surgery H/O shoulder surgery History of gastric surgery History of appendectomy H/O rhinoplasty Family History Family/Other Diabetes Grandfather Heart disease Grandmother Cancer Leukemia Other Dementia Hyperlipidemia Hypertension Lung disease Stroke Denies family history of CAD (coronary artery disease) Clotting disorder Psychiatric illness Chronic kidney disease (CKD) Suicide Anesthesia complication Bleeding disorder Social History Smoking and tobacco/nicotine status: former use of tobacco/nicotine Quit status (tobacco/nicotine): has quit using Year quit tobacco: 2001 Former quit date comment: Hx of 1 PPD x 12 Years Second hand smoke exposure: No Alcohol intake: current Alcohol intake frequency: holidays/special occasions only Substance/Drug Use: never Lives independently: Yes Household members: family Marital status: Single Current occupational status: disabled Do you think of yourself as: Straight/Heterosexual Current gender identity: Male Vitals/I&O/Wt Last Vital Signs Temp 98.5 F 11/21/24 12:45 Pulse 102 H 11/21/24 12:45 Resp 16 11/21/24 13:11 BP 143/77 11/21/24 12:45 Pulse Ox 90 11/21/24 12:45 O2 Del Method Room Air 11/21/24 13:11 O2 Flow Rate 6 11/21/24 12:21 11/20/24 11/21/24 11/21/24 22:59 06:59 14:59 Intake Total 200 / 200 Output Total 75 / 75 Balance 125 / 125 Weight last 48 hrs Weight 117.48 kg Physical Exam Narrative: Patient is awake and alert. Able to provide history. Normocephalic. Pupils are equally reactive, extraocular movements are intact. Moist mucous membranes. Neck is large but supple. Lungs are clear to auscultation bilaterally without any rales rhonchi or wheezes noted. Cardiovascular exam reveals distant heart sounds but regular rhythm. Abdomen is soft. Andre catheter is in place. Left lower extremity with intact dressings and ice pack in place. SCD to right lower extremity and left foot. Able to move toes. Data 11/21/24 09:20 11/21/24 09:20 Other Labs: Radiology Impressions Knee X-Ray 11/21/24 12:24 IMPRESSION: Total left knee arthroplasty without abnormality as above. Laboratory Results WBC 6.07 10^3/uL (3.29-11.43) 11/21/24 09:20 RBC 4.77 10^6/uL (3.85-5.65) 11/21/24 09:20 Hgb 13.50 g/dL (11.27-16.99) 11/21/24 09:20 Hct 41.8 % (37-53) 11/21/24 09:20 MCV 87.6 fl (82-101) 11/21/24 09:20 MCH 28.3 pg (27-33) 11/21/24 09:20 MCHC 32.3 g/dL (30-55) 11/21/24 09:20 RDW 14.3 % (12.1-15.1) 11/21/24 09:20 Plt Count 233 10^3/cmm (157-399) 11/21/24 09:20 MPV 11.0 fL (7.4-10.4) H 11/21/24 09:20 Neut % (Auto) 68.4 % 11/21/24 09:20 Lymph % (Auto) 22.1 % 11/21/24 09:20 [place] % (Auto) 6.6 % 11/21/24 09:20 Eos % (Auto) 2.1 % 11/21/24 09:20 Baso % (Auto) 0.5 % 11/21/24 09:20 Neut # (Auto) 4.15 10^3/uL (1.8-7.7) 11/21/24 09:20 Lymph # (Auto) 1.3 10^3/uL (0.8-4.8) 11/21/24 09:20 [place] # (Auto) 0.4 10^3/uL (0.2-0.9) 11/21/24 09:20 Eos # (Auto) 0.1 10^3/uL (0.0-0.8) 11/21/24 09:20 Baso # (Auto) 0.0 10^3/uL (0.0-0.1) 11/21/24 09:20 Nucleated RBC % (auto) 0 % 11/21/24 09:20 Nucleated RBCs # 0.0 /100WBC 11/21/24 09:20 Sodium 138 mmol/L (136-145) 11/21/24 09:20 Potassium 4.0 mmol/L (3.5-5.1) 11/21/24 09:20 Chloride 103 mmol/L (98-107) 11/21/24 09:20 Carbon Dioxide 25 mmol/L (22-29) 11/21/24 09:20 Anion Gap 14.0 (5-19) 11/21/24 09:20 BUN 12 mg/dL (6-20) 11/21/24 09:20 Creatinine 0.7 mg/dL (0.7-1.2) 11/21/24 09:20 GFR Calculation 118.4 mL/min (90-130) 11/21/24 09:20 Glucose 226 mg/dL (65-115) H 11/21/24 09:20 POC Glucose 204 mg/dL (70-110) H 11/21/24 09:20 Calculated Osmolality 293 mOsm/kg (285-295) 11/21/24 09:20 Calcium 8.9 mg/dL (8.5-10.5) 11/21/24 09:20 Blood Type A Positive 11/21/24 09:20 Rho(D) Type Rh positive 11/21/24 09:20 Antibody Screen Negative 11/21/24 09:20 Laboratory Tests 11/04/24 11:38 Hemoglobin A1c 7.3 H A&P Assessment and plan (1) Status post total left knee replacement using cement: POD 0 from surgery as per Dr Rob. Did well. - s/p general anesthesia - Pain control - On cefazolin post-op regimen, s/p vancomycin x one dose - S/P tranexamic acid - Has andre with orders to remove - Has SCDs and orders for eliquis to start in am - On chlorhexidine gluconate regimen, Bactroban nasal regimen, iron, multivitamin and Colace - Bowel regimen will be very important as discussed with the patient given his history of small bowel obstruction - PT to see - Plan is for home with outpatient therapy tomorrow if remains stable (2) Type 2 diabetes mellitus: Chronically on long-acting insulin, metformin and Jardiance. Hemoglobin A1c was 7.3 recently. Did have a Sprite that was not sugar-free by mistake today. He also takes gabapentin and magnesium regularly. - Half usual dose of long-acting insulin today with anticipation of ability to increase to usual dosing tomorrow - Sliding scale insulin if needed - Currently holding oral Jardiance and metformin but anticipate resumption upon discharge (3) HTN (hypertension): Chronically on metoprolol and Irbesartan-HCZT - Home metoprolol and ofrumarly combo ARB-HCTZ ordered (4) Hyperlipidemia: Chronically on pravastatin - Formulary statin ordered (5) Small airways disease: On Incruse Ellipta chronically, but not available for use while in hospital - Breathing treatment prn ordered - Continuing to require oxygen postoperatively - Monitor for ability to continue weaning oxygen back to room air - Aware of previous partial pneumonectomy due to lung mass in the right lower lobe - Encouraged patient to use incentive spirometry as directed (6) Obstructive sleep apnea: Uses Cpap with sleep - Ordered (7) History of small bowel obstruction: Aware of prior history. Most recent small bowel obstruction was in September of this year and improved with conservative management. Last surgical intervention was in September 2022 when he had lysis of adhesions. Chronically takes MiraLAX. - Reviewed with patient the risk of constipation with narcotic pain medications and need to be diligent to decrease risk of recurrent small bowel obstruction during recovery from surgery - Patient is aware of signs and symptoms of small bowel obstruction from prior experiences - Will continue home MiraLAX and the Colace ordered by Dr. Rob with addition of a small dose 8.6 of senna at bedtime while on narcotics. (8) History of malignant carcinoid tumor: Aware, in remission for more than 2 years since RLL mass resection (9) Adult body mass index 38.0-38.9: Plan Chronically on aspirin therapy which have continued Chronically on citalopram which I have continued Chronically on melatonin which I have continued Case was discussed with Dr. Rob. Reviewed external records regarding previously identified lung mass initially thought to be sarcoid-related but ultimately found to be due to malignant carcinoma and subsequently removed. This history relevant due to persistent need for oxygen therapy post surgery today. Also reviewed patient's long history of small bowel obstruction issues as management with narcotics potentially increases risk of another small bowel obstruction in the postoperative phase. Most recent small bowel obstruction was in September of this year, less than 60 days ago. VTE prophylaxis: Eliquis to start in am; scds currently Antibiotics: perioperative ordered Pending studies: am labs Telemetry: not currently indicated Andre: orders to remove in place Line(s): peripheral IVs Disposition plan: Home with outpatient follow up and PT as per discharge plan arranged prior to elective surgery Code Status: Full Code Supportive care otherwise Plans as noted were discussed with patient and he was given an opportunity to ask questions PDMP PDMP Reviewed: Last Reviewed 11/21/24 14:47 by Gretel Liu MD Consult Attestations Medical Necessity Statement: as per attending and Moderate Time for a total of 60 minutes, includes reviewing past or interval history, examining/interviewing patient, placing orders, counseling patient/family/other support (regarding pain management given history of SBO), discussing plan of care with staff (nurse, transplant case manager), communicating with other healthcare providers (Dr Rob) and documenting encounter Diagnoses Status post total left knee replacement using cement Z96.652 Type 2 diabetes mellitus with diabetic polyneuropathy, with long-term current use of insulin E11.42; Z79.4 Diabetes mellitus complication detail: with polyneuropathy Diabetes mellitus complication status: with neurologic complications Diabetes mellitus mcfp insulin use: with mcfp use Primary hypertension I10 Hypertension type: primary hypertension Mixed hyperlipidemia E78.2 Hyperlipidemia type: mixed hyperlipidemia Small airways disease J98.4 Obstructive sleep apnea G47.33 History of small bowel obstruction Z87.19 History of malignant carcinoid tumor Z85.9 Adult body mass index 38.0-38.9 Z68.38
[2024-11-21] MEDS: tranexamic acid 1,000 MG/100 ML PREMIX 600 MG IV (16:48)
[2024-11-21] MEDS: chlorhexidine gluconate 0.12% Btl 473 mL 30 ML MUCOUS MEM ×2 (17:58→21:13)
[2024-11-21] MEDS: hydroCHLOROthiazide 25 mg Tablet 12.5 MG PO (18:00)
[2024-11-21] MEDS: iron polysaccharide complex 150 mg Capsule PO (18:00)
[2024-11-21] MEDS: losartan 50 mg Tablet PO (18:00)
[2024-11-21] MEDS: calcium carb-vit d 600mg/400unit 1 Tablet 1 EACH PO (18:00)
[2024-11-21] MEDS: docusate sodium 100 mg Capsule PO (18:00)
[2024-11-21] MEDS: mupirocin oint 22 gm 1 APPLIC NASAL (18:01)
[2024-11-21] MEDS: gabapentin 300 mg Capsule PO (18:01)
[2024-11-21] MEDS: atorvastatin 40 mg Tablet 20 MG PO (18:09)
[2024-11-21] MEDS: sennosides 8.6 mg Tablet PO (21:11)
[2024-11-21] MEDS: MELATONIN 3 MG TABLET PO (21:11)
[2024-11-21] MEDS: insulin lispro 100 unit/1 mL SUBCUT (21:12)
--- NOTE | 2024-11-21 21:17 | PC.NURSE ---
blood sugar at 2100 per patient dexacom is 320.
[2024-11-21] MEDS: insulin glargine 100 units/1 mL 12 UNIT SUBCUT (21:59)
[2024-11-22] VITALS (17 sets, daily range): BP systolic 145–183; BP diastolic 75–114; PULSE 83–101; RESP 15–18; TEMP 36.6–37.3; O2SAT 95–98
[2024-11-22] MEDS: acetaminophen 1,000 MG/100 ML PIGGYBACK 400 MG IV ×2 (01:07→07:59)
[2024-11-22] MEDS: lactated ringers 1,000 ML 100 ML IV (01:09)
[2024-11-22] MEDS: ceFAZolin 2,000 MG in sodium chloride 0.9% (plus) 50 ML 100 MG IV ×2 (01:58→10:00)
[2024-11-22] MEDS: ketorolac 30 mg/mL INJ 15 MG IVP (04:48)
[2024-11-22 04:59] LABS: Basophils % 0.4 %; Eosinophils # 0.1 10^3/uL (0.0-0.8); Eosinophils % 0.9 %; Hematocrit 35.1 % (37-53); Lymphocytes # 1.4 10^3/uL (0.8-4.8); Lymphocytes % 13.5 %; Mean Corpuscular HGB Conc 31.6 g/dL (30-55); Mean Corpuscular Hemoglobin 28.2 pg (27-33); Mean Corpuscular Volume 89.3 fl (82-101); Mean Platelet Volume 10.6 fL (7.4-10.4); Monocytes # 0.7 10^3/uL (0.2-0.9); Monocytes % 6.8 %; Neutrophils # 8.03 10^3/uL (1.8-7.7); Neutrophils % 78.1 %; Nucleated Red Blood Cells % 0 %; Platelet Count 197 10^3/cmm (157-399); Red Blood Count 3.93 10^6/uL (3.85-5.65); Red Cell Distribution Width 14.4 % (12.1-15.1); White Blood Count 10.28 10^3/uL (3.29-11.43)
[2024-11-22 05:29] LABS: Anion Gap 14.5 (5-19); Blood Urea Nitrogen 12 mg/dL (6-20); Calcium 7.9 mg/dL (8.5-10.5); Carbon Dioxide 23 mmol/L (22-29); Chloride 104 mmol/L (98-107); Creatinine Clr Calc Pharmacy 156.1162; Glomerular Filtration Rate 118.4 mL/min (90-130); Glucose 200 mg/dL (65-115); Osmolality Calculated 291 mOsm/kg (285-295); Potassium 3.5 mmol/L (3.5-5.1); Sodium 138 mmol/L (136-145)
[2024-11-22] MEDS: insulin lispro 100 unit/1 mL SUBCUT ×3 (07:57→17:25)
[2024-11-22] MEDS: iron polysaccharide complex 150 mg Capsule PO ×2 (07:59→17:25)
[2024-11-22] MEDS: apixaban 5 mg Tablet 2.5 MG PO ×2 (08:00→17:28)
[2024-11-22] MEDS: aspirin 81 mg EC Tablet PO (08:01)
[2024-11-22] MEDS: calcium carb-vit d 600mg/400unit 1 Tablet 1 EACH PO ×2 (08:01→17:26)
[2024-11-22] MEDS: chlorhexidine gluconate 0.12% Btl 473 mL 30 ML MUCOUS MEM ×3 (08:02→17:30)
[2024-11-22] MEDS: citalopram 20 mg Tablet 10 MG PO (08:02)
[2024-11-22] MEDS: docusate sodium 100 mg Capsule PO ×2 (08:03→17:26)
[2024-11-22] MEDS: gabapentin 300 mg Capsule PO ×2 (08:03→17:26)
[2024-11-22] MEDS: hydroCHLOROthiazide 25 mg Tablet 12.5 MG PO ×2 (08:05→17:28)
[2024-11-22] MEDS: losartan 50 mg Tablet PO ×2 (08:05→17:28)
[2024-11-22] MEDS: metoprolol succinate ER (24 HR) 25 mg Tablet 12.5 MG PO (08:05)
[2024-11-22] MEDS: magnesium oxide 400 mg tablet PO (08:06)
[2024-11-22] MEDS: multivitamin therapeutic Tablet 1 TAB PO (08:07)
[2024-11-22] MEDS: mupirocin oint 22 gm 1 APPLIC NASAL (08:07)
[2024-11-22] MEDS: polyethylene glycol 3350 Pkt 17 gm PO (08:07)
[2024-11-22] MEDS: oxyCODONE 5 mg IR Tab/Cap PO ×3 (08:08→18:45)
--- NOTE | 2024-11-22 08:20 | PC.NURSE ---
0800 pt blood glucose 183 per pt continuous glucose monitor
--- NOTE | 2024-11-22 09:00 | ECG_ITS ---
[facility] [place] [facility] Date[facility] 2024-11-22 Pat Name: Drew Dixon Department: Room: OB11 Gender: Male Rn Or Lvn: : 1970 Requested By: Gretel Liu Order Number: [id number] Reading MD: JEAN PAUL LAURENT Measurements Intervals [place] Rate: 84 P: 43 VT: 201 QRS: 22 QRSD: 112 T: 32 QT: 372 QTc: 442 Interpretive Statements SINUS RHYTHM MODERATE INTRAVENTRICULAR CONDUCTION DELAY [110+ ms QRS DURATION] Compared to ECG 06/15/2024 20:06:32 Intraventricular conduction delay now present Electronically Signed On 11-23-2024 23:06:28 CDT by JEAN PAUL LAURENT [email or web address]
--- NOTE | 2024-11-22 09:27 | P.PN_ITS ---
Subjective 2 Subjective: He reports he is doing well. No trouble breathing, no chest pain or pressure. No nausea vomiting or diarrhea. Pain under control. He has been using incentive spirometer. Vitals/I&O/Wt Last Vital Signs Temp 97.8 F 11/22/24 04:45 Pulse 98 11/22/24 08:27 Resp 17 11/22/24 08:27 BP 177/105 11/22/24 08:27 Pulse Ox 97 11/22/24 08:27 O2 Del Method Room Air 11/22/24 08:27 O2 Flow Rate 1 11/21/24 16:04 11/21/24 11/22/24 11/22/24 22:59 06:59 14:59 Intake Total 650 / 850 150 / 1000 650 / 650 Output Total 400 / 475 850 / 1325 1000 / 1000 Balance 250 / 375 -700 / -325 -350 / -350 Weight last 48 hrs Weight 117.48 kg Physical Exam 2 Const: COMMON NORMALS: patient oriented x3 and alert GENERAL APPEARANCE: c ooperative ORIENTATION/CONSCIOUSNESS: Yes awake HENMT: COMMON NORMALS: oropharynx normal Neck/C-Spine: COMMON NORMALS: no JVD Resp: COMMON NORMALS: normal respiratory effort and clear to auscultation bilaterally AUSCULTATION: clear to auscultation bilaterally Cardio: COMMON NORMALS: no JVD, regular rhythm, S1 normal heart sound present, S2 normal heart sound present and No murmurs present (Cardio) RHYTHM: regular rhythm HEART SOUNDS: S1 normal heart sound present and S2 normal heart sound present GI: COMMON NORMALS: Normal to inspection, nondistended, normoactive bowel sounds present, Soft to palpation and non-tender PALPATION: Yes Soft to palpation Extremity: COMMON NORMALS: no joint enlargement and no pedal edema OTHER: Left leg in postoperative dressing Neuro: COMMON NORMALS: patient oriented x3 and moves all extremities S ENSORIUM/ORIENTATION: Yes alert Skin: COMMON NORMALS: no rashes or lesions noted GENERAL SKIN EXAM: no rashes or lesions noted Urinary Catheter Management: Escobar: Cath Placed During This Visit: yes, but has since been removed by the nurse Reason for Continuing Indwelling Catheter: Decision to DC Catheter Date Urinary Catheter Removed: 11/21/24 Time Urinary Catheter Discontinued: 18:18 Data 11/22/24 04:18 11/22/24 04:18 A&P Assessment and plan (1) Status post total left knee replacement using cement: Doing well postoperatively. Discussed with him postoperative anemia, albumin down to 11.1. Reviewed vitals, CBC, BMP. He knows to follow-up with primary provider. Seek medical attention case of any worsening. He has been using the incentive spirometer. Pain is under control. Discharge per orthopedic surgery. Plan DM2: Resume home insulin. HTN: Continue blood pressure medications. HLD: Continue statin Small airway disease: Continue inhaler DILCIA: Continue CPAP SBO: Continue bowel regimen, avoid constipation, add laxative in case of worsening Malignant carcinoid tumor Other medical problems PDMP PDMP Reviewed: Not Reviewed Attestations 2 Medical Necessity Statement*: Return home per Ortho surgery. Diagnoses Status post total left knee replacement using cement Z96.652
--- NOTE | 2024-11-22 11:54 | PC.NURSE ---
Pt blood glucose 315 per continuous glucose monitor
--- NOTE | 2024-11-22 13:27 | P.DS_ITS ---
Discharge Providers Date of Admission: 11/21/24 11:57 Date of Discharge: November 22, 2024 Attending Provider at Admission: Howard Rob DO Attending Provider at Discharge: Howard Rob DO Consults: Dr. Liu?hospitalist Primary Care Provider: Ryan Martinez Diagnoses at Discharge Discharge Diagnosis (1) Status post total left knee replacement using cement: Status: Acute Permanent problem details: Dr Liane Robles (2) Type 2 diabetes mellitus: Status: Chronic Qualifiers: Diabetes mellitus complication detail: with polyneuropathy Diabetes mellitus complication status: with neurologic complications Diabetes mellitus head cd reactor operator insulin use: with head cd reactor operator use Qualified Code(s): E11.42 - Type 2 diabetes mellitus with diabetic polyneuropathy; Z79.4 - detention (current) use of insulin (3) HTN (hypertension): Status: Chronic Qualifiers: Hypertension type: primary hypertension Qualified Code(s): I10 - Essential (primary) hypertension (4) Hyperlipidemia: Status: Chronic Qualifiers: Hyperlipidemia type: mixed hyperlipidemia Qualified Code(s): E78.2 - Mixed hyperlipidemia (5) Small airways disease: Status: Chronic (6) Obstructive sleep apnea: Status: Chronic (7) History of small bowel obstruction: Status: Chronic Permanent problem details: 09/2022 (OR), 09/2024 (NGT) (8) History of malignant carcinoid tumor: Status: Chronic Permanent problem details: s/p resection in 09/2022 (9) Adult body mass index 38.0-38.9: Status: Chronic Reason for Visit Reason for Visit: M17.12 Brief History: Status post left total knee arthroplasty?Timur robotic assisted Hospital Course Hospital Course Patient presented to the preoperative holding area with plan for left total knee arthroplasty after patient has been worked up in the outpatient setting for failed conservative treatment of [left] knee degenerative joint disease. Once cleared by anesthesia for surgery patient subsequently was taken back to the operative suite underwent anesthesia per anesthesia department and then subsequently underwent a [left] total knee arthroplasty. Procedure was performed without any complications patient was taken to PACU in stable condition patient recovered well in PACU and then was admitted to the floor postoperatively internal medicine was consulted and on board for medical management and assistance with care. Patient received appropriate PT/OT, postoperative antibiotics, postoperative TXA, pain control, postoperative DVT pr ophylaxis. Elevation and ice. Patient encouraged for knee range of motion allowed weightbearing as tolerated to the operative lower extremity. Dressing was changed as needed, labs were monitored daily. Patient recovered well postoperatively and worked well and progressed well with therapy. It was determined on postoperative day [1] the patient was stable for discharge from an orthopedic standpoint and medicine. Patient was comfortable with discharge and plan was discharged home. Patient received appropriate discharge instructions as well as pain medication and DVT prophylaxis postoperatively. Given appropriate instructions for dressing management. Patient will follow-up with Dr. Rob/orthopedics in the office in 2 weeks. All questions answered. Understand if there is any issues questions or concerns and contact the office. Physical Exam Narrative: Left knee examination: Dressing on in place, clean dry and intact. No evidence of saturation. Patient has normal postoperative swelling and tenderness to palpation to the knee. Compartments are soft compressible,'s calf soft and nontender. Sensations intact to light touch distally. Distal pulses are palpable. Patient is able to wiggle toes as well as plantarflex and dorsiflex ankle. Urinary Catheter Management: Escobar: Cath Placed During This Visit: yes, but has since been removed by the nurse Reason for Continuing Indwelling Catheter: Decision to DC Catheter Date Urinary Catheter Removed: 11/21/24 Time Urinary Catheter Discontinued: 18:18 Discharge Data Studies Completed and Pending Completed Studies During Hospitalization Category Date Time Status XR knee LT 1-2V 11150 Routine Exams 11/21/24 12:24 Completed Pending at discharge Category Date Time Status Basic Metabolic Panel AM LABS Lab 11/23/24 04:00 Ordered Basic Metabolic Panel AM LABS Lab 11/24/24 04:00 Ordered Complete Blood Count w/Auto AM LABS Lab 11/23/24 04:00 Ordered Complete Blood Count w/Auto AM LABS Lab 11/24/24 04:00 Ordered Radiology Impressions Knee X-Ray 11/21/24 12:24 IMPRESSION: Total left knee arthroplasty without abnormality as above. Laboratory Results WBC 10.28 10^3/uL (3.29-11.43) 11/22/24 04:18 RBC 3.93 10^6/uL (3.85-5.65) 11/22/24 04:18 Hgb 11.10 g/dL (11.27-16.99) L 11/22/24 04:18 Hct 35.1 % (37-53) L 11/22/24 04:18 MCV 89.3 fl (82-101) 11/22/24 04:18 MCH 28.2 pg (27-33) 11/22/24 04:18 MCHC 31.6 g/dL (30-55) 11/22/24 04:18 RDW 14.4 % (12.1-15.1) 11/22/24 04:18 Plt Count 197 10^3/cmm (157-399) 11/22/24 04:18 MPV 10.6 fL (7.4-10.4) H 11/22/24 04:18 Neut % (Auto) 78.1 % 11/22/24 04:18 Lymph % (Auto) 13.5 % 11/22/24 04:18 Barry % (Auto) 6.8 % 11/22/24 04:18 Eos % (Auto) 0.9 % 11/22/24 04:18 Baso % (Auto) 0.4 % 11/22/24 04:18 Neut # (Auto) 8.03 10^3/uL (1.8-7.7) H 11/22/24 04:18 Lymph # (Auto) 1.4 10^3/uL (0.8-4.8) 11/22/24 04:18 Barry # (Auto) 0.7 10^3/uL (0.2-0.9) 11/22/24 04:18 Eos # (Auto) 0.1 10^3/uL (0.0-0.8) 11/22/24 04:18 Baso # (Auto) 0.0 10^3/uL (0.0-0.1) 11/22/24 04:18 Nucleated RBC % (auto) 0 % 11/22/24 04:18 Nucleated RBCs # 0.0 /100WBC 11/22/24 04:18 Sodium 138 mmol/L (136-145) 11/22/24 04:18 Potassium 3.5 mmol/L (3.5-5.1) 11/22/24 04:18 Chloride 104 mmol/L (98-107) 11/22/24 04:18 Carbon Dioxide 23 mmol/L (22-29) 11/22/24 04:18 Anion Gap 14.5 (5-19) 11/22/24 04:18 BUN 12 mg/dL (6-20) 11/22/24 04:18 Creatinine 0.7 mg/dL (0.7-1.2) 11/22/24 04:18 GFR Calculation 118.4 mL/min (90-130) 11/22/24 04:18 Glucose 200 mg/dL (65-115) H 11/22/24 04:18 POC Glucose 204 mg/dL (70-110) H 11/21/24 09:20 Calculated Osmolality 291 mOsm/kg (285-295) 11/22/24 04:18 Calcium 7.9 mg/dL (8.5-10.5) L 11/22/24 04:18 Blood Type A Positive 11/21/24 09:20 Rho(D) Type Rh positive 11/21/24 09:20 Antibody Screen Negative 11/21/24 09:20 Vitals Last Vital Signs Temp 98.1 F 11/22/24 10:06 Pulse 96 11/22/24 10:06 Resp 17 11/22/24 10:06 BP 146/75 11/22/24 10:06 Pulse Ox 95 11/22/24 10:06 O2 Del Method Room Air 11/22/24 10:06 O2 Flow Rate 1 11/21/24 16:04 Discharge Plan Discharge Patient Disposition: Home Condition: Stable Prescriptions: New Eliquis 2.5 mg tablet 2.5 mg PO BID 14 Days Qty: 28 0RF oxycodone 5 mg tablet 5 mg PO Q6H PRN (Reason: pain postop) 7 Days Qty: 28 0RF cefadroxil 500 mg capsule 500 mg PO BID 7 Days Qty: 14 0RF Continued melatonin 5 mg capsule 10 mg PO BEDTIME magnesium oxide 400 mg magnesium tablet 400 mg PO DAILY Qty: 90 3RF Incruse Ellipta 62.5 mcg/actuation blister with device 1 inh inhalation DAILY Qty: 90 6RF metoprolol succinate 25 mg tablet extended release 24 hr 12.5 mg PO DAILY Qty: 45 0RF irbesartan-hydrochlorothiazide 150-12.5 mg tablet 1 tab PO BID pravastatin 40 mg tablet 40 mg PO QPM metformin 500 mg tablet 1,000 mg PO BID multivitamin Tablet 1 tab PO DAILY aspirin 81 mg Tablet,Delayed Release (Dr/Ec) 81 mg PO DAILY gabapentin 300 mg capsule 300 mg PO BID cyclobenzaprine 10 mg tablet 10 mg PO TID PRN (Reason: muscle spasm) Qty: 15 0RF ondansetron 4 mg tablet,disintegrating 4 mg PO Q6H PRN (Reason: nausea and vomiting) Qty: 14 0RF citalopram 10 mg tablet 10 mg PO DAILY insulin glargine [Lantus Solostar U-100 Insulin] 100 unit/mL (3 mL) insulin pen 24 unit SUBCUT BEDTIME Jardiance 10 mg tablet 10 mg PO QAM polyethylene glycol 3350 [Miralax] 17 gram powder in packet 17 g PO DAILY Qty: 30 3RF No Action (DME) left knee medial bad work gatherer brace See Rx Instructions .Route .MEDSUPPLY Qty: 1 0RF Rx Instructions: As directed Discharge Orders: Discharge Order (Routine); Ordered 11/22/24 Ordered By: Anup Buenrostro Other Ambulatory Orders: DME: Walker (Order) Location: None Selected Ordered By: Howard Rob Physical Therapy Eval and Treat Outpatient (Order) Timeframe: 3 Days Facility: [facility] - Location: Physical Therapy Ordered By: Howard Rob Referrals: [facility] [Outside] [facility] Outpatient Therapy [Outside] Referral Note: OP Physical therapy to follow up with appointments If have any questions please call [phone] Ryan Martinez [Primary Care Provider, Family Practice] - 2 weeks Ced Rob PA [Physician Overhead Crane Truck Loader, Orthopedics] - 12/05/24 8:45 am Discharge Diet: Diabetic Discharge Activity: Limit activity as instructed and Use walker/crutches as instructed Patient Instructions: Cefadroxil (By mouth), Ondansetron (By mouth), Oxycodone, Slow Release (By mouth), Apixaban (By mouth), Acute Wound Care (DC), Precautions after Total Joint Replacement Surgery (DC), Opioid Safety, Post Anesthesia Care Activity Restrictions/Additional Instructions: Orthopedic discharge instructions Miranda Dressing--Keep dressing on and dry. After 3 days you can remove Álvaro bandage dressing and shower. disconnect battery pack when showering. Miranda dressing will stay on until follow up appt in 2 weeks. The battery pack for the dressing will at 5-7 days. Battery pack can be removed and discarded once batteries . Patient may weight-bear as tolerate to the operative extremity Utilize walker as needed Encourage knee range of motion Ice and elevate as needed for pain and swelling Take pain medication as prescribed Take antinausea medication as needed Pain medication can cause constipation. take [id number] stool softeners and or MiraLAX. Take prescribed Eliquis twice daily for the next 14 days for blood clot prevention May supplement for pain with Tylenol pfkz-[id number] as needed(1000 mg every 8 hours-do not exceed more than 3000mg in 24-hour period) No baths or soaks Follow-up in the orthopedic office in 2 weeks Contact the office for any questions or concerns Follow-up with your primary doctor for reassessment of blood count after blood l oss anemia. Continue to work on avoiding constipation, continue MiraLAX, add laxative as needed in case of difficulties. Continue to monitor blood glucose and optimizing control of diabetes. Target b lood glucose 100-150. Seek medical attention in case of any worsening or new concerning symptoms. Discharge Attestations Time Spent in Discharge Care*: less than 30 min Quality Metrics Clinical Quality Measures [ No reported AMI, CVA or VTE this stay] Coding Level of Care Code Acute Code for Chg Fwd Diagnoses Status post total left knee replacement using cement Z96.652 Type 2 diabetes mellitus with diabetic polyneuropathy, with long-term current use of insulin E11.42; Z79.4 Diabetes mellitus complication detail: with polyneuropathy Diabetes mellitus complication status: with neurologic complications Diabetes mellitus head cd reactor operator insulin use: with halfway use Primary hypertension I10 Hypertension type: primary hypertension Mixed hyperlipidemia E78.2 Hyperlipidemia type: mixed hyperlipidemia Small airways disease J98.4 Obstructive sleep apnea G47.33 History of small bowel obstruction Z87.19 History of malignant carcinoid tumor Z85.9 Adult body mass index 38.0-38.9 Z68.38
[2024-11-22] MEDS: atorvastatin 40 mg Tablet 20 MG PO (17:27)
--- NOTE | 2024-11-22 17:30 | PC.NURSE ---
Pt blood glucose 240 per CGM
--- NOTE | 2024-11-22 18:06 | PC.NURSE ---
Call to Dr. Buenrostro to report elevated BPs of 146/114, 169/84 and a manual of 170/95. Reported pt has received his Hctz and losartan at 1800. Pt reports having some pain. Received orders to medicate for pain and reassess in 30 minutes. If BP has improved and is 150s over 90s pt may go home.
--- NOTE | 2024-11-22 19:59 | PC.NURSE ---
Call placed to Hospitalist information technology associate Dr. Mix to update of patient status and blood pressure recheck at 1914 being 183/80. physician requested this nurse to consult with patient on blood pressure status at home and recheck blood pressure at 1999 and update with new information.
--- NOTE | 2024-11-22 20:37 | PC.NURSE ---
Dr. Mix update on patient blood pressure at 1999 being 167/95. orders to continue with d/c home
== END 2024-11-22 20:39 | disposition home or self-care (01) ==
LOC: OBGYN 11:59
PROVIDERS: Physician Assistant; Admitting Provider Student in an Organized Health Care Education/Training Program; PCP Family Medicine; Visit Provider Student in an Organized Health Care Education/Training Program
PROC: 8E0Y0CZ Robotic Assisted Procedure of Lower Extremity, Open Approach (ICD-10-PCS; CPT 27447; principal; 2024-11-21 09:35)
DX: M17.12 Unilateral primary osteoarthritis, left knee (principal); E11.9 Type 2 diabetes mellitus without complications; I10 Essential (primary) hypertension; E66.01 Morbid (severe) obesity due to excess calories; Z68.38 Body mass index [BMI] 38.0-38.9, adult; K21.9 Gastro-esophageal reflux disease without esophagitis; G47.33 Obstructive sleep apnea (adult) (pediatric); D62 Acute posthemorrhagic anemia; E78.2 Mixed hyperlipidemia; J98.8 Other specified respiratory disorders; Z79.82 Long term (current) use of aspirin; Z79.899 Other long term (current) drug therapy; Z79.4 Long term (current) use of insulin; Z88.8 Allergy status to other drugs, medicaments and biological substances; Z87.891 Personal history of nicotine dependence; Z85.110 Personal history of malignant carcinoid tumor of bronchus and lung; Z90.2 Acquired absence of lung [part of]; Z87.19 Personal history of other diseases of the digestive system
CPT/HCPCS: 20985; 27447; 36415; 36416; 73560; 80048; 82962; 85025; 86850; 86900; 93005; 94660; 96372; 97116; 97161; 97165; A4216; C1713; C1776; G0378; J0131; J0171; J0690; J1100; J1171; J1815; J1885; J2250; J2405; J2704; J2795; J3010; J3370; J7030; J7120; J9999; L8699

== ENCOUNTER → 2024-12-05 08:43 | Outpatient (BNVA) | payer MEDICARE, MEDICAID, SELFPAY | PROVIDERS: PCP Family Medicine; Visit Provider Physician Assistant | DX: Z96.652 Presence of left artificial knee joint (principal) | CPT/HCPCS: 73560; 73565 ==

== ENCOUNTER 2024-12-05 22:41 | Emergency (ER) | payer MEDICARE, MEDICAID, SELFPAY ==
[2024-12-06] LABS: Basophils # 0.1 10^3/uL (0.0-0.1); Basophils % 0.8 %; Eosinophils # 0.1 10^3/uL (0.0-0.8); Eosinophils % 1.5 %; Hematocrit 41.8 % (37-53); Lymphocytes # 1.8 10^3/uL (0.8-4.8); Lymphocytes % 19.9 %; Mean Corpuscular HGB Conc 32.1 g/dL (30-55); Mean Corpuscular Hemoglobin 27.6 pg (27-33); Mean Corpuscular Volume 86.2 fl (82-101); Mean Platelet Volume 9.7 fL (7.4-10.4); Monocytes # 0.5 10^3/uL (0.2-0.9); Monocytes % 5.7 %; Neutrophils # 6.37 10^3/uL (1.8-7.7); Neutrophils % 71.8 %; Nucleated Red Blood Cells % 0 %; Platelet Count 391 10^3/cmm (157-399); Red Blood Count 4.85 10^6/uL (3.85-5.65); Red Cell Distribution Width 14.9 % (12.1-15.1); White Blood Count 8.88 10^3/uL (3.29-11.43)
[2024-12-06 00:13] LABS: INR 0.89 (0.8-1.2)
[2024-12-06 00:16] VITALS: BP 116/77; PULSE 115; RESP 18; TEMP 36.9; O2SAT 95; BMI 36.4
[2024-12-06 00:18] LABS: Alanine Aminotransferase 54 U/L (0-41); Alkaline Phosphatase 135 U/L (40-130); Anion Gap 16.2 (5-19); Aspartate Amino Transferase 26 U/L (0-40); Blood Urea Nitrogen 15 mg/dL (6-20); Calcium 9.6 mg/dL (8.5-10.5); Carbon Dioxide 26 mmol/L (22-29); Chloride 100 mmol/L (98-107); Globulin 3.9 g/dL (1.3-4.6); Glomerular Filtration Rate 78.5 mL/min (90-130); Glucose 288 mg/dL (65-115); Osmolality Calculated 297 mOsm/kg (285-295); Potassium 4.2 mmol/L (3.5-5.1); Sodium 138 mmol/L (136-145); Total Protein 7.9 g/dL (6.6-8.7)
[2024-12-06 00:50] LABS: Total Bilirubin 0.4 mg/dL (0.15-1.2)
[2024-12-06 02:00] VITALS: BP 123/86; PULSE 100; O2SAT 93
--- NOTE | 2024-12-06 02:03 | W.ED.GIBLEED ---
HPI - GI Bleed General: Chief complaint: GI Bleed Stated complaint: rectal bleeding Time Seen by Provider: 12/06/24 01:59 History of Present Illness: 54-year-old man with a history of carcinoid tumor had knee replacement surgery couple weeks ago who presents emergency room with bright red blood per rectum. No abdominal pain. No nausea or vomiting. He noted bright red blood in the toilet today. This happened a couple times. Related Data Home Medications ?Medication ?Instructions ?Recorded ?Confirmed irbesartan 150 1 tab PO BID 02/06/20 12/05/24 mg-hydrochlorothiazide 12.5 mg tablet pravastatin 40 mg tablet 40 mg PO QPM 02/06/20 12/05/24 melatonin 5 mg capsule 10 mg PO BEDTIME 03/19/21 12/05/24 metformin 500 mg tablet 1,000 mg PO BID 01/01/22 12/05/24 aspirin 81 mg tablet,delayed 81 mg PO DAILY 12/24/22 12/05/24 release gabapentin 300 mg capsule 300 mg PO BID 12/24/22 12/05/24 multivitamin 1 tab PO DAILY 12/24/22 12/05/24 citalopram 10 mg tablet 10 mg PO DAILY 10/12/24 12/05/24 empagliflozin 10 mg tablet 10 mg PO QAM 10/12/24 11/21/24 (Jardiance) insulin glargine 100 unit/mL (3 24 unit SUBCUT BEDTIME 10/12/24 12/05/24 mL) subcutaneous pen (Lantus Solostar U-100 Insulin) Previous Rx's ?Medication ?Instructions ?Recorded umeclidinium 62.5 mcg/actuation 1 inh inhalation DAILY #90 ea 04/07/23 blister powder for inhalation (Incruse Ellipta) left knee medial economics lecturer brace #1 ea 04/22/24 cyclobenzaprine 10 mg tablet 10 mg PO TID PRN muscle spasm #15 07/03/24 tabs magnesium oxide 400 mg PO DAILY #90 tabs 09/29/24 ondansetron 4 mg disintegrating 4 mg PO Q6H PRN nausea and 10/12/24 tablet vomiting #14 tabs polyethylene glycol 3350 17 gram 17 g PO DAILY #30 ea 10/14/24 oral powder packet (Miralax) metoprolol succinate 25 mg 12.5 mg (1/2 x 25 mg) PO DAILY #45 10/17/24 tablet,extended release 24 hr tabs Allergies Allergy/AdvReac Type Severity Reaction Status Date / Time marijuana (cannabis) Allergy Severe ADR-Gastrointestinal Verified 12/06/24 00:18 Upset prednisone Allergy Severe ADR-Agitate Verified 12/06/24 00:18 d Review of Systems Narrative: Constitutional symptoms: Negative except as documented in HPI. Skin symptoms: Negative except as documented in HPI. Eye symptoms: Negative except as documented in HPI. ENMT symptoms: Negative except as documented in HPI. Respiratory symptoms: Negative except as documented in HPI. Cardiovascular symptoms: Negative except as documented in HPI. Gastrointestinal symptoms: Negative except as documented in HPI. Genitourinary symptoms: Negative except as documented in HPI. Musculoskeletal symptoms: Negative except as documented in HPI. Neurologic symptoms: Negative except as documented in HPI. Psychiatric symptoms: Negative except as documented in HPI. Endocrine symptoms: Negative except as documented in HPI. 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 Type 2 diabetes mellitus HTN (hypertension) Hyperlipidemia History of PFTs 2021 History of cardiovascular stress test 10/10/2024 no significant perfusion abnormalities, slightly diminished EF 44%, mild diffuse hypokinesis, mild LV dilatation with ESV 73ml, elevated TID ration of 1.69 may suggest endocardial ischemia; No significant EKG changes, maximum METs 7.5, no exercised induced chest pain or arrhythmia SBO (small bowel obstruction) several over the years, has been managed conservatively and with surgery in past; 09/2022 had lysis of adhesions; 09/2024 conservative management Lung nodule right lower lobe nodules, s/p biopsy and resection Surgical History Status post pneumonectomy (09/2022) partial RLL for removal of carcinoid tumor History of lung biopsy 04/2022 bronch with EBUS, pathology revealed carcinoid tumor and evidence of sarcoidosis History of exploratory laparotomy 1998 exploratory lap for obstruction with appendectomy; 12/2022 lysis of adhesion H/O knee surgery History of back surgery H/O shoulder surgery History of gastric surgery History of appendectomy H/O rhinoplasty Family History Family/Other Diabetes Grandfather Heart disease Grandmother Cancer Leukemia Other Dementia Hyperlipidemia Hypertension Lung disease Stroke Denies family history of CAD (coronary artery disease) Clotting disorder Psychiatric illness Chronic kidney disease (CKD) Suicide Anesthesia complication Bleeding disorder Social History Smoking and tobacco/nicotine status: former use of tobacco/nicotine Quit status (tobacco/nicotine): has quit using Year quit tobacco: 2001 Former quit date comment: Hx of 1 PPD x 12 Years Second hand smoke exposure: No Alcohol intake: current Alcohol intake frequency: holidays/special occasions only Substance/Drug Use: never Lives independently: Yes Household members: family Marital status: Single Current occupational status: disabled Do you think of yourself as: Straight/Heterosexual Current gender identity: Male Physical Exam Narrative: EXAM NARRATIVE: General: Alert, no acute distress. Skin: Warm, dry. Head: Normocephalic, atraumatic. Neck: Supple, trachea midline. Eye: Extraocular movements are intact. Ears, nose, mouth and throat: mucosa moist. Cardiovascular: Regular, Normal peripheral perfusion. Respiratory: Lungs are clear to auscultation, respirations are non-labored, breath sounds are equal, Symmetrical chest wall expansion. Gastrointestinal: Soft, Nontender, Non distended Musculoskeletal: Normal ROM, no deformity. Neurological: Alert and oriented, No focal neurological deficit observed. Psychiatric: Cooperative, appropriate mood & affect. Course Vital Signs: Vital signs: Vital Signs Temperature 98.4 F 12/06/24 00:16 Pulse Rate 115 H 12/06/24 00:16 Respiratory Rate 18 12/06/24 00:16 Blood Pressure 116/77 12/06/24 00:16 Pulse Oximetry 95 12/06/24 00:16 Oxygen Delivery Me thod Room Air 12/06/24 00:16 MDM - GI Bleed Medical Decision Making Medical decision making: Differential diagnosis including but not limited to and based on the above HPI, review of systems and physical exam: In a patient with upper GI bleeding would have concern for upper gi bleed from varices or ulcer. Concern for anemia. Concern for liver disease. concern for anticoagulation. Orders placed to evaluate differential diagnosis based on the above differential, HPI and physical exam Lab Review: Laboratory results were reviewed and interpreted by myself the emergency room physician. No leukocytosis. No anemia. No renal failure. I reviewed the patient's medical record. Assessment and plan: Hematochezia ?No significant anemia. No hypotension. - Discharged home - Discussed plan with patient. Answered any questions. - Evaluation and treatment of this problem were appropriate in the emergency setting. Lab Data 12/05/24 23:51 12/05/24 23:51 Laboratory Results WBC 8.88 10^3/uL (3.29-11.43) 12/05/24 23:51 RBC 4.85 10^6/uL (3.85-5.65) 12/05/24 23:51 Hgb 13.40 g/dL (11.27-16.99) 12/05/24 23:51 Hct 41.8 % (37-53) 12/05/24 23:51 MCV 86.2 fl (82-101) 12/05/24 23:51 MCH 27.6 pg (27-33) 12/05/24 23:51 MCHC 32.1 g/dL (30-55) 12/05/24 23:51 RDW 14.9 % (12.1-15.1) 12/05/24 23:51 Plt Count 391 10^3/cmm (157-399) 12/05/24 23:51 MPV 9.7 fL (7.4-10.4) 12/05/24 23:51 Neut % (Auto) 71.8 % 12/05/24 23:51 Lymph % (Auto) 19.9 % 12/05/24 23:51 King % (Auto) 5.7 % 12/05/24 23:51 Eos % (Auto) 1.5 % 12/05/24 23:51 Baso % (Auto) 0.8 % 12/05/24 23:51 Neut # (Auto) 6.37 10^3/uL (1.8-7.7) 12/05/24 23:51 Lymph # (Auto) 1.8 10^3/uL (0.8-4.8) 12/05/24 23:51 King # (Auto) 0.5 10^3/uL (0.2-0.9) 12/05/24 23:51 Eos # (Auto) 0.1 10^3/uL (0.0-0.8) 12/05/24 23:51 Baso # (Auto) 0.1 10^3/uL (0.0-0.1) 12/05/24 23:51 Nucleated RBC % (auto) 0 % 12/05/24 23:51 Nucleated RBCs # 0.0 /100WBC 12/05/24 23:51 PT 12.60 SECONDS (12.1-14.9) 12/05/24 23:51 INR 0.89 (0.8-1.2) 12/05/24 23:51 Sodium 138 mmol/L (136-145) 12/05/24 23:51 Potassium 4.2 mmol/L (3.5-5.1) 12/05/24 23:51 Chloride 100 mmol/L (98-107) 12/05/24 23:51 Carbon Dioxide 26 mmol/L (22-29) 12/05/24 23:51 Anion Gap 16.2 (5-19) 12/05/24 23:51 BUN 15 mg/dL (6-20) 12/05/24 23:51 Creatinine 1.0 mg/dL (0.7-1.2) 12/05/24 23:51 GFR Calculation 78.5 mL/min (90-130) L 12/05/24 23:51 Glucose 288 mg/dL (65-115) H 12/05/24 23:51 Calculated Osmolality 297 mOsm/kg (285-295) H 12/05/24 23:51 Calcium 9.6 mg/dL (8.5-10.5) 12/05/24 23:51 Total Bilirubin 0.4 mg/dL (0.15-1.2) 12/05/24 23:51 AST 26 U/L (0-40) 12/05/24 23:51 ALT 54 U/L (0-41) H 12/05/24 23:51 Alkaline Phosphatase 135 U/L (40-130) H 12/05/24 23:51 Total Protein 7.9 g/dL (6.6-8.7) 12/05/24 23:51 Albumin 4.0 g/dL (3.5-5.2) 12/05/24 23:51 Globulin 3.9 g/dL (1.3-4.6) 12/05/24 23:51 No radiology studies performed this visit Discharge Plan Discharge Patient Disposition: Home Clinical Impression: Hematochezia Condition: Stable Prescriptions: No Action melatonin 5 mg capsule 10 mg PO BEDTIME (DME) left knee medial economics lecturer brace See Rx Instructions .Route .MEDSUPPLY Qty: 1 0RF Rx Instructions: As directed magnesium oxide 400 mg magnesium tablet 400 mg PO DAILY Qty: 90 3RF Incruse Ellipta 62.5 mcg/actuation blister with device 1 inh inhalation DAILY Qty: 90 6RF metoprolol succinate 25 mg tablet extended release 24 hr 12.5 mg PO DAILY Qty: 45 0RF irbesartan-hydrochlorothiazide 150-12.5 mg tablet 1 tab PO BID pravastatin 40 mg tablet 40 mg PO QPM metformin 500 mg tablet 1,000 mg PO BID multivitamin Tablet 1 tab PO DAILY aspirin 81 mg Tablet,Delayed Release (Dr/Ec) 81 mg PO DAILY gabapentin 300 mg capsule 300 mg PO BID cyclobenzaprine 10 mg tablet 10 mg PO TID PRN (Reason: muscle spasm) Qty: 15 0RF ondansetron 4 mg tablet,disintegrating 4 mg PO Q6H PRN (Reason: nausea and vomiting) Qty: 14 0RF citalopram 10 mg tablet 10 mg PO DAILY insulin glargine [Lantus Solostar U-100 Insulin] 100 unit/mL (3 mL) insulin pen 24 unit SUBCUT BEDTIME Jardiance 10 mg tablet 10 mg PO QAM polyethylene glycol 3350 [Miralax] 17 gram powder in packet 17 g PO DAILY Qty: 30 3RF Discharge Orders: Discharge ED (Routine); Ordered 12/06/24 Ordered By: Christelle Lozano Referrals: Ryan Martinez [Primary Care Provider, Family Practice] Discharge Diet: Usual diet Discharge Activity: Increase activity as tolerated Patient Instructions: Rectal Bleeding (ED), Opioid Safety, Pain Management Activity Restrictions/Additional Instructions: Thank you for choosing [facility] for your healthcare needs today. You have been screened and evaluated and felt safe for discharge. Health conditions do change or evolve sometimes and as such it is important that you follow up with your Primary Doctor to be re checked, 3-5 days is a general good time frame for follow up. You are always welcome to return to the ED for re assessment if your symptoms are worsening or you have new concerns Print Language: Bolivian Coding Level of Care Code ED Transformer Molder for Marina Preston
[2024-12-06 02:14] VITALS: BP 123/86; PULSE 100; O2SAT 93
[2024-12-06] MEDS: HYDROcodone-acetaminophen 10-325 mg Tablet 1 TAB PO (02:17)
== END 2024-12-06 02:19 | disposition home or self-care (01) ==
PROVIDERS: Emergency Medicine; Emergency Provider Emergency Medicine; PCP Family Medicine
DX: K92.1 Melena (principal); Z79.4 Long term (current) use of insulin; Z79.84 Long term (current) use of oral hypoglycemic drugs; Z87.891 Personal history of nicotine dependence; E78.5 Hyperlipidemia, unspecified; E11.9 Type 2 diabetes mellitus without complications; I10 Essential (primary) hypertension; Z98.890 Other specified postprocedural states; Z96.652 Presence of left artificial knee joint
CPT/HCPCS: 36415; 80053; 85025; 85610; 99024; 99283; J9999

== ENCOUNTER 2024-12-07 06:53 | Outpatient (RCR) | payer MEDICARE, MEDICAID, SELFPAY | END 2024-12-19 23:55 | disposition home or self-care (01) | LOC: SPT 06:53 | PROVIDERS: Visit Provider Physician Assistant | DX: Z47.1 Aftercare following joint replacement surgery (principal); Z96.652 Presence of left artificial knee joint | CPT/HCPCS: 97110; 97161 ==

== ENCOUNTER 2024-12-18 00:09 | Emergency (ER) | payer MEDICARE, MEDICAID, SELFPAY ==
[2024-12-18 00:17] VITALS: BP 111/70; PULSE 83; RESP 12; TEMP 36.6; O2SAT 97; BMI 35.4
--- NOTE | 2024-12-18 00:22 | ECG_ITS ---
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 Measurements Intervals [place] Rate: 83 P: 8 MO: 208 QRS: 0 QRSD: 109 T: 31 QT: 398 QTc: 470 Interpretive Statements SINUS RHYTHM Compared to ECG 11/22/2024 09:00:18 Intraventricular conduction delay no longer present Electronically Signed On 12-22-2024 09:14:11 CDT by Bill Ospina M.D. [email or web address] [id number]
--- OUTSIDE RECORDS SUMMARY | 2024-12-18 00:25 | XMS_ITS | Clinical Summary ---
Author Organization [facility] Address [address] [facility] [address] [place] [address] Care Team Providers Care Can Vacuum Tester Name Role Phone Ryan Martinez MD Primary Care Provider [phone] [phone] Allergies Active Allergy Reactions Criticality Noted Date Comments Prednisone Other (See Comments) 12/16/2017 Raises blood sugar Medications lancets 30 gauge [address] [facility]Non-Dr ug; Combo Route) route daily. 90 Each 3 8 Active acetaminophen (TYLENOL) 500 mg tablet Take 500 mg by mouth every 6 hours as needed. Active gabapentin (NEURONTIN) 300 mg capsuleIndications: Chronic midline low back pain with bilateral sciatica TAKE ONE CAPSULE BY MOUTH THREE TIMES DAILY 270 Capsule 1 9 Active meloxicam (MOBIC) 15 mg tabletIndications:L ocalized osteoarthritis of right knee TAKE ONE TABLET BY MOUTH EVERY DAY 90 Tablet 1 9 Active pravastatin (PRAVACHOL) 40 mg tabletIndications:D yslipidemia Take 1 Tablet (40 mg) by mouth daily. 90 Tablet 4 1 Active irbesartan-hydroCHL OROthiazide (AVALIDE) 150-12.5 mg tabletIndications:H TN (hypertension), benign Take 2 Tablets by mouth daily. 180 Tablet 4 1 Active amLODIPine (NORVASC) 5 mg tabletIndications:H TN (hypertension), benign Take 1 Tablet (5 mg) by mouth daily. 90 Tablet 4 1 Active Diabetic Supplies, Miscellan. Kit daily. Dx E11.649 1 Kit 1 Active metFORMIN (GLUCOPHAGE) 500 mg tablet Take 1 Tablet (500 mg) by mouth 2 times daily with meals. 180 Tablet 1 1 Active Hospital, Clinic, or Other Facility Administered Medication Ordered Dose Route Frequency Start Date End Date Status dexamethasone (DECADRON) injection 4 mgIndications:Cough 4 mg IM ONE TIME ONLY 12/07/2018 Ac tive methylPREDNISolone acetate (DEPO-Medrol) injection 40 mgIndications:Cough 40 mg IM ONE TIME ONLY 12/07/2018 Ac tive Active Problems Problem Noted Date Diagnosed Date Multiple pulmonary nodules 05/31/2019 Severe obesity (BMI 35.0-39.9) with comorbidity 05/11/2018 Obstructive sleep apnea 05/11/2018 Constipation 05/11/2018 Anemia 05/11/2018 HTN (hypertension), benign 12/16/2017 Dyslipidemia 12/16/2017 Type 2 diabetes mellitus wit h hypoglycemia, without long-term current use of insulin 12/16/2017 Hx of spinal surgery 12/16/2017 Chronic midline low back pain with bilateral sci atica 12/16/2017 Resolved Problems Problem Noted Date Diagnosed Date Resolved Date Preoperative general physical examination 05/11/2018 07/22/2018 Chronic pain of right knee 12/16/2017 1 07/25/2017 Primary osteoarthritis of right knee 12/16/2017 06/08/2018 Medial meniscus tear 12/16/2017 018 Tear of lateral meniscus of right knee, current 12/16/2017 05/24/2018 Chondromalacia, patella, right 12/16/2017 05/24/2018 Intra-articular loose body 12/16/2017 1 07/25/2017 Immunizations Immunization Administration Dates Next Due (SPIKEVAX) (12 YRS UP PRIMAR Y SERIES) COVID-19 VACCINE - MRNA-1273(PF) 100 MCG/0.5 ML IM SUSP 09/25/2020 INFLUENZA VACCINE QUADRIVALENT 6 MOS UP PF IM Family History Medical History Relation Name Comments Cancer Brother 1 Healthy Brother 2 Healthy Brother 3 Respiratory Disease Father Hypertension Mother Other Mother early dementia Stroke Mother Healthy Sister 1 Healthy Sister 2 Healthy Sister 3 Breast Cancer Neg Hx Colon Cancer Neg Hx Relation Name Status Comments Brother 1 Alive Brother 2 Alive Brother 3 Alive Father Mother Alive Sister 1 Alive Sister 2 Alive Sister 3 Alive Social History Tobacco Use Types Packs/Day Years Used Date Smoking Tobacco: Former Cigarettes 0.5 4 0 06/22/1997 - 06/22/2001 Pipe Cigars Smokeless Tobacco: Former Chew Quit: 01/20/2001 Alcohol Use Standard Drinks/Week Comments No 0 (1 standard drink = 0.6 oz pur e alcohol) Sex and Gender Information Value Date Recorded Sex Assigned at Not on file Legal Sex Male 3:46 AM [employer] Gender Identity Not on file Sexual Orientation Not on file Last Filed Vital Signs Vital Sign Reading Time Taken Comments Blood Pressure 130/74 08/14/2020 2:56 PM [employer] Pulse 108 08/14/2020 2:56 PM [employer] Temperature 36.3 C (97.4 F) 08/14/2020 2:56 PM [employer] Respiratory Rate 16 08/14/2020 2:56 PM [employer] Oxygen Saturation 97% 08/14/2020 2:56 PM [employer] Inhaled Oxygen Concentration - - Weight 117.5 kg (259 lb) 08/14/2020 2:56 PM [employer] Height 176.5 cm (5' 9.5 ) 08/14/2020 2:56 PM [employer] Body Mass Index 37.7 08/14/2020 2:56 PM [employer] Plan of Treatment Health Maintenance Due Date Last Done Comments FIT/ DNA Q 3 YEARS (AUTO ORDER) 01/22/1990 FIT/FOBT Q 1 YEAR (AUTO ORDER) 01/22/1990 FLEX SIG/CT COLONOGRAPHY Q 5 YEARS (AUTO ORDER) 01/22/1990 DTAP/TDAP/TD VACCINES (1 - Tdap) 01/22/1991 HEPATITIS B VACCINES (1 of 3 - 19+ 3-dose series) 01/22/1991 Traditional Medicare (ACO) A nnual Wellness Visit 01/22/1991 COLORECTAL CANCER SCREENING (AUTO ORDER) 01/22/2017 COLORECTAL SCREENING 01/22/2017 Colorectal Cancer Screening (AUTO ORDER) 01/22/2017 Colorectal Cancer Screening 01/22/2017 FIT-DNA Q 3 years 01/22/2017 FIT/FOBT Q 1 year 01/22/2017 Flex Sig/CT Colonography Q 5 years 01/22/2017 DIABETES ANNUAL FOOT EXAM 08/16/2019 08/16/2018 DIABETES HBA1C Q 6 MONTHS 02/11/20212020, 04/10/2020, 05/09/2019, Additional history exists DIABETES MICROALBUMIN ANNUAL SCREEN 04/10/2021 04/10/2020, 03/01/2019, 01/01/2018 LDL CHOLESTEROL ANNUAL 04/10/2021 0, 11/22/2018, 01/01/2018, Additional history exists ZOSTER VACCINE (1 of 2) 01/22/2022 INFLUENZA VACCINE (#1) 2024 0, 04/10/2020, 05/09/2019 COVID-19 Vaccine (2023-2 5 season) 2024 09/25/2020 DIABETES ANNUAL RETINAL EXAM 09/20/202506/2024, 03/22/2024, 03/04/2024, Additional history exists Medical Devices Implanted Type Area Department Chair Device Identifier Shelf Expiration Date Model / Serial / Lot Comp Fem Trthln Cr Pa Sz5 5517-F-502 - [id number] Implanted:Qty: 1 on 05/24/2018 by Christiano Donnelly MD at [facility] Knee Right: Knee [employer] 11/29/2022 5517-F-502 / / [id number] Description:PER INVOICE Insert Tib Trthln X3 Cs 5531-G-511 - [id number] Implanted:Qty: 1 on 05/24/2018 by Christiano Donnelly MD at [facility] [employer] Right: Knee [employer] 03/09/2022 5531-G-511 / / [id number] Description:PER INVOICE Patella Trthln Trtnm Sza32 5552-L-320 - [id number] Implanted:Qty: 1 on 05/24/2018 by Christiano Donnelly MD at [facility] [employer] Right: Knee [employer] 12/02/2022 5552-L-320 / / [id number] Description:PER INVOICE Comp Tib Trthln Trtnmn Sz5 5536-B-500 - [id number] Implanted:Qty: 1 on 05/24/2018 by Christiano Donnelly MD at [facility] [employer] Right: Knee [employer] 10/28/2022 5536-B-500 / / [id number] Description:PER INVOICE Procedures Procedure Name Priority Date/Time Associated Diagnosis Comments HEMOGLOBIN A1C Routine 08/14/2020 3:33 PM [employer] Type 2 diabetes mellitus with hypoglycemia without coma, without long-term current use of insulin ([facility]) MICROALBUMIN/CREATI NINE RATIO, RANDOM UR Routine 04/10/2020 10:12 AM CDT Type 2 diabetes mellitus with hypoglycemia without coma, without long-term current use of insulin ([facility]) LIPID PANEL Routine 04/10/2020 10:12 AM CDT Type 2 diabetes mellitus with hypoglycemia without coma, without long-term current use of insulin ([facility]) Severe obesity (BMI 35.0-39.9) with comorbidity ([facility]) HTN (hypertension), benign Dyslipidemia from Last 3 Months or Most Recently Relevant to Health Maintenance Results * (ABNORMAL) HEMOGLOBIN A1C (08/14/2020 3:33 PM [employer]) HEMOGLOBIN A1C 10.7(H) See Comment % 08/15/2020 10:42 AM [employer] [facility] EST. AVG GLUCOSE, A1C 260 mg/dL 08/15/2020 10:42 AM [facility] Blood Collection / Unknown 08/14/2020 3:33 PM [employer] 08/14/2020 8:05 PM [employer] Narrative [facility] - 08/15/2020 10:42 AM [employer] HGB A1C INTERPRETATION NORMAL: <5.7% PRE-DIABETES: 5.7 - 6.4% DIABETES: 6.5% OR GREATER Falsely low A1C measurements can occur when: 1. Anemia and/or hemolytic anemia is present. 2. Hemoglobin variants present. 3. Renal failure. 4. Transfusion of blood product in the last 120 days. We recommend ordering a fructosamine test([id number]) to more accurately assess glycemic status if any of the above conditions are present. us Ryan Martinez MD CHEMISTRY ORDERABLES Mikayla green Result [facility] CLIA# [id number] [place] [address] * MICROALBUMIN/CREATININE RATIO, RANDOM UR (04/10/2020 10:12 AM CDT) MICROALBUMIN, URINE <1.2 No Reference Range mg/dL 04/10/2020 10:07 PM CDT [facility] CREATININE, URINE 166.9 40.0 - 278.0 mg/dL 04/10/2020 10:07 PM CDT [facility] Comment:Reference Range vari es with fluid intake and diet. MICROALBUMIN/C REAT RATIO, UR <7.2 <17.0 mg/g 04/10/2020 10:07 PM CDT [facility] Urine URINE SPECIMEN OBTAINED BY CLEAN CATCH PROCEDURE / Unknown Collection / Unknown 04/10/2020 10:12 AM CDT 04/10/2020 8:29 PM CDT Narrative [facility] - 04/10/2020 10:07 PM CDT Condition Microalbumin/Creat ratio Normal Males <17 Normal Females <25 Microalbuminuria Males 17-299 Microalbuminuria Females 25-299 Overt proteinuria >=300 us Ryan Martinez MD URINE ORDERABLES Final Re sult [facility] IA# [id number] [address] [place] [address] * LIPID PANEL (04/10/2020 10:12 AM CDT) CHOLESTEROL 121 <200 mg/dL 04/10/2020 9:54 PM CDT [facility] TRIGLYCERIDE 86 <150 mg/dL 04/10/2020 9:54 PM CDT [facility] HDL 45 40 - 59 mg/dL 04/10/2020 9:54 PM CDT [facility] LDL CALCULATED 59 <100 mg/dL 04/10/2020 9:54 PM CDT [facility] NON-HDL CHOLESTEROL 76 <130 mg/dL 04/10/2020 9:54 PM CDT [facility] Blood Venipuncture / Unknown 04/10/2020 10:12 AM CDT 04/10/2020 8:32 PM CDT Narrative [facility] - 04/10/2020 9:54 PM CDT TOTAL CHOLESTEROL mg/dL Desirable <200 Borderline high 200-239 High >=240 TRIGLYCERIDES mg/dL Normal <150 Borderline high 150-199 High 200-499 Very high >=500 HDL CHOLESTEROL mg/dL Low <40 Normal 40-59 Desirable >=60 NON HDL CHOLESTEROL mg/dL Optimal <130 Near Optimal 130-159 Borderline High 160-189 Very High >=190 CALCULATED LDL mg/dL LDL <70, OPTIMAL if have Atherosclerotic cardiovascular disease (ASCVD) or intermediate or higher (>7.5%) 10 year risk of ASCVD including most adults with diabetes. LDL <100, Optimal in adult patients with low (<7.5%) 10 year ASCVD risk LDL 100-160, Suboptimal LDL >160, High LDL >190, Very high ATPIII Guidelines Reference Ranges for Lipid Panels (NCEP/AMA) . Ryan Martinez MD CHEMISTRY ORDERABLES Mikayla green Result Performing Organization Address City/State/[facility] Co de Phone Number [facility] CLIA# [id number] [address] [place] [address] from Last 3 Months or Most Recently Relevant to Health Maintenance Insurance MEDICAID [place] MEDICARE PART A AND B RX [employer] Medicare Part D RX [employer] (INTERNAL) [facility] Internal Plans Advance Directives For more information, please contact: [phone] * Full Code (Latest Code Status on File) Date Activated Date Inactivated Comments 05/24/2018 1:29 PM 05/26/2018 4:39 PM * Full Code Date Activated Date Inactivated Comments 05/24/2018 7:47 AM 05/24/2018 1:29 PM Care Teams Can Vacuum Tester Relationship Specialty Start Date End Date Ryan Martinez MD [address] [phone] PCP - General Family Practice 12/16/17
--- OUTSIDE RECORDS SUMMARY | 2024-12-18 00:25 | XMS_ITS ---
Author Organization [facility] Address [address] [facility] Attn: Epic Prelude ADT [place] [address] Care Team Providers Care Treasury Assistant Name Role Phone Ryan Martinez MD Primary Care Provider [phone] [phone] Active Problems Problem Noted Date Diagnosed Date HALLMAN (nonalcoholic steatohepatitis) 09/02/2024 Chronic combined systolic an d diastolic congestive heart failure 08/09/2024 Acute non intractable tension-type headache 04/22 Obstructive sleep apnea syndrome 05/02/2024 Muscle cramps 05/02/2024 Uncontrolled type 2 diabetes mellitus with hyper glycemia 05/02/2024 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 09/24/2023 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 Overview (08/09/2024): claims data [facility] 4..2022, 4.14.2022, S/P small bowel resection 01/09/2023 S/P partial lobectomy of lung 10/10/2022 Simple chronic bronchitis 07/30/2022 Malignant carcinoid tumor of lung 07/30/2022 Colon polyp 04/02/2022 Multiple pulmonary nodules 05/31/2019 Severe obesity (BMI 35.0-39.9) with comorbidity 05/11/2018 Obstructive sleep apnea 05/11/2018 Anemia 05/11/2018 Constipation 05/11/2018 HTN (hypertension), benign 12/16/2017 Hx of spinal surgery 12/16/2017 Dyslipidemia 12/16/2017 Type 2 diabetes mellitus wit h hyperglycemia, with long-term current use of insulin 12/16/2017 Chronic midline low back pain with bilateral sci atica 12/16/2017 Current Treatment and Therapy Plans No current plan information found. Past Treatment and Therapy Plans No past plan information found. Lifetime Dose Tracking * Chemical Lifetime Dose Automatic Entry Manual Entr y Effective Dose 77.7 mSv 53.6 mSv 24.1 mSv Total DLP 5,483.1 DLP 3,911.1 DLP 1,572 DLP CTDIvol Max 145.5 mGy 94.6 mGy 50.9 mGy CTDIvol Min 145.5 mGy 94.6 mGy 50.9 mGy Resolved Problems Problem Noted Date Diagnosed Date Resolved Date Preoperative general physical examination 05/11/2018 07/22/2018 Chronic pain of right knee 12/16/2017 1 07/25/2017 Medial meniscus tear 12/16/2017 018 Intra-articular loose body 12/16/2017 1 07/25/2017 Chondromalacia, patella, right 12/16/2017 05/24/2018 Primary osteoarthritis of right knee 12/16/2017 06/08/2018 Tear of lateral meniscus of right knee, current 12/16/2017 05/24/2018
--- OUTSIDE RECORDS SUMMARY | 2024-12-18 00:25 | XMS_ITS | Encounter Summary ---
Author Organization [employer] Address [address] [place] [address] Care Team Providers Care Craft Demonstrator Name Role Phone Ryan Martinez MD Primary Care Provider [phone] [phone] Reason for Visit * Reason Onset Date Comments Childcare Bridge 12/12/2024 Encounter Details Date Type Department Care Team (Late st Contact Info) Description 12/12/2024 [facility]phone [facility] [place] [address] [place] [phone] Cielo Liang, RN [facility] Social History Tobacco Use Types Packs/Day Years Used Date Smoking Tobacco: Former Cigarettes Q uit: 06/22/2001 Passive Smoke Exposure: Past Smokeless Tobacco: Former Chew Quit: 01/20/2001 Alcohol Use Standard Drinks/Week Comments No 0 (1 standard drink = 0.6 oz pur e alcohol) Financial Resource Strain Answer Date R ecorded How hard is it for you to pa y for the very basics like food, housing, medical care, and heating? Not very hard 08/28/2021 Food Insecurity Answer Date Recorded In the past 12 months, have you worried that your food would run out before you had money to buy more? Never true 08/28/2021 In the past 12 months, did y ou run out of food and didn't have money to buy more? Never true 08/28/2021 Transportation Needs Answer Date Record ed In the past 12 months, has l ack of transportation kept you from medical appointments or from getting medications? No 08/28/2021 Lack of Transportation (Non-Medical) Not on file 08/28/2021 Feeling Safe Answer Date Recorded Are you in a relationship wi th someone who hurts you emotionally and/or physically? No 05/02/2024 Food Insecurity Answer Date Recorded Social/Environmental Concerns No concerns Transportation Needs Answer Date Record ed Social/Environmental Concerns No concerns Housing Stability Answer Date Recorded Social/Environmental Concerns No concerns Utility Needs Answer Date Recorded Social/Environmental Concerns No concerns Sex and Gender Information Value Date Recorded Sex Assigned at Not on file Legal Sex Male 3:36 PM [employer] Gender Identity Not on file Sexual Orientation Not on file documented as of this encounter Miscellaneous Notes * Telephone Encounter - Cielo Liang RN - 12/12/2024 12:[address] [facility] DOCUMENTATION Service Line: [facility] at 12:25 PM Chief Complaint: Patient reported Swelling in L knee- pt had knee surgery 4 weeks ago and swelling has not gone down, wants to know if he can take anything OTC on the survey. PCP: Ryan Martinez MD HPI/Patient Statement: Ongoing swelling in left knee. Assessment: Patient is alert, oriented, and communicates clearly without signs of acute distress. Plan: Patient advised to follow-up with surgeons office. Discussed when to seek treatment Understanding voiced and instructed to call with any concerns. Visit was completed by phone unless otherwise noted with video/screen capture images within the note. Cielo Liang RN [facility][1] ___ documented in this encounter Plan of Treatment Upcoming Encounters Date Type Department Care Team (Late st Contact Info) Description 2025 3:00 PM CDT Office Visit [address] [phone] Ryan Martinez MD [address] [place] [address] 03/27/2025 2:40 PM CDT Office Visit [facility] [address] [place] [address] Ryan Martinez MD [address] [place] [address] documented as of this encounter Visit Diagnoses Not on filedocumented in this encounter Care Teams Craft Demonstrator Relationship Specialty Start Date End Date Ryan Martinez MD [address] [place] [address] PCP - General Family Practice 12/16/17 documented as of this encounter
--- OUTSIDE RECORDS SUMMARY | 2024-12-18 00:25 | XMS_ITS | Encounter Summary ---
Author Organization [facility] Address [address] [facility] [address] 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 Gender Identity Not on file Sexual Orientation Not on file documented as of this encounter Plan of Treatment Upcoming Encounters Date Type Department Care Team (Late st Contact Info) Description 2025 3:00 PM CDT Office Visit [facility] [address] [place] [phone] Ryan Martinez MD [address] [place] [phone] 03/27/2025 2:40 PM CDT Office Visit [facility] [address] [place] [phone] Ryan Martinez MD [address] [place] [phone] documented as of this encounter Visit Diagnoses Not on filedocumented in this encounter Care Teams Project Manager Industrial Relationship Specialty Start Date End Date Ryan Martinez MD [address] [place] [phone] PCP - General Family Practice 12/16/17 documented as of this encounter
--- OUTSIDE RECORDS SUMMARY | 2024-12-18 00:25 | XMS_ITS | Clinical Summary ---
Author Organization [facility] Address [address] [facility] Attn: Epic Prelude ADT ANGELA SAUCEDO [address] Care Team Providers Care Habilitation Training Specialist Name Role Phone Ryan Martinez MD Primary Care Provider [phone] Allergies Active Allergy Reactions Criticality Noted Date Comments Prednisone Other (See Comments) 12/16/2017 Raises blood sugar Medications Diabetic Supplies, Miscellan. Kit daily. Dx E11.649 1 Kit 0 08/21/19 21 Active meloxicam (MOBIC) 15 mg tabletIndications: Localized osteoarthritis of right knee TAKE ONE TABLET BY MOUTH EVERY DAY 90 Tablet 1 06/08/20 19 Active lancets 30 gauge 1 Lancet by [facility].(Non-Drug; Combo Route) route daily. 90 Each 3 12/22/19 18 Active melatonin 5 mg tablet Take by mouth nightly as needed. Active APPLE CIDER VINEGAR ORAL Take by mouth. Ac tive multivit-min/folic /vit K/lycop (ONE-A-DAY MEN'S 50 PLUS ORAL) Take by mouth. A ctive diazePAM (VALIUM) 5 mg tabletIndications: Post-operative pain Take 1 Tablet (5 mg) by mouth every 8 hours as needed for Anxiety, Spasm or Discomfort. 20 Tablet 3 9:57 AM CDT 10/07/19 23 Active docusate sodium (COLACE) 100 mg capsule Take 1 Capsule (100 mg) by mouth 2 times daily. 10 Capsule 10/07/19 23 Active aspirin 81 mg tablet,delayed release Take 81 mg by mouth daily. Active MAGNESIUM OXIDE ORAL Take by mouth daily. Active MAGNESIUM CITRATE ORAL 09/22/19 24 Active Blood-Glucose Meter,Continuous (Dex[employer] G6 Manufacturing Plant Technician)Indicatio ns:Uncontrolled type 2 diabetes mellitus with hyperglycemia (CMS/HCC) Use to monitor blood glucose continuously throughout the day. 1 Each 03/03/20 24 Active Blood-Glucose Transmitter (Dexcom G6 Transmitter) DeviceIndications: Uncontrolled type 2 diabetes mellitus with hyperglycemia (CMS/HCC) Fasten on top of the sensor to wirelessly send data to the inspector filters. Must be changed every 3 months. 1 Each 3 03/03/20 24 Active Blood-Glucose Sensor (Dexcom G6 Sensor) DeviceIndications: Uncontrolled type 2 diabetes mellitus with hyperglycemia (CMS/HCC) Discreetly worn under clothing to measure glucose levels just underneath the skin. Must change sensor every 10 days. 1 Each 03/03/20 24 Active BD Ultra-Fine Micro Pen Needle 32 gauge x 1/4 Needle USE DIRECTED DAILY with lantus 03/03/20 24 Active umeclidinium (Incruse Ellipta) 62.5 mcg/actuation Disk with DeviceIndications: Simple chronic bronchitis (CMS/HCC) Take 1 Puff by inhalation daily. 30 Each 05/10/20 24 Active Blood Pressure Monitor KitIndications:HTN (hypertension), benign Use to check blood pressure daily and prn. 1 Each 05/12/20 24 Active baclofen (LIORESAL) 10 mg tablet TAKE ONE TABLET BY MOUTH TWICE DAILY NEEDED FOR PAIN 60 Tablet 2 05/27/20 24 Active albuterol sulfate HFA 90 mcg/actuation aerosol inhaler INHALE TWO PUFFS into lungs EVERY 6 HOURS NEEDED FOR SHORTNESS OF BREATH 8.5 Gram 2 05/31/20 24 Active metFORMIN (GLUCOPHAGE) 1,000 mg tabletIndications: Type 2 diabetes mellitus with hyperglycemia, with long-term current use of insulin (CMS/HCC) Take 1 Tablet (1,000 mg) by mouth 2 times daily with meals. 200 Tablet 3 06/27/19 25 Active amLODIPine (NORVASC) 5 mg tablet TAKE ONE TABLET BY MOUTH DAILY ALONG WITH 2.5 MG 100 Tablet 2 07/05/19 25 Active CPAP / BIPAP suppliesIndication s:Obstructive sleep apnea (adult) (pediatric) Length of need: 99 months Mask Type: nasal with headgear every 6 months, mask only every 3 months, 2 cushions per month. Tubing: heated 1 every 3 months, water chamber 1 every 6 months, chin strap 1 every 6 months, filters disposable 2 per month, filters reusable 1 per 6 months. 1 Each 07/11/19 25 Active cpap medical deviceIndications: Obstructive sleep apnea (adult) (pediatric) CPAP @ auto titrating CPAP 6-16 cm cwp with heated humidifier. Length of need:99 months; nasal mask with headgear every 6 months; mask only every 3 months; 2 cushions per month; Tubing heated 1 every 3 months, water chamber 1 every 6 months, chin strap 1 every 6 months, filters disposable 2 per month, filters reusable 1 per 6 months. 1 Each 07/11/19 25 Active pravastatin (PRAVACHOL) 20 mg tabletIndications: Dyslipidemia TAKE ONE TABLET BY MOUTH DAILY 100 Tablet 2 07/27/19 25 Active irbesartan-hydroCH LOROthiazide (AVALIDE) 150-12.5 mg tabletIndications: HTN (hypertension), benign Take 2 Tablets by mouth daily. 200 Tablet 3 07/27/19 25 Active OneTouch Ultra Test Strip use to test once daily 07/25/19 25 Active OneTouch Ultra2 Meter use as directed 07/25/19 25 Active cyclobenzaprine (FLEXERIL) 10 mg tablet 07/27/19 25 Active blood sugar diagnostic StripIndications:T ype 2 diabetes mellitus with hyperglycemia, with long-term current use of insulin ([facility]) E11.65; Use to check sugars daily; substitution allowed 100 Each 5 09/20/19 25 Active polyethylene glycol (MIRALAX) 17 gram Powder in PacketIndications: Constipation, unspecified constipation type Take 1 Packet (17 Grams) by mouth 2 times daily as needed for Constipation. 60 Packet 2 10/18/19 25 Active gabapentin (NEURONTIN) 300 mg capsule TAKE ONE CAPSULE BY MOUTH EVERY 8 HOURS 300 Capsule 2 10/20/19 25 Active Lantus Solostar U-100 Insulin 100 unit/mL (3 mL) solution for injectionIndicatio ns:Type 2 diabetes mellitus with hyperglycemia, with long-term current use of insulin ([facility]) INJECT 24 UNITS SUBCUTANEOUSLY EVERY NIGHT AT BEDTIME 15 mL 4 10/22/19 25 Active citalopram (CeleXA) 10 mg tablet take one tablet by mouth daily 100 Tablet 3 10/22/19 25 Active Active Problems Problem Noted Date Diagnosed Date HALLMAN (nonalcoholic steatohepatitis) 09/02/2024 Chronic combined systolic an d diastolic congestive heart failure 08/09/2024 Acute non intractable tension-type headache 04/22 Obstructive sleep apnea syndrome 05/02/2024 Muscle cramps 05/02/2024 Uncontrolled type 2 diabetes mellitus with hyper glycemia 05/02/2024 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 09/24/2023 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 Overview (08/09/2024): claims data [facility] pathology 4, 10.03.2022, S/P small bowel resection 01/09/2023 S/P partial [...] meniscus of right knee, current 12/16/2017 05/24/2018 Encounters Date Type Department Care Team Description 12/12/2024 Telephone [facility] [address] [place] [address] Cielo Liang, TOSHA [employer] 12/09/2024 External Device Data Initial Department [address] [place] [address] Dr CAMPOS: Prelude ADT [place], [place] [address]Shadi Marie Emergency, 12/06/2024 Orders Only [facility] [address] [place] [phone] Provider, Abstract 12/06/2024 Abstract [facility] [address] [place] [address] Provider, Abstract 12/03/[address] [address] Shelbie Currie RN [facility] Beverage Inspection Machine Tender 12/02/2024 External Device Data Initial Department [address] [place] [address] Dr CAMPOS: Prelude ADT [place], [place] [address]Shadi Marie Emergency, 11/29/2024 External Device Data [facility] ABSTRACTION Provider, Abstract 11/29/2024 External Device Data [facility] [place] Provider, Abstract 11/29/2024 External Device Data [facility] [place]STRA[place] Provider, Abstract 11/29/2024 External Device Data [facility] [place]STRA[place] Provider, Abstract 11/29/2024 External Device Data Initial Department [address] [place] [address] Dr CAMPOS: Prelude [place]T [place], [place] [address]Shadi Magaña Md 11/25/2024 External Device Data Initial Department [address] [place] [address] Dr CAMPOS: Prelude ADT [place], [place] [address]Shadi Magaña, 11/23/[address] [phone] Ryan Martinez MD Medication Question; Medication Question 11/22/2024 Orders Only [facility] Health Information Management [facility] [address] [place] [address] Provider, Abstract 11/18/2024 External Device Data Initial Department [address] [place] [address] Dr CAMPOS: Prelude ADT [place], [place] [address]Shadi Magaña Md 11/11/2024 External Device Data Initial Department [address] [place] [address] Dr CAMPOS: Prelude ADT [place] Angelito Magaña, 11/09/2024 External Device Data [facility]STRACTION Provider, Abstract 11/08/2024 External Device Data [facility] [place]STRA[place] Provider, Abstract 11/08/2024 External Device Data Initial Department [address] [place] [address] Dr CAMPOS: [place] [address] [facility], Md 11/04/2024 External Device Data Initial Department [address] [place] [address] Dr CAMPOS: [place] [address] [facility] [place] 10/28/2024 External Device Data Initial Department [address] [place] [address] Dr CAMPOS: [place] [address] [facility] Md 10/25/2024 External Device Data [place] ABSTRACTION Provider, Abstract 10/21/[address] [address] Ryan Martinez MD Type 2 diabetes mellitus with hyperglycemia, with long-term current use of insulin (CMS/HCC) 10/18/[address] [address] Ryan Martinez MD 10/18/2024 External Device Data [place] ABSTRACTION Provider, Abstract 10/17/2024 2:20 PM CDT Office Visit [address] [phone] Juliana Ge, DANNI Encounter for support and coordination of transition of care (Primary Dx); Small bowel obstruction (CMS/HCC); Constipation, unspecified constipation type; Type 2 diabetes mellitus with hyperglycemia, with long-term current use of insulin (CMS/HCC); Severe obesity (BMI 35.0-39.9) with comorbidity 10/14/2024 Orders Only [facility] [address] [place] [address] Provider, Abstract 10/14/[address] [phone] Ryan Martinez MD Hospital Follow Up 10/13/2024 Orders Only [facility] [address] [place] [address] Provider, Abstract 10/11/2024 External Device Data Initial Department [address] [place] [address] Dr CAMPOS: [place] [address] Frank Magaña Md 10/11/2024 Chart Note [facility] Oncology Patient Navigation [address] [place] [address] Mallory Stanford, TOSHA Nurse Navigation (Follow up) 10/10/2024 10:00 AM CDT Office Visit [address] [phone] Ryan Martinez MD Type 2 diabetes mellitus with hyperglycemia, with long-term current use of insulin (CMS/HCC) (Primary Dx); Malignant carcinoid tumor of lung (CMS/HCC) 10/10/2024 Results Follow-Up [address] [phone] Ryan Martinez MD ACUTE HEPATITIS PANEL, HEMOGLOBIN A1C, COMPREHENSIVE METABOLIC PANEL 10/06/2024 1:22 PM CDT - 10/06/2024 11:59 PM CDT Hospital Encounter [facility] Nuclear Medicine [address] [place] [phone] Min, Aniya Adams MD Discharge Disposition: Home or Self Care 10/04/2024 Telephone [facility] [phone] [place] [phone] Carolyne Covington RN [facility] 10/04/2024 External Device Data Initial Department [address] [place] [address] Dr CAMPOS: [place] [address] Frank Magaña Md 10/03/2024 8:10 AM CDT Procedure visit [address] [phone] Elevated liver function tests; Transaminitis; Type 2 diabetes mellitus with hyperglycemia, with long-term current use of insulin (CMS/HCC) 09/30/2024 External Device Data Initial Department [address] [place] [address] Dr CAMPOS: Prelude ADT [place] [address]Shadi Magaña Md 09/27/2024 External Device Data [facility] ABSTRACTION Provider, Abstract 09/27/2024 External Device Data Initial Department [address] [place] [address] Dr CAMPOS: [place] [address] [facility] 09/27/2024 Chart Note [facility] Oncology Patient Navigation [address] [place] [address] Mallory Stanford, RN Nurse Navigation (Follow up) 09/27/2024 Orders Only [facility] Health Information Management [facility] [address] [place] [address] Provider, Abstract 09/26/2024 Chart Note [facility] Oncology Patient Navigation [address] [place] [address] Mallory Stanford, RN Nurse Navigation (Follow up) 09/23/2024 12:26 PM CDT - 09/23/2024 11:59 PM CDT Hospital Encounter [facility] Laboratory Services [facility] [address] [facility] [place] [place] [address] Aniya Lara MD Discharge Disposition: Home or Self Care 09/23/2024 12:15 PM CDT Office Visit [facility] Oncology and Hematology [facility] [address] [facility] [address] [place] [phone] Aniya Lara MD Malignant carcinoid tumor of lung (CMS/HCC) (Primary Dx); Carcinoid tumor of other sites, unspecified whether malignant (CMS/HCC) 09/23/2024 Orders Only [facility] Laboratory Services [facility] [address] [facility] [place] [address] Odilon Nevarez DO Malignant carcinoid tumor of lung (CMS/HCC) (Primary Dx) 09/20/2024 External Device Data Initial Department [address] [place] [address] Dr CAMPOS: [place] [address] Frank Magaña Md 09/19/2024 Refill [facility] [place] [address] [facility] [address] [place] [phone] Ryan Martinez MD Type 2 diabetes mellitus with hyperglycemia, with long-term current use of insulin (CMS/HCC) (Primary Dx) from Last 3 Months Immunizations Immunization Administration Dates Next Due (SPIKEVAX) (12 YRS UP PRIMAR Y SERIES) COVID-19 VACCINE - MRNA-1273(PF) 100 MCG/0.5 ML IM SUSP 09/25/2020 INFLUENZA VACCINE QUADRIVALE NT 6 MOS UP CELL DERIVED IM 03/14/2023 INFLUENZA VACCINE QUADRIVALE NT 6 MOS UP CELL DERIVED PF IM 03/14/2023 INFLUENZA VACCINE QUADRIVALE NT 6 MOS UP PF IM 04/10/2020 INFLUENZA VACCINE TRIVALENT SPLIT VIRUS, (6 MOS UP), 0.5ML (PF), IM 03/25/2024 Influenza Seasonal Unspecifi ed Formulation IM 07/12/2022,06/05/2022,04/25/2021,2019 Family History Medical History Relation Name Comments [...] Past Smokeless Tobacco: Former Chew Quit: 01/20/2001 Tobacco Cessation:Counseling Given: Not Answered Alcohol Use Standard Drinks/Week Comments No 0 [...] on file Legal Sex Male 3:36 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 Gender Identity Not on file Sexual Orientation Not on file Last Filed Vital Signs Vital Sign Reading Time Taken Comments Blood Pressure 118/80 10/17/2024 2:19 PM CDT Pulse 89 10/17/2024 2:19 PM CDT Temperature 36.3 C (97.4 F) 10/17/2024 2:19 PM CDT Respiratory Rate 18 10/17/2024 2:19 PM CDT Oxygen Saturation 97% 10/17/2024 2:19 PM CDT Inhaled Oxygen Concentration - - Weight 115.7 kg (255 lb) 10/17/2024 2:19 PM CDT Height 175.3 cm (5' 9 ) 10/17/2024 2:19 PM CDT Body Mass Index 37.66 10/17/2024 2:19 PM CDT Plan of Treatment Upcoming Encounters Date Type Department Care Team (Late st Contact Info) Description 2025 3:00 PM CDT Office Visit [address] [phone] Ryan Martinez MD [address] [address] 03/27/2025 2:40 PM CDT Office Visit [address] [phone] Ryan Martinez MD [address] [address] Health Maintenance Due Date Last Done Comments FIT/ DNA Q 3 YEARS (AUTO ORDER) 01/22/1990 FIT/FOBT Q 1 YEAR (AUTO ORDER) 01/22/1990 FLEX SIG/CT COLONOGRAPHY Q 5 YEARS (AUTO ORDER) 01/22/1990 DTAP/TDAP/TD VACCINES (1 - Tdap) 01/22/1991 HEPATITIS B VACCINES (1 of 3 - 19+ 3-dose series) 01/22/1991 FIT-DNA Q 3 years 01/22/2017 FIT/FOBT Q 1 year 01/22/2017 Flex Sig/CT Colonography Q 5 years 01/22/2017 ZOSTER VACCINE (1 of 2) 01/22/2022 DIABETES ANNUAL FOOT EXAM 11/12/20232022, 08/28/2021, 08/16/2018 COVID-19 Vaccine (4 - 2023-2 5 season) 2024 04/25/2021, 10/23/2020, 09/25/2020 [place] Preventative Visit/Annual Wellness Visit 06/22/2024 03/25/2024, 04/13/2023, 08/28/2021 LDL CHOLESTEROL ANNUAL 09/23/2024 , 07/30/2022, 02/22/2021, Additional history exists DIABETES HBA1C Q 6 MONTHS 04/04/20252024, 06/27/2024, 03/25/2024, Additional history exists DIABETES MICROALBUMIN ANNUAL SCREEN 06/27/2025 06/27/2024, 09/24/2023, 01/09/2023, Additional history exists DIABETES ANNUAL RETINAL EXAM 09/20/202506/2024, 03/22/2024, 03/04/2024, Additional history exists DIABETES: A1C (Auto Order) 10/03/202510/03, 06/27/2024, 03/25/2024, Additional history exists COLORECTAL CANCER SCREENING (AUTO ORDER) 04/02/2032 04/02/2022 COLORECTAL SCREENING 04/02/2032 04/02/2022 Colorectal Cancer Screening (AUTO ORDER) 04/02/2032 Colorectal Cancer Screening 04/02/2032 INFLUENZA VACCINE Completed 03/25/2024, , 03/14/2023, Additional history exists KHE uACR (Auto Order) Completed 06/27/2024 , 09/24/2023, 01/09/2023, Additional history exists KHE eGFR (Auto Order) Completed 12/05/2024 , 11/21/2024, 10/14/2024, Additional history exists Medical Devices Implanted Type Area Casting Sorter Device Identifier Shelf Expiration Date Model / Serial / Lot Clip Ligating Horizon Med Ti [id number] - Csc - [id number] Implanted:Qty : 1 on 10/02/2022 by Ortiz Gardner MD at [facility] Clip Right: Chest TELEFLEX- WECK CLOSURE SYS [id number] 06/29/2027 [id number] / / [id number] Clip Ligating Horizon Lg Ti 814807 - Csc - [id number] Implanted:Qty : 1 on 10/02/2022 by Ortiz Gardner MD at [facility] Clip Right: Chest TELEFLEX- WECK CLOSURE SYS 03/02/[id number] / / [id number] Comp Fem Trthln Cr Pa Sz5 5517-F-502 - [id number] Implanted:Qty : 1 on 05/24/2018 by Christiano Donnelly MD Knee Right: Knee [employer] 11/29/2022 5517-F-50 2 / / [id number] Description:PER INVOICE Comp Tib Trthln Trtnmn Sz5 5536-B-500 - [id number] Implanted:Qty : 1 on 05/24/2018 by Christiano Donnelly MD Knee Right: Knee [employer] 10/28/2022 5536-B-50 0 / / [id number] Description:PER INVOICE Insert Tib Trthln X3 Cs 5531-G-511 - [id number] Implanted:Qty : 1 on 05/24/2018 by Christiano Donnelly MD Knee Right: Knee [employer] 03/09/2022 5531-G-51 1 / / [id number] Description:PER INVOICE Patella Trthln Trtnm Sza32 5552-L-320 - [id number] Implanted:Qty : 1 on 05/24/2018 by Christiano Donnelly MD Knee Right: Knee [employer] 12/02/2022 5552-L-32 0 / / [id number] Description:PER INVOICE Pin Pin Right: Shoulder Plate Plate Back Procedures Procedure Name Priority Date/Time Associated Diagnosis Comments COMPREHENSIVE METABOLIC PANEL Routine 12/05/2024 10:32 AM CDT PROTIME-INR Routine 12/05/2024 BASIC METABOLIC PANEL Routine 11/21/2024 9:39 AM CDT COMPREHENSIVE METABOLIC PANEL Routine 10/14/2024 2:06 PM CDT COMPREHENSIVE METABOLIC PANEL Routine 10/12/2024 9:10 AM CDT PET TUMOR NEURO GA68 DOTATATE IMG W CT SKL TO MID THIGH Routine 10/06/2024 4:19 PM CDT Malignant carcinoid tumor of lung (CMS/HCC) COMPREHENSIVE METABOLIC PANEL Routine 10/03/2024 8:11 AM CDT Elevated liver function tests HEMOGLOBIN A1C Routine 10/03/2024 8:11 AM CDT Type 2 diabetes mellitus with hyperglycemia, with long-term current use of insulin (CMS/HCC) ACUTE HEPATITIS PANEL Routine 10/03/2024 8:11 AM CDT Elevated liver function tests Transaminitis COMPREHENSIVE METABOLIC PANEL Stat 09/23/2024 12:31 PM CDT Malignant carcinoid tumor of lung (CMS/HCC) Carcinoid tumor of other sites, unspecified whether malignant (CMS/HCC) CBC WITH DIFFERENTIAL Stat 09/23/2024 12:31 PM CDT Malignant carcinoid tumor of lung (CMS/HCC) Carcinoid tumor of other sites, unspecified whether malignant (CMS/HCC) NEURON SPECIFIC ENOLASE Stat 09/23/2024 12:31 PM CDT Malignant carcinoid tumor of lung (CMS/HCC) Carcinoid tumor of other sites, unspecified whether malignant (CMS/HCC) CHROMOGRANIN A Stat 09/23/2024 12:31 PM CDT Malignant carcinoid tumor of lung (CMS/HCC) Carcinoid tumor of other sites, unspecified whether malignant (CMS/HCC) HM DIABETES EYE EXAM Routine 09/20/2024 7:32 AM CDT MICROALBUMIN/CREATININ E RATIO, RANDOM UR Routine 06/27/2024 4:28 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 Type 2 diabetes mellitus with hyperglycemia, with long-term current use of insulin (CMS/HCC) LIPID PANEL Routine 09/24/2023 8:37 AM CDT Type 2 diabetes mellitus without complication, without long-term current use of insulin (CMS/HCC) from Last 3 Months or Most Recently Relevant to Health Maintenance Results * COMPREHENSIVE METABOLIC PANEL (12/05/2024 10:32 AM CDT) Only the most recent of5 resultswithin the time period is included. Blood us Abstract Provider CHEMISTRY ORDERABLES Final Res ult * PROTIME-INR (12/05/2024) ABSTRACTED PROTIME 12.6 ABSTRACTED INR 0.89 Blood 12/05/2024 us Abstract Provider HEMATOLOGY ORDERABLES Final Re sult * BASIC METABOLIC PANEL (11/21/2024 9:39 AM CDT) Blood us Abstract Provider CHEMISTRY ORDERABLES Final Res ult * PET TUMOR NEURO GA68 DOTATATE IMG W CT SKB MDTH (10/06/2024 4:19 PM CDT) Anatomical Region Laterality Modality Nuclear Medicine 10/06/2024 4:22 PM CDT Impressions 10/07/2024 7:25 AM CDT IMPRESSION: 1. Relatively stable exam when compared to prior PET. 2. Unchanged tracer accumulation within the right lower lobe mass (Krenning grade 1) 3. Stable subcarinal and right hilar lymph nodes with mild tracer uptake (Krenning grade 1). Krenning score definitions: 0 (no uptake above background tissue) Grade 1 (uptake greater than background tissue, but less than liver) Grade 2 (about the same uptake as liver) Grade 3 (uptake greater than the liver, but less than kidneys or spleen) Grade 4 (same as, or greater than, uptake in the kidneys or spleen) Please note: High Gallium-68 DOTATATE uptake indicates well differentiated tumor (less aggressive). Low uptake suggests poorly differentiated tumor which can be more aggressive. Patients with Krenning score below 2 may be better imaged by FDG PET/CT. Narrative 10/07/2024 7:25 AM CDT Exam: PET TUMOR NEURO GA68 DOTATATE IMG W CT SKB [facility] Date/Time of Exam: 10/06/2024 4:19 PM Radiopharmaceutical: Gallium-68 DOTATATE Dose: 5.3 mCi LAC IV Time of Injection: 1432 hrs Reason For Exam: See Diagnosis. Diagnosis: Malignant carcinoid tumor of lung (CMS/HCC). Gallium-68 DOTATATE PET imaging was performed at 1536 hrs approximately one hour following intravenous infusion of the radiopharmaceutical agent using an integrated 16-slice PET/CT scanner. A noncontrast CT scan was performed for attenuation correction of PET data and for anatomic localization. No contrast was administered. Imaging was performed from the skull base to mid thigh levels with subsequent reconstruction of full trunk, orthogonal view slices in transverse, sagittal, and coronal projections which were reviewed along with dynamic multiimage planar and non attenuation corrected sagittal views. The quality of this examination is acceptable with regards to count density, processed images, data display and lack of important artifacts (including but not limited to motion and attenuation artifacts). Comparison: September 02, 2023 Blood pool: Current max SUV 0.6, previous max SUV 0.87 Liver: Current max SUV 8.5, previous max SUV 12.0 Spleen: Current max SUV 31, previous max SUV 31.0 HEAD/NECK: Brain: Normal FDG uptake in visualized portions of the brain. Relatively symmetric uptake seen in the bilateral thyroid gland. Neck: Normal physiologic uptake. Lymph Nodes: No abnormal hypermetabolic cervical lymph node. CHEST: Lungs/Pleura:Stable irregular nodularity in the right lower lobe/infrahilar region measuring 52 x 24 mm with low level radiotracer uptake, SUV max of 3.97 compared to 4.76 on prior exam. Lymph Nodes:There is a subcarinal lymph node which is also stable size measuring approximately 20 mm in short axis with SUV max of 3.95 compared to 5.91 on prior exam. Similar small right hilar lymph nodes with uptake. No additional sites of abnormal uptake in the chest. Patient appears to be status post partial right pneumonectomy. ABDOMEN/PELVIS: Liver: Liver distribution of tracer is normal. Spleen: Spleen distribution of FDG is normal. Pancreas: No hypermetabolism. Adrenal glands:No metabolic evidence of adrenal metastasis. Kidneys: Renal urinary FDG excretion of tracer is normal. Bowel: Bowel excretion of FDG is normal. Peritoneum/Retroperitoneum: Unremarkable. Lymph Nodes: No hypermetabolic abdominal or pelvic lymph nodes. MUSCULOSKELETAL: No focal abnormal FDG uptake to suggest osseous metastasis. Lumbar fusion at L4-L5 artifact. Procedure Note Zach Mcintosh MD - 10/07/2024 Exam: PET TUMOR NEURO GA68 DOTATATE IMG W CT [facility] Date/Time of Exam: 10/06/2024 4:19 PM Radiopharmaceutical: Gallium-68 DOTATATE Dose: 5.3 mCi LAC IV Time of Injection: 1432 hrs Reason For Exam: See Diagnosis. Diagnosis: Malignant carcinoid tumor of lung (CMS/HCC). Gallium-68 DOTATATE PET imaging was performed at 1536 hrs approximately one hour following intravenous infusion of the radiopharmaceutical agent using an integrated 16-slice PET/CT scanner. A noncontrast CT scan was performed for attenuation correction of PET data and for anatomic localization. No contrast was administered. Imaging was performed from the skull base to mid thigh levels with subsequent reconstruction of full trunk, orthogonal view slices in transverse, sagittal, and coronal projections which were reviewed along with dynamic multiimage planar and non attenuation corrected sagittal views. The quality of this examination is acceptable with regards to count density, processed images, data display and lack of important artifacts (including but not limited to motion and attenuation artifacts). Comparison: September 02, 2023 Blood pool: Current max SUV 0.6, previous max SUV 0.87 Liver: Current max SUV 8.5, previous max SUV 12.0 Spleen: Current max SUV 31, previous max SUV 31.0 HEAD/NECK: Brain: Normal FDG uptake in visualized portions of the brain. Relatively symmetric uptake seen in the bilateral thyroid gland. Neck: Normal physiologic uptake. Lymph Nodes: No abnormal hypermetabolic cervical lymph node. CHEST: Lungs/Pleura:Stable irregular nodularity in the right lower lobe/infrahilar region measuring 52 x 24 mm with low level radiotracer uptake, SUV max of 3.97 compared to 4.76 on prior exam. Lymph Nodes:There is a subcarinal lymph node which is also stable size measuring approximately 20 mm in short axis with SUV max of 3.95 compared to 5.91 on prior exam. Similar small right hilar lymph nodes with uptake. No additional sites of abnormal uptake in the chest. Patient appears to be status post partial right pneumonectomy. ABDOMEN/PELVIS: Liver: Liver distribution of tracer is normal. Spleen: Spleen distribution of FDG is normal. Pancreas: No hypermetabolism. Adrenal glands:No metabolic evidence of adrenal metastasis. Kidneys: Renal urinary FDG excretion of tracer is normal. Bowel: Bowel excretion of FDG is normal. Peritoneum/Retroperitoneum: Unremarkable. Lymph Nodes: No hypermetabolic abdominal or pelvic lymph nodes. MUSCULOSKELETAL: No focal abnormal FDG uptake to suggest osseous metastasis. Lumbar fusion at L4-L5 artifact. IMPRESSION: 1. Relatively stable exam when compared to prior PET. 2. Unchanged tracer accumulation within the right lower lobe mass (Krenning grade 1) 3. Stable subcarinal and right hilar lymph nodes with mild tracer uptake (Krenning grade 1). Krenning score definitions: 0 (no uptake above background tissue) Grade 1 (uptake greater than background tissue, but less than liver) Grade 2 (about the same uptake as liver) Grade 3 (uptake greater than the liver, but less than kidneys or spleen) Grade 4 (same as, or greater than, uptake in the kidneys or spleen) Please note: High Gallium-68 DOTATATE uptake indicates well differentiated tumor (less aggressive). Low uptake suggests poorly differentiated tumor which can be more aggressive. Patients with Krenning score below 2 may be better imaged by FDG PET/CT. us Aniya Lara MD PE ORDERABLES Final Result * ACUTE HEPATITIS PANEL (10/03/2024 8:11 AM CDT) HEPATITIS A IGM NON-REACTI VE NON-REACT EDWINA [facility] Comment: For additional information, please refer to http://[employer]/faq/ZTK064 (This link is being provided for informational/ educational purposes only.) HEPATITIS B SURFACE AG NON-REACTI VE NON-REACT EDWINA [facility] Comment: For additional information, please refer to http://[employer]kan/faq/OQM725 (This link is being provided for informational/ educational purposes only.) HEPATITIS B CORE IGM NON-REACTI VE NON-REACT EDWINA [facility] Comment: For additional information, please refer to http://[employer]/faq/IVR379 (This link is being provided for informational/ educational purposes only.) HEPATITIS C AB NON-REACTI VE NON-REACT EDWINA [facility] Comment: HCV antibody was non-reactive. There is no laboratory evidence of HCV infection. In most cases, no further action is required. However, if recent HCV exposure is suspected, a test for HCV RNA (test code 73629) is suggested. For additional information please refer to http://Okan/faq/ZVQ97o7 (This link is being provided for informational/ educational purposes only.) Test Performed at: [facility] [address] [place] [address] Andrew Frey MD Blood 10/03/2024 8:11 AM CDT 10/04/2024 3:47 AM CDT Ryan Martinez MD CHEMISTRY ORDERABLES Mikayla l Result [facility] [phone] [facility] [address] [place] [address] * (ABNORMAL) HEMOGLOBIN A1C (10/03/2024 8:11 AM CDT) HEMOGLOBIN A1C 6.7(H) <5.7 % [facility] Comment: For someone without known diabetes, a hemoglobin A1c value of 6.5% or greater indicates that they may have diabetes and this should be confirmed with a follow-up test. For someone with known diabetes, a value <7% indicates that their diabetes is well controlled and a value greater than or equal to 7% indicates suboptimal control. A1c targets should be individualized based on duration of diabetes, age, comorbid conditions, and other considerations. Currently, no consensus exists regarding use of hemoglobin A1c for diagnosis of diabetes for children. ESTIMATED AVERAGE GLUCOSE (MG/DL) 146 mg/dL [facility] ESTIMATED AVERAGE GLUCOSE (MMOL/L) 8.1 mmol/L [facility] Comment: Test Performed at: [facility] [address] [facility] [place] [place] [address] Andrew Frey MD Blood 10/03/2024 8:11 AM CDT 10/04/2024 3:45 AM CDT Ryan Martinez MD CHEMISTRY ORDERABLES [facility] Result [facility] [phone] [facility] [address] [facility] [place] [place] [address] * NEURON SPECIFIC ENOLASE (09/23/2024 12:31 PM CDT) [facility] NEURON SPECIFIC ENOLASE 11 < OR = 14 ng/mL [facility], Comment: This test was performed using an immunofluorescent method. Values obtained from different assay methods cannot be used interchangeably. NSE levels, regardless of value, should not be interpreted as absolute evidence of the presence or absence of disease. This test was developed and its analytical performance characteristics have been determined by [facility]. It has not been cleared or approved by the FDA. This assay has been validated pursuant to the CLIA regulations and is used for clinical purposes. Test Performed at: [facility], [address] [place] [address] Mirian Xavier MD,PhD,ELVA Blood 09/23/2024 12:3 1 PM CDT 09/23/2024 12:55 PM CDT us Aniya Lara MD CHEMISTRY ORDERABLES Final Re sult Performing Organization Address [facility] Co de Phone Number [facility] [phone] [facility], [address] [place] [address] * CHROMOGRANIN A (09/23/2024 12:31 PM CDT) CHROMOGRANIN A 175 ADULTS: <311 ng/mL [facility], Comment: The sample type for this test was serum. Interpretation of patient results may be affected by a variety of conditions such as hypertension, gastritis, prostate cancer, hyperparathyroidism, and most commonly renal disease and use of proton pump inhibitors (PPIs). (Sima Logan, et al. Chromogranin A measurement in metastatic well-differentiated gastroenteropancreatic neuroendocrine carcinoma: screening for false positives and a prospective follow-up study. Int J Biol Markers. 2010;26(2):94-101.) This test was performed using a Liquid Chromatography Mass Spectrometry method. Values obtained from different assay methods cannot be used interchangeably. Chromogranin A levels, regardless of value, should not be interpreted as absolute evidence of the presence or absence of disease. This test was developed and its analytical performance characteristics have been determined by [facility]. It has not been cleared or approved by the FDA. This assay has been validated pursuant to the CLIA regulations and is used for clinical purposes. Test Performed at: [facility], [address] [place] [address] Mirian Xavier MD,PhD,ELVA Blood 09/23/2024 12:3 1 PM CDT 09/23/2024 12:55 PM CDT us Aniya Lara MD CHEMISTRY ORDERABLES Final Re sult Performing Organization Address City/[facility]/ZIP Co de Phone Number [facility] [phone] [facility], [address] [place] [address] * (ABNORMAL) CBC WITH DIFFERENTIAL (09/23/2024 12:31 PM CDT) [facility] WBC 8.3 4.0 - 9.8 K/uL 09/23/2024 12:58 PM CDT [facility] RBC 5.07 4.50 - 5.40 M/uL 09/23/2024 12:58 PM CDT [facility] HEMOGLOBIN 14.9 13.6 - 16.5 g/dL 09/23/2024 12:58 PM CDT [facility] HEMATOCRIT 44.9 40.0 - 48.0 % 09/23/2024 12:58 PM CDT [facility] MCV 88.6 82.0 - 99.0 fL 09/23/2024 12:58 PM CDT [facility] MCH 29.4 27.2 - 32.6 pg 09/23/2024 12:58 PM CDT [facility] MCHC 33.2 31.5 - 35.5 g/dL 09/23/2024 12:58 PM CDT [facility] . [facility] RDW 14.8(H) 11.5 - 14.5 % 09/23/2024 12:58 PM CDT [facility] - . [facility] RDW-STDEV 47.7 37.1 - 48.7 fL 09/23/2024 12:58 PM CDT [facility] PLATELETS 277 140 - 350 K/uL 09/23/2024 12:58 PM CDT [facility] MPV 10.3 9.3 - 12.4 fL 09/23/2024 12:58 PM CDT [facility] NEUTROPHILS 73 % 09/23/2024 12:58 PM CDT [facility] LYMPHOCYTES 18 % 09/23/2024 12:58 PM CDT [facility] MONOCYTES 6 % 09/23/2024 12:58 PM CDT [facility] EOSINOPHILS 2 % 09/23/2024 12:58 PM CDT [facility] BASOPHILS 1 % 09/23/2024 12:58 PM CDT [facility] IMMATURE GRANULOCYTES 0 % 09/23/2024 12:58 PM CDT [facility] NEUTROPHIL ABSOLUTE 6.08 1.90 - 7.00 K/uL 09/23/2024 12:58 PM CDT [facility] LYMPHOCYTE ABSOLUTE 1.51 0.70 - 4.50 K/uL 09/23/2024 12:58 PM CDT [facility] MONOCYTE ABSOLUTE 0.48 0.10 - 1.30 K/uL 09/23/2024 12:58 PM CDT [facility] EOSINOPHIL ABSOLUTE 0.16 0.00 - 0.70 K/uL 09/23/2024 12:58 PM CDT [facility] BASOPHILS ABSOLUTE 0.06 0.00 - 0.20 K/uL 09/23/2024 12:58 PM CDT [facility] IMMATURE GRANULOCYTES ABSOLUTE 0.02 0.00 - 0.03 K/uL 09/23/2024 12:58 PM CDT [facility] Blood Venipuncture / Unknown 09/23/2024 12:31 PM CDT 09/23/2024 12:56 PM CDT Aniya Lara MD HEMATOLOGY ORDERABLES Final R esult [facility] CLIA# [id number] [address] [place], [place] [id number] * DIABETES EYE EXAM (09/20/2024 7:32 AM CDT) Abstract Provider HEALTH MAINTENANCE Edited Resu lt - Final * MICROALBUMIN/CREATININE RATIO, RANDOM UR (06/27/2024 4:28 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) Creatinine, Urine 114 20 - 320 mg/dL [facility] MICROALBUMIN, URINE 1.1 See Note: mg/dL [facility] Comment: Reference Range: Reference Range Not established MICROALBUMIN/CREAT RATIO, UR 10 <30 mg/g creat [facility] Comment: The ADA defines abnormalities in albumin excretion as follows: Albuminuria Category Result (mg/g creatinine) Normal to Mildly increased <30 Moderately increased 30-299 Severely increased > OR = 300 The ADA recommends that at least two of three specimens collected within a 3-6 month period be abnormal before considering a patient to be within a diagnostic category. Test Performed at: [facility] [address] [place] [address] Andrew Frey MD Urine URINE SPECIMEN OBTAINED BY CLEAN CATCH PROCEDURE / Unknown 06/27/2024 4:28 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 06/28/2024 6:53 AM MILLED RUBBER TENDER Ryan Martinez MD URINE ORDERABLES Final Re sult [facility] [phone] [facility] [address] [place] [address] * LIPID PANEL (09/24/2023 8:37 AM CDT) CHOLESTEROL 82 <200 mg/dL [facility] HDL 42 > OR = 40 mg/dL [facility] TRIGLYCERIDE 70 <150 mg/dL [facility] LDL CALCULATED 25 mg/dL (calc) [facility] Comment: Reference range: <100 Desirable range <100 mg/dL for primary prevention; <70 mg/dL for patients with CHD or diabetic patients with > or = 2 CHD risk factors. LDL-C is now calculated using the Mely calculation, which is a validated novel method providing better accuracy than the Friedewald equation in the estimation of LDL-C. Yosvany JOSEPH et al. HOSSEIN. 2013;310(19): 0499-0230 (http://education.[employer]/faq/BXI308) CHOL/HDL RATIO 2.0 <5.0 (calc) [facility] TOTAL NON-HDL CHOL(LDL+VLDL) 40 <130 mg/dL (calc) [facility] Comment: For patients with diabetes plus 1 major ASCVD risk factor, treating to a non-HDL-C goal of <100 mg/dL (LDL-C of <70 mg/dL) is considered a therapeutic option. Test Performed at: [facility] [address] [facility] [place] [address] Andrwe Frey MD Blood 09/24/2023 8:37 AM CDT 09/25/2023 3:41 AM CDT Ryan Martinez MD CHEMISTRY ORDERABLES Mikayla l Result [facility] [phone] [facility] [address] [facility] [place] [address] from Last 3 Months or Most Recently Relevant to Health Maintenance Insurance MEDICAID [facility] * Guarantor: DREW DIXON Account Type Relation to Patient Date of Phone Billing Address Personal/Family [id number] [place] [id number] [employer] (INTERNAL) [facility] Medicare Part D Advance Directives For more information, please contact: [phone] * Full Code (Latest Code Status on File) Date Activated Date Inactivated Comments 10/02/2022 2:49 PM 10/06/2022 3:34 PM * Full Code Date Activated Date Inactivated Comments 10/02/2022 11:23 AM 10/02/2022 2:49 PM * Full Code Date Activated Date Inactivated Comments 10/02/2022 8:30 AM 10/02/2022 11:22 AM * Full Code Date Activated Date Inactivated Comments 04/02/2022 9:19 AM 04/02/2022 12:30 PM Care Teams Habilitation Training Specialist Relationship Specialty Start Date End Date Ryan Martinez MD [address] [phone] PCP - General Family Practice 12/16/17
--- OUTSIDE RECORDS SUMMARY | 2024-12-18 00:25 | XMS_ITS | Encounter Summary ---
Author Organization [facility] Address [address] [place] [address] Care Team Providers Care Collar Packer Name Role Phone Ryan Martinez MD Primary Care Provider [phone] Encounter Details Date Type Department Care Team (Latest Contact Info) Description 02/18/1999 Outpatient Historical [facility] Tra[facility] Surgery-[address] [place] [address] Kwesi Spence MD NO ADDRESS ON FILE Acute appendicitis without mention of peritonitis (Primary Dx) Social History Tobacco Use Types Packs/Day Years Used Date Smoking Tobacco: Never Assessed Sex and Gender Information Value Date Recorded Sex Assigned at Not on file 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
[2024-12-18 00:27] VITALS: BP 111/70; PULSE 83; RESP 14; O2SAT 97
--- NOTE | 2024-12-18 00:29 | XRR_ITS ---
PROCEDURE INFORMATION: Exam: XR Chest Exam date and time: 12/18/2024 12:34 AM Age: 54 years old Clinical indication: Chest pressure; Prior surgery; Surgery date: 6+ months; Surgery type: Right lower lobe resection; C/O chest pain. History of sarcoidosis. ; Additional info: Cp TECHNIQUE: Imaging protocol: Radiologic exam of the chest. Views: 1 view. COMPARISON: CR XR chest 1V [id number] 10/12/2024 5:40 AM FINDINGS: Lungs: No overt pulmonary edema. No consolidation. Pleural spaces: Possible trace right effusion versus blunting of the costophrenic angle secondary to volume loss. No pneumothorax. Heart/Mediastinum: Unremarkable. No cardiomegaly. Bones/joints: Unremarkable. XR/XR chest 1V portable [id number] IMPRESSION: No acute consolidation.
[2024-12-18 00:48] LABS: Basophils # 0.1 10^3/uL (0.0-0.1); Basophils % 0.6 %; Eosinophils # 0.1 10^3/uL (0.0-0.8); Eosinophils % 1.1 %; Hematocrit 36.9 % (37-53); Lymphocytes # 2.4 10^3/uL (0.8-4.8); Lymphocytes % 30.3 %; Mean Corpuscular HGB Conc 32.8 g/dL (30-55); Mean Corpuscular Hemoglobin 27.8 pg (27-33); Mean Corpuscular Volume 84.6 fl (82-101); Mean Platelet Volume 10.7 fL (7.4-10.4); Monocytes # 0.6 10^3/uL (0.2-0.9); Monocytes % 7.4 %; Neutrophils # 4.85 10^3/uL (1.8-7.7); Neutrophils % 60.5 %; Nucleated Red Blood Cells % 0 %; Platelet Count 268 10^3/cmm (157-399); Red Blood Count 4.36 10^6/uL (3.85-5.65); Red Cell Distribution Width 15.1 % (12.1-15.1); White Blood Count 8.02 10^3/uL (3.29-11.43)
[2024-12-18 01:04] LABS: INR 0.88 (0.8-1.2)
[2024-12-18 01:05] LABS: Partial Thromboplastin Time 26.1 SECONDS (23.9-36.7)
[2024-12-18 01:08] LABS: D Dimer 2.08 ug/mLFEU (0-0.59)
[2024-12-18] MEDS: lidocaine 2% viscous 15 ML, aluminum-mag hydrox-simethicon 30 ML, sucralfate oral liq 1 GM PO (01:08)
[2024-12-18 01:09] VITALS: RESP 18
[2024-12-18] MEDS: morphine 4 mg/mL SDV 1 mL IVP (01:09)
[2024-12-18] MEDS: ondansetron 2 mg/ML SDV 2 mL 4 MG IVP (01:09)
[2024-12-18 01:10] LABS: Troponin(5th) Baseline 17 ng/L (0-15)
--- NOTE | 2024-12-18 01:16 | CTR_ITS ---
PROCEDURE INFORMATION: Exam: CTA Chest With Contrast Exam date and time: 12/18/2024 1:26 AM Age: 54 years old Clinical indication: Pain and abnormal findings; Abnormal lab test; Other: N/a; Abdominal pain; Abnormal diagnostic tests; Elevated d-dimer; Chest pressure; Prior surgery; Surgery date: 6+ months; Surgery type: Right lower lobe resection. Lumbar fusion. Appy; C/O chest and epigastric pain with SOB. Elevated d dimer. History of sarcoidosis. ; Additional info: Epigastric, chest pain, SOB TECHNIQUE: Imaging protocol: Computed tomographic angiography of the chest with contrast. Exam focused on the arteries. 3D rendering (Not supervised by radiologist): MIP and/or 3D reconstructed images were created by the technologist. Radiation optimization: All CT scans at this facility use at least one of these dose optimization techniques: automated exposure control; mA and/or kV adjustment per patient size (includes targeted exams where dose is matched to clinical indication); or iterative reconstruction. Contrast material: OMNI 350; Contrast volume: 100 ml; Contrast route: INTRAVENOUS (IV); COMPARISON: CT angio chest PE protcl [id number] 01/01/2022 11:07 AM RADIATION DOSE METRICS: Total DLP (mGy-cm): 1702.14 FINDINGS: Pulmonary arteries: No visualized pulmonary thromboembolus. Adequate contrast bolus timing. Extrinsic compression of the descending branch of the right pulmonary artery with approximately 50% stenosis. Aorta: Unremarkable. No aortic aneurysm. No aortic dissection. Lungs: Unremarkable. No consolidation. No masses. Pleural spaces: Unremarkable. No pneumothorax. No pleural effusion. Heart: Heart normal in size. Focal atherosclerotic calcification of the origin of the LAD. No pericardial effusion. Mediastinal space: Subcarinal syl conglomerate measuring 18 mm short axis, unchanged. Lymph nodes: Unremarkable. No enlarged lymph nodes. Bones/joints: Mild thoracic spondylosis. No acute osseous abnormality. Soft tissues: Extension of soft tissue from the right hilar syl conglomerate along the right lower lobe bronchovascular bundle, increased. Other findings: Right hilar syl conglomerate measuring 2.3 cm short axis, increased in size. PROCEDURE INFORMATION: Exam: CT Abdomen And Pelvis With Contrast Exam date and time: 12/18/2024 1:26 AM Age: 54 years old Clinical indication: Pain and abnormal findings; Abnormal lab test; Other: N/a; Abdominal pain; Abnormal diagnostic tests; Elevated d-dimer; Chest pressure; Prior surgery; Surgery date: 6+ months; Surgery type: Right lower lobe resection. Lumbar fusion. Appy; C/O chest and epigastric pain with SOB. Elevated d dimer. History of sarcoidosis. ; Additional info: Epigastric, chest pain, SOB TECHNIQUE: Imaging protocol: Computed tomography of the abdomen and pelvis with contrast. Radiation optimization: All CT scans at this facility use at least one of these dose optimization techniques: automated exposure control; mA and/or kV adjustment per patient size (includes targeted exams where dose is matched to clinical indication); or iterative reconstruction. Contrast material: OMNI 350; Contrast volume: 100 ml; Contrast route: INTRAVENOUS (IV); COMPARISON: CT abdomen pelvis w con* [id number] 10/12/2024 4:45 AM RADIATION DOSE METRICS: Total DLP (mGy-cm): 1702.14 FINDINGS: Liver: Liver enlarged measuring 22.5 cm in the craniocaudal dimension. Diffuse steatosis. No focal lesion. Gallbladder and biliary ducts: Normal. No calcified stones. No ductal dilation. Pancreas: Normal. No ductal dilation. Spleen: Normal. No splenomegaly. Adrenal glands: Normal. No mass. Kidneys and ureters: Multiple bilateral renal cortical cysts, largest on the right measuring 1.1 cm. Renal enhancement otherwise symmetrical. No identified urolithiasis or hydronephrosis. Stomach and bowel: Scattered mid and lower abdominal small bowel air-fluid levels. Lower abdominal small bowel dilated up to 3.3 cm.. No definitive transition point or obstruction. Appendix: No evidence of appendicitis. Intraperitoneal space: Unremarkable. No free air. No significant fluid collection. Vasculature: Unremarkable. No abdominal aortic aneurysm. Lymph nodes: Unremarkable. No enlarged lymph nodes. Urinary bladder: Unremarkable as visualized. Reproductive: Prostate enlarged measuring 6 cm transversely. Central hypertrophy. Bones/joints: Moderate to severe lower lumbar spondylosis. Posterior L4-L5 fusion without identified complication. Moderate bilateral neural foraminal narrowing at L4-L5. Severe bilateral neural foraminal narrowing at L5-S1. No acute osseous abnormality. Soft tissues: Unremarkable. CT/CT angio chest w abd pel w con IMPRESSION: 1. No visualized pulmonary thromboembolus. 2. Enlarged right hilar syl conglomerate now measuring 2.3 cm short axis, with resultant extrinsic compression of the descending branch of the right pulmonary artery and luminal narrowing of approximately 50%. Distal reconstitution of the right lower lobe branches. 3. Increased soft tissue surrounding/encasing the right lower lobe bronchovascular bundle, extending from the right hilar syl conglomerate above. 4. Unchanged subcarinal syl conglomerate. IMPRESSION: 1. Scattered mid and lower abdominal small bowel air-fluid levels. Lower abdominal small bowel dilated up to 3.3 cm.. No definitive transition point or obstruction. Small bowel ileus versus early recurrent obstruction. 2. Hepatomegaly with steatosis. 3. Prostatomegaly with central hypertrophy, exerting mass effect on the inferior surface of the bladder. COMMENTS: Consistent with the [employer]'s Incidental Findings Committee white paper (J Am Nitesh Radiol 2018): Any incidental renal lesion less than 1 cm or classified as too small to characterize, or any incidental cystic renal lesion characterized as simple-appearing, is likely benign. No follow-up imaging is recommended for these lesions per consensus recommendations based on imaging criteria.
[2024-12-18 01:25] LABS: Alanine Aminotransferase 44 U/L (0-41); Albumin Level 3.8 g/dL (3.5-5.2); Alkaline Phosphatase 133 U/L (40-130); Anion Gap 19.6 (5-19); Aspartate Amino Transferase 24 U/L (0-40); Blood Urea Nitrogen 22 mg/dL (6-20); Calcium 9.5 mg/dL (8.5-10.5); Carbon Dioxide 23 mmol/L (22-29); Chloride 99 mmol/L (98-107); Globulin 2.7 g/dL (1.3-4.6); Glomerular Filtration Rate 101.5 mL/min (90-130); Glucose 192 mg/dL (65-115); Lipase 31 U/L (13-60); NT Pro B Type Natriuretic Pept 55 pg/mL (0-125); Osmolality Calculated 295 mOsm/kg (285-295); Potassium 3.6 mmol/L (3.5-5.1); Sodium 138 mmol/L (136-145); Total Bilirubin 0.4 mg/dL (0.15-1.2); Total Protein 6.5 g/dL (6.6-8.7)
[2024-12-18] MEDS: iohexol 350 mg/mL 500 mL Btl (per mL) IV (01:26)
--- NOTE | 2024-12-18 01:38 | W.ED.CHESTPA ---
HPI - Chest Pain General: Chief Complaint: Chest Pain Stated Complaint: cp Time Seen by Provider: 12/18/24 00:14 History of Present Illness: 54-year-old male who is 4 weeks out of total knee arthroplasty. He complains of sudden onset epigastric and lower chest pain radiating into his back. He is mildly short of breath. Denies fever. He denies vomiting. He is nauseated. She states he has a history of bowel obstruction requiring 2 different surgeries. He still has his gallbladder. No history of cardiac disease. He is diabetic. Related Data Home Medications ?Medication ?Instructions ?Recorded ?Confirmed irbesartan 150 1 tab PO BID 02/06/20 12/05/24 mg-hydrochlorothiazide 12.5 mg tablet pravastatin 40 mg tablet 40 mg PO QPM 02/06/20 12/05/24 melatonin 5 mg capsule 10 mg PO BEDTIME 03/19/21 12/05/24 metformin 500 mg tablet 1,000 mg PO BID 01/01/22 12/05/24 aspirin 81 mg tablet,delayed 81 mg PO DAILY 12/24/22 12/05/24 release gabapentin 300 mg capsule 300 mg PO BID 12/24/22 12/05/24 multivitamin 1 tab PO DAILY 12/24/22 12/05/24 citalopram 10 mg tablet 10 mg PO DAILY 10/12/24 12/05/24 empagliflozin 10 mg tablet 10 mg PO QAM 10/12/24 11/21/24 (Jardiance) insulin glargine 100 unit/mL (3 24 unit SUBCUT BEDTIME 10/12/24 12/05/24 mL) subcutaneous pen (Lantus Solostar U-100 Insulin) Previous Rx's ?Medication ?Instructions ?Recorded umeclidinium 62.5 mcg/actuation 1 inh inhalation DAILY #90 ea 04/07/23 blister powder for inhalation (Incruse Ellipta) left knee medial warehouse unloader brace #1 ea 04/22/24 cyclobenzaprine 10 mg tablet 10 mg PO TID PRN muscle spasm #15 07/03/24 tabs magnesium oxide 400 mg PO DAILY #90 tabs 09/29/24 ondansetron 4 mg disintegrating 4 mg PO Q6H PRN nausea and 10/12/24 tablet vomiting #14 tabs polyethylene glycol 3350 17 gram 17 g PO DAILY #30 ea 10/14/24 oral powder packet (Miralax) metoprolol succinate 25 mg 12.5 mg (1/2 x 25 mg) PO DAILY #45 10/17/24 tablet,extended release 24 hr tabs Allergies Allergy/AdvReac Type Severity Reaction Status Date / Time marijuana (cannabis) Allergy Severe ADR-Gastrointestinal Verified 12/06/24 00:18 Upset prednisone Allergy Severe ADR-Agitate Verified 12/06/24 00:18 d PFSH ED PFSH: Medical History 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 Type 2 diabetes mellitus HTN (hypertension) Hyperlipidemia History of PFTs 2021 History of cardiovascular stress test 10/10/2024 no significant perfusion abnormalities, slightly diminished EF 44%, mild diffuse hypokinesis, mild LV dilatation with ESV 73ml, elevated TID ration of 1.69 may suggest endocardial ischemia; No significant EKG changes, maximum METs 7.5, no exercised induced chest pain or arrhythmia SBO (small bowel obstruction) several over the years, has been managed conservatively and with surgery in past; 09/2022 had lysis of adhesions; 09/2024 conservative management Lung nodule right lower lobe nodules, s/p biopsy and resection Surgical History Status post pneumonectomy (09/2022) partial RLL for removal of carcinoid tumor History of lung biopsy 04/2022 bronch with EBUS, pathology revealed carcinoid tumor and evidence of sarcoidosis History of exploratory laparotomy 1998 exploratory lap for obstruction with appendectomy; 12/2022 lysis of adhesion H/O knee surgery History of back surgery H/O shoulder surgery History of gastric surgery History of appendectomy H/O rhinoplasty Family History Family/Other Diabetes Grandfather Heart disease Grandmother Cancer Leukemia Other Dementia Hyperlipidemia Hypertension Lung disease Stroke Denies family history of CAD (coronary artery disease) Clotting disorder Psychiatric illness Chronic kidney disease (CKD) Suicide Anesthesia complication Bleeding disorder Social History Smoking and tobacco/nicotine status: former use of tobacco/nicotine Quit status (tobacco/nicotine): has quit using Year quit tobacco: 2001 Former quit date comment: Hx of 1 PPD x 12 Years Second hand smoke exposure: No Alcohol intake: current Alcohol intake frequency: holidays/special occasions only Substance/Drug Use: never Lives independently: Yes Household members: family Marital status: Single Current occupational status: disabled Do you think of yourself as: Straight/Heterosexual Current gender identity: Male Physical Exam Const: COMMON NORMALS: no acute distress GENERAL APPEARANCE: cooperative; not ill appearing and not frail appearing HENMT: COMMON NORMALS: normocephalic, atraumatic and Normal external nose present HEAD & SCALP: normocephalic and atraumatic FACE & SINUS: normal facial exam and face symmetric NOSE: Normal external nose present Eye: COMMON NORMALS: Equal, round and reactive pupils present and EOMs intact bilaterally PUPIL: Yes Equal, round and reactive pupils present Neck/C-Spine: GENERAL: Yes trachea midline Chest: CHEST: Yes Symmetrical chest wall rise Resp: COMMON NORMALS: normal respiratory effort, No retractions, No use of accessory muscles and clear to auscultation bilaterally AUSCULTATION: clear to auscultation bilaterally Cardio: COMMON NORMALS: regular rate and regular rhythm RATE: regular rate RHYTHM: regular rhythm GI: COMMON NORMALS: Normal to inspection, nondistended, normoactive bowel sounds present PALPATION: Yes Tenderness to palpation present (GI) (Epigastric) Details: RUQ and Yes Guarding due to palpation present (GI) Extremity: COMMON NORMALS: no pedal edema Neuro: KEVIN COMA SCALE: document GCS findings Kevin coma scale eye opening: Spontaneous Kevin coma scale verbal response: Orientated Thornton coma scale motor response: Obey commands Thornton coma scale total score: 15 SENSORY EXAM: Yes extremities (intact) Psych: COMMON NORMALS: speech normal SPEECH: Yes normal speech Skin: COMMON NORMALS: no rashes or lesions noted GENERAL SKIN EXAM: no rashes or lesions noted Course Vital Signs: Vital signs: Vital Signs Temperature 97.8 F 12/18/24 00:17 Pulse Rate 83 12/18/24 04:12 Respiratory Rate 18 12/18/24 04:12 Blood Pressure 102/67 12/18/24 04:12 Pulse Oximetry 98 12/18/24 04:12 Oxygen Delivery Me thod Room Air 12/18/24 00:27 MDM - Chest Pain Medical Decision Making Vitals are normal. CBC normal. BUN is elevated. Chest x-ray is negative. D-dimer is elevated. Troponin is 17. Lipase is normal at 31. Liver enzymes are not remarkable. CTA of the chest with follow-through CT of the belly performed. CT of the chest reveals some worsening of the patient's sarcoidosis with an enlarged right hilar node conglomerate. No PE. No consolidation. CT of the belly shows scattered mid and lower abdominal small bowel air-fluid levels with small bowel dilatation up to 3.3 cm. There is no transition point however. The patient's symptoms are resolved. His belly pain/chest pain is improved. Without strict transition point, we will prescribe magnesium citrate and allow home. He knows to return for any worsening of the symptoms. Lab Data 12/17/24 23:55 12/17/24 23:55 Radiology Impressions Chest X-Ray 12/18/24 00:29 IMPRESSION: No acute consolidation. Chest/Abdomen/Pelvis CT 12/18/24 01:16 IMPRESSION: 1. No visualized pulmonary thromboembolus. 2. Enlarged right hilar syl conglomerate now measuring 2.3 cm short axis, with resultant extrinsic compression of the descending branch of the right pulmonary artery and luminal narrowing of approximately 50%. Distal reconstitution of the right lower lobe branches. 3. Increased soft tissue surrounding/encasing the right lower lobe bronchovascular bundle, extending from the right hilar syl conglomerate above. 4. Unchanged subcarinal syl conglomerate. IMPRESSION: 1. Scattered mid and lower abdominal small bowel air-fluid levels. Lower abdominal small bowel dilated up to 3.3 cm.. No definitive transition point or obstruction. Small bowel ileus versus early recurrent obstruction. 2. Hepatomegaly with steatosis. 3. Prostatomegaly with central hypertrophy, exerting mass effect on the inferior surface of the bladder. COMMENTS: Consistent with the [employer]'s Incidental Findings Committee white paper (J Am Nitesh Radiol 2018): Any incidental renal lesion less than 1 cm or classified as too small to characterize, or any incidental cystic renal lesion characterized as simple-appearing, is likely benign. No follow-up imaging is recommended for these lesions per consensus recommendations based on imaging criteria. ADDENDUM: 12/18/[address] Brennan at 2:51 a.m. on 12/18/2024 Laboratory Results WBC 8.02 10^3/uL (3.29-11.43) 12/17/24 23:55 RBC 4.36 10^6/uL (3.85-5.65) 12/17/24 23:55 Hgb 12.10 g/dL (11.27-16.99) 12/17/24 23:55 Hct 36.9 % (37-53) L 12/17/24 23:55 MCV 84.6 fl (82-101) 12/17/24 23:55 MCH 27.8 pg (27-33) 12/17/24 23:55 MCHC 32.8 g/dL (30-55) 12/17/24 23:55 RDW 15.1 % (12.1-15.1) 12/17/24 23:55 Plt Count 268 10^3/cmm (157-399) 12/17/24 23:55 MPV 10.7 fL (7.4-10.4) H 12/17/24 23:55 Neut % (Auto) 60.5 % 12/17/24 23:55 Lymph % (Auto) 30.3 % 12/17/24 23:55 [place] % (Auto) 7.4 % 12/17/24 23:55 Eos % (Auto) 1.1 % 12/17/24 23:55 Baso % (Auto) 0.6 % 12/17/24 23:55 Neut # (Auto) 4.85 10^3/uL (1.8-7.7) 12/17/24 23:55 Lymph # (Auto) 2.4 10^3/uL (0.8-4.8) 12/17/24 23:55 [place] # (Auto) 0.6 10^3/uL (0.2-0.9) 12/17/24 23:55 Eos # (Auto) 0.1 10^3/uL (0.0-0.8) 12/17/24 23:55 Baso # (Auto) 0.1 10^3/uL (0.0-0.1) 12/17/24 23:55 Nucleated RBC % (auto) 0 % 12/17/24 23:55 Nucleated RBCs # 0.0 /100WBC 12/17/24 23:55 PT 12.60 SECONDS (12.1-14.9) 12/17/24 23:55 INR 0.88 (0.8-1.2) 12/17/24 23:55 APTT 26.1 SECONDS (23.9-36.7) 12/17/24 23:55 D-Dimer 2.08 ug/mLFEU (0-0.59) H 12/17/24 23:55 Sodium 138 mmol/L (136-145) 12/17/24 23:55 Potassium 3.6 mmol/L (3.5-5.1) 12/17/24 23:55 Chloride 99 mmol/L (98-107) 12/17/24 23:55 Carbon Dioxide 23 mmol/L (22-29) 12/17/24 23:55 Anion Gap 19.6 (5-19) H 12/17/24 23:55 BUN 22 mg/dL (6-20) H 12/17/24 23:55 Creatinine 0.8 mg/dL (0.7-1.2) 12/17/24 23:55 GFR Calculation 101.5 mL/min (90-130) 12/17/24 23:55 Glucose 192 mg/dL (65-115) H 12/17/24 23:55 Calculated Osmolality 295 mOsm/kg (285-295) 12/17/24 23:55 Calcium 9.5 mg/dL (8.5-10.5) 12/17/24 23:55 Total Bilirubin 0.4 mg/dL (0.15-1.2) 12/17/24 23:55 AST 24 U/L (0-40) 12/17/24 23:55 ALT 44 U/L (0-41) H 12/17/24 23:55 Alkaline Phosphatase 133 U/L (40-130) H 12/17/24 23:55 Troponin T Baseline 17 ng/L (0-15) H 12/17/24 23:55 Troponin T 120 Minute 12.73 ng/L (0-15) 12/18/24 02:08 Delta Troponin T -4.27 ABS# (0-10) L 12/18/24 02:08 NT-Pro-B Natriuret Pep 55 pg/mL (0-125) 12/17/24 23:55 Total Protein 6.5 g/dL (6.6-8.7) L 12/17/24 23:55 Albumin 3.8 g/dL (3.5-5.2) 12/17/24 23:55 Globulin 2.7 g/dL (1.3-4.6) 12/17/24 23:55 Lipase 31 U/L (13-60) 12/17/24 23:55 All radiology interpretation(s) finalized by discharge Discharge Plan Discharge Patient Disposition: Home Clinical Impression: Paralytic ileus of small intestine Condition: Stable Prescriptions: No Action melatonin 5 mg capsule 10 mg PO BEDTIME (DME) left knee medial warehouse unloader brace See Rx Instructions .Route .MEDSUPPLY Qty: 1 0RF Rx Instructions: As directed magnesium oxide 400 mg magnesium tablet 400 mg PO DAILY Qty: 90 3RF Incruse Ellipta 62.5 mcg/actuation blister with device 1 inh inhalation DAILY Qty: 90 6RF metoprolol succinate 25 mg tablet extended release 24 hr 12.5 mg PO DAILY Qty: 45 0RF irbesartan-hydrochlorothiazide 150-12.5 mg tablet 1 tab PO BID pravastatin 40 mg tablet 40 mg PO QPM metformin 500 mg tablet 1,000 mg PO BID multivitamin Tablet 1 tab PO DAILY aspirin 81 mg Tablet,Delayed Release (Dr/Ec) 81 mg PO DAILY gabapentin 300 mg capsule 300 mg PO BID cyclobenzaprine 10 mg tablet 10 mg PO TID PRN (Reason: muscle spasm) Qty: 15 0RF ondansetron 4 mg tablet,disintegrating 4 mg PO Q6H PRN (Reason: nausea and vomiting) Qty: 14 0RF citalopram 10 mg tablet 10 mg PO DAILY insulin glargine [Lantus Solostar U-100 Insulin] 100 unit/mL (3 mL) insulin pen 24 unit SUBCUT BEDTIME Jardiance 10 mg tablet 10 mg PO QAM polyethylene glycol 3350 [Miralax] 17 gram powder in packet 17 g PO DAILY Qty: 30 3RF Discharge Orders: Discharge ED (Routine); Ordered 12/18/24 Ordered By: Moris Brennan Patient Instructions: Ileus (ED), Opioid Safety, Pain Management, Patient Portal & Travis Instructions Activity Restrictions/Additional Instructions: Take the medication prescribed. Stay near the bathroom. Return for worsening pain despite treatment, fever, vomiting liquids or medications, shortness of breath, other concerning symptoms. Call your doctor tomorrow for follow-up appointment. Print Language: Lithuanian Coding Level of Care Code ED Gymnastic Teacher for Marina Preston
[2024-12-18 01:43] VITALS: BP 125/70; PULSE 83; RESP 18; O2SAT 95
[2024-12-18 02:30] LABS: Troponin 5 2HR 12.73 ng/L (0-15)
[2024-12-18 02:31] LABS: Troponin 5 2HR Delta -4.27 ABS# (0-10)
[2024-12-18] MEDS: magnesium citrate Btl 296 mL PO (04:06)
[2024-12-18 04:12] VITALS: BP 102/67; PULSE 83; RESP 18; O2SAT 98
== END 2024-12-18 04:13 | disposition home or self-care (01) ==
PROVIDERS: Emergency Provider Emergency Medicine; PCP Family Medicine
DX: K56.0 Paralytic ileus (principal); Z79.84 Long term (current) use of oral hypoglycemic drugs; Z79.82 Long term (current) use of aspirin; Z79.4 Long term (current) use of insulin; Z87.891 Personal history of nicotine dependence; E11.9 Type 2 diabetes mellitus without complications; E78.5 Hyperlipidemia, unspecified; I10 Essential (primary) hypertension
CPT/HCPCS: 36415; 71045; 71275; 74177; 80053; 83690; 83880; 84484; 85025; 85378; 85610; 85730; 93005; 96374; 96375; 99285; J2270; J2405; J9999

== ENCOUNTER 2024-12-20 06:30 | Outpatient (RCR) | payer MEDICARE, MEDICAID, SELFPAY | END 2025-01-19 23:59 | disposition home or self-care (01) | LOC: SPT 06:30 | PROVIDERS: PCP Family Medicine; Visit Provider Physician Assistant | DX: Z47.1 Aftercare following joint replacement surgery (principal); Z96.652 Presence of left artificial knee joint | CPT/HCPCS: 97110 ==

== ENCOUNTER → 2025-01-17 09:56 | Outpatient (BNVA) | payer MEDICARE, MEDICAID, SELFPAY | PROVIDERS: PCP Family Medicine; Visit Provider Student in an Organized Health Care Education/Training Program | DX: Z98.890 Other specified postprocedural states (principal); Z96.652 Presence of left artificial knee joint | CPT/HCPCS: 73560; 73565; 99024 ==

== ENCOUNTER 2025-01-20 06:00 | Outpatient (RCR) | payer MEDICARE, MEDICAID, SELFPAY | END 2025-02-19 23:59 | disposition home or self-care (01) | LOC: SPT 06:00 | PROVIDERS: PCP Family Medicine; Visit Provider Physician Assistant | DX: Z47.1 Aftercare following joint replacement surgery (principal); Z96.652 Presence of left artificial knee joint | CPT/HCPCS: 97110 ==

== ENCOUNTER 2025-02-15 14:34 | Emergency (ER) | payer MEDICARE, MEDICAID, SELFPAY ==
--- OUTSIDE RECORDS SUMMARY | 2025-02-15 14:41 | XMS_ITS | Encounter Summary ---
Author Organization [facility] Address [address] [place] [address] Care Team Providers Care Test Driller Name Role Phone Ryan Martinez MD Primary Care Provider [phone] Encounter Details Date Type Department Care Team (Latest Contact Info) Description 02/18/1999 Outpatient Historical [facility] General and Trauma Surgery-[address] [place] [address] Kwesi Spence MD NO ADDRESS ON FILE Acute appendicitis without mention of peritonitis (Primary Dx) Social History Tobacco Use Types Packs/Day Years Used Date Smoking Tobacco: Never Assessed Sex and Gender Information Value Date Recorded Sex Assigned at Not on file 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
--- OUTSIDE RECORDS SUMMARY | 2025-02-15 14:41 | XMS_ITS | Encounter Summary ---
Author Organization [facility] Address 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 Advised per provider: He already had a bowel obstruction which required hospitalization, he could discuss with Dr. Martinez but I do not feel comfortable resuming ozempic due to this. Voiced understanding. Libby RN * Telephone Encounter - Libby Finney RN - 02/13/2025 10:23 AM CDT 02/13/2025 10:23 AM Returned call and spoke with patient. Patient is asking to get back on ozempic. Advised that he hadbeen taken off of it due to its association with increased risk for intestinal obstruction. He would like for the provider to reconsider putting him back on the medication for weight loss. Libby RN * Telephone Encounter - Richelle Zuñiga - 02/13/2025 10:20 AM CDT Copied from [facility] #[id number]. Topic: Medication Request >> Feb 13, 2025 10:18 AM Richelle Phillips wrote: Caller Name: Drew Dixon Callback Number: [phone] Medication (Ask patient/caregiver to spell if possible): Ozempic Note: All medication prescriptions can be requested using one CRM Caller is requesting: Medication Question from Patient (not involving new prescription or refill) Preferred Pharmacy: [facility], [place] - [address] [facility] [address] [facility] [address] Hours: Not open 24 hours Call Notes: Caller has question about switching back to Ozempic. Please, advise. Is there an encounter open? No documented in this encounter Plan of Treatment Upcoming Encounters Date Type Department Care Team (Late st Contact Info) Description 03/01/2025 12:00 PM CDT Appointment [facility] Dietary [address] [address] 03/27/2025 2:40 PM CDT Office Visit [facility] [place] [address] [phone] Ryan Martinez MD [address] [phone] documented as of this encounter Visit Diagnoses Not on filedocumented in this encounter Care Teams Wire Bound Box Machine Helper Relationship Specialty Start Date End Date Ryan Martinez MD [address] [phone] PCP - General Family Practice 12/16/17 documented as of this encounter
--- OUTSIDE RECORDS SUMMARY | 2025-02-15 14:41 | XMS_ITS ---
Author Organization [facility] Address [address] Attn: Epic Prelude ADT [place]UC[place] [address] Care Team Providers Care Power Transformer Repairer Name Role Phone Ryan Martinez MD Primary Care Provider [phone] Active Problems Problem Noted Date Diagnosed Date HALLMAN (nonalcoholic steatohepatitis) 09/02/2024 Chronic combined systolic an d diastolic congestive heart failure 08/09/2024 Acute non intractable tension-type headache 04/22 Obstructive sleep apnea syndrome 05/02/2024 Muscle cramps 05/02/2024 Uncontrolled type 2 diabetes mellitus with hyper glycemia 05/02/2024 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 09/24/2023 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 pathology 4..2022, 4.14.2022, S/P small bowel resection [...]
--- OUTSIDE RECORDS SUMMARY | 2025-02-15 14:41 | XMS_ITS | Clinical Summary ---
Author Organization [place] Address [address] [facility] Attn: Epic Prelude ADT [place]GEL[place] SAUCEDO [address] Care Team Providers Care Medical Office Representative Name Role Phone Ryan Martinez MD Primary Care Provider [phone] Allergies Active Allergy Reactions Criticality Noted Date Comments Prednisone Other (See Comments) 12/16/2017 Raises blood sugar Tetrahydrocannabinol (Thc) Extract Delirium Medium 01/27/2025 Medications Diabetic Supplies, Miscellan. Kit daily. Dx E11.649 1 Kit 0 021 Active meloxicam (MOBIC) 15 mg tabletIndication s:Localized osteoarthritis of right knee TAKE ONE TABLET BY MOUTH EVERY DAY 90 Tablet 1 019 Active lancets 30 gauge 1 Lancet by [facility].(Non-Drug; Combo Route) route daily. 90 Each 3 018 Active melatonin 5 mg tablet Take by mouth nightly as needed. Active APPLE CIDER VINEGAR ORAL Take by mouth. Ac tive multivit-min/fol ic/vit K/lycop (ONE-A-DAY MEN'S 50 PLUS ORAL) Take by mouth. A ctive docusate sodium (COLACE) 100 mg capsule Take 1 Capsule (100 mg) by mouth 2 times daily. 10 Capsule 023 Active aspirin 81 mg tablet,delayed release Take 81 mg by mouth daily. Active MAGNESIUM OXIDE ORAL Take by mouth daily. Active MAGNESIUM CITRATE ORAL 024 Active Blood-Glucose Meter,Continuous (Dexcom G6 Sales Operations Lead)Indicat ions:Uncontrolle d type 2 diabetes mellitus with hyperglycemia (CMS/HCC) Use to monitor blood glucose continuously throughout the day. 1 Each 024 Active Blood-Glucose Sensor (Dexcom G6 Sensor) DeviceIndication s:Uncontrolled type 2 diabetes mellitus with hyperglycemia (CMS/HCC) Discreetly worn under clothing to measure glucose levels just underneath the skin. Must change sensor every 10 days. 1 Each 024 Active BD Ultra-Fine Micro Pen Needle 32 gauge x 1/4 Needle USE DIRECTED DAILY with lantus Active umeclidinium (Incruse Ellipta) 62.5 mcg/actuation Disk with DeviceIndication s:Simple chronic bronchitis (CMS/HCC) Take 1 Puff by inhalation daily. 30 Each 024 Active Blood Pressure Monitor KitIndications:H TN (hypertension), benign Use to check blood pressure daily and prn. 1 Each 024 Active baclofen (LIORESAL) 10 mg tablet TAKE ONE TABLET BY MOUTH TWICE DAILY NEEDED FOR PAIN 60 Tablet 2 024 Active albuterol sulfate HFA 90 mcg/actuation aerosol inhaler INHALE TWO PUFFS into lungs EVERY 6 HOURS NEEDED FOR SHORTNESS OF BREATH 8.5 Gram 2 024 Active metFORMIN (GLUCOPHAGE) 1,000 mg tabletIndication s:Type 2 diabetes mellitus with hyperglycemia, with long-term current use of insulin (CMS/HCC) Take 1 Tablet (1,000 mg) by mouth 2 times daily with meals. 200 Tablet 3 025 Active amLODIPine (NORVASC) 5 mg tablet TAKE ONE TABLET BY MOUTH DAILY ALONG WITH 2.5 MG 100 Tablet 2 025 Active CPAP / BIPAP suppliesIndicati ons:Obstructive sleep apnea (adult) (pediatric) Length of need: 99 months Mask Type: nasal with headgear every 6 months, mask only every 3 months, 2 cushions per month. Tubing: heated 1 every 3 months, water chamber 1 every 6 months, chin strap 1 every 6 months, filters disposable 2 per month, filters reusable 1 per 6 months. 1 Each 025 Active cpap medical deviceIndication s:Obstructive sleep apnea (adult) (pediatric) CPAP @ auto [...] reusable 1 per 6 months. 1 Each 025 Active pravastatin (PRAVACHOL) 20 mg tabletIndication s:Dyslipidemia TAKE ONE TABLET BY MOUTH DAILY 100 Tablet 2 025 Active irbesartan-hydro CHLOROthiazide (AVALIDE) 150-12.5 mg tabletIndication s:HTN (hypertension), benign Take 2 Tablets by mouth daily. 200 Tablet 3 Active OneTouch Ultra Test Strip use to test once daily Active OneTouch Ultra2 Meter use as directed Active cyclobenzaprine (FLEXERIL) 10 mg tablet Active blood sugar diagnostic StripIndications :Type 2 diabetes mellitus with hyperglycemia, with long-term current use of insulin ([facility]) E11.65; Use to check sugars daily; substitution allowed 100 Each 5 025 Active polyethylene glycol (MIRALAX) 17 gram Powder in PacketIndication s:Constipation, unspecified constipation type Take 1 Packet (17 Grams) by mouth 2 times daily as needed for Constipation. 60 Packet 2 025 Active gabapentin (NEURONTIN) 300 mg capsule TAKE ONE CAPSULE BY MOUTH EVERY 8 HOURS 300 Capsule 2 025 Active citalopram (CeleXA) 10 mg tablet take one tablet by mouth daily 100 Tablet 3 025 Active empagliflozin (Jardiance) 10 mg tabletIndication s:Type 2 diabetes mellitus with hyperglycemia, with long-term current use of insulin ([facility]),Chroni c combined systolic and diastolic congestive heart failure (CMS/HCC) Take 1 Tablet (10 mg) by mouth daily in the morning. 100 Tablet 3 025 Active Ascenergy G6 Transmitter DeviceIndication s:Uncontrolled type 2 diabetes mellitus with hyperglycemia ([facility]) Fasten on top of the sensor to wirelessly send data to the seat builder. Must be changed every 3 months. 1 Each 3 025 Active Eliquis 2.5 mg tablet TAKE ONE TABLET BY MOUTH TWICE DAILY for TWO WEEKS 025 Active magnesium OXIDE (MAG-OX) 400 mg (241.3 mg magnesium) tablet Take 1 Tablet by mouth daily. 025 Active elderberry fruit 350 mg Capsule Take by mouth. Active fish oil-omega-3 fatty acids 340-1,000 mg Capsule Take 1 Capsule by mouth daily. Active insulin glargine (Lantus Solostar U-100 Insulin) 100 unit/mL pen syringeIndicatio ns:Type 2 diabetes mellitus with hyperglycemia, with long-term current use of insulin (CMS/HCC) Inject 24 Units by subcutaneous injection daily at bedtime. 15 mL 4 025 Active diazePAM (VALIUM) 5 mg tabletIndication s:Post-operative pain Take 1 Tablet (5 mg) by mouth every 8 hours as needed for Anxiety, Spasm or Discomfort. 20 Tablet 10/07/19 23 9:57 AM CDT 023 2024 Discontinued Blood-Glucose Transmitter (Ascenergy G6 Transmitter) DeviceIndication s:Uncontrolled type 2 diabetes mellitus with hyperglycemia (CMS/HCC) Fasten on top of the sensor to wirelessly send data to the seat builder. Must be changed every 3 months. 1 Each 3 024 2024 Discontinued Lantus Solostar U-100 Insulin 100 unit/mL (3 mL) solution for injectionIndicat ions:Type 2 diabetes mellitus with hyperglycemia, with long-term current use of insulin (CMS/HCC) INJECT 24 UNITS SUBCUTANEOUSLY EVERY NIGHT AT BEDTIME 15 mL 4 025 2024 Discontinued(R eoallaner) amoxicillin (AMOXIL) 500 mg capsule TAKE FOUR CAPSULES BY MOUTH 1 HOUR prior TO dental procedure 025 2024 Discontinued metFORMIN (GLUCOPHAGE) 500 mg tablet Take 2 Tablets by mouth 2 times daily. 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 Overview (08/09/2024): claims data [facility] 10.14.2022, 10.03.2022, S/P small bowel resection 01/09/2023 S/P [...] Encounters Date Type Department Care Team Description 02/13/2025 Telephone [facility] [address] [place] [address] Ryan Martinez MD Medication Assistance 02/07/2025 Abstract [facility] [address] [place] [address] Provider, Abstract 01/30/2025 Orders Only [address] [place] [address] LumaJuliana, HARDWARE DESIGNER Type 2 diabetes mellitus with hyperglycemia, with long-term current use of insulin ([facility]) (Primary Dx); Serum calcium elevated 01/30/2025 Results Follow-Up [address] [phone] Luma, Crystal Mallory, HARDWARE DESIGNER HEMOGLOBIN A1C, CBC WITH DIFFERENTIAL, COMPREHENSIVE METABOLIC PANEL, TSH 01/27/2025 2:00 PM CDT Office Visit [address] [phone] Luma, Crystal Mallory, HARDWARE DESIGNER Severe obesity (BMI 35.0-39.9) with comorbidity (Primary Dx); Type 2 diabetes mellitus with hyperglycemia, with long-term current use of insulin (CMS/HCC); HTN (hypertension), benign; Orthostatic hypotension; Obstructive sleep apnea syndrome 01/27/2025 Telephone [facility] [address] [place] [address] Libby Schmidt, TOSHA [facility] Manager Production 01/26/[address] [phone] Jessi Carrillo NP Uncontrolled type 2 diabetes mellitus with hyperglycemia (CMS/HCC) 01/26/2025 Orders Only [address] [phone] Libby Finney, RN Type 2 diabetes mellitus with hyperglycemia, with long-term current use of insulin (CMS/HCC); Chronic combined systolic and diastolic congestive heart failure (CMS/HCC) 01/26/[address] [phone] Ryan Martinez MD Provider Call 01/25/2025 External Device Data [facility] ABSTRACTION Provider, Abstract 01/10/2025 External Device Data [facility] ABSTRACTION Provider, Abstract 12/27/2024 External Device Data [facility] ABSTRACTION Provider, Abstract 12/19/2024 Orders Only [facility] [address] [place] [id number] Provider, Abstract 12/19/[address] [phone] Ryan Martinez MD 12/12/2024 [facility] [address] [place] [phone] Cielo Liang RN [facility] 12/09/2024 External Device Data Initial Department [address] [place] [address] ATTN: [place] [address] [facility], 12/06/2024 Orders Only [facility] [address] [place] [address] Provider, Abstract 12/06/2024 Abstract [facility] [address] [place] [address] Provider, Abstract 12/03/2024 Telephone [facility] [address] [place] [address] Shelbie Currie, TOSHA [facility] Manager Production 12/02/2024 External Device Data Initial Department [address] [place] [address] ATTN: [place] [address] [facility], 11/29/2024 External Device Data [place] ABSTRACTION Provider, Abstract 11/29/2024 External Device Data [place] ABSTRACTION Provider, Abstract 11/29/2024 External Device Data [place] ABSTRACTION Provider, Abstract 11/29/2024 External Device Data [place] ABSTRACTION Provider, Abstract 11/29/2024 External Device Data Initial Department [address] [place] [address] ATTN: [place] [address] [facility], 11/25/2024 External Device Data Initial Department [address] [place] [address] Dr RODRIGUESN: [place] [address] [facility], 11/23/2024 Telephone [facility] [place] [address] [facility] [address] [place] [address] Ryan Martinez MD Medication Question; Medication Question 11/22/2024 Orders Only [facility] Health Information Management [place] [address] [place] [address] Provider, Abstract 11/18/2024 External Device Data Initial Department [address] [facility] [address] CAMPOS: Prelude ADT [facility] [place] [address] [facility], from Last 3 Months Immunizations Immunization Administration [...] Former Chew Quit: 01/20/2001 Tobacco Cessation:Counseling Given: No Alcohol Use Standard Drinks/Week Comments No 0 [...] on file Legal Sex Male 3:36 PM REPLENISHER Gender Identity Not on file Sexual Orientation Not on file Last Filed Vital Signs Vital Sign Reading Time Taken Comments Blood Pressure 118/82 01/27/2025 2:11 PM CDT Pulse 98 01/27/2025 2:11 PM CDT Temperature 37.1 C (98.7 F) 01/27/2025 2:11 PM CDT Respiratory Rate 18 01/27/2025 2:11 PM CDT Oxygen Saturation 98% 01/27/2025 2:11 PM CDT Inhaled Oxygen Concentration - - Weight 117.3 kg (258 lb 9.6 oz) 01/27/2025 2:11 PM CDT Height 175.3 cm (5' 9 ) 01/27/2025 2:11 PM CDT Body Mass Index 38.19 01/27/2025 2:11 PM CDT Plan of Treatment Upcoming Encounters Date Type Department Care Team (Late st Contact Info) Description 03/01/2025 12:00 PM CDT Appointment [facility] Dietary [address] [phone] 03/27/2025 2:40 PM CDT Office Visit [facility] [place] [address] [address] Ryan Martinez MD [address] [address] Health Maintenance Due Date Last [...] 01/22/2017 ZOSTER VACCINE (1 of 2) 01/22/2022 COVID-19 Vaccine (4 - 2023-2 5 season) 2024 04/25/2021, 10/23/2020, 09/25/2020 [place] ([place]) Preventative Visit/Annual Wellness Visit 06/22/2024 03/25/2024, 04/13/2023, 08/28/2021 LDL CHOLESTEROL ANNUAL 09/23/2024 4, 07/30/2022, 02/22/2021, Additional history exists INFLUENZA VACCINE (#1) 2025 4, 03/14/2023, 03/14/2023, Additional history exists DIABETES: A1C (Auto Order) 04/29/202501/27, 10/03/2024, 06/27/2024, Additional history exists DIABETES MICROALBUMIN ANNUAL SCREEN 06/27/2025 06/27/2024, 09/24/2023, 01/09/2023, Additional history exists DIABETES HBA1C Q 6 MONTHS 07/30/20252024, 10/03/2024, 06/27/2024, Additional history exists DIABETES ANNUAL RETINAL EXAM 09/20/202506/2024, 03/22/2024, 03/04/2024, Additional history exists DIABETES ANNUAL FOOT EXAM 01/27/20262024, 11/11/2022, 08/28/2021, Additional history exists COLORECTAL CANCER SCREENING (AUTO ORDER) 04/02/2032 04/02/2022 COLORECTAL SCREENING 04/02/2032 04/02/2022 Colorectal Cancer Screening (AUTO ORDER) 04/02/2032 Colorectal Cancer Screening 04/02/2032 ROBERT Aguirre (Auto Order) Completed 06/27/2024 , 09/24/2023, 01/09/2023, Additional history exists KHE eGFR (Auto Order) Completed 01/27/2025 , 12/17/2024, 12/05/2024, Additional history exists Medical Devices Implanted Type Area System Analyst Device Identifier Shelf Expiration Date Model / Serial / Lot Clip Ligating Horizon Med Ti [id number] - Csc - [id number] Implanted:Qty : 1 on 10/02/2022 by Ortiz Gardner MD at [facility] Clip Right: Chest [employer]LE[employer] [id number] 06/29/2027 [id number] / / [id number] Clip Ligating Horizon Lg Ti [id number] - Csc - [id number] Implanted:Qty : 1 on 10/02/2022 by Ortiz Gardner MD at [facility] Clip Right: Chest [employer]LE[employer]- [employer]EC[employer] SYS 03/02/2027 [id number] / / [id number] Comp Fem Trthln Cr Pa Sz5 5517-F-502 - [id number] Implanted:Qty : 1 on 05/24/2018 by Christiano Donnelly MD Knee Right: Knee [employer] 11/29/2022 5517-F-50 2 / / [id number] Description:PER INVOICE Comp Tib Trthln Trtnmn Sz5 5536-B-500 - [id number] Implanted:Qty : 1 on 05/24/2018 by Christiano Donnelly MD Knee Right: Knee [employer] 10/28/2022 5536-B-50 0 / / [id number] Description:PER INVOICE Insert Tib Trthln X3 Cs 5531-G-511 - [id number] Implanted:Qty : 1 on 05/24/2018 by Christiano Donnelly MD Knee Right: Knee [employer] 03/09/2022 5531-G-51 1 / / [id number] Description:PER INVOICE Patella Trthln Trtnm Sza32 5552-L-320 - [id number] Implanted:Qty : 1 on 05/24/2018 by Christiano Donnelly MD Knee Right: Knee [employer] 12/02/2022 5552-L-32 0 / / [id number] Description:PER INVOICE Pin Pin Right: Shoulder Plate Plate Back Procedures Procedure Name Priority Date/Time Associated Diagnosis Comments TSH Routine 01/27/2025 2:32 PM CDT Type 2 diabetes mellitus with hyperglycemia, with long-term current use of insulin ([facility]) Severe obesity (BMI 35.0-39.9) with comorbidity HTN (hypertension), benign COMPREHENSIVE METABOLIC PANEL Routine 01/27/2025 2:32 PM CDT Type 2 diabetes mellitus with hyperglycemia, with long-term current use of insulin ([facility]) Severe obesity (BMI 35.0-39.9) with comorbidity HTN (hypertension), benign CBC WITH DIFFERENTIAL Routine 01/27/2025 2:32 PM CDT Type 2 diabetes mellitus with hyperglycemia, with long-term current use of insulin (CMS/[facility]) Severe obesity (BMI 35.0-39.9) with comorbidity HTN (hypertension), benign HEMOGLOBIN A1C Routine 01/27/2025 2:32 PM CDT Type 2 diabetes mellitus with hyperglycemia, with long-term current use of insulin ([facility]) Severe obesity (BMI 35.0-39.9) with comorbidity HTN (hypertension), benign COMPREHENSIVE METABOLIC PANEL Routine 12/17/2024 10:20 AM CDT PROTIME-INR Routine 12/17/2024 COMPREHENSIVE METABOLIC PANEL Routine 12/05/2024 10:32 AM CDT PROTIME-INR Routine 12/05/2024 BASIC METABOLIC PANEL Routine 11/21/2024 9:39 AM CDT HM DIABETES EYE EXAM Routine 09/20/2024 7:32 AM CDT MICROALBUMIN/CREATININ E RATIO, RANDOM UR Routine 06/27/2024 4:28 PM REPLENISHER Type 2 diabetes mellitus with hyperglycemia, with long-term current use of insulin ([facility]) LIPID PANEL Routine 09/24/2023 8:37 AM CDT Type 2 diabetes mellitus without complication, without long-term current use of insulin ([facility]) from Last 3 Months or Most Recently Relevant to Health Maintenance Results * (ABNORMAL) CBC WITH DIFFERENTIAL (01/27/2025 2:32 PM CDT) WBC 9.3 3.8 - 10.8 Thousand/u L [facility] RBC 4.95 4.20 - 5.80 Million/uL [facility] HEMOGLOBIN 14.4 13.2 - 17.1 g/dL [facility] HEMATOCRIT 44.9 38.5 - 50.0 % [facility] MCV 90.7 80.0 - 100.0 fL [facility] MCH 29.1 27.0 - 33.0 pg [facility] MCHC 32.1 32.0 - 36.0 g/dL [facility] Comment: For adults, a slight decrease in the calculated MCHC value (in the range of 30 to 32 g/dL) is most likely not clinically significant; however, it should be interpreted with caution in correlation with other red cell parameters and the patient's clinical condition. RDW 15.5(H) 11.0 - 15.0 % [facility] PLATELETS 308 140 - 400 Thousand/u L [facility] MPV 11.2 7.5 - 12.5 fL [facility] NEUTROPHIL ABSOLUTE 6,584 1,500 - 7,800 cells/uL [facility] LYMPHOCYTE ABSOLUTE 2,046 850 - 3,900 cells/uL [facility] MONOCYTE ABSOLUTE 484 200 - 950 cells/uL [facility] EOSINOPHIL ABSOLUTE 130 15 - 500 cells/uL [facility] BASOPHILS ABSOLUTE 56 0 - 200 cells/uL [facility] NEUTROPHIL 70.8 % [facility] LYMPHOCYTES 22.0 % [facility] MONOCYTE 5.2 % [facility] EOSINOPHILS 1.4 % [facility] BASOPHILS 0.6 % [facility] Comment: Test Performed at: [facility] [address] [place] [address] Andrew Frey MD Blood 01/27/2025 2:32 PM CDT 01/28/2025 5:35 AM CDT Juliana Ge HARDWARE DESIGNER HEMATOLOGY ORDERABLES Fi nal Result Performing Organization Address [facility] Co de Phone Number [facility] [phone] [facility] [address] * TSH (01/27/2025 2:32 PM CDT) TSH 1.86 0.40 - 4.50 mIU/L [facility] Comment: Test Performed at: [facility] [address] [place] [address] Andrew Frey MD Blood 01/27/2025 2:32 PM CDT 01/28/2025 5:35 AM CDT Juliana Ge HARDWARE DESIGNER CHEMISTRY ORDERABLES Fin al Result Performing Organization Address [facility] de Phone Number [facility] [phone] [facility] [address] * (ABNORMAL) HEMOGLOBIN A1C (01/27/2025 2:32 PM CDT) HEMOGLOBIN A1C 9.1(H) <5.7 % [facility] Comment: For someone without known diabetes, [...] diabetes for children. ESTIMATED AVERAGE GLUCOSE (MG/DL) 214 mg/dL [facility] ESTIMATED AVERAGE GLUCOSE (MMOL/L) 11.9 mmol/L [facility] Comment: Test Performed at: [facility] [address] [address] Andrew Frey MD Blood 01/27/2025 2:32 PM CDT 01/28/2025 5:35 AM CDT Juliana Tejada Luma HARDWARE DESIGNER CHEMISTRY ORDERABLES Fin al Result [facility] [phone] [facility] [address] [address] * (ABNORMAL) COMPREHENSIVE METABOLIC PANEL (01/27/2025 2:32 PM CDT) Only the most recent of3 resultswithin the time period is included. GLUCOSE 280(H) 65 - 99 mg/dL [facility] Comment: Fasting reference interval For someone without known diabetes, a glucose value >125 mg/dL indicates that they may have diabetes and this should be confirmed with a follow-up test. BUN 15 7 - 25 mg/dL [facility] CREATININE 1.00 0.70 - 1.30 mg/dL [facility] GFR 90 > OR = 60 mL/min/1. 73m2 [facility] BUN/CREAT RATIO SEE NOTE: 6 - 22 (calc) [facility] Comment: Not Reported: BUN and Creatinine are within reference range. SODIUM 137 135 - 146 mmol/L [facility] POTASSIUM 4.3 3.5 - 5.3 mmol/L [facility] CHLORIDE 97(L) 98 - 110 mmol/L [facility] CO2 28 20 - 32 mmol/L [facility] CALCIUM 10.5(H) 8.6 - 10.3 mg/dL [facility] TOTAL PROTEIN 7.5 6.1 - 8.1 g/dL [facility] ALBUMIN 4.6 3.6 - 5.1 g/dL [facility] GLOBULIN 2.9 1.9 - 3.7 g/dL (calc) [facility] ALBUMIN/GLOBULIN RATIO 1.6 1.0 - 2.5 (calc) [facility] BILIRUBIN TOTAL 0.4 0.2 - 1.2 mg/dL [facility] ALKALINE PHOSPHATASE 104 35 - 144 U/L [facility] AST 36(H) 10 - 35 U/L [facility] ALT 84(H) 9 - 46 U/L [facility] Comment: Test Performed at: [facility] [address] [place] [address] Andrew Frey MD Blood 01/27/2025 2:32 PM CDT 01/28/2025 5:35 AM CDT us Juliana Ge HARDWARE DESIGNER CHEMISTRY ORDERABLES Fin al Result [facility] [phone] [facility] [address] [place] [address] * PROTIME-INR (12/17/2024) Only the most recent of2 resultswithin the time period is included. ABSTRACTED PROTIME 12.6 ABSTRACTED INR 0.88 Blood 12/17/2024 us Abstract Provider HEMATOLOGY ORDERABLES Final Re sult * BASIC METABOLIC PANEL (11/21/2024 9:39 AM CDT) Blood us Abstract Provider CHEMISTRY ORDERABLES Final Res ult * HM DIABETES EYE EXAM (09/20/2024 7:32 AM CDT) us Abstract Provider HEALTH MAINTENANCE Edited Resu lt - Final * MICROALBUMIN/CREATININE RATIO, RANDOM UR (06/27/2024 4:28 PM REPLENISHER) Creatinine, Urine 114 20 - 320 mg/dL [facility] MICROALBUMIN, URINE 1.1 See Note: mg/dL [...] within a diagnostic category. Test Performed at: [facility] [address] [place] [address] Andrew Frey MD Urine URINE SPECIMEN OBTAINED BY CLEAN CATCH PROCEDURE / Unknown 06/27/2024 4:28 PM REPLENISHER 06/28/2024 6:53 AM REPLENISHER us Ryan Martinez MD URINE ORDERABLES Final Re sult [facility] [phone] [facility] [address] [place] [address] * LIPID PANEL (09/24/2023 8:37 AM CDT) CHOLESTEROL 82 <200 mg/dL [facility] HDL 42 > OR = 40 mg/dL [facility] TRIGLYCERIDE 70 <150 mg/dL [facility] LDL CALCULATED 25 mg/dL (calc) [facility] [...] LDL-C. Yosvany JOSEPH et al. HOSSEIN. 2013;310(19): 5945-4490 (http://education.[facility].GoMiles/faq/VDK216) CHOL/HDL RATIO 2.0 <5.0 (calc) [facility] TOTAL NON-HDL CHOL(LDL+VLDL) 40 <130 mg/dL (calc) [facility] Comment: For patients with diabetes plus 1 major ASCVD risk factor, treating to a non-HDL-C goal of <100 mg/dL (LDL-C of <70 mg/dL) is considered a therapeutic option. Test Performed at: [facility] [address] [facility] [place] [address] Andrew Frey MD Blood 09/24/2023 8:37 AM CDT 09/25/2023 3:41 AM CDT Ryan Martinez MD CHEMISTRY ORDERABLES Mikayla l Result [facility] [phone] [facility] [address] [place] [address] from Last 3 Months or Most Recently Relevant to Health Maintenance Insurance MEDICAID [place] [facility] * Guarantor: KIMBERLYN DIXONJoanna Phillips Account Type Relation to Patient Date of Phone Billing Address Personal/Family [id number] [place] [id number] RX [employer] PL[employer] (INTERNAL) [facility] Medicare Part D Advance Directives For more information, please contact: [phone] * Full Code (Latest Code Status on File) Date Activated Date Inactivated Comments 10/02/2022 2:49 PM 10/06/2022 3:34 PM * Full Code Date Activated Date Inactivated Comments 10/02/2022 11:23 AM 10/02/2022 2:49 PM * Full Code Date Activated Date Inactivated Comments 10/02/2022 8:30 AM 10/02/2022 11:22 AM * Full Code Date Activated Date Inactivated Comments 04/02/2022 9:19 AM 04/02/2022 12:30 PM Care Teams Medical Office Representative Relationship Specialty Start Date End Date Ryan Martinez MD [address] [address] PCP - General Family Practice 12/16/17
--- OUTSIDE RECORDS SUMMARY | 2025-02-15 14:41 | XMS_ITS | Clinical Summary ---
Author Organization [facility] Address [address] [facility] [address] [place] [address] Care Team Providers Care Special Education Coordinator Name Role Phone Ryan Martinez MD Primary Care Provider [phone] Allergies Active Allergy Reactions Criticality Noted Date Comments Prednisone Other (See Comments) 12/16/2017 Raises blood sugar Medications lancets 30 gauge 1 Lancet by [facility].(Non-Dr ug; Combo Route) route daily. 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 Gender Identity Not on file Sexual Orientation Not on file Last Filed Vital Signs Vital Sign Reading Time Taken Comments Blood Pressure 130/74 08/14/2020 2:56 PM MONITOR CAR OPERATOR Pulse 108 08/14/2020 2:56 PM MONITOR CAR OPERATOR Temperature 36.3 C (97.4 F) 08/14/2020 2:56 PM MONITOR CAR OPERATOR Respiratory Rate 16 08/14/2020 2:56 PM MONITOR CAR OPERATOR Oxygen Saturation 97% 08/14/2020 2:56 PM MONITOR CAR OPERATOR Inhaled Oxygen Concentration - - Weight 117.5 kg (259 lb) 08/14/2020 2:56 PM MONITOR CAR OPERATOR Height 176.5 cm (5' 9.5 ) 08/14/2020 2:56 PM MONITOR CAR OPERATOR Body Mass Index 37.7 08/14/2020 2:56 PM MONITOR CAR OPERATOR Plan of Treatment Health Maintenance Due Date [...] exists ZOSTER VACCINE (1 of 2) 01/22/2022 COVID-19 Vaccine (2 - 2023-2 5 season) 2024 09/25/2020 INFLUENZA VACCINE (#1) 2025 0, 04/10/2020, 05/09/2019 DIABETES ANNUAL RETINAL EXAM 09/20/202506/2024, 03/22/2024, 03/04/2024, Additional history exists Medical Devices Implanted Type Area Floorwalker Device Identifier Shelf Expiration Date Model / Serial / Lot Comp Fem Trthln Cr Pa Sz5 5517-F-502 - [id number] Implanted:Qty: 1 on 05/24/2018 by Christiano Donnelly MD at [facility] Knee Right: Knee [employer] 11/29/2022 5517-F-502 / / [id number] Description:PER INVOICE Insert Tib Trthln X3 Cs 5531-G-511 - [id number] Implanted:Qty: 1 on 05/24/2018 by Christiano Donnelly MD at [facility] Knee Right: Knee [employer] 03/09/2022 5531-G-511 / / [id number] Description:PER INVOICE Patella Trthln Trtnm Sza32 5552-L-320 - [id number] Implanted:Qty: 1 on 05/24/2018 by Christiano Donnelly MD at [facility] Knee Right: Knee [employer] 12/02/2022 5552-L-320 / / [id number] Description:PER INVOICE Comp Tib Trthln Trtnmn Sz5 5536-B-500 - [id number] Implanted:Qty: 1 on 05/24/2018 by Christiano Donnelly MD at [facility] Knee Right: Knee [employer] 10/28/2022 5536-B-500 / / [id number] Description:PER INVOICE Procedures Procedure Name Priority Date/Time Associated Diagnosis Comments HEMOGLOBIN A1C Routine 08/14/2020 3:33 PM MONITOR CAR OPERATOR Type 2 diabetes mellitus with hypoglycemia without coma, without long-term current use of insulin ([facility]) MICROALBUMIN/CREATI NINE RATIO, RANDOM UR Routine 04/10/2020 10:12 AM CDT Type 2 diabetes mellitus with hypoglycemia without coma, without long-term current use of insulin ([facility]) LIPID PANEL Routine 04/10/2020 10:12 AM CDT Type 2 diabetes mellitus with hypoglycemia without coma, without long-term current use of insulin ([facility]) Severe obesity (BMI 35.0-39.9) with comorbidity ([facility]) HTN (hypertension), benign Dyslipidemia from Last 3 Months or Most Recently Relevant to Health Maintenance Results * (ABNORMAL) HEMOGLOBIN A1C (08/14/2020 3:33 PM MONITOR CAR OPERATOR) HEMOGLOBIN A1C 10.7(H) See Comment % 08/15/2020 10:42 AM MONITOR CAR OPERATOR [facility] EST. AVG GLUCOSE, A1C 260 mg/dL 08/15/2020 10:42 AM [facility] Blood Collection / Unknown 08/14/2020 3:33 PM MONITOR CAR OPERATOR 08/14/2020 8:05 PM MONITOR CAR OPERATOR Narrative [facility] - 08/15/2020 10:42 AM MONITOR CAR OPERATOR HGB A1C INTERPRETATION NORMAL: <5.7% PRE-DIABETES: 5.7 - 6.4% DIABETES: 6.5% OR GREATER Falsely low A1C measurements can occur when: 1. Anemia and/or hemolytic anemia is present. 2. Hemoglobin variants present. 3. Renal failure. 4. Transfusion of blood product in the last 120 days. We recommend ordering a fructosamine test(TSW9651) to more accurately assess glycemic status if any of the above conditions are present. us Ryan Martinez MD CHEMISTRY ORDERABLES Mikayla green Result [facility] CLIA# [id number] [facility] [place] [address] * MICROALBUMIN/CREATININE RATIO, RANDOM UR (04/10/2020 10:12 AM CDT) MICROALBUMIN, URINE <1.2 No Reference Range mg/dL 04/10/2020 10:07 PM CDT [facility] CREATININE, URINE 166.9 40.0 - 278.0 mg/dL 04/10/2020 10:07 PM CDT [facility] Comment:Reference Range vari es with fluid intake and diet. MICROALBUMIN/C REAT RATIO, UR <7.2 <17.0 mg/g 04/10/2020 10:07 PM CDT [facility] Urine URINE SPECIMEN OBTAINED BY CLEAN CATCH PROCEDURE / Unknown Collection / Unknown 04/10/2020 10:12 AM CDT 04/10/2020 8:29 PM CDT Narrative [facility] - 04/10/2020 10:07 PM CDT Condition Microalbumin/Creat ratio Normal Males <17 Normal Females <25 Microalbuminuria Males 17-299 Microalbuminuria Females 25-299 Overt proteinuria >=300 us Ryan Martinez MD URINE ORDERABLES Final Re sult [facility] IA# [id number] [address] [place] [address] * LIPID PANEL (04/10/2020 10:12 AM CDT) CHOLESTEROL 121 <200 mg/dL 04/10/2020 9:54 PM CDT [facility] TRIGLYCERIDE 86 <150 mg/dL 04/10/2020 9:54 PM CDT [facility] HDL 45 40 - 59 mg/dL 04/10/2020 9:54 PM CDT [facility] LDL CALCULATED 59 <100 mg/dL 04/10/2020 9:54 PM CDT [facility] NON-HDL CHOLESTEROL 76 <130 mg/dL 04/10/2020 9:54 PM CDT [facility] Blood Venipuncture / Unknown 04/10/2020 10:12 AM CDT 04/10/2020 8:32 PM CDT Narrative [facility] - 04/10/2020 9:54 PM [...] ORDERABLES Mikayla green Result Performing Organization Address City/State/[facility] Co de Phone Number [facility] CLIA# [id number] [address] [place] [address] from Last 3 Months or Most Recently Relevant to Health Maintenance Insurance MEDICAID [place] MEDICARE PART A AND B RX [employer] Medicare Part D RX [employer] PL[employer] (INTERNAL) [facility] Advance Directives For more information, please contact: [phone] * Full Code (Latest Code Status on File) Date Activated Date Inactivated Comments 05/24/2018 1:29 PM 05/26/2018 4:39 PM * Full Code Date Activated Date Inactivated Comments 05/24/2018 7:47 AM 05/24/2018 1:29 PM Care Teams Special Education Coordinator Relationship Specialty Start Date End Date Ryan Martinez MD [address] [phone] PCP - General Family Practice 12/16/17
--- OUTSIDE RECORDS SUMMARY | 2025-02-15 14:41 | XMS_ITS | Encounter Summary ---
Author Organization [facility] Address [address] [place] [address] Care Team Providers Care Speech Pathologist Name Role Phone Ryan Martinez MD Primary Care Provider [phone] Reason for Visit * Reason Onset Date Comments Results 01/30/2025 Encounter Details Date Type Department Care Team (Latest Contact Info) Description 01/30/2025 Results Follow-Up [facility] [place] [address] [address] Juliana Ge, [facility] [address] [phone] HEMOGLOBIN A1C, CBC WITH DIFFERENTIAL, COMPREHENSIVE METABOLIC PANEL, TSH Social History Tobacco Use Types Packs/Day Years [...] on file 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 Voiced understanding. He is agreeable to seeing Endocrinology, he would prefer [facility] if accepting patients, if not is okay with [facility]. He states that he took tums about 1 month ago and only one time. Jaquelin GIVENS * Telephone Encounter - Jaquelin Ch RN - 01/30/2025 1:30 PM CDT ----- Message from Juliana Ge sent at 01/30/2025 11:45 AM CDT ----- A1c is up to 9.1. can I refer him to endocrinology? Elevated liver enzymes noted still but stable. Calcium is a bit elevated again. Has he taken a lot of tums recently DANNI Olson, 01/30/2025 11:45 AM ----- Message ----- From: Frank Vu Incoming [facility] Results Sent: 01/28/2025 9:14 AM CDT To: DANNI Mane documented in this encounter Plan of Treatment Upcoming Encounters Date Type Department Care Team (Late st Contact Info) Description 03/01/2025 12:00 PM CDT Appointment [facility] Dietary [address] [place] [address] 03/27/2025 2:40 PM CDT Office Visit [facility] [place] [address] [phone] Ryan Martinez MD [address] [place] [phone] documented as of this encounter Visit Diagnoses Not on filedocumented in this encounter Care Teams Speech Pathologist Relationship Specialty Start Date End Date Ryan Martinez MD [address] [phone] PCP - General Family Practice 12/16/17 documented as of this encounter
[2025-02-15 14:47] VITALS: BP 135/92; PULSE 104; RESP 18; TEMP 36.3; O2SAT 96
--- NOTE | 2025-02-15 15:26 | CTR_ITS ---
PROCEDURE INFORMATION: Exam: CTA Head With Contrast, Arteriography Exam date and time: 02/15/2025 4:36 PM Age: 55 years old Clinical indication: Syncope and collapse; Additional info: Syncope turn to head blacked out TECHNIQUE: Imaging protocol: Computed tomographic angiography of the head with contrast. Exam focused on the arteries. 3D rendering (Not supervised by radiologist): MIP and/or 3D reconstructed images were created by the technologist. Radiation optimization: All CT scans at this facility use at least one of these dose optimization techniques: automated exposure control; mA and/or kV adjustment per patient size (includes targeted exams where dose is matched to clinical indication); or iterative reconstruction. Contrast material: OMNIPAQUE 350; Contrast volume: 75 ml; Contrast route: INTRAVENOUS (IV); Other technique: 3D MIP reconstructed images are provided COMPARISON: CT angio headneck* [id number] 06/24/2024 11:17 PM RADIATION DOSE METRICS: Total DLP (mGy-cm): 441.5 FINDINGS: The supraclinoid petrous cavernous and ophthalmic segments of the internal carotid arteries are remarkable for some potential noncalcified atheromatous plaque within the distal petrous and proximal parasellar left internal carotid artery (3/214-221). The A1 and A2 segments of the anterior cerebral arteries and middle cerebral arteries and branches are unremarkable. The anterior communicating artery is unremarkable. The posterior communicating arteries are also unremarkable. Bilateral vertebral artery artery superior cerebellar and posterior cerebral arteries are unremarkable. The right PICA is visible and appears normal. Left PICA is not apparent neither superior cerebellar arteries are visible. No posterior fossa oligemia is evident.. There are no aneurysms or arterial venous malformation seen. There is no significant atherosclerotic disease. The brain shows no midline shift or obvious subacute stroke sequela or significant mass effect.There is no hydrocephalus. Notes: If there is further concern recommend conventional angiography for complete assessment. See concurrent noncontrast head CT report. PROCEDURE INFORMATION: Exam: CTA Neck With Contrast Exam date and time: 02/15/2025 4:36 PM Age: 55 years old Clinical indication: Syncope and collapse; Additional info: Syncope turn to head blacked out TECHNIQUE: Imaging protocol: Computed tomographic angiography of the neck with contrast. Exam focused on the cervical segments of the vasculature. 3D rendering (Not supervised by radiologist): MIP and/or 3D reconstructed images were created by the technologist. Radiation optimization: All CT scans at this facility use at least one of these dose optimization techniques: automated exposure control; mA and/or kV adjustment per patient size (includes targeted exams where dose is matched to clinical indication); or iterative reconstruction. Contrast material: OMNIPAQUE 350; Contrast volume: 75 ml; Contrast route: INTRAVENOUS (IV); Other technique: 3D MIP reconstructed images are provided COMPARISON: CT angio chest w abd pel w con 12/18/2024 1:26 AM RADIATION DOSE METRICS: Total DLP (mGy-cm): 441.5 FINDINGS: Right common carotid artery: The right common carotid artery is widely patent. Right internal carotid artery: The right carotid bulb region is unremarkable. The right internal carotid artery origin is widely patent. The right cervical internal carotid artery is widely patent. The right internal carotid artery caliber diameter is 4.8 mm. Right external carotid artery: The right external carotid artery is unremarkable. Left common carotid artery: The left common carotid artery is widely patent. Left internal carotid artery: The left carotid bulb region is unremarkable. The left internal carotid artery origin is widely patent. The left cervical internal carotid artery is widely patent. The left internal carotid artery caliber diameter is 4.8 mm. Left external carotid artery: The left external carotid artery is unremarkable. Right vertebral artery: The right vertebral artery is patent. No dissection. Left vertebral artery: The left vertebral artery is patent. No dissection Soft tissues: See Lungs finding. Bones/joints: No acute fracture. Lungs: Lung apices are unremarkable. A normal thyroid is seen. Remaining paraspinal soft tissues are unremarkable as well. Other findings: The proximal portions of the great vessels and are unremarkable. Notes: If there is further concern recommend conventional angiography for complete assessment. CT/CT angio headneck* [id number] IMPRESSION: Unremarkable CTA of the head. IMPRESSION: 1. Unremarkable CTA of the neck. 2. No stenosis by NASCET criteria. COMMENTS: Any reported ICA stenosis directly references the distal internal carotid diameter as the denominator for stenosis measurement. REFERENCES: NASCET CRITERIA. The degree of stenosis in the cervical segment of the internal carotid artery is based on NASCET criteria. Normal is no stenosis. Mild is less than 50% stenosis. Moderate is 50-69% stenosis. Severe is 70% to 99% stenosis. Total occlusion is no detectable patent lumen.
--- NOTE | 2025-02-15 15:26 | CTR_ITS ---
PROCEDURE INFORMATION: Exam: CT Head Without Contrast Exam date and time: 02/15/2025 4:36 PM Age: 55 years old Clinical indication: Syncope and collapse; Additional info: Syncopal episode TECHNIQUE: Imaging protocol: Computed tomography of the head without contrast. Radiation optimization: All CT scans at this facility use at least one of these dose optimization techniques: automated exposure control; mA and/or kV adjustment per patient size (includes targeted exams where dose is matched to clinical indication); or iterative reconstruction. COMPARISON: CT angio headneck* [id number] 06/24/2024 11:17 PM RADIATION DOSE METRICS: Total DLP (mGy-cm): 1140.2 FINDINGS: Brain: Appearance of the brain is stable, without evidence of mass lesion, hemorrhage, territorial infarction, or abnormal calcification. Cerebral ventricles: No ventriculomegaly. Paranasal sinuses: See Soft tissues finding. Mastoid air cells: Visualized mastoid air cells are well aerated. Orbital cavities: Orbits and globes remain normal. Bones: Unremarkable. No acute fracture. Soft tissues: New mucoperiosteal hypertrophy is identified in both maxillary sinuses suggesting subacute to chronic inflammatory change. The paranasal sinuses are otherwise unremarkable. CT/CT head wo con* [id number] IMPRESSION: 1. Interval development of subacute to chronic bilateral maxillary sinus mucoperiosteal hypertrophy. 2. Otherwise stable and unremarkable noncontrast head CT.
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
--- NOTE | 2025-02-15 15:39 | ECG_ITS ---
[facility] Test Date: 2025-02-15 Pat Name: Drew Dixon Department: Room: Gender: Male Patient Registration Rep: : [id number] Requested By: Olu Alatorre Order Number: [id number] Barry MD: Chris Saba M.D. Measurements Intervals [place] Rate: 105 P: 41 MA: 184 QRS: 0 QRSD: 90 T: 31 QT: 346 QTc: 459 Interpretive Statements SINUS TACHYCARDIA ABNORMAL RHYTHM ECG Compared to ECG 12/18/2024 00:22:41 heart rate has increased Electronically Signed On 02-15-2025 22:18:36 CDT by Chris Saba M.D. [id number]
--- NOTE | 2025-02-15 15:39 | XR_ITS ---
WS: [id number] Exam: XR chest 1V portable [id number] Date/Time of Exam: 02/15/2025 3:39 PM Reason For Exam: Syncope Comparison 12/18/2024. The lungs are fully expanded and clear. Chronic changes along the RIGHT heart border. Normal cardiomediastinal silhouette. No pleural effusions. Spondylosis of the dorsal spine. Anchoring screw in the RIGHT humeral head. XR/XR chest 1V portable [id number] IMPRESSION: 1. No acute cardiopulmonary process.
[2025-02-15 15:46] VITALS: BP 134/89; BP 135/99; BP 147/91; PULSE 101; PULSE 110; PULSE 94
[2025-02-15 15:48] LABS: Hematocrit 42.5 % (37-53); Hemoglobin 13.40 g/dL (11.27-16.99); Mean Corpuscular HGB Conc 31.5 g/dL (30-55); Mean Corpuscular Hemoglobin 28.2 pg (27-33); Mean Corpuscular Volume 89.3 fl (82-101); Nucleated Red Blood Cells % 0 %; Platelet Count 278 10^3/cmm (157-399); Red Blood Count 4.76 10^6/uL (3.85-5.65); White Blood Count 8.90 10^3/uL (3.29-11.43)
[2025-02-15 16:07] VITALS: BP 135/99; PULSE 98; O2SAT 96
--- NOTE | 2025-02-15 16:08 | CTR_ITS ---
PROCEDURE INFORMATION: Exam: CTA Chest With Contrast Exam date and time: 02/15/2025 4:43 PM Age: 55 years old Clinical indication: Abnormal findings; Other: Elevated ddimer; Additional info: Syncope tachycardia elevated d-dimer TECHNIQUE: Imaging protocol: Computed tomographic angiography of the chest with contrast. Exam focused on the arteries. 3D rendering (Not supervised by radiologist): MIP and/or 3D reconstructed images were created by the technologist. Radiation optimization: All CT scans at this facility use at least one of these dose optimization techniques: automated exposure control; mA and/or kV adjustment per patient size (includes targeted exams where dose is matched to clinical indication); or iterative reconstruction. Contrast material: OMNIPAQUE 350; Contrast volume: 75 ml; Contrast route: INTRAVENOUS (IV); COMPARISON: CT angio chest w abd pel w con 12/18/2024 1:26 AM RADIATION DOSE METRICS: Total DLP (mGy-cm): 521.82 FINDINGS: Pulmonary arteries: No evidence of pulmonary embolism. Aorta: No evidence of aortic dissection. Lungs: No lobar consolidation. Pleural spaces: No pleural effusions or pneumothorax. Heart: Heart size within normal limits. No pericardial effusions. Coronary arteries: Scattered mild atherosclerotic coronary artery calcifications. Lymph nodes: Stable chronic right hilar and subcarinal lymphadenopathy with chronic encasement of the right lower lobe bronchus several proximal pulmonary artery branches supplying the right lower lobe. No PE or no Interval increase bandlike soft tissue opacity extending from the right hilar lymph node conglomerate wards the pleura laterally. Bones/joints: Unremarkable. No acute fracture. Soft tissues: Unremarkable. CT/CT angio chest PE protcl [id number] IMPRESSION: 1. No evidence of pulmonary embolism. 2. No evidence of aortic dissection. 3. Stable chronic right hilar and subcarinal lymphadenopathy with chronic encasement of the right lower lobe bronchus several proximal pulmonary artery branches supplying the right lower lobe. 4. Interval increase bandlike soft tissue opacity extending from the right hilar lymph node conglomerate wards the pleura laterally. Given this increase in soft tissue opacification, a new neoplastic process can not be completely ruled out. Recommend nonemergent pulmonology consultation to establish management plan which may include follow-up chest CT scan in 3 months or further evaluation with PET-CT.
[2025-02-15 16:09] LABS: Glucose Urine UA 3+ (Normal); Nitrate Urine Negative (Negative)
[2025-02-15 16:11] LABS: Troponin(5th) Baseline 12 ng/L (0-15)
[2025-02-15 16:14] LABS: PCP Screen Urine Negative (Negative)
[2025-02-15 16:15] LABS: Add Urine Microscopic? YES
[2025-02-15 16:21] LABS: Specific Gravity, Urine 1.038 (1.005-1.030)
[2025-02-15 16:49] LABS: Albumin Level 4.1 g/dL (3.5-5.2); Alcohol Level < 10 mg/dL (0-10); Alkaline Phosphatase 101 U/L (40-130); Aspartate Amino Transferase 43 U/L (0-40); Blood Urea Nitrogen 22 mg/dL (6-20); Calcium 9.7 mg/dL (8.5-10.5); Carbon Dioxide 21 mmol/L (22-29); Chloride 95 mmol/L (98-107); Creatinine Clr Calc Pharmacy 109.2686; Globulin 3.0 g/dL (1.3-4.6); Glucose 175 mg/dL (65-115); Osmolality Calculated 286 mOsm/kg (285-295); Sodium 134 mmol/L (136-145); Total Protein 7.1 g/dL (6.6-8.7)
[2025-02-15 16:50] LABS: Anion Gap 21.7 (5-19); Potassium 3.7 mmol/L (3.5-5.1)
[2025-02-15] MEDS: iohexol 350 mg/mL 500 mL Btl (per mL) IV (16:57)
[2025-02-15 17:12] LABS: Alanine Aminotransferase 77 U/L (0-41)
[2025-02-15 17:13] LABS: Troponin 5 2HR 12.00 ng/L (0-15); Troponin 5 2HR Delta 0 ABS# (0-10)
[2025-02-15 17:14] VITALS: BP 132/71; PULSE 97; RESP 16; O2SAT 98
--- NOTE | 2025-02-20 08:09 | DCPLANNER ---
messaged heart care for er f/u
--- NOTE | 2025-02-20 17:48 | DCPLANNER ---
faxed outpatient echo to scheduling
== END 2025-02-15 17:59 | disposition home or self-care (01) ==
PROVIDERS: Emergency Provider Family Medicine; PCP Family Medicine
DX: R55 Syncope and collapse (principal); Z79.84 Long term (current) use of oral hypoglycemic drugs; Z79.82 Long term (current) use of aspirin; Z79.4 Long term (current) use of insulin; Z87.891 Personal history of nicotine dependence; E78.5 Hyperlipidemia, unspecified; E11.9 Type 2 diabetes mellitus without complications; I10 Essential (primary) hypertension
CPT/HCPCS: 36415; 70450; 70496; 70498; 71045; 71275; 80053; 80306; 80307; 81001; 84484; 85025; 85378; 93005; 99285

== ENCOUNTER → 2025-03-15 11:51 | Outpatient (BNVA) | payer MEDICARE, MEDICAID, SELFPAY | PROVIDERS: PCP Family Medicine; Visit Provider Internal Medicine | DX: E11.9 Type 2 diabetes mellitus without complications (principal); E78.5 Hyperlipidemia, unspecified; Z79.4 Long term (current) use of insulin; Z79.84 Long term (current) use of oral hypoglycemic drugs | CPT/HCPCS: 99204 ==

== ENCOUNTER 2025-03-16 10:54 | Emergency (ER) | payer MEDICARE, MEDICAID, SELFPAY ==
[2025-03-16 11:10] VITALS: BP 110/58; PULSE 87; RESP 16; TEMP 37.3; O2SAT 92; BMI 36.6
--- NOTE | 2025-03-16 11:14 | CT_ITS ---
WS: [id number] CT CERVICAL TRAUMA TECHNIQUE: Noncontrast CT of the cervical spine with coronal and sagittal reformatted images. CLINICAL INFORMATION: pain COMPARISON: 100 DLP: 233.[address] scans at [facility] use at least one of these dose optimization techniques: automated exposure control; mA and/or kV adjustment per patient size (includes targeted exams where dose is matched to clinical indication); or iterative reconstruction. FINDINGS: Straightening of the normal cervical lordosis. Mild spondylitic changes. Disc osteophyte complexes at C6-7 and C7-T1. No high-grade central canal stenosis. Normal craniocervical junction. Normal C1-C2 articulation. Dens is normal in appearance. Normal occipital condyles. Normal C1 ring. No evidence of acute fracture or dislocation. Normal prevertebral soft tissues. Mastoids air cells are well aerated. Disc osteophyte complex C6-7 eccentric to the LEFT with mild central canal stenosis and severe LEFT greater than RIGHT bony foraminal narrowing. Moderate LEFT C7-T1 foraminal narrowing. CT/CT cervical spin wo con* [id number] IMPRESSION: 1. No evidence of acute fracture or dislocation. 2. Disc osteophyte complex C6-7 eccentric to the LEFT with mild central canal stenosis and severe LEFT greater than RIGHT bony foraminal narrowing at this le kizzy. MRI could be obtained for better anatomic detail 3. Moderate LEFT C7-T1 foraminal narrowing.
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
[2025-03-16 11:42] VITALS: RESP 16; O2SAT 95
[2025-03-16] MEDS: morphine 4 mg/mL SDV 1 mL IVP (11:42)
[2025-03-16] MEDS: orphenadrine 30 mg/mL Inj 2 mL 60 MG IM (11:43)
[2025-03-16 13:04] VITALS: BP 122/72; PULSE 74; O2SAT 96
== END 2025-03-16 13:06 | disposition home or self-care (01) ==
PROVIDERS: Emergency Provider Family Medicine; PCP Family Medicine
DX: M48.02 Spinal stenosis, cervical region (principal); Z79.84 Long term (current) use of oral hypoglycemic drugs; Z79.82 Long term (current) use of aspirin; Z79.4 Long term (current) use of insulin; Z87.891 Personal history of nicotine dependence; E11.9 Type 2 diabetes mellitus without complications; I10 Essential (primary) hypertension; E78.5 Hyperlipidemia, unspecified
CPT/HCPCS: 72125; 96372; 96374; 96375; 99285; J1885; J2270; J2360

== ENCOUNTER 2025-03-24 06:00 | Outpatient (CLI) | payer MEDICARE, MEDICAID, SELFPAY ==
--- NOTE | 2025-03-24 06:10 | USCV_ITS ---
Drew Dixon Age: 55 Gender: M : 1970 Exam Date: 03/24/2025 06:23 Ordering Phys: Olu Rodriguez DO Technologist: JAMES Exam Location: [facility] Indication: Synocpe BP: 116 / 74 HR: 65 Rhythm: Sinus Technical Quality: Adequate MEASUREMENTS (Male / Female) Normal Values 2D ECHO LV Diastolic Diameter PLAX 5.4 cm 4.2 - 5.9 / 3.9 - 5.3 cm IVS Diastolic Thickness 1.3 cm 0.6 - 1.0 / 0.6 - 0.9 cm IVS Systolic Thickness 1.7 cm LVPW Diastolic Thickness 1.7 cm 0.6 - 1.0 / 0.6 - 0.9 cm LVPW Systolic Thickness 1.9 cm LVOT Diameter 2.1 cm LV Ejection Fraction 2D Teich 55.6 % LV Ejection Fraction MOD 4C 51.0 % LV Ejection Fraction MOD 2C 48.1 % LV Ejection Fraction 2C AL 51.5 % LA Diameter 4.9 cm RA Systolic Volume 4C AL 47.1 ml RA Systolic Volume 4C MOD 41.5 ml LA Sys Volume AL 71.8 cm cubed LA Sys Volume Index AL 29.2 cm cubed/m squared Aorta at Sinotubular Diameter 2.6 cm M-MODE LA Ao Ratio MM 1.2 AV Cusp Separation MM 2.2 cm DOPPLER AV Peak Velocity 93.0 cm/s LVOT Peak Velocity 79.0 cm/s AV Area Cont Eq vti 3.1 cm squared AV Area Cont Eq pk 2.8 cm squared MV Peak Velocity 85.0 cm/s MV Area PHT 4.0 cm squared Mitral E to A Ratio 0.8 TR Peak Velocity 95.0 cm/s TR Peak Gradient 3.6 mmHg TV Peak E Velocity 95.0 cm/s PV Peak Velocity 104.0 cm/s FINDINGS Left Ventricle Mild diffuse hypokinesis of the left ventricle with an ejection fraction of 48%.mild left ventricular hypertrophy. Grade I/IV diastolic dysfunction (abnormal relaxation filling pattern), normal to mildly elevated filling pressures. Right Ventricle Also normal LV size and ejection fraction Right Atrium Normal right atrial size. Left Atrium Mildly increased left atrial size. IA Septum Normal appearance of the interatrial septum. Mitral Valve No gross abnormalities no Aortic Valve No gross abnormalities Tricuspid Valve No gross abnormalities noted Pulmonic Valve Pulmonic valve not well visualized. Pericardium No pericardial effusion. Aorta Normal diameter of the aortic root and ascending thoracic aorta. IVC Inferior vena cava not visualized. CONCLUSIONS Mild diffuse hypokinesis of the left ventricle with an ejection fraction of 48%.mild left ventricular hypertrophy. Grade I/IV diastolic dysfunction (abnormal relaxation filling pattern), normal to mildly elevated filling pressures. Mildly increased left atrial size. There is no pericardial effusion. There are no intracardiac masses. No similar previous studies are available for comparison Dr Wilman Madison MD [facility] (Electronically Signed) Final Date: 24 March 2025 22:45 S
== END 2025-03-24 06:01 | disposition home or self-care (01) ==
LOC: RAD 06:02
PROVIDERS: PCP Family Medicine; Visit Provider Family Medicine
DX: R55 Syncope and collapse (principal); I50.1 Left ventricular failure, unspecified; I51.7 Cardiomegaly
CPT/HCPCS: 93306

== ENCOUNTER → 2025-03-30 09:02 | Outpatient (BNVA) | payer MEDICARE, MEDICAID, SELFPAY | PROVIDERS: PCP Family Medicine; Visit Provider Orthopaedic Surgery | DX: M54.2 Cervicalgia (principal); Z09 Encounter for follow-up examination after completed treatment for conditions other than malignant neoplasm | CPT/HCPCS: 72050; 99213 ==

== ENCOUNTER 2025-04-27 16:20 | Emergency (ER) | payer MEDICARE, MEDICAID, SELFPAY ==
[2025-04-27 16:23] VITALS: BP 157/88; PULSE 76; RESP 17; TEMP 36.7; O2SAT 96; BMI 36.4
--- OUTSIDE RECORDS SUMMARY | 2025-04-27 16:25 | XMS_ITS | Clinical Summary ---
Author Organization [facility] Address [address] [facility] [address] [place] [address] Care Team Providers Care Bit Sander Name Role Phone Ryan Martinez MD Primary Care Provider [phone] Allergies Active Allergy Reactions Criticality Noted Date Comments Prednisone Other (See Comments) 12/16/2017 Raises blood sugar Medications lancets 30 gauge 1 Lancet by [facility].(Non-Dr ug; Combo Route) route daily. 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 Gender Identity Not on file Sexual Orientation Not on file Last Filed Vital Signs Vital Sign Reading Time Taken Comments Blood Pressure 130/74 08/14/2020 2:56 PM CHANNEL CEMENTER Pulse 108 08/14/2020 2:56 PM CHANNEL CEMENTER Temperature 36.3 C (97.4 F) 08/14/2020 2:56 PM CHANNEL CEMENTER Respiratory Rate 16 08/14/2020 2:56 PM CHANNEL CEMENTER Oxygen Saturation 97% 08/14/2020 2:56 PM CHANNEL CEMENTER Inhaled Oxygen Concentration - - Weight 117.5 kg (259 lb) 08/14/2020 2:56 PM CHANNEL CEMENTER Height 176.5 cm (5' 9.5 ) 08/14/2020 2:56 PM CHANNEL CEMENTER Body Mass Index 37.7 08/14/2020 2:56 PM CHANNEL CEMENTER Plan of Treatment Health Maintenance Due Date [...] 04/10/2020, 03/01/2019, 01/01/2018 LDL CHOLESTEROL ANNUAL 04/10/2021 , 11/22/2018, 01/01/2018, Additional history exists ZOSTER VACCINE (1 of 2) 01/22/2022 INFLUENZA VACCINE (#1) 2025 04/10/2020, 2019 COVID-19 Vaccine (2024-07 6 season) 2025 09/25/2020 DIABETES ANNUAL RETINAL EXAM 09/20/202506/2024, 03/22/2024, 03/04/2024, Additional history exists Medical Devices Implanted Type Area Hydraulic Auto Jack Mechanic Device Identifier Shelf Expiration Date Model / Serial / Lot Comp Fem Trthln Cr Pa Sz5 5517-F-502 - [id number] Implanted:Qty: 1 on 05/24/2018 by Christiano Donnelly MD at [facility] Knee Right: Knee [employer] 11/29/2022 5517-F-502 / / [id number] Description:PER INVOICE Insert Tib Trthln X3 Cs 5531-G-511 - [id number] Implanted:Qty: 1 on 05/24/2018 by Christiano Donnelly MD at [facility] Knee Right: Knee [employer] 03/09/2022 5531-G-511 / / [id number] Description:PER INVOICE Patella Trthln Trtnm Sza32 5552-L-320 - [id number] Implanted:Qty: 1 on 05/24/2018 by Christiano Donnelly MD at [facility] Knee Right: Knee [employer] 12/02/2022 5552-L-320 / / [id number] Description:PER INVOICE Comp Tib Trthln Trtnmn Sz5 5536-B-500 - [id number] Implanted:Qty: 1 on 05/24/2018 by Christiano Donnelly MD at [facility] Knee Right: Knee [employer] 10/28/2022 5536-B-500 / / [id number] Description:PER INVOICE Procedures Procedure Name Priority Date/Time Associated Diagnosis Comments HEMOGLOBIN A1C Routine 08/14/2020 3:33 PM CHANNEL CEMENTER Type 2 diabetes mellitus with hypoglycemia without coma, without long-term current use of insulin ([facility]) MICROALBUMIN/CREATI NINE RATIO, RANDOM UR Routine 04/10/2020 10:12 AM CDT Type 2 diabetes mellitus with hypoglycemia without coma, without long-term current use of insulin ([facility]) LIPID PANEL Routine 04/10/2020 10:12 AM CDT Type 2 diabetes mellitus with hypoglycemia without coma, without long-term current use of insulin ([facility]) Severe obesity (BMI 35.0-39.9) with comorbidity ([facility]) HTN (hypertension), benign Dyslipidemia from Last 3 Months or Most Recently Relevant to Health Maintenance Results * (ABNORMAL) HEMOGLOBIN A1C (08/14/2020 3:33 PM CHANNEL CEMENTER) HEMOGLOBIN A1C 10.7(H) See Comment % 08/15/2020 10:42 AM [facility] EST. AVG GLUCOSE, A1C 260 mg/dL 08/15/2020 10:42 AM [facility] Blood Collection / Unknown 08/14/2020 3:33 PM CHANNEL CEMENTER 08/14/2020 8:05 PM CHANNEL CEMENTER Narrative [facility] - 08/15/2020 10:42 AM CHANNEL CEMENTER HGB A1C INTERPRETATION NORMAL: <5.7% PRE-DIABETES: 5.7 - 6.4% DIABETES: 6.5% OR GREATER Falsely low A1C measurements can occur when: 1. Anemia and/or hemolytic anemia is present. 2. Hemoglobin variants present. 3. Renal failure. 4. Transfusion of blood product in the last 120 days. We recommend ordering a fructosamine test([id number]) to more accurately assess glycemic status if any of the above conditions are present. Ryan Martinez MD CHEMISTRY ORDERABLES Mikayla green Result [facility] CLIA# [id number] [facility] [place] [address] * MICROALBUMIN/CREATININE RATIO, RANDOM UR (04/10/2020 10:12 AM CDT) MICROALBUMIN, URINE <1.2 No Reference Range mg/dL 04/10/2020 10:07 PM CDT [facility] CREATININE, URINE 166.9 40.0 - 278.0 mg/dL 04/10/2020 10:07 PM CDT [facility] Comment:Reference Range vari es with fluid intake and diet. MICROALBUMIN/C REAT RATIO, UR <7.2 <17.0 mg/g 04/10/2020 10:07 PM CDT [facility] Urine URINE SPECIMEN OBTAINED BY CLEAN CATCH PROCEDURE / Unknown Collection / Unknown 04/10/2020 10:12 AM CDT 04/10/2020 8:29 PM CDT [facility] - 04/10/2020 10:07 PM CDT Condition Microalbumin/Creat ratio Normal Males <17 Normal Females <25 Microalbuminuria Males 17-299 Microalbuminuria Females 25-299 Overt proteinuria >=300 us Ryan Martinez MD URINE ORDERABLES Final Re sult [facility]# [id number] [address] [place] [id number] * LIPID PANEL (04/10/2020 10:12 AM CDT) CHOLESTEROL 121 <200 mg/dL 04/10/2020 9:54 PM CDT [facility] TRIGLYCERIDE 86 <150 mg/dL 04/10/2020 9:54 PM CDT [facility] HDL 45 40 - 59 mg/dL 04/10/2020 9:54 PM CDT [facility] LDL CALCULATED 59 <100 mg/dL 04/10/2020 9:54 PM CDT [facility] NON-HDL CHOLESTEROL 76 <130 mg/dL 04/10/2020 9:54 PM CDT [facility] Blood Venipuncture / Unknown 04/10/2020 10:12 AM CDT 04/10/2020 8:32 PM CDT Narrative [facility] - 04/10/2020 9:54 PM [...] ORDERABLES Mikayla green Result Performing Organization Address City/State/[facility] Co de Phone Number [facility] CLIA# [id number] [place] [address] from Last 3 Months or Most Recently Relevant to Health Maintenance Insurance [place]ICA[place] MEDICARE PART A AND B RX AETNA Medicare Part D RX [employer] (INTERNAL) [facility] Internal Plans Advance Directives For more information, please contact: [phone] * Full Code (Latest Code Status on File) Date Activated Date Inactivated Comments 05/24/2018 1:29 PM 05/26/2018 4:39 PM * Full Code Date Activated Date Inactivated Comments 05/24/2018 7:47 AM 05/24/2018 1:29 PM Care Teams Bit Sander Relationship Specialty Start Date End Date Ryan Martinez MD [address] [address] PCP - General Family Practice 12/16/17
--- OUTSIDE RECORDS SUMMARY | 2025-04-27 16:25 | XMS_ITS | Encounter Summary ---
Author Organization [facility] Address [address] [place] [address] Care Team Providers Care Manager Card Name Role Phone Ryan Martinez MD Primary Care Provider [phone] Encounter Details Date Type Department Care Team (Latest Contact Info) Description 02/18/1999 Outpatient Historical [facility] General and Trauma Surgery-[address] [place] [address] Kwesi Spence MD NO ADDRESS ON FILE Acute appendicitis without mention of peritonitis (Primary Dx) Social History Tobacco Use Types Packs/Day Years Used Date Smoking Tobacco: Never Assessed Sex and Gender Information Value Date Recorded Sex Assigned at Not on file Legal Sex 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
--- NOTE | 2025-04-27 16:30 | ECG_ITS ---
[facility]: 2025-04-27 Pat Name: Drew Dixon Department: Room: Gender: Male Credentialing Specialist: : 1970 Requested By: Christelle Alatorre Order Number: [id number] Reddy MD: Wilman Madison M.D. Measurements Intervals [place] Rate: 74 P: 58 [place]: 204 QRS: 63 QRSD: 104 T: 59 QT: 367 QTc: 408 Interpretive Statements SINUS RHYTHM Compared to ECG 02/15/2025 14:46:39 Sinus tachycardia no longer present Electronically Signed On 04-29-2025 13:00:52 ENGINE WATCHMAN by Wilman Madison M.D. [email or web address]
--- NOTE | 2025-04-27 17:11 | W.ED.GENADLT ---
HPI - General Adult General: Chief complaint: Airway/Esophagus Foreign Body Stated complaint: Feels like somthing is in throat SOB Time Seen by Provider: 04/27/25 17:08 History of Present Illness: 55-year-old male with a history of carcinoid tumor, obstructive sleep apnea, obesity, type 2 diabetes, hypertension and hyperlipidemia who presents to the emergency room with esophageal pain. He says it hurts when he swallows. He had been eating some cashews and shortly after whenever he went to drink some water it started hurting. It hurts to swallow. He has a feeling like something is in his esophagus but he is able to swallow still. Related Data Home Medications ?Medication ?Instructions ?Recorded ?Confirmed irbesartan 150 1 tab PO BID 02/06/20 03/30/25 mg-hydrochlorothiazide 12.5 mg tablet melatonin 5 mg capsule 10 mg PO BEDTIME 03/19/21 03/30/25 metformin 500 mg tablet 1,000 mg PO BID 01/01/22 03/30/25 aspirin 81 mg tablet,delayed 81 mg PO DAILY 12/24/22 03/30/25 release gabapentin 300 mg capsule 300 mg PO BID 12/24/22 03/30/25 multivitamin 1 tab PO DAILY 12/24/22 03/30/25 citalopram 10 mg tablet 10 mg PO DAILY 10/12/24 03/30/25 empagliflozin 10 mg tablet 10 mg PO QAM 10/12/24 03/30/25 (Jardiance) insulin glargine 100 unit/mL (3 24 unit SUBCUT BEDTIME 10/12/24 03/30/25 mL) subcutaneous pen (Lantus Solostar U-100 Insulin) pravastatin 20 mg tablet 20 mg PO BID 03/16/25 03/30/25 Previous Rx's ?Medication ?Instructions ?Recorded umeclidinium 62.5 mcg/actuation 1 inh inhalation DAILY #90 ea 04/07/23 blister powder for inhalation (Incruse Ellipta) left knee medial nut former brace #1 ea 04/22/24 magnesium oxide 400 mg PO DAILY #90 tabs 09/29/24 ondansetron 4 mg disintegrating 4 mg PO Q6H PRN nausea and 10/12/24 tablet vomiting #14 tabs polyethylene glycol 3350 17 gram 17 g PO DAILY #30 ea 10/14/24 oral powder packet (Miralax) metoprolol succinate 25 mg 12.5 mg (1/2 x 25 mg) PO DAILY #45 10/17/24 tablet,extended release 24 hr tabs nateglinide 60 mg tablet 60 mg PO TID #270 tabs 03/15/25 diclofenac sodium 75 mg 75 mg PO Q12H PRN pain #20 tabs 03/16/25 tablet,delayed release hydrocodone 5 mg-acetaminophen 325 1 tab PO Q6H PRN pain #10 tabs 03/16/25 mg tablet tizanidine 4 mg tablet 4 mg PO Q6H PRN muscle spasticity 03/16/25 #20 tabs Allergies Allergy/AdvReac Type Severity Reaction Status Date / Time marijuana (cannabis) Allergy Severe ADR-Gastrointestinal Verified 03/30/25 07:42 Upset prednisone Allergy Severe ADR-Agitate Verified 03/30/25 07:42 d Review of Systems Narrative: Constitutional symptoms: Negative except as documented in HPI. Skin symptoms: Negative except as documented in HPI. Eye symptoms: Negative except as documented in HPI. ENMT symptoms: Negative except as documented in HPI. Respiratory symptoms: Negative except as documented in HPI. Cardiovascular symptoms: Negative except as documented in HPI. Gastrointestinal symptoms: Negative except as documented in HPI. Genitourinary symptoms: Negative except as documented in HPI. Musculoskeletal symptoms: Negative except as documented in HPI. Neurologic symptoms: Negative except as documented in HPI. Psychiatric symptoms: Negative except as documented in HPI. Endocrine symptoms: Negative except as documented in HPI. 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 Type 2 diabetes mellitus HTN (hypertension) Hyperlipidemia History of PFTs 2021 History of cardiovascular stress test 10/10/2024 no significant perfusion abnormalities, slightly diminished EF 44%, mild diffuse hypokinesis, mild LV dilatation with ESV 73ml, elevated TID ration of 1.69 may suggest endocardial ischemia; No significant EKG changes, maximum METs 7.5, no exercised induced chest pain or arrhythmia SBO (small bowel obstruction) several over the years, has been managed conservatively and with surgery in past; 09/2022 had lysis of adhesions; 09/2024 conservative management Lung nodule right lower lobe nodules, s/p biopsy and resection Surgical History Status post pneumonectomy (09/2022) partial RLL for removal of carcinoid tumor History of lung biopsy 04/2022 bronch with EBUS, pathology revealed carcinoid tumor and evidence of sarcoidosis History of exploratory laparotomy 1998 exploratory lap for obstruction with appendectomy; 12/2022 lysis of adhesion H/O knee surgery History of back surgery H/O shoulder surgery History of gastric surgery History of appendectomy H/O rhinoplasty Family History Family/Other Diabetes Grandfather Heart disease Grandmother Cancer Leukemia Other Dementia Hyperlipidemia Hypertension Lung disease Stroke Denies family history of CAD (coronary artery disease) Clotting disorder Psychiatric illness Chronic kidney disease (CKD) Suicide Anesthesia complication Bleeding disorder Social History Smoking and tobacco/nicotine status: former use of tobacco/nicotine Quit status (tobacco/nicotine): has quit using Year quit tobacco: 2001 Former quit date comment: Hx of 1 PPD x 12 Years Second hand smoke exposure: No Alcohol intake: current Alcohol intake frequency: holidays/special occasions only Substance/Drug Use: never Lives independently: Yes Household members: family Marital status: Single Current occupational status: disabled Do you think of yourself as: Straight/Heterosexual Current gender identity: Male Physical Exam Narrative: EXAM NARRATIVE: General: Alert, no acute distress. Skin: Warm, dry. Head: Normocephalic, atraumatic. Neck: Supple, trachea midline. Eye: Extraocular movements are intact. Ears, nose, mouth and throat: mucosa moist. Cardiovascular: Regular, Normal peripheral perfusion. Respiratory: Lungs are clear to auscultation, respirations are non-labored, breath sounds are equal, Symmetrical chest wall expansion. Gastrointestinal: Soft, Nontender, Non distended Musculoskeletal: Normal ROM, no deformity. Neurological: Alert and oriented, No focal neurological deficit observed. Psychiatric: Cooperative, appropriate mood & affect. Course Vital Signs: Vital signs: Vital Signs Temperature 98.0 F 04/27/25 16:23 Pulse Rate 70 04/27/25 18:25 Respiratory Rate 16 04/27/25 18:25 Blood Pressure 149/105 04/27/25 18:25 Pulse Oximetry 95 04/27/25 18:25 Oxygen Delivery Me thod Room Air 04/27/25 17:30 MDM - General Adult Medical Decision Making Medical decision making: Patient's reason for coming to the emergency room pain with swallowing Social determinants disability I reviewed the patient's medical record. History as above. Differential diagnosis: including but not limited to and based on the above HPI, review of systems and physical exam: Patient appears to have an esophageal abrasion or esophagitis. He is still able to swallow fluids. He says whenever he swallowed the GI cocktail it made it burn for a moment. EKG: Time 1630. Rate 74. Normal sinus rhythm, No ST-T changes, no ectopy, normal SC & QRS intervals, This was reviewed and interpreted by myself the ER physician at 1635. Assessment and plan: Esophageal abrasion/irritation - Discharged home - Discussed plan with patient. Answered any questions. - Evaluation and treatment of this problem were appropriate in the emergency setting. No radiology studies performed this visit Discharge Plan Discharge Patient Disposition: Home Clinical Impression: Esophageal pain Condition: Stable Prescriptions: No Action melatonin 5 mg capsule 10 mg PO BEDTIME (DME) left knee medial nut former brace See Rx Instructions .Route .MEDSUPPLY Qty: 1 0RF Rx Instructions: As directed magnesium oxide 400 mg magnesium tablet 400 mg PO DAILY Qty: 90 3RF nateglinide 60 mg tablet 60 mg PO TID Qty: 270 1RF Rx Instructions: give before meal(s) Incruse Ellipta 62.5 mcg/actuation blister with device 1 inh inhalation DAILY Qty: 90 6RF metoprolol succinate 25 mg tablet extended release 24 hr 12.5 mg PO DAILY Qty: 45 0RF irbesartan-hydrochlorothiazide 150-12.5 mg tablet 1 tab PO BID metformin 500 mg tablet 1,000 mg PO BID multivitamin Tablet 1 tab PO DAILY aspirin 81 mg Tablet,Delayed Release (Dr/Ec) 81 mg PO DAILY gabapentin 300 mg capsule 300 mg PO BID ondansetron 4 mg tablet,disintegrating 4 mg PO Q6H PRN (Reason: nausea and vomiting) Qty: 14 0RF citalopram 10 mg tablet 10 mg PO DAILY insulin glargine [Lantus Solostar U-100 Insulin] 100 unit/mL (3 mL) insulin pen 24 unit SUBCUT BEDTIME Jardiance 10 mg tablet 10 mg PO QAM polyethylene glycol 3350 [Miralax] 17 gram powder in packet 17 g PO DAILY Qty: 30 3RF pravastatin 20 mg tablet 20 mg PO BID tizanidine 4 mg tablet 4 mg PO Q6H PRN (Reason: muscle spasticity) Qty: 20 0RF Rx Instructions: do not exceed 3 doses per 24 hrs hydrocodone-acetaminophen 5-325 mg tablet 1 tab PO Q6H PRN (Reason: pain) Qty: 10 0RF diclofenac sodium 75 mg tablet,delayed release (DR/EC) 75 mg PO Q12H PRN (Reason: pain) Qty: 20 0RF Discharge Orders: Discharge ED (Routine); Ordered 04/27/25 Ordered By: Christelle Lozano Referrals: Iker Walter MD [Physician, General Surgery] Referral Note: Call for appointment with GI for possible EGD if pain persist. Ryan Martinez [Primary Care Provider, Family Practice] Discharge Diet: Advance as tolerated Discharge Activity: Increase activity as tolerated Patient Instructions: Esophageal Spasm (ED), Opioid Safety, Pain Management, Patient Portal & Travis Instructions Activity Restrictions/Additional Instructions: Call for appointment with GI for possible EGD if pain persists. If you get to where you cannot swallow liquids or tolerate your secretions please return to the emergency room. Thank you for choosing [facility] for your healthcare needs today. You have been screened and evaluated and felt safe for discharge. Health conditions do change or evolve sometimes and as such it is important that you follow up with your Primary Doctor to be re checked, 3-5 days is a general good time frame for follow up. You are always welcome to return to the ED for re assessment if your symptoms are worsening or you have new concerns Print Language: Italian Coding Level of Care Code ED Lapel [employer] for Marina Preston
[2025-04-27] MEDS: lidocaine 2% viscous 15 ML, aluminum-mag hydrox-simethicon 30 ML, sucralfate oral liq 1 GM PO (17:14)
[2025-04-27 17:30] VITALS: BP 146/91; PULSE 80; RESP 16; O2SAT 96
[2025-04-27 18:00] VITALS: BP 149/105; PULSE 70; RESP 16; O2SAT 96
[2025-04-27 18:25] VITALS: BP 149/105; PULSE 70; RESP 16; O2SAT 95
== END 2025-04-27 18:25 | disposition home or self-care (01) ==
PROVIDERS: Emergency Provider Emergency Medicine; PCP Family Medicine
DX: K22.9 Disease of esophagus, unspecified (principal); Z79.84 Long term (current) use of oral hypoglycemic drugs; Z79.82 Long term (current) use of aspirin; Z79.4 Long term (current) use of insulin; Z87.891 Personal history of nicotine dependence; E78.5 Hyperlipidemia, unspecified; I10 Essential (primary) hypertension; E11.9 Type 2 diabetes mellitus without complications
CPT/HCPCS: 93005; 99283; J9999

== ENCOUNTER 2025-05-08 14:57 | Emergency (ER) | payer MEDICARE, MEDICAID, SELFPAY ==
[2025-05-08 15:16] VITALS: BP 109/74; PULSE 97; RESP 17; TEMP 36.6; O2SAT 95; BMI 35.7
--- NOTE | 2025-05-08 15:16 | XRR_ITS ---
PROCEDURE INFORMATION: Exam: XR Left Shoulder Exam date and time: 05/08/2025 3:20 PM Age: 55 years old Clinical indication: Pain; Shoulder; Left; Additional info: Shoulder pain TECHNIQUE: Imaging protocol: Radiologic exam of the left shoulder. Views: 2 or more views. COMPARISON: CR XR shoulder LT min 2V* [id number] 02/06/2020 10:19 AM FINDINGS: Bones/joints: No acute fracture or dislocation of the left shoulder. Mild narrowing of the glenohumeral joint, compatible with mild osteoarthritis. Moderate acromioclavicular joint arthropathy with undersurface spurring. Soft tissues: Unremarkable. XR/XR shoulder LT min 2V* [id number] IMPRESSION: 1. No acute fracture or dislocation of the left shoulder. 2. Moderate left acromioclavicular joint arthropathy with undersurface spurring.
[2025-05-08 16:23] VITALS: BP 132/84; O2SAT 96
--- NOTE | 2025-05-08 16:25 | W.ED.EXTPRO ---
HPI - Extremity Problem General: Chief complaint: Extremity Injury, Upper Stated complaint: L SHOULDER PAIN Time Seen by Provider: 05/08/25 16:18 History of Present Illness: Patient is a pleasant 55-year-old male with history of cervical spondylosis, established with Dr. Khalil, presents to the emergency room with left shoulder pain. Patient was lifting groceries, when he started having pain in his left shoulder. No fevers. This occurred today. Patient follows with Dr. Khalil due to cervical neck pain. He has not had an intervention. He has appointment follow-up on 05/11. Associated symptoms: Deny chest pain, fever(s) or rash Related Data Home Medications ?Medication ?Instructions ?Recorded ?Confirmed irbesartan 150 1 tab PO BID 02/06/20 03/30/25 mg-hydrochlorothiazide 12.5 mg tablet melatonin 5 mg capsule 10 mg PO BEDTIME 03/19/21 03/30/25 metformin 500 mg tablet 1,000 mg PO BID 01/01/22 03/30/25 aspirin 81 mg tablet,delayed 81 mg PO DAILY 12/24/22 03/30/25 release gabapentin 300 mg capsule 300 mg PO BID 12/24/22 03/30/25 multivitamin 1 tab PO DAILY 12/24/22 03/30/25 citalopram 10 mg tablet 10 mg PO DAILY 10/12/24 03/30/25 empagliflozin 10 mg tablet 10 mg PO QAM 10/12/24 03/30/25 (Jardiance) insulin glargine 100 unit/mL (3 24 unit SUBCUT BEDTIME 10/12/24 03/30/25 mL) subcutaneous pen (Lantus Solostar U-100 Insulin) pravastatin 20 mg tablet 20 mg PO BID 03/16/25 03/30/25 Previous Rx's ?Medication ?Instructions ?Recorded umeclidinium 62.5 mcg/actuation 1 inh inhalation DAILY #90 ea 04/07/23 blister powder for inhalation (Incruse Ellipta) left knee medial lay out worker brace #1 ea 04/22/24 magnesium oxide 400 mg PO DAILY #90 tabs 09/29/24 ondansetron 4 mg disintegrating 4 mg PO Q6H PRN nausea and 10/12/24 tablet vomiting #14 tabs polyethylene glycol 3350 17 gram 17 g PO DAILY #30 ea 10/14/24 oral powder packet (Miralax) metoprolol succinate 25 mg 12.5 mg (1/2 x 25 mg) PO DAILY #45 10/17/24 tablet,extended release 24 hr tabs nateglinide 60 mg tablet 60 mg PO TID #270 tabs 03/15/25 diclofenac sodium 75 mg 75 mg PO Q12H PRN pain #20 tabs 03/16/25 tablet,delayed release hydrocodone 5 mg-acetaminophen 325 1 tab PO Q6H PRN pain #10 tabs 03/16/25 mg tablet tizanidine 4 mg tablet 4 mg PO Q6H PRN muscle spasticity 03/16/25 #20 tabs celecoxib 200 mg capsule 200 mg PO DAILY #30 caps 05/08/25 tizanidine 4 mg capsule 4 mg PO Q8H PRN muscle spasticity 05/08/25 #30 caps Allergies Allergy/AdvReac Type Severity Reaction Status Date / Time marijuana (cannabis) Allergy Severe ADR-Gastrointestinal Verified 03/30/25 07:42 Upset prednisone Allergy Severe ADR-Agitate Verified 03/30/25 07:42 d Review of Systems General: Reports: 10 or more systems reviewed and unremarkable except in HPI and below Const: Denies: fever(s) or chills Eyes: Denies: change in vision or blurry vision ENMT: Denies: throat pain or dry mouth Card: Denies: chest pain or palpitations Resp: Denies: dyspnea or non-productive cough GI: Denies: abdominal pain, nausea or vomiting : Denies: flank pain or difficulty urinating Musc: Reports: neck pain (chronic), extremity pain, joint pain, joint stiffness, limited range of motion and muscle cramps; Denies: back pain, joint warmth or muscle weakness Skin/Breast: Denies: rash or pruritus Neuro: Denies: headache(s) or numbness in extremities Psych: Denies: anxiety or depression PFSH ED PFSH: Medical History (Updated 05/08/25 @ 16:57 by ROSELIA Marques) 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 Type 2 diabetes mellitus HTN (hypertension) Hyperlipidemia History of PFTs 2021 History of cardiovascular stress test 10/10/2024 no significant perfusion abnormalities, slightly diminished EF 44%, mild diffuse hypokinesis, mild LV dilatation with ESV 73ml, elevated TID ration of 1.69 may suggest endocardial ischemia; No significant EKG changes, maximum METs 7.5, no exercised induced chest pain or arrhythmia SBO (small bowel obstruction) several over the years, has been managed conservatively and with surgery in past; 09/2022 had lysis of adhesions; 09/2024 conservative management Lung nodule right lower lobe nodules, s/p biopsy and resection Surgical History Status post pneumonectomy (09/2022) partial RLL for removal of carcinoid tumor History of lung biopsy 04/2022 bronch with EBUS, pathology revealed carcinoid tumor and evidence of sarcoidosis History of exploratory laparotomy 1998 exploratory lap for obstruction with appendectomy; 12/2022 lysis of adhesion H/O knee surgery History of back surgery H/O shoulder surgery History of gastric surgery History of appendectomy H/O rhinoplasty Family History Family/Other Diabetes Grandfather Heart disease Grandmother Cancer Leukemia Other Dementia Hyperlipidemia Hypertension Lung disease Stroke Denies family history of CAD (coronary artery disease) Clotting disorder Psychiatric illness Chronic kidney disease (CKD) Suicide Anesthesia complication Bleeding disorder Social History Smoking and tobacco/nicotine status: former use of tobacco/nicotine Quit status (tobacco/nicotine): has quit using Year quit tobacco: 2001 Former quit date comment: Hx of 1 PPD x 12 Years Second hand smoke exposure: No Alcohol intake: current Alcohol intake frequency: holidays/special occasions only Substance/Drug Use: never Lives independently: Yes Household members: family Marital status: Single Current occupational status: disabled Do you think of yourself as: Straight/Heterosexual Current gender identity: Male Physical Exam Const: COMMON NORMALS: no acute distress, average body habitus and patient oriented x3 HENMT: COMMON NORMALS: normocephalic, atraumatic, hearing grossly normal bilaterally, external ears normal, EAC's normal, Normal external nose present, moist oral mucous membranes and oropharynx normal HEAD & SCALP: normocephalic and atraumatic NOSE: Normal external nose present EXTERNAL EAR: Yes external ears normal EXTERNAL AUDITORY CANAL: EAC's normal Eye: COMMON NORMALS: Equal, round and reactive pupils present and EOMs intact bilaterally PUPIL: Yes Equal, round and reactive pupils present Neck/C-Spine: COMMON NORMALS: full ROM and no lymphadenopathy Lymph: LYMPHATIC: no lymphadenopathy noted Chest: COMMONS NORMALS: normal inspection of the chest and normal palpation of entire chest wall Resp: COMMON NORMALS: normal respiratory effort, No retractions and No use of accessory muscles Cardio: COMMON NORMALS: regular rate and regular rhythm RATE: regular rate RHYTHM: regular rhythm GI: COMMON NORMALS: Normal to inspection, nondistended, normoactive bowel sounds present, Soft to palpation, non-tender and No hepatosplenomegaly present PALPATION: Yes Soft to palpation and Yes No hepatosplenomegaly present Extremity: COMMON NORMALS: full ROM (with passive ROM) and capillary refill normal GENERAL: Yes normal exam except as noted LEFT UPPER EXTREMITY: Yes shoulder joint Left shoulder joint: Yes inspection (Held in adduction), Yes ROM (Intact with passive), Yes neurovascular exam (Intact) and Yes special tests Left shoulder special tests: Empty can test: Positive (laterally), Drop arm test: Negative and Biceps load test: Negative Neuro: COMMON NORMALS: patient oriented x3 Course Vital Signs: Vital signs: Vital Signs Temperature 97.9 F 05/08/25 15:16 Pulse Rate 84 05/08/25 16:42 Respiratory Rate 17 05/08/25 16:42 Blood Pressure 133/89 05/08/25 16:42 Pulse Oximetry 94 05/08/25 16:42 Oxygen Delivery Me thod Room Air 05/08/25 16:23 MDM - Extremity (Nontraumatic) Medical Decision Making Patient is a pleasant 55-year-old gentleman that injured his left shoulder when carrying groceries. X-ray shows moderate left AC joint arthropathy with undersurface spurring. He also has positive empty can test indicating rotator cuff pathology. Will refer to Dr. Khalil as he is on-call today, patient is already established. Lab Data Radiology Impressions Shoulder X-Ray 05/08/25 15:16 IMPRESSION: 1. No acute fracture or dislocation of the left shoulder. 2. Moderate left acromioclavicular joint arthropathy with undersurface spurring. All radiology interpretation(s) finalized by discharge Discharge Plan Discharge Patient Disposition: Home Clinical Impression: Arthropathy of left shoulder Left shoulder strain Qualifiers: Encounter type: initial encounter Qualified Code(s): S46.912A - Strain of unspecified muscle, fascia and tendon at shoulder and upper arm level, left arm, initial encounter Condition: Stable Prescriptions: New celecoxib 200 mg capsule 200 mg PO DAILY Qty: 30 0RF tizanidine 4 mg capsule 4 mg PO Q8H PRN (Reason: muscle spasticity) Qty: 30 0RF No Action melatonin 5 mg capsule 10 mg PO BEDTIME (DME) left knee medial lay out worker brace See Rx Instructions .Route .MEDSUPPLY Qty: 1 0RF Rx Instructions: As directed magnesium oxide 400 mg magnesium tablet 400 mg PO DAILY Qty: 90 3RF nateglinide 60 mg tablet 60 mg PO TID Qty: 270 1RF Rx Instructions: give before meal(s) Incruse Ellipta 62.5 mcg/actuation blister with device 1 inh inhalation DAILY Qty: 90 6RF metoprolol succinate 25 mg tablet extended release 24 hr 12.5 mg PO DAILY Qty: 45 0RF irbesartan-hydrochlorothiazide 150-12.5 mg tablet 1 tab PO BID metformin 500 mg tablet 1,000 mg PO BID multivitamin Tablet 1 tab PO DAILY aspirin 81 mg Tablet,Delayed Release (Dr/Ec) 81 mg PO DAILY gabapentin 300 mg capsule 300 mg PO BID ondansetron 4 mg tablet,disintegrating 4 mg PO Q6H PRN (Reason: nausea and vomiting) Qty: 14 0RF citalopram 10 mg tablet 10 mg PO DAILY insulin glargine [Lantus Solostar U-100 Insulin] 100 unit/mL (3 mL) insulin pen 24 unit SUBCUT BEDTIME Jardiance 10 mg tablet 10 mg PO QAM polyethylene glycol 3350 [Miralax] 17 gram powder in packet 17 g PO DAILY Qty: 30 3RF pravastatin 20 mg tablet 20 mg PO BID tizanidine 4 mg tablet 4 mg PO Q6H PRN (Reason: muscle spasticity) Qty: 20 0RF Rx Instructions: do not exceed 3 doses per 24 hrs hydrocodone-acetaminophen 5-325 mg tablet 1 tab PO Q6H PRN (Reason: pain) Qty: 10 0RF diclofenac sodium 75 mg tablet,delayed release (DR/EC) 75 mg PO Q12H PRN (Reason: pain) Qty: 20 0RF Discharge Orders: Discharge ED (Routine); Ordered 05/08/25 Ordered By: Oma Bragg Referrals: Cesar Khalil DO [Physician, Orthopedics] - 4-7 days Clinical Impression: Left shoulder strain Ryan Martinez [Primary Care Provider, Family Practice] Discharge Diet: Usual diet Discharge Activity: Resume usual activity Patient Instructions: Rotator Cuff Injury (ED) Activity Restrictions/Additional Instructions: - I see this area will help with pain - You may take Tylenol with your celecoxib that is an anti-inflammatory. Do not take diclofenac, naproxen, ibuprofen as this would be doubling up on therapy of anti-inflammatory. - Tizanidine is also at the pharmacy. This is a powerful muscle relaxer. Utilize caution with sedation effects - Follow-up with Dr. Khalil this as planned. I will send additional referral for him to evaluate your left shoulder. - Return to ED with worsening pain, fever greater 100.4 ?F Thank you for choosing [facility] for your healthcare needs today. You have been screened and evaluated and felt safe for discharge. Health conditions do change or evolve sometimes and as such it is important that you follow up with your Primary Doctor to be re checked, 3-5 days is a general good time frame for follow up. You are always welcome to return to the ED for re assessment if your symptoms are worsening or you have new concerns Print Language: Martiniquais Coding Level of Care Code ED [employer] for Marina Preston
[2025-05-08] MEDS: orphenadrine 30 mg/mL Inj 2 mL 60 MG IM (16:40)
[2025-05-08 16:42] VITALS: BP 133/89; PULSE 84; RESP 17; O2SAT 94
== END 2025-05-08 17:09 | disposition home or self-care (01) ==
PROVIDERS: Emergency Provider Physician Assistant; PCP Family Medicine
DX: S46.912A Strain of unspecified muscle, fascia and tendon at shoulder and upper arm level, left arm, initial encounter (principal); M12.812 Other specific arthropathies, not elsewhere classified, left shoulder; Z79.82 Long term (current) use of aspirin; Z79.84 Long term (current) use of oral hypoglycemic drugs; Z79.4 Long term (current) use of insulin; Z87.891 Personal history of nicotine dependence; E78.5 Hyperlipidemia, unspecified; E11.9 Type 2 diabetes mellitus without complications; I10 Essential (primary) hypertension; X50.9XXA Other and unspecified overexertion or strenuous movements or postures, initial encounter
CPT/HCPCS: 73030; 96372; 99284; J1885; J2360

== ENCOUNTER 2025-05-11 07:42 | Outpatient (RCR) | payer MEDICARE, MEDICAID, SELFPAY | END 2025-05-21 23:59 | disposition home or self-care (01) | LOC: SPT 07:42 | PROVIDERS: PCP Family Medicine; Visit Provider Orthopaedic Surgery | DX: M54.2 Cervicalgia (principal) | CPT/HCPCS: 97110; 97161; 99213 ==

== ENCOUNTER 2025-05-22 05:00 | Outpatient (RCR) | payer MEDICARE, MEDICAID, SELFPAY | END 2025-06-21 23:59 | disposition home or self-care (01) | LOC: SPT 05:00 | PROVIDERS: PCP Family Medicine; Visit Provider Orthopaedic Surgery | DX: M54.2 Cervicalgia (principal) | CPT/HCPCS: 97110 ==

== ENCOUNTER 2025-06-13 14:31 | Emergency (ER) | payer MEDICARE, MEDICAID, SELFPAY ==
[2025-06-13 14:36] VITALS: BP 139/80; PULSE 124; RESP 18; TEMP 36.8; O2SAT 96; BMI 37.4
--- OUTSIDE RECORDS SUMMARY | 2025-06-13 14:37 | XMS_ITS | Encounter Summary ---
Author Organization [facility] Address [address] [place] [address] Care Team Providers Care Dietary Services Director Name Role Phone Ryan Martinez MD Primary Care Provider [phone] Reason for Visit * Reason Onset Date Comments Primary Care Outreach 06/06/2025 Encounter Details Date Type Department Care Team (Late st Contact Info) Description 06/06/2025 Patient Outreach [facility] [address] [address] Ryan Martinze MD [address] [address] Primary Care Outreach Social History Tobacco Use Types Packs/Day Years Used Date Smoking Tobacco: Former Cigarettes 0.5 Q uit: 06/22/2001 Passive Smoke Exposure: Past [...] on file Legal Sex Male 3:36 PM ASSESSMENT MANAGER Gender Identity Not on file Sexual Orientation Not on file documented as of this encounter Miscellaneous Notes * Telephone Encounter - Citlali Banks FNP - 06/06/2025 1:32 PM ASSESSMENT MANAGER 06/06/2025 1:32 PM Invalid phone number. Citlali RAZO SSMENT MANAGER documented in this encounter Plan of Treatment Upcoming Encounters Date Type Department Care Team (Late st Contact Info) Description 07/20/2025 4:20 PM ASSESSMENT MANAGER Office Visit [facility] [place] [address] [address] Ryan Martinez MD [address] [address] documented as of this encounter Visit Diagnoses Not on filedocumented in this encounter Care Teams Dietary Services Director Relationship Specialty Start Date End Date Ryan Martinez MD [address] [address] PCP - General Family Practice 12/16/17 documented as of this encounter
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
--- OUTSIDE RECORDS SUMMARY | 2025-06-13 14:37 | XMS_ITS | Encounter Summary ---
Author Organization [facility] Address [address] [place] [address] Care Team Providers Care Structural Biologist Name Role Phone Ryan Martinez MD Primary Care Provider [phone] Encounter Details Date Type Department Care Team (Latest Contact Info) Description 02/18/1999 Outpatient Historical [facility] General and Trauma Surgery-[address] [place] [address] Kwesi Spence MD NO ADDRESS ON FILE Acute appendicitis without mention of peritonitis (Primary Dx) Social History Tobacco Use Types Packs/Day Years Used Date Smoking Tobacco: Never Assessed Sex and Gender Information Value Date Recorded Sex Assigned at Not on file Legal Sex Male 3:[address] MAGISTRATE Gender Identity Not on file Sexual Orientation Not on file documented as of this encounter Plan of Treatment Not on file documented as of this encounter Visit Diagnoses Diagnosis Acute appendicitis without mention of peritonitis- Primary documented in this encounter Care Teams Structural Biologist Relationship Specialty Start Date End Date Ryan Martinez MD [address] [facility] [place] [address] [place] [address] PCP - General Family Practice 12/16/17 documented as of this encounter
--- OUTSIDE RECORDS SUMMARY | 2025-06-13 14:37 | XMS_ITS | Clinical Summary ---
Author Organization [facility] Address [address] [place] [address] Care Team Providers Care Carbon Brusher Assembler Name Role Phone Ryan Martinez MD Primary Care Provider [phone] Allergies Active Allergy Reactions Criticality Noted Date Comments Prednisone Other (See Comments) 12/16/2017 Raises blood sugar Medications lancets 30 gauge [address] [facility].(Non-Dr ug; Combo Route) route daily. 90 Each [...] on file Legal Sex Male 3:46 AM CLOTH FINISHING RANGE OPERATOR CHIEF Gender Identity Not on file Sexual Orientation Not on file Last Filed Vital Signs Vital Sign Reading Time Taken Comments Blood Pressure 130/74 08/14/2020 2:56 PM CLOTH FINISHING RANGE OPERATOR CHIEF Pulse 108 08/14/2020 2:56 PM CLOTH FINISHING RANGE OPERATOR CHIEF Temperature 36.3 C (97.4 F) 08/14/2020 2:56 PM CLOTH FINISHING RANGE OPERATOR CHIEF Respiratory Rate 16 08/14/2020 2:56 PM CLOTH FINISHING RANGE OPERATOR CHIEF Oxygen Saturation 97% 08/14/2020 2:56 PM CLOTH FINISHING RANGE OPERATOR CHIEF Inhaled Oxygen Concentration - - Weight 117.5 kg (259 lb) 08/14/2020 2:56 PM CLOTH FINISHING RANGE OPERATOR CHIEF Height 176.5 cm (5' 9.5 ) 08/14/2020 2:56 PM CLOTH FINISHING RANGE OPERATOR CHIEF Body Mass Index 37.7 08/14/2020 2:56 PM CLOTH FINISHING RANGE OPERATOR CHIEF Plan of Treatment Health Maintenance Due Date [...] history exists Medical Devices Implanted Type Area Crankshaft Grinder Device Identifier Shelf Expiration Date Model / Serial / Lot Comp Fem Trthln Cr Pa Sz5 5517-F-502 - [id number] Implanted:Qty: 1 on 05/24/2018 by Christiano Donnelly MD at [facility] Knee Right: Knee [employer] 11/29/2022 5517-F-502 / / [id number] Description:PER INVOICE Insert Tib Trthln X3 Cs 5531-G-511 - [id number] Implanted:Qty: 1 on 05/24/2018 by Christiano Donnelly MD at [facility] Knee Right: Knee [employer] 03/09/2022 5531-G-511 / / [id number] Description:PER INVOICE Patella Trthln Trtnm Sza32 5552-L-320 - [id number] Implanted:Qty: 1 on 05/24/2018 by Christiano Donnelly MD at [facility] Knee Right: Knee [employer] 12/02/2022 5552-L-320 / / [id number] Description:PER INVOICE Comp Tib Trthln Trtnmn Sz5 5536-B-500 - [id number] Implanted:Qty: 1 on 05/24/2018 by Christiano Donnelly MD at [facility] Knee Right: Knee [employer] 10/28/2022 5536-B-500 / / [id number] Description:PER INVOICE Procedures Procedure Name Priority Date/Time Associated Diagnosis Comments HEMOGLOBIN A1C Routine 08/14/2020 3:33 PM CLOTH FINISHING RANGE OPERATOR CHIEF Type 2 diabetes mellitus with hypoglycemia without coma, without long-term current use of insulin ([facility]) MICROALBUMIN/CREATI NINE RATIO, RANDOM UR Routine 04/10/2020 10:12 AM CDT Type 2 diabetes mellitus with hypoglycemia without coma, without long-term current use of insulin ([facility]) LIPID PANEL Routine 04/10/2020 10:12 AM CDT Type 2 diabetes mellitus with hypoglycemia without coma, without long-term current use of insulin ([facility]) Severe obesity (BMI 35.0-39.9) with comorbidity ([facility]) HTN (hypertension), benign Dyslipidemia from Last 3 Months or Most Recently Relevant to Health Maintenance Results * (ABNORMAL) HEMOGLOBIN A1C (08/14/2020 3:33 PM CLOTH FINISHING RANGE OPERATOR CHIEF) HEMOGLOBIN A1C 10.7(H) See Comment % 08/15/2020 10:42 AM [facility] EST. AVG GLUCOSE, A1C 260 mg/dL 08/15/2020 10:42 AM [facility] Blood Collection / Unknown 08/14/2020 3:33 PM CLOTH FINISHING RANGE OPERATOR CHIEF 08/14/2020 8:05 PM CLOTH FINISHING RANGE OPERATOR CHIEF Narrative [facility] - 08/15/2020 10:42 AM CLOTH FINISHING RANGE OPERATOR CHIEF HGB A1C INTERPRETATION NORMAL: <5.7% PRE-DIABETES: 5.7 - 6.4% DIABETES: 6.5% OR GREATER Falsely low A1C measurements can occur when: 1. Anemia and/or hemolytic anemia is present. 2. Hemoglobin variants present. 3. Renal failure. 4. Transfusion of blood product in the last 120 days. We recommend ordering a fructosamine test([id number]) to more accurately assess glycemic status if any of the above conditions are present. Ryan Martinez MD CHEMISTRY ORDERABLES Mikayla green Result [facility] CLIA# [id number] [facility] [place] [address] * MICROALBUMIN/CREATININE RATIO, RANDOM UR (04/10/2020 10:12 AM CDT) MICROALBUMIN, URINE <1.2 No Reference Range mg/dL 04/10/2020 10:07 PM CDT [facility] CREATININE, URINE 166.9 40.0 - 278.0 mg/dL 04/10/2020 10:07 PM CDT [facility] Comment:Reference Range vari es with fluid intake and diet. MICROALBUMIN/C REAT RATIO, UR <7.2 <17.0 mg/g 04/10/2020 10:07 PM CDT [facility] Urine URINE SPECIMEN OBTAINED BY CLEAN CATCH PROCEDURE / Unknown Collection / Unknown 04/10/2020 10:12 AM CDT 04/10/2020 8:29 PM CDT [facility] - 04/10/2020 10:07 PM CDT Condition Microalbumin/Creat ratio Normal Males <17 Normal Females <25 Microalbuminuria Males 17-299 Microalbuminuria Females 25-299 Overt proteinuria >=300 us Ryan Martinez MD URINE ORDERABLES Final Re sult [facility]# [id number] [address] [place] [id number] * LIPID PANEL (04/10/2020 10:12 AM CDT) CHOLESTEROL 121 <200 mg/dL 04/10/2020 9:54 PM CDT [facility] TRIGLYCERIDE 86 <150 mg/dL 04/10/2020 9:54 PM CDT [facility] HDL 45 40 - 59 mg/dL 04/10/2020 9:54 PM CDT [facility] LDL CALCULATED 59 <100 mg/dL 04/10/2020 9:54 PM CDT [facility] NON-HDL CHOLESTEROL 76 <130 mg/dL 04/10/2020 9:54 PM CDT [facility] Blood Venipuncture / Unknown 04/10/2020 10:12 AM CDT 04/10/2020 8:32 PM CDT Narrative [facility] - 04/10/2020 9:54 [...] ORDERABLES Mikayla green Result Performing Organization Address City/State/[facility] Co de Phone Number [facility] CLIA# [id number] [address] [place] [address] from Last 3 Months or Most Recently Relevant to Health Maintenance Insurance MEDICAID [place] MEDICARE PART A AND B RX [employer] Medicare Part D RX [employer] (INTERNAL) [facility] Internal Plans Advance Directives For more information, please contact: [phone] * Full Code (Latest Code Status on File) Date Activated Date Inactivated Comments 05/24/2018 1:29 PM 05/26/2018 4:39 PM * Full Code Date Activated Date Inactivated Comments 05/24/2018 7:47 AM 05/24/2018 1:29 PM Care Teams Carbon Brusher Assembler Relationship Specialty Start Date End Date Ryan Martinez MD [address] [address] PCP - General Family Practice 12/16/17
--- OUTSIDE RECORDS SUMMARY | 2025-06-13 14:37 | XMS_ITS ---
Author Organization [facility] Address [address] [place]: Epic Prelude ADT [place] [address] Care Team Providers Care Retail Loan Originator Assistant Name Role Phone Ryan Martinez MD Primary Care Provider [phone] Active Problems Problem Noted Date Diagnosed Date [...] (08/09/2024): claims data [facility] 4..2022, 4., S/P small bowel resection 01/09/2023 S/P partial [...] Automatic Entry Manual Entr y Effective Dose 80.1 mSv 56 mSv 24.1 mSv Total DLP 6,623.3 DLP 5,051.3 DLP 1,572 DLP CTDIvol Max 224.4 mGy 173.5 mGy 50.9 mGy CTDIvol Min 213.5 mGy 162.6 mGy 50.9 mGy Resolved Problems Problem Noted [...]
--- NOTE | 2025-06-13 15:11 | ECG_ITS ---
[facility] 2025-[facility]13 Pat Name: Drew Dixon Department: Room: Gender: Male [employer] Manager: : 1970 Requested By: James Logan Order Number: [id number] Barry MD: JEAN PAUL LAURENT Measurements Intervals Osteen Rate: 84 P: 67 WA: 186 QRS: 68 QRSD: 114 T: 66 QT: 395 QTc: 470 Interpretive Statements SINUS RHYTHM MODERATE INTRAVENTRICULAR CONDUCTION DELAY [110+ ms QRS DURATION] Compared to ECG 04/27/2025 16:30:45 Intraventricular conduction delay now present Electronically Signed On 06-14-2025 20:36:56 COILED COIL INSPECTOR by JEAN PAUL LAURENT [email or web address]
--- NOTE | 2025-06-13 15:11 | XR_ITS ---
WS: [id number] Portable AP upright chest, 06/13/2025 Clinical Data: hyperglycemia, dizzy Comparison: Portable chest, 02/15/2025 Findings: No nodules, masses or effusions are seen. The heart is enlarged. The pulmonary vascularity is not increased. No pneumonia or pneumothorax is seen. There is a poor inspiratory effort. XR/XR chest 1V portable [id number] Impression: Cardiomegaly.
--- NOTE | 2025-06-13 15:26 | ED_ITS ---
Documented by User: ROSELIA Mcdonough 06/13/25 17:44 HPI - Recheck/Abnormal Lab/Rx 2 General: Chief Complaint: Recheck/Abnormal Lab/Rx Stated Complaint: BS 400 Time Seen by Provider: 06/13/25 14:46 Source: patient Mode of arrival: ambulatory Limitations: no limitations History of Present Illness: Patient is a 55-year-old male with past medical history of type 2 diabetes who presents emergency department complaining of hyperglycemia. He takes insulin twice a day, states that he has noticed blood sugars greater than 400 starting at about 1430. Here at triage it is 465. He has no other symptoms other than noting some lightheadedness, specifically he is not nauseous and has not had any vomiting, no diarrhea, no coughing or wheezing, no chest pain or shortness of breath. He is minimally tachycardic at time of examination but otherwise his vitals are stable. Denies taking any new recent medications, no recent steroid use, no illicit drug use, and states that he has been taking his medications as prescribed. MD complaint: abnormal lab Initial visit (ago): hour(s) Description of abnormal result: elevated BS (>400) Symptoms since prior visit: no new symptoms Related Data Home Medications ?Medication ?Instructions ?Recorded ?Confirmed irbesartan 150 1 tab PO BID 02/06/20 mg-hydrochlorothiazide 12.5 mg tablet melatonin 5 mg capsule 10 mg PO BEDTIME 03/19/21 metformin 500 mg tablet 1,000 mg PO BID 01/01/22 aspirin 81 mg tablet,delayed 81 mg PO DAILY 12/24/22 1 07/11/24 release gabapentin 300 mg capsule 300 mg PO BID 12/24/2205/11 multivitamin 1 tab PO DAILY 12/24/2204/23 citalopram 10 mg tablet 10 mg PO DAILY 10/12/2404/23 empagliflozin 10 mg tablet 10 mg PO QAM 10/12/2405/11 (Jardiance) insulin glargine 100 unit/mL (3 24 unit SUBCUT BEDTIME 10/12/24 05/11/25 mL) subcutaneous pen (Lantus Solostar U-100 Insulin) pravastatin 20 mg tablet 20 mg PO BID 03/16/25 Previous Rx's ?Medication ?Instructions ?Recorded umeclidinium 62.5 mcg/actuation 1 inh inhalation DAILY #90 ea 04/07/23 blister powder for inhalation (Incruse Ellipta) left knee medial automobile taillight assembler brace #1 ea 04/22/24 magnesium oxide 400 mg PO DAILY #90 tabs 04/15 ondansetron 4 mg disintegrating 4 mg PO Q6H PRN nausea and 10/12/24 tablet vomiting #14 tabs polyethylene glycol 3350 17 gram 17 g PO DAILY #30 ea 10/14/24 oral powder packet (Miralax) metoprolol succinate 25 mg 12.5 mg (1/2 x 25 mg) PO DA SUSAN #45 10/17/24 tablet,extended release 24 hr tabs nateglinide 60 mg tablet 60 mg PO TID #270 tabs 03/15 diclofenac sodium 75 mg 75 mg PO Q12H PRN pain #20 t abs 03/16/25 tablet,delayed release hydrocodone 5 mg-acetaminophen 325 1 tab PO Q6H PRN pa in #10 tabs 03/16/25 mg tablet tizanidine 4 mg tablet 4 mg PO Q6H PRN muscle spast icity 03/16/25 #20 tabs celecoxib 200 mg capsule 200 mg PO DAILY #30 caps tizanidine 4 mg capsule 4 mg PO Q8H PRN muscle spast icity 05/08/25 #30 caps Allergies Allergy/AdvReac Type Severity Reaction Status Date / Time marijuana (cannabis) Allergy Severe ADR-Gastrointestinal Verified 05/11/25 08:02 Upset prednisone Allergy Severe ADR-Agitate Verified 05/11/25 08:02 d Review of Systems 2 General: Reports: 10 or more systems reviewed and unremarkable except in HPI and below Const: Reports: other (hyperglycemia); Denies: fever(s), chills or fatigue Eyes: Denies: change in vision ENMT: Denies: throat pain, ear or mastoid pain or nasal discharge Card: Reports: lightheadedness; Denies: chest pain, palpitations or swelling of feet/ankles Resp: Denies: dyspnea, productive cough or wheezing GI: Denies: abdominal pain, nausea, vomiting, diarrhea or constipation : Denies: flank pain, difficulty urinating, dysuria or urinary frequency Musc: Denies: neck pain, back pain or joint pain Skin/Breast: Denies: rash Neuro: Denies: headache(s), numbness in extremities or weakness in extremities PFSH ED 2 PFSH: Medical History 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 Type 2 diabetes mellitus HTN (hypertension) Hyperlipidemia History of PFTs 2021 History of cardiovascular stress test 10/10/2024 no significant perfusion abnormalities, slightly diminished EF 44%, mild diffuse hypokinesis, mild LV dilatation with ESV 73ml, elevated TID ration of 1.69 may suggest endocardial ischemia; No significant EKG changes, maximum METs 7.5, no exercised induced chest pain or arrhythmia SBO (small bowel obstruction) several over the years, has been managed conservatively and with surgery in past; 09/2022 had lysis of adhesions; 09/2024 conservative management Lung nodule right lower lobe nodules, s/p biopsy and resection Surgical History Status post pneumonectomy (09/2022) partial RLL for removal of carcinoid tumor History of lung biopsy 04/2022 bronch with EBUS, pathology revealed carcinoid tumor and evidence of sarcoidosis History of exploratory laparotomy 1998 exploratory lap for obstruction with appendectomy; 12/2022 lysis of adhesion H/O knee surgery History of back surgery H/O shoulder surgery History of gastric surgery History of appendectomy H/O rhinoplasty Family History Family/Other Diabetes Grandfather Heart disease Grandmother Cancer Leukemia Other Dementia Hyperlipidemia Hypertension Lung disease Stroke Denies family history of CAD (coronary artery disease) Clotting disorder Psychiatric illness Chronic kidney disease (CKD) Suicide Anesthesia complication Bleeding disorder Social History Smoking and tobacco/nicotine status: former use of tobacco/nicotine Quit status (tobacco/nicotine): has quit using Year quit tobacco: 2001 Former quit date comment: Hx of 1 PPD x 12 Years Second hand smoke exposure: No Alcohol intake: current Alcohol intake frequency: holidays/special occasions only Substance/Drug Use: never Lives independently: Yes Household members: family Marital status: Single Current occupational status: disabled Do you think of yourself as: Straight/Heterosexual Current gender identity: Male Physical Exam 2 Const: COMMON NORMALS: no acute distress, patient oriented x3 and no limitations GENERAL APPEARANCE: cooperative, comfortable and well developed ORIENTATION/CONSCIOUSNESS: Yes awake, Yes oriented to person, Yes oriented to place and Yes oriented to time OTHER: nontoxic HENMT: COMMON NORMALS: normocephalic, atraumatic and hearing grossly normal bilaterally HEAD & SCALP: normocephalic and atraumatic Eye: COMMON NORMALS: Equal, round and reactive pupils present, EOMs intact bilaterally and conjunctivae normal CONJUNCTIVA: Yes conjunctivae normal P UPIL: Yes Equal, round and reactive pupils present Neck/C-Spine: COMMON NORMALS: full ROM, supple and no JVD Resp: COMMON NORMALS: normal respiratory effort, No retractions, No use of accessory muscles and clear to auscultation bilaterally AUSCULTATION: clear to auscultation bilaterally Cardio: COMMON NORMALS: no JVD, regular rate, regular rhythm, No clicks present (Cardio), No murmurs present (Cardio) and No rub (Cardio) RATE: r egular rate RHYTHM: regular rhythm GI: COMMON NORMALS: Normal to inspection, nondistended, normoactive bowel sounds present, Soft to palpation and non-tender AUSCULTATION: Yes normoactive bowel sounds PALPATION: Yes Soft to palpation RECTAL EXAM: Yes deferred Extremity: COMMON NORMALS: normal to inspection, full ROM and capillary refill normal Neuro: COMMON NORMALS: patient oriented x3, moves all extremities, no focal motor deficits and no sensory deficits noted SENSORIUM/ORIENTATION: Yes oriented to person, Yes oriented to place and Yes oriented to time Skin: COMMON NORMALS: no rashes or lesions noted GENERAL SKIN EXAM: no rashes or lesions noted Course 2 Vital Signs: Vital signs: Vital Signs Temperature 98.2 F 06/13/25 14:36 Pulse Rate 87 06/13/25 17:51 Respiratory Rate 16 06/13/25 17:51 Blood Pressure 176/101 06/13/25 17:51 Pulse Oximetry 98 06/13/25 17:51 Oxygen Delivery Me thod Room Air 06/13/25 14:36 MDM - Recheck/Abnormal Lab/Rx Medical Decision Making Patient is a 55-year-old male with known history of type 2 diabetes on insulin who presented with severe hyperglycemia. Initial blood glucose was 454-465 mg/DL with associated tachycardia but no symptoms. Evaluation was focused on ruling out DKA and hyperosmolar hyperglycemic state. Laboratory workup demonstrated normal CBC and electrolytes, normal anion gap and acid-base status on ABG, serum osmolality of 313, and negative urine ketones, making DKA and HHS unlikely. Urinalysis was otherwise unremarkable with no evidence of infection. The patient was treated with 2 L of IV isotonic fluids for presumed dehydration and 10 units of subcutaneous insulin, resulting in improvement of blood glucose of 248 and improvement in vital signs. The patient remained asymptomatic throughout the ED course no evidence of acute infection, cardiac ischemia, or other precipitating pathology. Given clinical improvement, stable laboratory values, and close outpatient follow-up with endocrinology scheduled for tomorrow, the patient was deemed safe for discharge with return precautions and instructions to continue his prescribed insulin regimen. Lab Data 06/13/25 15:36 06/13/25 15:36 Radiology Impressions Chest X-Ray 06/13/25 15:11 Impression: Cardiomegaly. Laboratory Results WBC 6.71 10^3/uL (3.29-11.43) 06/13/25 15:36 RBC 4.83 10^6/uL (3.85-5.65) 06/13/25 15:36 Hgb 13.90 g/dL (11.27-16.99) 06/13/25 15:36 Hct 42.8 % (37-53) 06/13/25 15:36 MCV 88.6 fl (82-101) 06/13/25 15:36 MCH 28.8 pg (27-33) 06/13/25 15:36 MCHC 32.5 g/dL (30-55) 06/13/25 15:36 RDW 14.1 % (12.1-15.1) 06/13/25 15:36 Plt Count 250 10^3/cmm (157-399) 06/13/25 15:36 MPV 11.0 fL (7.4-10.4) H 06/13/25 15:36 Neut % (Auto) 64.4 % 06/13/25 15:36 Lymph % (Auto) 24.4 % 06/13/25 15:36 [place] % (Auto) 6.7 % 06/13/25 15:36 Eos % (Auto) 3.3 % 06/13/25 15:36 Baso % (Auto) 0.9 % 06/13/25 15:36 Neut # (Auto) 4.32 10^3/uL (1.8-7.7) 06/13/25 15:36 Lymph # (Auto) 1.6 10^3/uL (0.8-4.8) 06/13/25 15:36 [place] # (Auto) 0.5 10^3/uL (0.2-0.9) 06/13/25 15:36 Eos # (Auto) 0.2 10^3/uL (0.0-0.8) 06/13/25 15:36 Baso # (Auto) 0.1 10^3/uL (0.0-0.1) 06/13/25 15:36 Nucleated RBC % (auto) 0 % 06/13/25 15:36 Nucleated RBCs # 0.0 /100WBC 06/13/25 15:36 Specimen Type Arterial 06/13/25 15:20 Sample Site Radial, left 06/13/25 15:20 ABG pH 7.43 (7.35-7.45) 06/13/25 15:20 ABG pCO2 38.8 mmHg (35-45) 06/13/25 15:20 ABG pO2 86.2 mmHg (80.0-100.0) 06/13/25 15:20 ABG PO2/FiO2 Ratio 410 06/13/25 15:20 ABG HCO3 25.8 mmol/L (22-26) 06/13/25 15:20 ABG O2 Saturation 95.9 06/13/25 15:20 ABG Base Excess 1.5 mmol/L (-2.0-2.0) 06/13/25 15:20 David Test Pos 06/13/25 15:20 A-a O2 Gradient 2.0 mmHg (5-10) L 06/13/25 15:20 Hematocrit 44.9 % (42-52) 06/13/25 15:20 Hgb O2 Saturation 94.8 % (95-100) L 06/13/25 15:20 Carboxyhemoglobin 0.2 %THgb (0.4-20.1) L 06/13/25 15:20 Methemoglobin 0.9 % (0.4-1.5) 06/13/25 15:20 Total Hemoglobin 14.6 g/dL (14-18) 06/13/25 15:20 Sodium 140.0 mmol/L (131-143) 06/13/25 15:20 Potassium 4.3 mmol/L (3.5-5.0) 06/13/25 15:20 Glucose 460.0 mg/dL (70-115) H 06/13/25 15:20 Ionized Calcium 1.2 mmol/L (1.1-1.4) 06/13/25 15:20 O2 Delivery Device Room air 06/13/25 15:20 FiO2 21.0 % 06/13/25 15:20 Director Sales ID [employer] 06/13/25 15:20 Sodium 140 mmol/L (136-145) 06/13/25 15:36 Potassium 4.3 mmol/L (3.5-5.1) 06/13/25 15:36 Chloride 102 mmol/L (98-107) 06/13/25 15:36 Carbon Dioxide 24 mmol/L (22-29) 06/13/25 15:36 Anion Gap 18.3 (5-19) 06/13/25 15:36 BUN 22 mg/dL (6-20) H 06/13/25 15:36 Creatinine 0.9 mg/dL (0.7-1.2) 06/13/25 15:36 GFR Calculation 88.3 mL/min (90-130) L 06/13/25 15:36 Glucose 454 mg/dL (65-115) H 06/13/25 15:36 POC Glucose 278 mg/dL (70-110) H 06/13/25 17:23 Serum Osmolality 330 mOsm/kg (278-305) H 06/13/25 15:36 Calculated Osmolality 313 mOsm/kg (285-295) H 06/13/25 15:36 Calcium 9.4 mg/dL (8.5-10.5) 06/13/25 15:36 Total Bilirubin 0.3 mg/dL (0.15-1.2) 06/13/25 15:36 AST 26 U/L (0-40) 06/13/25 15:36 ALT 60 U/L (0-41) H 06/13/25 15:36 Alkaline Phosphatase 88 U/L (40-130) 06/13/25 15:36 Total Protein 6.9 g/dL (6.6-8.7) 06/13/25 15:36 Albumin 4.1 g/dL (3.5-5.2) 06/13/25 15:36 Globulin 2.8 g/dL (1.3-4.6) 06/13/25 15:36 Urine Color Yellow (Yellow) 06/13/25 15:25 Urine Appearance Clear (CLEAR) 06/13/25 15:25 Urine pH 5.0 (5-7) 06/13/25 15:25 Ur Specific [place] 1.033 (1.005-1.030) H 06/13/25 15:25 Urine Protein Negative (Negative) 06/13/25 15:25 Urine Glucose (UA) 3+ (Normal) H 06/13/25 15:25 Urine Ketones Negative (Negative) 06/13/25 15:25 Urine Blood Negative (Negative) 06/13/25 15:25 Urine Nitrate Negative (Negative) 06/13/25 15:25 Urine Bilirubin Negative (Negative) 06/13/25 15:25 Urine Urobilinogen 0.2 mg/dL (Negative) 06/13/25 15:25 Ur Leukocyte Esterase Negative (Negative) 06/13/25 15:25 Urine RBC 0-2 /hpf (0-2) 06/13/25 15:25 Urine WBC 0-5 /hpf (0-5) 06/13/25 15:25 Ur Squamous Epith Cells 0-5 /hpf (0-5) 06/13/25 15:25 Amorphous Sediment Not Reportable 06/13/25 15:25 Urine Bacteria None seen /hpf (NONE) 06/13/25 15:25 Hyaline Casts 0-4 /lpf H 06/13/25 15:25 All radiology interpretation(s) finalized by discharge Discharge Plan Discharge Patient Disposition: Home Clinical Impression: Type 2 diabetes mellitus Qualifiers: 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 insulin use: with [place] [facility] use Diabetes mellitus complication status: with neurologic complications Diabetes mellitus complication detail: with polyneuropathy Qualified Code(s): E11.42 - Type 2 diabetes mellitus with diabetic polyneuropathy Condition: Stable Prescriptions: No Action melatonin 5 mg capsule 10 mg PO BEDTIME (DME) left knee medial automobile taillight assembler brace See Rx Instructions .Route .MEDSUPPLY Qty: 1 0RF Rx Instructions: As directed magnesium oxide 400 mg magnesium tablet 400 mg PO DAILY Qty: 90 3RF nateglinide 60 mg tablet 60 mg PO TID Qty: 270 1RF Rx Instructions: give before meal(s) Incruse Ellipta 62.5 mcg/actuation blister with device 1 inh inhalation DAILY Qty: 90 6RF metoprolol succinate 25 mg tablet extended release 24 hr 12.5 mg PO DAILY Qty: 45 0RF irbesartan-hydrochlorothiazide 150-12.5 mg tablet 1 tab PO BID celecoxib 200 mg capsule 200 mg PO DAILY Qty: 30 0RF tizanidine 4 mg capsule 4 mg PO Q8H PRN (Reason: muscle spasticity) Qty: 30 0RF metformin 500 mg tablet 1,000 mg PO BID multivitamin Tablet 1 tab PO DAILY aspirin 81 mg Tablet,Delayed Release (Dr/Ec) 81 mg PO DAILY gabapentin 300 mg capsule 300 mg PO BID ondansetron 4 mg tablet,disintegrating 4 mg PO Q6H PRN (Reason: nausea and vomiting) Qty: 14 0RF citalopram 10 mg tablet 10 mg PO DAILY insulin glargine [Lantus Solostar U-100 Insulin] 100 unit/mL (3 mL) insulin pen 24 unit SUBCUT BEDTIME Jardiance 10 mg tablet 10 mg PO QAM polyethylene glycol 3350 [Miralax] 17 gram powder in packet 17 g PO DAILY Qty: 30 3RF pravastatin 20 mg tablet 20 mg PO BID tizanidine 4 mg tablet 4 mg PO Q6H PRN (Reason: muscle spasticity) Qty: 20 0RF Rx Instructions: do not exceed 3 doses per 24 hrs hydrocodone-acetaminophen 5-325 mg tablet 1 tab PO Q6H PRN (Reason: pain) Qty: 10 0RF diclofenac sodium 75 mg tablet,delayed release (DR/EC) 75 mg PO Q12H PRN (Reason: pain) Qty: 20 0RF Discharge Orders: Discharge ED (Routine); Ordered 06/13/25 Ordered By: James Sheridan Referrals: Ryan Martinez [Primary Care Provider, Family Practice] Patient Instructions: Patient Portal & Travis Instructions Activity Restrictions/Additional Instructions: Discharge Instructions Diagnosis: You were treated in the emergency department for high blood sugar (hyperglycemia) related to type 2 diabetes. Your blood sugar was greater than 400 mg/dL when you arrived, but it has been brought down to a safer level with fluids and insulin. What This Means: High blood sugar can make you feel very sick and, if left untreated, can lead to serious complications. Your body needs insulin to use sugar for energy. In type 2 diabetes, your body either doesn't make enough insulin or doesn't use it well. Monitoring Your Blood Sugar at Home: - Check your blood sugar as directed by your primary care doctor - Your goal is to keep your blood sugar between 100-180 mg/dL - Write down your blood sugar readings and bring them to your follow-up appointment - You will need a blood sugar meter, test strips, and lancets?make sure you have these supplies before leaving Medications: - Take all diabetes medications exactly as prescribed - If you were given new medications or insulin, a pharmacist or nurse will review how and when to take them - Do not stop taking your medications without talking to your doctor first - Make sure all your prescriptions are filled before you go home Warning Signs?When to Seek Help: High Blood Sugar (Hyperglycemia): - Blood sugar above 250 mg/dL - Extreme thirst or frequent urination - Blurred vision - Feeling very tired or weak Low Blood Sugar (Hypoglycemia): - Blood sugar below 70 mg/dL - Shaking, sweating, or feeling confused - Fast heartbeat or dizziness - If this happens: Eat or drink 15 grams of fast-acting sugar (like 4 glucose tablets, ? cup of juice, or 1 tablespoon of honey), wait 15 minutes, and recheck your blood sugar Call 911 or go to the emergency department if: - Your blood sugar stays above 400 mg/dL - You have severe symptoms like confusion, trouble breathing, or loss of consciousness - You cannot keep food or liquids down Healthy Eating: - Choose healthy foods like vegetables, lean proteins, and whole grains - Limit sugary drinks and foods high in sugar - Eat meals at regular times each day - A dietitian can help you create a meal plan that works for you Physical Activity: - Try to be active for at least 150 minutes per week (like 30 minutes, 5 days a week) - Walking, swimming, or biking are good options - Check your blood sugar before and after exercise Sick Day Rules: - Keep taking your diabetes medications even if you're sick - Check your blood sugar every 4 hours - Drink plenty of water to stay hydrated - Check your temperature - Call your doctor if you're too sick to eat or if your blood sugar stays high Follow-Up Care: - You must see your primary care doctor within 1-2 weeks - This appointment is very important to adjust your medications and prevent future problems - Your doctor may order a blood test called hemoglobin A1C to see your average blood sugar over the past 3 months - You may also need to see a inspector metal can or specialist Important Reminders: - Dispose of needles and lancets safely in a sharps container - Store insulin as directed (some types need refrigeration) - Wear a medical alert bracelet that says you have diabetes - Tell all your doctors that you have diabetes Questions? If you have questions about your diabetes care after you leave, contact your primary care doctor's office. Print Language: Tajik Coding Level of Care Code ED [facility] Keeper for [facility]g Fwd Documented by User: Olu Rodriguez DO 06/16/25 22:08 HPI - Recheck/Abnormal Lab/Rx 2 General: Chief Complaint: Recheck/Abnormal Lab/Rx Stated Complaint: BS 400 Time Seen by Provider: 06/13/25 14:46 Related Data Home Medications ?Medication ?Instructions ?Recorded ?Confirmed irbesartan 150 1 tab PO BID 02/06/20 mg-hydrochlorothiazide 12.5 mg tablet melatonin 5 mg capsule 10 mg PO BEDTIME 03/19/21 metformin 500 mg tablet 1,000 mg PO BID 01/01/22 aspirin 81 mg tablet,delayed 81 mg PO DAILY 12/24/22 1 07/11/24 release gabapentin 300 mg capsule 300 mg PO BID 12/24/2205/11 multivitamin 1 tab PO DAILY 12/24/2204/23 citalopram 10 mg tablet 10 mg PO DAILY 10/12/2404/23 empagliflozin 10 mg tablet 10 mg PO QAM 10/12/2405/11 (Jardiance) insulin glargine 100 unit/mL (3 24 unit SUBCUT BEDTIME 10/12/24 05/11/25 mL) subcutaneous pen (Lantus Solostar U-100 Insulin) pravastatin 20 mg tablet 20 mg PO BID 03/16/25 Previous Rx's ?Medication ?Instructions ?Recorded umeclidinium 62.5 mcg/actuation 1 inh inhalation DAILY #90 ea 04/07/23 blister powder for inhalation (Incruse Ellipta) left knee medial automobile taillight assembler brace #1 ea 04/22/24 magnesium oxide 400 mg PO DAILY #90 tabs 04/15 ondansetron 4 mg disintegrating 4 mg PO Q6H PRN nausea and 10/12/24 tablet vomiting #14 tabs polyethylene glycol 3350 17 gram 17 g PO DAILY #30 ea 10/14/24 oral powder packet (Miralax) metoprolol succinate 25 mg 12.5 mg (1/2 x 25 mg) PO DA SUSAN #45 10/17/24 tablet,extended release 24 hr tabs nateglinide 60 mg tablet 60 mg PO TID #270 tabs 03/15 diclofenac sodium 75 mg 75 mg PO Q12H PRN pain #20 t abs 03/16/25 tablet,delayed release hydrocodone 5 mg-acetaminophen 325 1 tab PO Q6H PRN pa in #10 tabs 03/16/25 mg tablet tizanidine 4 mg tablet 4 mg PO Q6H PRN muscle spast icity 03/16/25 #20 tabs celecoxib 200 mg capsule 200 mg PO DAILY #30 caps tizanidine 4 mg capsule 4 mg PO Q8H PRN muscle spast icity 05/08/25 #30 caps Allergies Allergy/AdvReac Type Severity Reaction Status Date / Time marijuana (cannabis) Allergy Severe ADR-Gastrointestinal Verified 05/11/25 08:02 Upset prednisone Allergy Severe ADR-Agitate Verified 05/11/25 08:02 d [facility] ED 2 [facility]: Medical History 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 Type 2 diabetes mellitus HTN (hypertension) Hyperlipidemia History of PFTs 2021 History of cardiovascular stress test 10/10/2024 no significant perfusion abnormalities, slightly diminished EF 44%, mild diffuse hypokinesis, mild LV dilatation with ESV 73ml, elevated TID ration of 1.69 may suggest endocardial ischemia; No significant EKG changes, maximum METs 7.5, no exercised induced chest pain or arrhythmia SBO (small bowel obstruction) several over the years, has been managed conservatively and with surgery in past; 09/2022 had lysis of adhesions; 09/2024 conservative management Lung nodule right lower lobe nodules, s/p biopsy and resection Surgical History Status post pneumonectomy (09/2022) partial RLL for removal of carcinoid tumor History of lung biopsy 04/2022 bronch with EBUS, pathology revealed carcinoid tumor and evidence of sarcoidosis History of exploratory laparotomy 1998 exploratory lap for obstruction with appendectomy; 12/2022 lysis of adhesion H/O knee surgery History of back surgery H/O shoulder surgery History of gastric surgery History of appendectomy H/O rhinoplasty Family History Family/Other Diabetes Grandfather Heart disease Grandmother Cancer Leukemia Other Dementia Hyperlipidemia Hypertension Lung disease Stroke Denies family history of CAD (coronary artery disease) Clotting disorder Psychiatric illness Chronic kidney disease (CKD) Suicide Anesthesia complication Bleeding disorder Social History Smoking and tobacco/nicotine status: former use of tobacco/nicotine Quit status (tobacco/nicotine): has quit using Year quit tobacco: 2001 Former quit date comment: Hx of 1 PPD x 12 Years Second hand smoke exposure: No Alcohol intake: current Alcohol intake frequency: holidays/special occasions only Substance/Drug Use: never Lives independently: Yes Household members: family Marital status: Single Current occupational status: disabled Do you think of yourself as: Straight/Heterosexual Current gender identity: Male Course 2 Vital Signs: Vital signs: Vital Signs Temperature 98.2 F 06/13/25 14:36 Pulse Rate 87 06/13/25 17:51 Respiratory Rate 16 06/13/25 17:51 Blood Pressure 176/101 06/13/25 17:51 Pulse Oximetry 98 06/13/25 17:51 Oxygen Delivery Me thod Room Air 06/13/25 14:36 MDM - Recheck/Abnormal Lab/Rx Medical Decision Making Patient is a 55-year-old male with known history of type 2 diabetes on insulin who presented with severe hyperglycemia. Initial blood glucose was 454-465 mg/DL with associated tachycardia but no symptoms. Evaluation was focused on ruling out DKA and hyperosmolar hyperglycemic state. Laboratory workup demonstrated normal CBC and electrolytes, normal anion gap and acid-base status on ABG, serum osmolality of 313, and negative urine ketones, making DKA and HHS unlikely. Urinalysis was otherwise unremarkable with no evidence of infection. The patient was treated with 2 L of IV isotonic fluids for presumed dehydration and 10 units of subcutaneous insulin, resulting in improvement of blood glucose of 248 and improvement in vital signs. The patient remained asymptomatic throughout the ED course no evidence of acute infection, cardiac ischemia, or other precipitating pathology. Given clinical improvement, stable laboratory values, and close outpatient follow-up with endocrinology scheduled for tomorrow, the patient was deemed safe for discharge with return precautions and instructions to continue his prescribed insulin regimen. Chart reviewed Lab Data 06/13/25 15:36 06/13/25 15:36 Radiology Impressions Chest X-Ray 06/13/25 15:11 Impression: Cardiomegaly. Laboratory Results WBC 6.71 10^3/uL (3.29-11.43) 06/13/25 15:36 RBC 4.83 10^6/uL (3.85-5.65) 06/13/25 15:36 Hgb 13.90 g/dL (11.27-16.99) 06/13/25 15:36 Hct 42.8 % (37-53) 06/13/25 15:36 MCV 88.6 fl (82-101) 06/13/25 15:36 MCH 28.8 pg (27-33) 06/13/25 15:36 MCHC 32.5 g/dL (30-55) 06/13/25 15:36 RDW 14.1 % (12.1-15.1) 06/13/25 15:36 Plt Count 250 10^3/cmm (157-399) 06/13/25 15:36 MPV 11.0 fL (7.4-10.4) H 06/13/25 15:36 Neut % (Auto) 64.4 % 06/13/25 15:36 Lymph % (Auto) 24.4 % 06/13/25 15:36 [place] % (Auto) 6.7 % 06/13/25 15:36 Eos % (Auto) 3.3 % 06/13/25 15:36 Baso % (Auto) 0.9 % 06/13/25 15:36 Neut # (Auto) 4.32 10^3/uL (1.8-7.7) 06/13/25 15:36 Lymph # (Auto) 1.6 10^3/uL (0.8-4.8) 06/13/25 15:36 [place] # (Auto) 0.5 10^3/uL (0.2-0.9) 06/13/25 15:36 Eos # (Auto) 0.2 10^3/uL (0.0-0.8) 06/13/25 15:36 Baso # (Auto) 0.1 10^3/uL (0.0-0.1) 06/13/25 15:36 Nucleated RBC % (auto) 0 % 06/13/25 15:36 Nucleated RBCs # 0.0 /100WBC 06/13/25 15:36 Specimen Type Arterial 06/13/25 15:20 Sample Site Radial, left 06/13/25 15:20 ABG pH 7.43 (7.35-7.45) 06/13/25 15:20 ABG pCO2 38.8 mmHg (35-45) 06/13/25 15:20 ABG pO2 86.2 mmHg (80.0-100.0) 06/13/25 15:20 ABG PO2/FiO2 Ratio 410 06/13/25 15:20 ABG HCO3 25.8 mmol/L (22-26) 06/13/25 15:20 ABG O2 Saturation 95.9 06/13/25 15:20 ABG Base Excess 1.5 mmol/L (-2.0-2.0) 06/13/25 15:20 David Test Pos 06/13/25 15:20 A-a O2 Gradient 2.0 mmHg (5-10) L 06/13/25 15:20 Hematocrit 44.9 % (42-52) 06/13/25 15:20 Hgb O2 Saturation 94.8 % (95-100) L 06/13/25 15:20 Carboxyhemoglobin 0.2 %THgb (0.4-20.1) L 06/13/25 15:20 Methemoglobin 0.9 % (0.4-1.5) 06/13/25 15:20 Total Hemoglobin 14.6 g/dL (14-18) 06/13/25 15:20 Sodium 140.0 mmol/L (131-143) 06/13/25 15:20 Potassium 4.3 mmol/L (3.5-5.0) 06/13/25 15:20 Glucose 460.0 mg/dL (70-115) H 06/13/25 15:20 Ionized Calcium 1.2 mmol/L (1.1-1.4) 06/13/25 15:20 O2 Delivery Device Room air 06/13/25 15:20 FiO2 21.0 % 06/13/25 15:20 Director Sales ID Alci 06/13/25 15:20 Sodium 140 mmol/L (136-145) 06/13/25 15:36 Potassium 4.3 mmol/L (3.5-5.1) 06/13/25 15:36 Chloride 102 mmol/L (98-107) 06/13/25 15:36 Carbon Dioxide 24 mmol/L (22-29) 06/13/25 15:36 Anion Gap 18.3 (5-19) 06/13/25 15:36 BUN 22 mg/dL (6-20) H 06/13/25 15:36 Creatinine 0.9 mg/dL (0.7-1.2) 06/13/25 15:36 GFR Calculation 88.3 mL/min (90-130) L 06/13/25 15:36 Glucose 454 mg/dL (65-115) H 06/13/25 15:36 POC Glucose 278 mg/dL (70-110) H 06/13/25 17:23 Serum Osmolality 330 mOsm/kg (278-305) H 06/13/25 15:36 Calculated Osmolality 313 mOsm/kg (285-295) H 06/13/25 15:36 Calcium 9.4 mg/dL (8.5-10.5) 06/13/25 15:36 Total Bilirubin 0.3 mg/dL (0.15-1.2) 06/13/25 15:36 AST 26 U/L (0-40) 06/13/25 15:36 ALT 60 U/L (0-41) H 06/13/25 15:36 Alkaline Phosphatase 88 U/L (40-130) 06/13/25 15:36 Total Protein 6.9 g/dL (6.6-8.7) 06/13/25 15:36 Albumin 4.1 g/dL (3.5-5.2) 06/13/25 15:36 Globulin 2.8 g/dL (1.3-4.6) 06/13/25 15:36 Urine Color Yellow (Yellow) 06/13/25 15:25 Urine Appearance Clear (CLEAR) 06/13/25 15:25 Urine pH 5.0 (5-7) 06/13/25 15:25 Ur Specific [place] 1.033 (1.005-1.030) H 06/13/25 15:25 Urine Protein Negative (Negative) 06/13/25 15:25 Urine Glucose (UA) 3+ (Normal) H 06/13/25 15:25 Urine Ketones Negative (Negative) 06/13/25 15: Urine Blood Negative (Negative) 06/13/25 15: Urine Nitrate Negative (Negative) 06/13/25 15:25 Urine Bilirubin Negative (Negative) 06/13/25 15:25 Urine Urobilinogen 0.2 mg/dL (Negative) 06/13/25 15:25 Ur Leukocyte Esterase Negative (Negative) 06/13/25 15:25 Urine RBC 0-2 /hpf (0-2) 06/13/25 15:25 Urine WBC 0-5 /hpf (0-5) 06/13/25 15:25 Ur Squamous Epith Cells 0-5 /hpf (0-5) 06/13/25 15:25 Amorphous Sediment Not Reportable 06/13/25 15:25 Urine Bacteria None seen /hpf (NONE) 06/13/25 15:25 Hyaline Casts 0-4 /lpf H 06/13/25 15:25 Discharge Plan Discharge Patient Disposition: Home Clinical Impression: Type 2 diabetes mellitus Qualifiers: 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 insulin use: with extermination inspector use Diabetes mellitus complication status: with neurologic complications Diabetes mellitus complication detail: with polyneuropathy Qualified Code(s): E11.42 - Type 2 diabetes mellitus with diabetic polyneuropathy Condition: Stable Prescriptions: No Action melatonin 5 mg capsule 10 mg PO BEDTIME (DME) left knee medial automobile taillight assembler brace See Rx Instructions .Route .MEDSUPPLY Qty: 1 0RF Rx Instructions: As directed magnesium oxide 400 mg magnesium tablet 400 mg PO DAILY Qty: 90 3RF nateglinide 60 mg tablet 60 mg PO TID Qty: 270 1RF Rx Instructions: give before meal(s) Incruse Ellipta 62.5 mcg/actuation blister with device 1 inh inhalation DAILY Qty: 90 6RF metoprolol succinate 25 mg tablet extended release 24 hr 12.5 mg PO DAILY Qty: 45 0RF irbesartan-hydrochlorothiazide 150-12.5 mg tablet 1 tab PO BID celecoxib 200 mg capsule 200 mg PO DAILY Qty: 30 0RF tizanidine 4 mg capsule 4 mg PO Q8H PRN (Reason: muscle spasticity) Qty: 30 0RF metformin 500 mg tablet 1,000 mg PO BID multivitamin Tablet 1 tab PO DAILY aspirin 81 mg Tablet,Delayed Release (Dr/Ec) 81 mg PO DAILY gabapentin 300 mg capsule 300 mg PO BID ondansetron 4 mg tablet,disintegrating 4 mg PO Q6H PRN (Reason: nausea and vomiting) Qty: 14 0RF citalopram 10 mg tablet 10 mg PO DAILY insulin glargine [Lantus Solostar U-100 Insulin] 100 unit/mL (3 mL) insulin pen 24 unit SUBCUT BEDTIME Jardiance 10 mg tablet 10 mg PO QAM polyethylene glycol 3350 [Miralax] 17 gram powder in packet 17 g PO DAILY Qty: 30 3RF pravastatin 20 mg tablet 20 mg PO BID tizanidine 4 mg tablet 4 mg PO Q6H PRN (Reason: muscle spasticity) Qty: 20 0RF Rx Instructions: do not exceed 3 doses per 24 hrs hydrocodone-acetaminophen 5-325 mg tablet 1 tab PO Q6H PRN (Reason: pain) Qty: 10 0RF diclofenac sodium 75 mg tablet,delayed release (DR/EC) 75 mg PO Q12H PRN (Reason: pain) Qty: 20 0RF Discharge Orders: Discharge ED (Routine); Ordered 06/13/25 Ordered By: James Sheridan Referrals: Ryan Martinez [Primary Care Provider, Family Practice] Patient Instructions: Patient Portal & Travis Instructions Activity Restrictions/Additional Instructions: Discharge Instructions Diagnosis: You were treated in the emergency department for high blood sugar (hyperglycemia) related to type 2 diabetes. Your blood sugar was greater than 400 mg/dL when you arrived, but it has been brought down to a safer level with fluids and insulin. What This Means: High blood sugar can make you feel very sick and, if left untreated, can lead to serious complications. Your body needs insulin to use sugar for energy. In type 2 diabetes, your body either doesn't make enough insulin or doesn't use it well. Monitoring Your Blood Sugar at Home: - Check your blood sugar as directed by your primary care doctor - Your goal is to keep your blood sugar between 100-180 mg/dL - Write down your blood sugar readings and bring them to your follow-up appointment - You will need a blood sugar meter, test strips, and lancets?make sure you have these supplies before leaving Medications: - Take all diabetes medications exactly as prescribed - If you were given new medications or insulin, a pharmacist or nurse will review how and when to take them - Do not stop taking your medications without talking to your doctor first - Make sure all your prescriptions are filled before you go home Warning Signs?When to Seek Help: High Blood Sugar (Hyperglycemia): - Blood sugar above 250 mg/dL - Extreme thirst or frequent urination - Blurred vision - Feeling very tired or weak Low Blood Sugar (Hypoglycemia): - Blood sugar below 70 mg/dL - Shaking, sweating, or feeling confused - Fast heartbeat or dizziness - If this happens: Eat or drink 15 grams of fast-acting sugar (like 4 glucose tablets, ? cup of juice, or 1 tablespoon of honey), wait 15 minutes, and recheck your blood sugar Call 911 or go to the emergency department if: - Your blood sugar stays above 400 mg/dL - You have severe symptoms like confusion, trouble breathing, or loss of consciousness - You cannot keep food or liquids down Healthy Eating: - Choose healthy foods like vegetables, lean proteins, and whole grains - Limit sugary drinks and foods high in sugar - Eat meals at regular times each day - A dietitian can help you create a meal plan that works for you Physical Activity: - Try to be active for at least 150 minutes per week (like 30 minutes, 5 days a week) - Walking, swimming, or biking are good options - Check your blood sugar before and after exercise Sick Day Rules: - Keep taking your diabetes medications even if you're sick - Check your blood sugar every 4 hours - Drink plenty of water to stay hydrated - Check your temperature - Call your doctor if you're too sick to eat or if your blood sugar stays high Follow-Up Care: - You must see your primary care doctor within 1-2 weeks - This appointment is very important to adjust your medications and prevent future problems - Your doctor may order a blood test called hemoglobin A1C to see your average blood sugar over the past 3 months - You may also need to see a inspector metal can or specialist Important Reminders: - Dispose of needles and lancets safely in a sharps container - Store insulin as directed (some types need refrigeration) - Wear a medical alert bracelet that says you have diabetes - Tell all your doctors that you have diabetes Questions? If you have questions about your diabetes care after you leave, contact your primary care doctor's office. Print Language: Tajik Coding Level of Care Code ED Cemetery Keeper for Marina Preston
[2025-06-13 15:32] LABS: ABG PCO2 38.8 mmHg (35-45); ABG PH Result 7.43 (7.35-7.45); Alveolar-Arterial Oxygen Gradi 2.0 mmHg (5-10); Arterial Blood Gas Hematocrit 44.9 % (42-52); Blood Gas Allen Test Pos; Blood Gas Sample Site Radial, left; Blood Gas Sample Type Arterial; Carboxyhemoglobin 0.2 %THgb (0.4-20.1); Glucose Level-ABG 460.0 mg/dL (70-115); HCO3 ABG 25.8 mmol/L (22-26); Ionized Calcium Level - ABG 1.2 mmol/L (1.1-1.4); Methemoglobin 0.9 % (0.4-1.5); Oxygen Saturation ABG 95.9; PO2 ABG 86.2 mmHg (80.0-100.0); PO2 FiO2 Ratio Arterial Blood 410; Potassium Level - ABG 4.3 mmol/L (3.5-5.0); Sodium Level - ABG 140.0 mmol/L (131-143)
[2025-06-13 15:36] VITALS: BP 144/95; PULSE 101; RESP 16; O2SAT 96
[2025-06-13 15:47] LABS: Hematocrit 42.8 % (37-53); Hemoglobin 13.90 g/dL (11.27-16.99); Mean Corpuscular HGB Conc 32.5 g/dL (30-55); Mean Corpuscular Hemoglobin 28.8 pg (27-33); Mean Corpuscular Volume 88.6 fl (82-101); Nucleated Red Blood Cells % 0 %; Platelet Count 250 10^3/cmm (157-399); Red Blood Count 4.83 10^6/uL (3.85-5.65); White Blood Count 6.71 10^3/uL (3.29-11.43)
[2025-06-13 16:08] LABS: Alanine Aminotransferase 60 U/L (0-41); Albumin Level 4.1 g/dL (3.5-5.2); Alkaline Phosphatase 88 U/L (40-130); Anion Gap 18.3 (5-19); Aspartate Amino Transferase 26 U/L (0-40); Blood Urea Nitrogen 22 mg/dL (6-20); Calcium 9.4 mg/dL (8.5-10.5); Carbon Dioxide 24 mmol/L (22-29); Chloride 102 mmol/L (98-107); Globulin 2.8 g/dL (1.3-4.6); Glucose 454 mg/dL (65-115); Osmolality Calculated 313 mOsm/kg (285-295); Potassium 4.3 mmol/L (3.5-5.1); Sodium 140 mmol/L (136-145); Total Protein 6.9 g/dL (6.6-8.7)
[2025-06-13 16:17] LABS: Glucose Urine UA 3+ (Normal); Nitrate Urine Negative (Negative)
[2025-06-13 16:20] LABS: Add Urine Microscopic? YES
[2025-06-13 16:25] LABS: Specific Gravity, Urine 1.033 (1.005-1.030)
[2025-06-13] MEDS: insulin regular-human 100 units/1 mL 10 UNIT IVP (16:48)
[2025-06-13 16:54] VITALS: BP 169/95; PULSE 98; RESP 16; O2SAT 94
[2025-06-13 17:00] VITALS: BP 176/101; PULSE 94; RESP 16; O2SAT 97
[2025-06-13 17:51] VITALS: BP 176/101; PULSE 87; RESP 16; O2SAT 98
== END 2025-06-13 17:51 | disposition home or self-care (01) ==
PROVIDERS: Emergency Provider Physician Assistant; PCP Family Medicine
DX: E11.42 Type 2 diabetes mellitus with diabetic polyneuropathy (principal); E11.65 Type 2 diabetes mellitus with hyperglycemia; Z79.84 Long term (current) use of oral hypoglycemic drugs; Z79.82 Long term (current) use of aspirin; Z79.4 Long term (current) use of insulin; Z87.891 Personal history of nicotine dependence; E78.5 Hyperlipidemia, unspecified
CPT/HCPCS: 36415; 36416; 36600; 71045; 80051; 80053; 81001; 82330; 82805; 82962; 83930; 85025; 93005; 96361; 96374; 99285; J1815; J7030

== ENCOUNTER 2025-06-13 23:30 | Emergency (ER) | payer MEDICARE, MEDICAID, SELFPAY ==
[2025-06-13 23:38] VITALS: BP 168/107; PULSE 81; RESP 22; TEMP 36.6; O2SAT 97; BMI 37.7
--- OUTSIDE RECORDS SUMMARY | 2025-06-13 23:40 | XMS_ITS | Clinical Summary ---
Author Organization [facility] Address [address] [place] [address] Care Team Providers Care Certified Physician Assistant Name Role Phone Ryan Martinez MD Primary Care Provider [phone] [phone] Allergies Active Allergy Reactions Criticality Noted Date Comments Prednisone Other (See Comments) 12/16/2017 Raises blood sugar Medications lancets 30 gauge 1 Lancet by [facility] [place]Non-Dr ug; Combo Route) route [...] on file Legal Sex Male 3:46 AM INTERIOR DESIGN PROFESSIONAL Gender Identity Not on file Sexual Orientation Not on file Last Filed Vital Signs Vital Sign Reading Time Taken Comments Blood Pressure 130/74 08/14/2020 2:56 PM INTERIOR DESIGN PROFESSIONAL Pulse 108 08/14/2020 2:56 PM INTERIOR DESIGN PROFESSIONAL Temperature 36.3 C (97.4 F) 08/14/2020 2:56 PM INTERIOR DESIGN PROFESSIONAL Respiratory Rate 16 08/14/2020 2:56 PM INTERIOR DESIGN PROFESSIONAL Oxygen Saturation 97% 08/14/2020 2:56 PM INTERIOR DESIGN PROFESSIONAL Inhaled Oxygen Concentration - - Weight 117.5 kg (259 lb) 08/14/2020 2:56 PM INTERIOR DESIGN PROFESSIONAL Height 176.5 cm (5' 9.5 ) 08/14/2020 2:56 PM INTERIOR DESIGN PROFESSIONAL Body Mass Index 37.7 08/14/2020 2:56 PM INTERIOR DESIGN PROFESSIONAL Plan of Treatment Health Maintenance Due Date [...] history exists Medical Devices Implanted Type Area Supervisor Hospitality House Device Identifier Shelf Expiration Date Model / Serial / Lot Comp Fem Trthln Cr Pa Sz5 5517-F-502 - [id number] Implanted:Qty: 1 on 05/24/2018 by Christiano Donnelly MD at [facility] Knee Right: Knee [employer] 11/29/2022 5517-F-502 / / [id number] Description:PER INVOICE Insert Tib Trthln X3 Cs 5531-G-511 - [id number] Implanted:Qty: 1 on 05/24/2018 by Christiano Donnelly MD at [facility] Knee Right: Knee [employer] 03/09/2022 5531-G-511 / / [id number] Description:PER INVOICE Patella Trthln Trtnm Sza32 5552-L-320 - [id number] Implanted:Qty: 1 on 05/24/2018 by Christiano Donnelly MD at [facility] Knee Right: Knee [employer] 12/02/2022 5552-L-320 / / [id number] Description:PER INVOICE Comp Tib Trthln Trtnmn Sz5 5536-B-500 - [id number] Implanted:Qty: 1 on 05/24/2018 by Christiano Donnelly MD at [facility] Knee Right: Knee [employer] 10/28/2022 5536-B-500 / / [id number] Description:PER INVOICE Procedures Procedure Name Priority Date/Time Associated Diagnosis Comments HEMOGLOBIN A1C Routine 08/14/2020 3:33 PM INTERIOR DESIGN PROFESSIONAL Type 2 diabetes mellitus with hypoglycemia without coma, without long-term current use of insulin ([facility]) MICROALBUMIN/CREATI NINE RATIO, RANDOM UR Routine 04/10/2020 10:12 AM CDT Type 2 diabetes mellitus with hypoglycemia without coma, without long-term current use of insulin ([facility]) LIPID PANEL Routine 04/10/2020 10:12 AM CDT Type 2 diabetes mellitus with hypoglycemia without coma, without long-term current use of insulin ([facility]) Severe obesity (BMI 35.0-39.9) with comorbidity ([facility]) HTN (hypertension), benign Dyslipidemia from Last 3 Months or Most Recently Relevant to Health Maintenance Results * (ABNORMAL) HEMOGLOBIN A1C (08/14/2020 3:33 PM INTERIOR DESIGN PROFESSIONAL) HEMOGLOBIN A1C 10.7(H) See Comment % 08/15/2020 10:[address] [facility] EST. AVG GLUCOSE, A1C 260 mg/dL 08/15/2020 10:[address] [facility] Blood Collection / Unknown 08/14/2020 3:33 PM INTERIOR DESIGN PROFESSIONAL 08/14/2020 8:05 PM INTERIOR DESIGN PROFESSIONAL Narrative [facility] - 08/15/2020 10:42 AM INTERIOR DESIGN PROFESSIONAL HGB A1C INTERPRETATION NORMAL: <5.7% PRE-DIABETES: 5.7 - 6.4% DIABETES: 6.5% OR GREATER Falsely low A1C measurements can occur when: 1. Anemia and/or hemolytic anemia is present. 2. Hemoglobin variants present. 3. Renal failure. 4. Transfusion of blood product in the last 120 days. We recommend ordering a fructosamine test([id number]) to more accurately assess glycemic status if any of the above conditions are present. Ryan Martinez MD CHEMISTRY ORDERABLES Mikayla green Result [facility] CLIA# [id number] [facility] [place] [address] * MICROALBUMIN/CREATININE RATIO, RANDOM UR (04/10/2020 10:12 AM CDT) MICROALBUMIN, URINE <1.2 No Reference Range mg/dL 04/10/2020 10:07 PM CDT [facility] CREATININE, URINE 166.9 40.0 - 278.0 mg/dL 04/10/2020 10:07 PM CDT [facility] Comment:Reference Range vari es with fluid intake and diet. MICROALBUMIN/C REAT RATIO, UR <7.2 <17.0 mg/g 04/10/2020 10:07 PM CDT [facility] Urine URINE SPECIMEN OBTAINED BY CLEAN CATCH PROCEDURE / Unknown Collection / Unknown 04/10/2020 10:12 AM CDT 04/10/2020 8:29 PM CDT [facility] - 04/10/2020 10:07 PM CDT Condition Microalbumin/Creat ratio Normal Males <17 Normal Females <25 Microalbuminuria Males 17-299 Microalbuminuria Females 25-299 Overt proteinuria >=300 us Ryan Martinez MD URINE ORDERABLES Final Re sult [facility]# [id number] [address] [place] [address] * LIPID PANEL (04/10/2020 10:12 AM CDT) CHOLESTEROL 121 <200 mg/dL 04/10/2020 9:54 PM CDT [facility] TRIGLYCERIDE 86 <150 mg/dL 04/10/2020 9:54 PM CDT [facility] HDL 45 40 - 59 mg/dL 04/10/2020 9:54 PM CDT [facility] LDL CALCULATED 59 <100 mg/dL 04/10/2020 9:54 PM CDT [facility] NON-HDL CHOLESTEROL 76 <130 mg/dL 04/10/2020 9:54 PM CDT [facility] Blood Venipuncture / Unknown 04/10/2020 10:12 AM CDT 04/10/2020 8:32 PM CDT Narrative [facility] - 04/10/2020 9:54 PM [...] ORDERABLES Mikayla green Result Performing Organization Address City/State/[facility] Co de Phone Number [facility] CLIA# [id number] [place] [address] from Last 3 Months or Most Recently Relevant to Health Maintenance Insurance MEDICAID [place] MEDICARE PART A AND B RX AET[employer] Medicare Part D RX [employer] (INTERNAL) [facility] Internal Plans Advance Directives For more information, please contact: [phone] * Full Code (Latest Code Status on File) Date Activated Date Inactivated Comments 05/24/2018 1:29 PM 05/26/2018 4:39 PM * Full Code Date Activated Date Inactivated Comments 05/24/2018 7:47 AM 05/24/2018 1:29 PM Care Teams Certified Physician Assistant Relationship Specialty Start Date End Date Ryan Martinez MD [address] [address] PCP - General Family Practice 12/16/17
--- OUTSIDE RECORDS SUMMARY | 2025-06-13 23:40 | XMS_ITS | Encounter Summary ---
Author Organization [facility] Address 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 Citlali RAZO MBLY LINE UPHOLSTERER documented in this encounter Plan of Treatment Upcoming Encounters Date Type Department Care Team (Late st Contact Info) Description 07/20/2025 4:20 PM ASSEMBLY LINE UPHOLSTERER Office Visit [facility] [place] [address] [address] Ryan Martinez MD [address] [address] documented as of this encounter Visit Diagnoses Not on filedocumented in this encounter Care Teams Composition Tile Layer Relationship Specialty Start Date End Date Ryan Martinez MD [address] [address] PCP - General Family Practice 12/16/17 documented as of this encounter
--- OUTSIDE RECORDS SUMMARY | 2025-06-13 23:40 | XMS_ITS ---
Author Organization [facility] Address [address] 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
--- OUTSIDE RECORDS SUMMARY | 2025-06-13 23:40 | XMS_ITS | Encounter Summary ---
Author Organization [facility] Address [address] [place] [address] Care Team Providers Care Soliciting Freight Agent Name Role Phone Ryan Martinez MD Primary Care Provider [phone] Encounter Details Date Type Department Care Team (Latest Contact Info) Description 02/18/1999 Outpatient Historical [facility] General and Trauma Surgery-[address] [place] [address] Kwesi Spence MD NO ADDRESS ON FILE Acute appendicitis without mention of peritonitis (Primary Dx) Social History Tobacco Use Types Packs/Day Years Used Date Smoking Tobacco: Never Assessed Sex and Gender Information Value Date Recorded Sex Assigned at Not on file Legal Sex Male 3:46 AM 

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
--- NOTE | 2025-06-14 00:10 | XRR_ITS ---
PROCEDURE INFORMATION: Exam: XR Chest Exam date and time: 06/14/2025 12:11 AM Age: 55 years old Clinical indication: Shortness of breath; Additional info: SOB TECHNIQUE: Imaging protocol: Radiologic exam of the chest. Views: 1 view. COMPARISON: CR XR chest 1V portable [id number] 06/13/2025 3:11 PM FINDINGS: Lungs: Unremarkable. No consolidation. Pleural spaces: Trace bilateral pleural effusions. Heart/Mediastinum: Unremarkable. No cardiomegaly. Bones/joints: Unremarkable. XR/XR chest 1V portable [id number] IMPRESSION: Trace bilateral pleural effusions.
[2025-06-14 00:11] VITALS: BP 158/85; PULSE 76; RESP 16; O2SAT 94
[2025-06-14] MEDS: ondansetron 2 mg/ML SDV 2 mL 4 MG IVP (00:24)
[2025-06-14] MEDS: diphenhydrAMINE 50 mg/mL SDV 1mL 25 MG IVP (00:24)
[2025-06-14 00:29] VITALS: PULSE 70; RESP 18; O2SAT 97
[2025-06-14 00:30] VITALS: BP 151/78; PULSE 82; PULSE 87; RESP 16; RESP 18; O2SAT 94; O2SAT 97
[2025-06-14 01:27] VITALS: BP 137/82; PULSE 84; O2SAT 95
== END 2025-06-14 01:20 | disposition home or self-care (01) ==
PROVIDERS: Emergency Provider Emergency Medicine; PCP Family Medicine
DX: J98.01 Acute bronchospasm (principal); Z79.82 Long term (current) use of aspirin; Z79.4 Long term (current) use of insulin; Z87.891 Personal history of nicotine dependence; E78.5 Hyperlipidemia, unspecified; E11.9 Type 2 diabetes mellitus without complications; I10 Essential (primary) hypertension
CPT/HCPCS: 71045; 94640; 96374; 96375; 99284; J1200; J2405; J3490; J9999